=== PATIENT | female | born 1985 | race Caucasian/White ===

== ENCOUNTER 2019-09-20 18:14 | Emergency (ER) | payer OTHER, SELFPAY ==
--- NOTE | ~2019-09-20 | XR_ITS ---
EXAMINATION: XR foot LT min 3V DATE: 09/20/2019 19:45 INDICATION: Left foot pain. TECHNIQUE: 4 views of left foot were obtained. COMPARISON: Left foot radiographs 07/06/2018 FINDINGS: Bone alignment is normal. No fracture. There is mild midfoot osteoarthritis. IMPRESSION: 1. Mild midfoot osteoarthritis. Reviewed, dictated and finalized at location A.
[2019-09-20 18:31] VITALS: BP 129/87; PULSE 79; RESP 16; TEMP 36.9; O2SAT 99
--- NOTE | 2019-09-20 19:19 | ED.LOWEXIN ---
HPI - Extremity Injury (Lower) General Chief Complaint: Extremity Injury, Lower Stated Complaint: KNOT ON TOP OF FOOT. Time Seen by Provider: 09/20/19 19:10 History of Present Illness HPI Narrative: Heal pain radiating up the lower leg for a few days. The pain is constant and gets worse throughout the day, especially with walking or standing for extended periods. 2 days ago noted swelling over the dorsum of the mid foot. She says that that area and the toes both feel like they are asleep. Related Data Home Medications Medication Instructions Recorded Confirmed topiramate 25 mg PO 09/20/19 Allergies Allergy/AdvReac Type Severity Reaction Status Date / Time No Known Allergies Allergy Unverified 09/20/19 18:59 Review of Systems Review of Systems: All systems reviewed & are unremarkable except as noted in HPI and below Constitutional: Constitutional: Denies chills and Denies fever(s) Neurologic: Denies dizziness and Denies weakness PMFSH Social History Social History Gender identity (if verbalized by the patient): Female Exam Const: General: healthy appearing, no acute distress and alert Orientation/consciousness: patient oriented x3 HENMT: Head: normal to inspection Resp: Effort & Inspection: normal respiratory effort Cardio: Jugular venous distension: no JVD Other: 2+ DP on the left Skin: General skin exam: normal color Rashes: no rashes Wounds: no wounds Neuro: General: patient oriented x3 and moves all extremities Speech: normal speech Extrem: Other: Grossly normal exam of left foot and ankle Psych: Appearance: well kempt Affect: normal affect Course Vital Signs Vital signs: Vital Signs Temperature 36.9 C 09/20/19 18:31 Pulse Rate 79 09/20/19 18:31 Respiratory Rate 16 09/20/19 18:31 Blood Pressure 129/87 09/20/19 18:31 Pulse Oximetry 99 09/20/19 18:31 Temperature 36.9 C 09/20/19 18:31 Pulse Rate 70 09/20/19 20:40 Respiratory Rate 18 09/20/19 20:40 Blood Pressure 121/69 09/20/19 20:40 Pulse Oximetry 98 09/20/19 20:40 MDM - Extremity Injury (Lower) MDM Narrative Medical decision making narrative: X-ray shows osteoarthritis. I believe that her symptoms are most likely a combination of this and plantar fascitis Imaging Data Radiologist's impression: ITS Impressions Foot X-Ray 09/20/19 19:46 IMPRESSION: 1. Mild midfoot osteoarthritis. Discharge Plan Discharge Clinical Impression: Osteoarthritis of foot, left, Plantar fasciitis of left foot Patient Disposition: Home, Self-Care Condition: Stable Instructions: Plantar Fasciitis (ED) Prescriptions: New naproxen 500 mg tablet 500 mg PO BID Qty: 30 RF: 0 No Action topiramate 25 mg tablet 25 mg PO RF: 0 Follow-up/Referrals: Edison Block MD [Primary Care Provider] - Discharge Date/Time: 09/20/19 20:50
[2019-09-20 20:40] VITALS: BP 121/69; PULSE 70; RESP 18; O2SAT 98
== END 2019-09-20 20:50 | disposition home or self-care (01) ==
PROVIDERS: Emergency Provider Emergency Medicine; PCP Family Medicine
DX: M19.072 Primary osteoarthritis, left ankle and foot (principal); M72.2 Plantar fascial fibromatosis
CPT/HCPCS: 73630; 99283

== ENCOUNTER 2019-10-14 09:05 | Outpatient (CLI) | payer OTHER, SELFPAY ==
--- NOTE | ~2019-10-14 | US_ITS ---
EXAMINATION: US right upper quadrant DATE: 10/14/2019 09:35 INDICATION: Nausea and vomiting. TECHNIQUE: Multiple grayscale and Doppler ultrasound images of the abdomen were obtained. COMPARISON: CT abdomen and pelvis 06/21/2013 FINDINGS: The visualized portions of the head and body of the pancreas are normal. The liver is kristy l without focal lesion. No liver surface nodularity. There is normal flow in main portal vein. The ga llbladder is normal in size. No gallstones or gallbladder wall thickening. There was no sonographic M urphy sign. The common duct is normal and measures 4 mm. IMPRESSION: 1. Normal right upper quadrant ultrasound. Reviewed, dictated and finalized at location B.
[2019-10-14 10:03] LABS: Basophils Percent Auto 0.6 % (0.2-1.2); Eosinophils Absolute Auto 0.2 K/mm3 (0-0.3); Eosinophils Percent Auto 2.3 % (0-4.4); Hematocrit 38.6 % (37.0-47.0); Hemoglobin 12.2 g/dL (12.0-15.0); Immature Granulocyte Absolute 0.01 K/mm3 (0.00-0.031); Immature Granulocyte Percent A 0.2 % (0-0.5); Lymphocytes Absolute Auto 1.92 K/mm3 (0.9-3.2); Mean Corpuscular HGB Conc 31.6 g/dl (32-36); Mean Corpuscular Hemoglobin 25.6 pg (26-34); Mean Corpuscular Volume 81.1 fl (80-100); Mean Platelet Volume 10.4 fl (7.4-10.4); Monocytes Absolute Auto 0.4 K/mm3 (0.1-0.6); Monocytes Percent Auto 6.4 % (2.6-8.5); Neutrophils Absolute Auto 3.9 K/mm3 (1.3-6.7); Neutrophils Percent Auto 60.5 % (45.5-73.1); Platelet Count Result 260 k/mm3 (150-375); Red Blood Count 4.76 M/mm3 (4.2-5.4); Red Cell Distribution Width 13.3 % (11.5-14.5); White Blood Count 6.4 K/mm3 (4.5-10.0)
[2019-10-14 10:17] LABS: Alanine Aminotransferase 14 U/L (4-35); Albumin Level 3.9 g/dL (3.5-5.1); Alkaline Phosphatase 56 U/L (38-126); Anion Gap 6 mmol/L (8-16); Aspartate Amino Transferase 20 U/L (14-36); Bilirubin,Total 0.3 mg/dL (0.2-1.3); Blood Urea Nitrogen 10 mg/dL (7-17); Calcium 8.6 mg/dL (8.4-10.2); Carbon Dioxide 24 mmol/L (22-30); Chloride 107 mmol/L (98-107); Cholesterol 163 mg/dL (0-200); Estimated Glomerular Filt Rate > 60; Glucose 94 mg/dL (65-105); HDL Direct 37 mg/dL; Potassium 4.4 mmol/L (3.4-5.0); Sodium 137 mmol/L (137-145); Triglycerides 152 mg/dL (<150)
[2019-10-14 10:28] LABS: LDL Cholesterol Direct 95 mg/dL
[2019-10-14 10:43] LABS: Creatinine Urine 109.1 mg/dL
[2019-10-14 10:47] LABS: Total Triiodothyronine (T3) 1.15 NG/ML (0.97-1.69)
[2019-10-14 10:48] LABS: MALB Creatinine Ratio 5.6 mg/g (0-30); Microalbumin Urine Random 6.1 mg/L (0-16.7)
[2019-10-14 10:58] LABS: Free T4 Free Thyroxine 0.68 ng/mL (0.78-2.19)
== END 2019-10-14 09:06 | disposition home or self-care (01) ==
PROVIDERS: PCP Family Medicine; Referring Provider Nurse Practitioner; Visit Provider Family Medicine
DX: R11.0 Nausea (principal)
CPT/HCPCS: 36415; 76705; 80053; 80061; 82043; 82306; 84439; 84443; 84480; 85025

== ENCOUNTER 2020-02-21 12:14 | Outpatient (CLI) | payer OTHER, SELFPAY ==
--- NOTE | ~2020-02-21 | MMUS_ITS ---
EXAMINATION: MM diagnostic carson BI w janice, US breast RT limited HISTORY: Palpable lump in the axillary region of the right breast TECHNIQUE: Craniocaudal, mediolateral, and mediolateral oblique 3-D tomosynthesis images of the breas ts were performed and synthetic 2-D images were generated. CAD analysis was submitted and interpreted . High resolution right axillary ultrasound was performed. COMPARISON: None, baseline BREAST PARENCHYMAL COMPOSITION: There are scattered areas of fibroglandular density. FINDINGS: MAMMOGRAPHIC FINDINGS: Right breast: There is no evidence of suspicious mass, calcification, or architectural distortion to suggest malignancy. No mammographic correlate is identified for the reported palpable lump of the ri ght axilla. Left breast: There is no evidence of suspicious mass, calcification, or architectural distortion to suggest malignancy. ULTRASOUND: No sonographic correlate is identified for the reported palpable abnormality of the right axilla. IMPRESSION: 1. No specific mammographic or sonographic correlate is identified for the reported palpable abnormal ity of concern in the right axilla. Further evaluation at this time should be based on clinical asses sment. Continued follow-up physical examination is recommended. 2. Recommend routine screening mammography beginning at age 40. BI-RADS Category 1: Negative Reviewed, dictated and finalized at location A. GRINDER HELPER IMPRESSION: 1. No specific mammographic or sonographic correlate is identified for the repo rted palpable abnormality of concern in the right axilla. Further evaluation at this time should be based on clinical assessment. Continued follow-up physical examination is recommended. 2. Recommend routine screening mammography beginning at age 40. BI-RADS Category 1: Negative
== END 2020-02-21 12:15 | disposition home or self-care (01) ==
PROVIDERS: PCP Family Medicine; Visit Provider Nurse Practitioner Obstetrics & Gynecology
DX: N63.31 Unspecified lump in axillary tail of the right breast (principal)
CPT/HCPCS: 76642; 77062; 77066; G0279

== ENCOUNTER 2020-03-25 13:15 | Outpatient (CLI) | payer OTHER, SELFPAY ==
[2020-03-25 14:28] LABS: Vitamin D 25 Hydroxy 23.3 ng/mL
== END 2020-03-25 13:16 | disposition home or self-care (01) ==
PROVIDERS: PCP Family Medicine
DX: E55.9 Vitamin D deficiency, unspecified (principal)
CPT/HCPCS: 36415; 82306

== ENCOUNTER 2020-09-15 09:12 | Outpatient (CLI) | payer OTHER, SELFPAY ==
[2020-09-15 09:35] LABS: Basophils Absolute Auto 0.1 K/mm3 (0.0-0.1); Basophils Percent Auto 0.8 % (0.2-1.2); Eosinophils Absolute Auto 0.4 K/mm3 (0-0.3); Eosinophils Percent Auto 5.4 % (0-4.4); Hematocrit 38.8 % (37.0-47.0); Hemoglobin 11.9 g/dL (12.0-15.0); Immature Granulocyte Absolute 0.02 K/mm3 (0.00-0.031); Immature Granulocyte Percent A 0.3 % (0-0.5); Lymphocytes Absolute Auto 1.81 K/mm3 (0.9-3.2); Mean Corpuscular HGB Conc 30.7 g/dl (32-36); Mean Corpuscular Hemoglobin 24.3 pg (26-34); Mean Corpuscular Volume 79.3 fl (80-100); Mean Platelet Volume 10.2 fl (7.4-10.4); Monocytes Absolute Auto 0.7 K/mm3 (0.1-0.6); Neutrophils Absolute Auto 4.6 K/mm3 (1.3-6.7); Neutrophils Percent Auto 60.5 % (45.5-73.1); Platelet Count Result 295 k/mm3 (150-375); Red Blood Count 4.89 M/mm3 (4.2-5.4); Red Cell Distribution Width 14.8 % (11.5-14.5); White Blood Count 7.5 K/mm3 (4.5-10.0)
[2020-09-15 09:50] LABS: Alanine Aminotransferase 14 U/L (4-35); Alkaline Phosphatase 69 U/L (38-126); Anion Gap 9 mmol/L (8-16); Aspartate Amino Transferase 20 U/L (14-36); Bilirubin,Total 0.4 mg/dL (0.2-1.3); Blood Urea Nitrogen 11 mg/dL (7-17); Calcium 9.1 mg/dL (8.4-10.2); Carbon Dioxide 23 mmol/L (22-30); Chloride 107 mmol/L (98-107); Cholesterol 176 mg/dL (0-200); Estimated Glomerular Filt Rate > 60; Glucose 94 mg/dL (65-105); HDL Direct 39 mg/dL; Potassium 4.3 mmol/L (3.4-5.0); Sodium 139 mmol/L (137-145); Triglycerides 178 mg/dL (<150)
[2020-09-15 10:01] LABS: LDL Cholesterol Direct 83 mg/dL
[2020-09-15 10:19] LABS: Creatinine Urine 152.3 mg/dL
[2020-09-15 10:24] LABS: MALB Creatinine Ratio 7.4 mg/g (0-30); Microalbumin Urine Random 11.3 mg/L (0-16.7)
[2020-09-15 10:27] LABS: Total Triiodothyronine (T3) 1.06 NG/ML (0.97-1.69)
[2020-09-15 10:52] LABS: Vitamin D 25 Hydroxy 31.1 ng/mL
[2020-09-15 11:04] LABS: Free T4 Free Thyroxine 0.75 ng/mL (0.78-2.19)
== END 2020-09-15 09:13 | disposition home or self-care (01) ==
LOC: ANHLAB 09:15
PROVIDERS: PCP Family Medicine; Visit Provider Family Medicine
DX: E55.9 Vitamin D deficiency, unspecified (principal); I10 Essential (primary) hypertension; E16.2 Hypoglycemia, unspecified
CPT/HCPCS: 36415; 80053; 80061; 82043; 82306; 83036; 84439; 84443; 84480; 84481; 85025

== ENCOUNTER 2021-02-06 12:35 | Emergency (ER) | payer OTHER, SELFPAY ==
--- NOTE | ~2021-02-06 | XR_ITS ---
EXAMINATION: XR chest 2V DATE: 02/06/2021 13:13 INDICATION: Mid upper chest pain and back pain. COVID positive. TECHNIQUE: PA and lateral views of the chest were obtained. COMPARISON: None FINDINGS: The lungs are clear with no focal airspace opacities, pulmonary edema, pleural effusion or pneumothor ax. The cardiomediastinal silhouette is normal. Mild pectus excavatum. IMPRESSION: 1. No acute cardiopulmonary disease. Reviewed, dictated and finalized at location A. SANE
[2021-02-06 12:46] VITALS: BP 160/110; PULSE 112; RESP 16; TEMP 36.6; O2SAT 99
--- NOTE | 2021-02-06 12:59 | ECG_ITS ---
Measurements Intervals Mason Rate: 80 P: 33 ID: [id number] QRS: 60 QRSD: 98 T: 7 QT: 373 QTc: 431 Interpretive Statements SINUS RHYTHM MINIMAL Q WAVES- INFERIOR LEADS BORDERLINE ST-T WAVE ABNORMALITY- INFERIOR LEADS BASELINE ARTIFACT- II, III, AVR, AVL, AVF, V1-V2 BORDERLINE ECG Electronically Signed On 02-06-2021 20:10:29 TUG HAND by Ishaan Stone D.O.
--- NOTE | 2021-02-06 13:45 | ED.BACK ---
HPI - Back Pain/Injury General Chief Complaint: Back Pain/Injury Stated Complaint: Body aches Source: patient and RN notes reviewed Limitations: no limitations History of Present Illness HPI Narrative: The vaccinated patient, who is a vapor?smoker/nondrinker on several meds, presents with myalgias and back pain. 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 This worsened today to involve her back, proximal extremities and then briefly her anterior chest. No fever, cough, related to breathing, known injury/overuse, weakness, numbness, neck pain, gait changes, S OB, calf tenderness/edema-does have intermittent ankle swelling. She's had Covid disease also?no loss of taste/smell, vomiting/diarrhea, frequency/dysuria, vaginal discharge. Vital signs remarkable for blood pressure is high 150s over 90s, for which she has known history. Related Data Home Medications Medication Instructions Recorded Confirmed topiramate 25 mg PO PRN 09/20/19 02/06/21 lisinopril 40 mg PO DAILY 02/06/21 02/06/21 Allergies Allergy/AdvReac Type Severity Reaction Status Date / Time No Known Allergies Allergy Unverified 02/06/21 12:44 Review of Systems Review of Systems: General/Constitutional: No weight loss,fever Eyes: N0: Redness,discharge Ears/Nose/Throat: No: Epistaxis,ear discharge Respiratory: Denies: Hemoptysis Gastrointestinal: No Vomiting, Bleeding-rectal Skin: No Lumps, eruption Neurologic: No Focal Weakness,Sz Hematologic: Denies: Petechiae/Purpura Psychiatric: No: Suicida ideationl All Other Systems: Reviewed and Negative PMFSH Social History Social History Gender identity (if verbalized by the patient): Female Comments At time of signature, agree with nursing past medical, surgical, social and family history. There is no relevant family history pertinent to the presenting complaint Exam Narrative: General Appearance: Well nourished/overweight EYE: PERRLA, Conjunctiva clear Ears: External ear normal Nose: Normal nose Mouth/Throat: Normal appearing, Normal lips Neck: Supple Respiratory: Airway patent, No respiratory distress Cardiovascular: RRR Abdomen: Soft, Non-tender, Musculoskeletal: Full ROM Skin: Warm, Dry, mild midline thoracic back tenderness Neurological: A&O x3, CN II-X intact, reflexes 2-3+ and symmetric Psychiatric: Normal mood, Normal affect Course Course Emergency Course: Films visualized, interpreted by radiologist, agree, normal see report EKG:normal sinus rhythm, no ST-T changes, Vital Signs Vital signs: Vital Signs Temperature 97.9 F 02/06/21 12:46 Pulse Rate 112 H 02/06/21 12:46 Respiratory Rate 16 02/06/21 12:46 Blood Pressure 160/110 H 02/06/21 12:46 Pulse Oximetry 99 02/06/21 12:46 Temperature 97.9 F 02/06/21 12:46 Pulse Rate 112 H 02/06/21 12:46 Respiratory Rate 16 02/06/21 12:46 Blood Pressure 154/94 H 02/06/21 13:54 Pulse Oximetry 99 02/06/21 12:46 Discharge Plan Discharge Clinical Impression: Labile hypertension Back pain Qualifiers: Back pain location: thoracic back pain Chronicity: acute Back pain laterality: midline Qualified Code(s): M54.6 - Pain in thoracic spine Patient Disposition: Home, Self-Care Condition: Stable Instructions: Thoracic Back Strain (ED) Prescriptions: New prednisone 20 mg tablet 80 mg PO DAILY Qty: 12 RF: 0 tramadol 50 mg tablet 50 - 75 mg PO BID PRN (Reason: pain) Qty: 20 RF: 0 hydrochlorothiazide 12.5 mg capsule 12.5 mg PO DAILY Qty: 30 RF: 2 No Action lisinopril 40 mg tablet 40 mg PO DAILY RF: 0 topiramate 25 mg tablet 25 mg PO PRN RF: 0 naproxen 500 mg tablet 500 mg PO BID Qty: 30 RF: 0 Follow-up/Referrals: Edison Block MD [Primary Care Provider] -
[2021-02-06 13:54] VITALS: BP 154/94
== END 2021-02-06 13:54 | disposition home or self-care (01) ==
PROVIDERS: Emergency Provider Emergency Medicine; PCP Family Medicine
DX: I10 Essential (primary) hypertension (principal); M54.6 Pain in thoracic spine
CPT/HCPCS: 71046; 93005; 99213; G0463

== ENCOUNTER 2021-02-25 02:41 | Emergency (ER) | payer OTHER, SELFPAY ==
[2021-02-25 02:44] VITALS: BP 144/97; PULSE 61; RESP 18; TEMP 36.4; O2SAT 100
[2021-02-25 02:49] VITALS: BP 114/71; PULSE 85; RESP 18; TEMP 36.6; O2SAT 99
--- NOTE | 2021-02-25 03:09 | ED.GENADULT ---
HPI - General Adult General Chief complaint: Unspecified Stated complaint: toothache Time Seen by Provider: 02/25/21 03:06 Source: patient Mode of arrival: ambulatory Limitations: no limitations History of Present Illness HPI narrative: Patient is a 35-year-old female complaining of dental pain, right lower molar that started 3 days ago. Patient states that her pain is an 8 out of 10, dull, aching. Patient denies any facial swelling. Patient denies dysphagia. Patient denies any fever or chills. Related Data Home Medications Medication Instructions Recorded Confirmed topiramate 25 mg PO PRN 09/20/19 02/06/21 lisinopril 40 mg PO DAILY 02/06/21 02/06/21 Allergies Allergy/AdvReac Type Severity Reaction Status Date / Time No Known Allergies Allergy Unverified 02/06/21 12:44 Review of Systems Review of Systems: All systems reviewed & are unremarkable except as noted in HPI and below Constitutional: Constitutional: Reports as per [facility] Social History Social History Gender identity (if verbalized by the patient): Female Comments Past medical history: Hypertension Family history: Hypertension Social history: Positive for smoker, no EtOH or drug use Exam Const: General: cooperative, healthy appearing, comfortable, no acute distress, well developed, alert, awake and Physically active HENMT: Head: normal to inspection, normocephalic and atraumatic Ears: hearing grossly normal bilaterally General nose exam: Normal external nose present Face and sinus: normal facial exam Mouth: Yes Normal oral and palatal mucosa present, Yes lip normal, Yes tongue normal, Yes moist mucous membranes and Yes other (Mild gingival swelling right premolar, negative for abscess) Course Vital Signs Vital signs: Vital Signs Temperature 36.4 C 02/25/21 02:44 Pulse Rate 61 02/25/21 02:44 Respiratory Rate 18 02/25/21 02:44 Blood Pressure 144/97 H 02/25/21 02:44 Pulse Oximetry 100 02/25/21 02:44 Temperature 36.6 C 02/25/21 02:49 Pulse Rate 85 02/25/21 02:49 Respiratory Rate 18 02/25/21 02:49 Blood Pressure 114/71 02/25/21 02:49 Pulse Oximetry 99 02/25/21 02:49 Medical Decision Making Vital Signs Vital Signs: Vital Signs Temperature 36.4 C 02/25/21 02:44 Pulse Rate 61 02/25/21 02:44 Respiratory Rate 18 02/25/21 02:44 Blood Pressure 144/97 H 02/25/21 02:44 Pulse Oximetry 100 02/25/21 02:44 Temperature 36.6 C 02/25/21 02:49 Pulse Rate 85 02/25/21 02:49 Respiratory Rate 18 02/25/21 02:49 Blood Pressure 114/71 02/25/21 02:49 Pulse Oximetry 99 02/25/21 02:49 Discharge Plan Discharge Clinical Impression: Pain, dental Patient Disposition: Home, Self-Care Condition: Stable Instructions: Toothache (ED) Additional Instructions: Follow-up with a dentist in 1 to 2 days Prescriptions: New amoxicillin 875 mg tablet 875 mg PO Q12H Qty: 14 RF: 0 No Action lisinopril 40 mg tablet 40 mg PO DAILY RF: 0 prednisone 20 mg tablet 80 mg PO DAILY Qty: 12 RF: 0 tramadol 50 mg tablet 50 - 75 mg PO BID PRN (Reason: pain) Qty: 20 RF: 0 hydrochlorothiazide 12.5 mg capsule 12.5 mg PO DAILY Qty: 30 RF: 2 topiramate 25 mg tablet 25 mg PO PRN RF: 0 naproxen 500 mg tablet 500 mg PO BID Qty: 30 RF: 0 Follow-up/Referrals: Edison Block MD [Primary Care Provider] - Time of Disposition: 03:12
[2021-02-25] MEDS: KETOROLAC (*BKC) 60 MG/2 ML VIAL IM (03:16)
== END 2021-02-25 03:33 | disposition home or self-care (01) ==
PROVIDERS: Emergency Provider Emergency Medicine; PCP Family Medicine
DX: K08.89 Other specified disorders of teeth and supporting structures (principal); I10 Essential (primary) hypertension
CPT/HCPCS: 96372; 99283; J1885

== ENCOUNTER 2021-06-14 18:48 | Emergency (ER) | payer OTHER, SELFPAY ==
[2021-06-14 19:00] VITALS: BP 146/96; PULSE 76; RESP 16; TEMP 36.6; O2SAT 100
[2021-06-14 19:47] LABS: D Dimer 0.46 ug/mL (<0.48)
--- NOTE | 2021-06-14 20:00 | ED.LOWEXIN ---
HPI - Extremity Injury (Lower) General Chief Complaint: Extremity Injury, Lower Stated Complaint: left leg pain Time Seen by Provider: 06/14/21 19:05 Source: patient Mode of arrival: ambulatory Limitations: no limitations History of Present Illness HPI Narrative: Patient is 36 years old white female complaining of pain at the front of left lower leg below the knee and left foot anteriorly. Patient denies any pain or swelling at the back of the left leg. Patient reported that she had swelling ankles bilaterally 5 days ago, resolved in 2 days ago. Patient was told by her family physician to go to the emergency room to rule out the possibility of deep vein thrombosis. 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 Related Data Home Medications Medication Instructions Recorded Confirmed topiramate 25 mg PO PRN 09/20/19 02/06/21 lisinopril 40 mg PO DAILY 02/06/21 02/06/21 Allergies Allergy/AdvReac Type Severity Reaction Status Date / Time No Known Allergies Allergy Unverified 02/06/21 12:44 Review of Systems Review of Systems: CONSTITUTIONAL: Denies fever, chills, or sweats. EYES: Denies visual changes, redness, or discharge. ENT: Denies rhinorrhea, congestion, sore throat, or otalgia. CARDIOVASCULAR: Denies chest pain, palpitations, or edema. RESPIRATORY: Denies cough or dyspnea. GASTROINTESTINAL: Denies abdominal pain, nausea, vomiting, or diarrhea. GENITOURINARY: Denies dysuria or hematuria. SKIN: Denies rash or itching. MUSCULOSKELETAL: Denies back pain, joint pain, or myalgia. NEUROLOGIC: Denies headache, numbness, or weakness. PSYCHIATRIC: Denies anxiety or depression. PMFSH Social History Social History Gender identity (if verbalized by the patient): Female Exam Narrative: General appearance: Well-developed, well-nourished Skin: Normal color Head: Normocephalic, nontraumatic Chest and respiratory: Airway patent, no respiratory distress, no accessory muscle use Heart: Regular rate/rhythm Abdomen: Soft, nontender, no organomegaly, quiet bowel sounds Vascular: Normal peripheral pulses, normal capillary refill. Musculoskeletal: Normal range of motion, nontender back left lower leg exam showed no localized tenderness, no erythema, no rash, no swelling or edema. t Course Course Emergency Course: Musculoskeletal pain is my concern. Physical examination is not consistent with deep vein thrombosis. Negative D-dimer. Vital Signs Vital signs: Vital Signs Temperature 36.6 C 06/14/21 19:00 Pulse Rate 76 06/14/21 19:00 Respiratory Rate 16 06/14/21 19:00 Blood Pressure 146/96 H 06/14/21 19:00 Pulse Oximetry 100 06/14/21 19:00 Temperature 36.6 C 06/14/21 19:00 Pulse Rate 76 06/14/21 19:00 Respiratory Rate 16 06/14/21 19:00 Blood Pressure 146/96 H 06/14/21 19:00 Pulse Oximetry 100 06/14/21 19:00 MDM - Extremity Injury (Lower) Lab Data Labs: Lab Results 06/14/21 Range/Units 19:26 D-Dimer 0.46 (<0.48) ug/mL Critical Care Time Critical Care Time Critical Care Time: No Discharge Plan Discharge Clinical Impression: Left leg pain Patient Disposition: Home, Self-Care Condition: Stable Instructions: Antibiotic Form Additional Instructions: Return if symptoms are worsening , call your family physician for appointment, take Tylenol as as needed for aches and pain, continue home medications., keep leg elevated, ibuprofen 600 every 6 hours as needed, compression stocking. Prescriptions: No Action lisinopril 40 mg tablet 40 mg PO DAILY RF: 0 prednisone 20 mg tablet 80 mg PO DAILY Qty: 12 RF:
== END 2021-06-14 20:17 | disposition home or self-care (01) ==
PROVIDERS: Emergency Provider Emergency Medicine; PCP Family Medicine
DX: M79.662 Pain in left lower leg (principal)
CPT/HCPCS: 36415; 85380; 99283

== ENCOUNTER 2021-10-07 07:12 | Emergency (ER) | payer OTHER, SELFPAY ==
[2021-10-07 07:22] VITALS: BP 150/108; PULSE 85; RESP 16; O2SAT 99
--- NOTE | 2021-10-07 07:33 | ED.BACK ---
HPI - Back Pain/Injury General Chief Complaint: Back Pain/Injury Stated Complaint: low back pain Time Seen by Provider: 10/07/21 07:13 Source: RN notes reviewed History of Present Illness HPI Narrative: Patient presents emergency room from home for back pain. Patient states she notes bilateral lower back pain that is worse on the left since yesterday she states the pain started after she got out of her car and began walking yesterday the pain is located in lower back and radiates down to the bilateral legs is described as sharp and stabbing and she feels like her lower back is locked up. She denies falling or any direct trauma or injury to the back. States she does have a history of sciatica and it feels similar to prior she denies any fevers or chills abdominal pain nausea vomiting denies any bowel or bladder incontinence. She notes mild intermittent tingling in her right thigh but denies any at this time denies any weakness of the legs patient states she drove her self to the emergency department Related Data Home Medications Medication Instructions Recorded Confirmed topiramate 25 mg tablet 25 mg PO PRN headache 09/20/19 02/06/21 lisinopril 40 mg tablet 40 mg PO DAILY 02/06/21 02/06/21 Allergies Allergy/AdvReac Type Severity Reaction Status Date / Time No Known Allergies Allergy Unverified 02/06/21 12:44 Review of Systems Review of Systems: Gen.: Denies fevers or chills ENT: Denies congestion Respiratory: Denies shortness of breath or cough CV: Denies chest pain or palpitations GI: Denies abdominal pain nausea, emesis or diarrhea denies incontinence Musculoskeletal: HPI Neuro: Denies numbness, tingling, weakness or focal weakness Skin: Denies rash Except as documented, all other systems reviewed and negative [facility] Past Medical History Medical History (Updated 10/07/21 @ 08:46 by Hao Farias DO) Patient denies significant medical history Social History Social History (Updated 10/07/21 @ 07:35 by Hao Farias DO) Smoking status: Never smoker Gender identity (if verbalized by the patient): Female Exam Narrative: APPEARANCE: No acute distress, nontoxic, resting in bed Eyes: EOMI HEENT: Normocephalic, atraumatic, CV: Regular rate and rhythm without murmur RESPIRATORY: No respiratory distress. Clear to auscultation bilaterally. Abdomen: Soft and nontender, no rebound or guarding MUSCULOSKELETAl: Moves all extremities, no clubbing cyanosis or edema Back: No midline lumbar tenderness to palpation or step-off, tender to palpation over bilateral but worse on left paravertebral muscles L3-5 and tenderness in the left piriformis region pain increased with forward flexion NEURO: Awake and alert. Following commands, speech normal, no focal deficits, muscle strength 5 out of 5 bilateral lower extremities, bilateral patellar reflex 2+ SKIN:: Warm, dry. Normal Color no rash or lesions Course Course Emergency Course: Discussed with patient results of workup and diagnosis. Discussed need for follow-up with primary care, proper use of medication, and reasons to return to the emergency department. Patient understands and agrees to current treatment plan Vital Signs Vital signs: Vital Signs Pulse Rate 85 10/07/21 07:22 Respiratory Rate 16 10/07/21 07:22 Blood Pressure 150/108 H 10/07/21 07:22 Pulse Oximetry 99 10/07/21 07:22 Pulse Rate 85 10/07/21 07:22 Respiratory Rate 16 10/07/21 07:22 Blood Pressure 150/108 H 10/07/21 07:22 Pulse Oximetry 99 10/07/21 07:22 MDM - Back Pain/Injury MDM Narrative Medical decision making narrative: Patient?s pain is positional and localized to back without signs of cord compression or cauda equina. Normal nuerologic exams. No fever noted and no significant risk factors for osteomyelitis or spinal epidural abscess. No symptoms or signs to suggest pain is referred from abdominal or source. There are no pulsatile masses to exam.
[2021-10-07] MEDS: KETOROLAC (*BKC) 60 MG/2 ML VIAL IM (07:50)
[2021-10-07 07:52] LABS: Appearance Urine Cloudy (Clear); Bilirubin Urine Negative (Negative); Blood Urine Trace-lysed (Negative); Color Urine Yellow (Yellow); Glucose Urine UA Negative (Negative); Ketones Urine Negative (Negative); Leukocyte Esterase Ur 1+ LEU/UL (Negative); Nitrate Urine Negative (Negative); Protein Urine Negative (Negative); Specific Grav Ur >= 1.030 (1.001-1.035); Urobilinogen Urine 0.2 mg/dL (<2.0); pH Urine 5.5 (5.0-9.0)
[2021-10-07 07:59] LABS: Bacteria Urine Trace /hpf; Mucus Urine Few /lpf; Squamous Epithelial Cell Urine Many /hpf (Few); WBC Urine 16-20 /hpf
[2021-10-07 08:00] LABS: Add Urine Microscopic? YES
== END 2021-10-07 08:58 | disposition home or self-care (01) ==
PROVIDERS: Emergency Provider Emergency Medicine; PCP Family Medicine
DX: M54.50 Low back pain, unspecified (principal)
CPT/HCPCS: 81001; 81025; 87086; 96372; 99283; J1885

== ENCOUNTER 2021-10-17 07:55 | Outpatient (CLI) | payer OTHER, SELFPAY ==
--- NOTE | ~2021-10-17 | XR_ITS ---
XR lumbar spine 2-3V 10/17/2021 08:16 Indication: Low back pain Procedure: 3 views lumbar spine Comparison: 12/03/2017 Findings: There has been progression of disc narrowing at L3-4 and L4-5. There is also mild disc narr owing at L2-3 and L5-S1. No acute fracture or traumatic malalignment. There is mild levoscoliosis. Pe dicles intact. Sacral foramen are symmetric. Impression: 1: Moderate lumbar spondylosis with levoscoliosis. Reviewed, dictated and finalized at location A. Impression: 1: Moderate lumbar spondylosis with levoscoliosis.
--- NOTE | ~2021-10-17 | XR_ITS ---
XR pelvis 1-2V 10/17/2021 08:16 Indication: Low back pain Procedure: AP pelvis Comparison: 12/03/2017 Findings: Pelvic rings are intact. Sacral foramen are symmetric. No fracture, subluxation or dislocat ion. No significant soft tissue abnormality. No foreign bodies. Impression: 1: No significant abnormality of the pelvis. Reviewed, dictated and finalized at location A. Impression: 1: No significant abnormality of the pelvis.
== END 2021-10-17 07:56 | disposition home or self-care (01) ==
PROVIDERS: PCP Family Medicine; Visit Provider Family Medicine
DX: M54.50 Low back pain, unspecified (principal); M47.896 Other spondylosis, lumbar region
CPT/HCPCS: 72100; 72170

== ENCOUNTER 2022-04-15 09:31 | Outpatient (CLI) | payer OTHER, SELFPAY ==
[2022-04-15 10:10] LABS: Basophils Percent Auto 0.7 % (0.2-1.2); Eosinophils Absolute Auto 0.2 K/mm3 (0-0.3); Eosinophils Percent Auto 4.2 % (0-4.4); Hematocrit 37.5 % (37.0-47.0); Hemoglobin 12.1 g/dL (12.0-15.0); Immature Granulocyte Absolute 0.01 K/mm3 (0.00-0.031); Immature Granulocyte Percent A 0.2 % (0-0.5); Lymphocytes Absolute Auto 1.65 K/mm3 (0.9-3.2); Lymphocytes Percent Auto 28.6 % (18.3-44.2); Mean Corpuscular HGB Conc 32.3 g/dl (32-36); Mean Corpuscular Hemoglobin 25.7 pg (26-34); Mean Corpuscular Volume 79.6 fl (80-100); Mean Platelet Volume 10.2 fl (7.4-10.4); Monocytes Absolute Auto 0.4 K/mm3 (0.1-0.6); Monocytes Percent Auto 6.8 % (2.6-8.5); Neutrophils Absolute Auto 3.4 K/mm3 (1.3-6.7); Neutrophils Percent Auto 59.5 % (45.5-73.1); Platelet Count Result 280 k/mm3 (150-375); Red Blood Count 4.71 M/mm3 (4.2-5.4); Red Cell Distribution Width 14.6 % (11.5-14.5); White Blood Count 5.8 K/mm3 (4.5-10.0)
[2022-04-15 10:20] LABS: Alanine Aminotransferase 19 U/L (6-35); Alkaline Phosphatase 59 U/L (38-126); Anion Gap 2 mmol/L (8-16); Aspartate Amino Transferase 21 U/L (14-36); Bilirubin,Total 0.5 mg/dL (0.2-1.3); Blood Urea Nitrogen 16 mg/dL (7-17); Calcium 8.4 mg/dL (8.4-10.2); Carbon Dioxide 27 mmol/L (22-30); Chloride 106 mmol/L (98-107); Cholesterol 187 mg/dL (0-200); Estimated Glomerular Filt Rate > 60; Glucose 89 mg/dL (65-110); HDL Direct 44 mg/dL; Potassium 4.2 mmol/L (3.4-5.0); Sodium 135 mmol/L (137-145); Triglycerides 94 mg/dL (<150)
[2022-04-15 10:31] LABS: LDL Cholesterol Direct 100 mg/dL
[2022-04-15 10:51] LABS: Thyroid Stimulating Hormone 0.965 uIU/mL (0.465-4.680)
[2022-04-15 11:12] LABS: Free T4 Free Thyroxine 0.76 ng/mL (0.78-2.19); Vitamin D 25 Hydroxy 20.7 ng/mL
[2022-04-15 12:00] LABS: Total Triiodothyronine (T3) 0.99 NG/ML (0.97-1.69)
== END 2022-04-15 09:32 | disposition home or self-care (01) ==
LOC: ANHLAB 09:34
PROVIDERS: PCP Family Medicine; Visit Provider Family Medicine
DX: R53.1 Weakness (principal); R53.83 Other fatigue; E55.9 Vitamin D deficiency, unspecified; I10 Essential (primary) hypertension
CPT/HCPCS: 36415; 80053; 80061; 82306; 84439; 84443; 84480; 85025

== ENCOUNTER 2022-04-17 09:18 | Outpatient (CLI) | payer OTHER, SELFPAY ==
--- NOTE | ~2022-04-17 | XR_ITS ---
EXAM: XR knee RT min 4V DATE: 04/17/2022 09:37 HISTORY: Right knee pain, getting worse, no injury . COMPARISON: None available. FINDINGS: Normal mineralization. No fracture or dislocation. No lytic or blastic lesion. Mild medial joint space narrowing and osteophytosis. Minimal patellar osteophytosis. No erosion or periosteal ch carola. Soft tissues within normal limits. Small volume joint fluid. IMPRESSION: Bicompartmental mild osteoarthritic change, most notable in the medial compartment. Small right knee joint effusion. Reviewed, dictated and finalized at location K. ACE MINER IMPRESSION: Bicompartmental mild osteoarthritic change, most notable in the med ial compartment. Small right knee joint effusion.
== END 2022-04-17 09:19 | disposition home or self-care (01) ==
PROVIDERS: PCP Family Medicine; Visit Provider Nurse Practitioner Adult Health
DX: M17.11 Unilateral primary osteoarthritis, right knee (principal); M25.461 Effusion, right knee
CPT/HCPCS: 73564

== ENCOUNTER 2022-07-22 13:48 | Outpatient (CLI) | payer OTHER, SELFPAY ==
--- NOTE | ~2022-07-22 | US_ITS ---
EXAMINATION: US pelvic complete w TV DATE: 07/22/2022 14:48 INDICATION: Abnormal vaginal bleeding Comparison:No prior studies for comparison. TECHNIQUE: Multiple transabdominal and endovaginal sonographic images of the pelvis performed. FINDINGS: The uterus measures 8.3 x 5.9 x 6.8 cm. The endometrial complex measures 1.3 cm. The right ovary measures 2.4 x 1.3 x 1.6 cm and the left ovary measures 2.8 x 2 x 1.6 cm. There are small follicles in each ovary. Normal doppler signal in both ovaries. There is free fluid in the pelvis. There are no abnormal masses seen on either side. IMPRESSION: 1. Mild endometrial thickening. Reviewed, dictated and finalized at location B.
[2022-07-22 15:08] LABS: Basophils Absolute Auto 0.1 K/mm3 (0.0-0.1); Basophils Percent Auto 0.7 % (0.2-1.2); Eosinophils Absolute Auto 0.3 K/mm3 (0-0.3); Eosinophils Percent Auto 4.3 % (0-4.4); Hematocrit 39.2 % (37.0-47.0); Hemoglobin 12.5 g/dL (12.0-15.0); Immature Granulocyte Absolute 0.01 K/mm3 (0.00-0.031); Immature Granulocyte Percent A 0.1 % (0-0.5); Lymphocytes Absolute Auto 2.05 K/mm3 (0.9-3.2); Lymphocytes Percent Auto 30.7 % (18.3-44.2); Mean Corpuscular HGB Conc 31.9 g/dl (32-36); Mean Corpuscular Hemoglobin 26.2 pg (26-34); Mean Corpuscular Volume 82.2 fl (80-100); Monocytes Absolute Auto 0.5 K/mm3 (0.1-0.6); Monocytes Percent Auto 7.3 % (2.6-8.5); Neutrophils Absolute Auto 3.8 K/mm3 (1.3-6.7); Neutrophils Percent Auto 56.9 % (45.5-73.1); Platelet Count Result 317 k/mm3 (150-375); Red Blood Count 4.77 M/mm3 (4.2-5.4); Red Cell Distribution Width 14.6 % (11.5-14.5); White Blood Count 6.7 K/mm3 (4.5-10.0)
[2022-07-22 15:14] LABS: Appearance Urine Clear (Clear); Bacteria Urine Rare /hpf; Bilirubin Urine Negative (Negative); Blood Urine Negative (Negative); Color Urine Yellow (Yellow); Glucose Urine UA Negative (Negative); Ketones Urine Negative (Negative); Leukocyte Esterase Ur 2+ LEU/UL (Negative); Nitrate Urine Negative (Negative); Non Pathogenic Casts 0-2; Protein Urine Negative (Negative); RBC Urine 0-2 /hpf (0-2); Specific Grav Ur 1.012 (1.001-1.035); Squamous Epithelial Cell Urine Few /hpf (Few); Urobilinogen Urine 0.2 mg/dL (<2.0)
[2022-07-22 15:20] LABS: Alanine Aminotransferase 19 U/L (6-35); Albumin Level 4.1 g/dL (3.5-5.1); Alkaline Phosphatase 69 U/L (38-126); Anion Gap 5 mmol/L (8-16); Aspartate Amino Transferase 24 U/L (14-36); Bilirubin,Total 0.5 mg/dL (0.2-1.3); Blood Urea Nitrogen 13 mg/dL (7-17); Calcium 8.7 mg/dL (8.4-10.2); Carbon Dioxide 28 mmol/L (22-30); Chloride 105 mmol/L (98-107); Estimated Glomerular Filt Rate > 60; Glucose 86 mg/dL (65-110); Potassium 4.6 mmol/L (3.4-5.0); Sodium 138 mmol/L (137-145)
[2022-07-22 15:21] LABS: Add Urine Microscopic? YES
[2022-07-22 15:24] LABS: Iron 40 ug/dL (37-170)
[2022-07-22 15:34] LABS: Percent Iron Saturation 10 % (20-50)
== END 2022-07-22 13:49 | disposition home or self-care (01) ==
PROVIDERS: PCP Family Medicine; Visit Provider Nurse Practitioner Adult Health
DX: N94.6 Dysmenorrhea, unspecified (principal); N93.9 Abnormal uterine and vaginal bleeding, unspecified
CPT/HCPCS: 36415; 76830; 76856; 80053; 81001; 83540; 83550; 85025; 87086; 87147; 87181; 87186

== ENCOUNTER 2022-09-11 10:17 | Emergency (ER) | payer OTHER, SELFPAY ==
[2022-09-11 10:24] VITALS: BP 133/95; PULSE 74; RESP 16; TEMP 36.4; O2SAT 100
--- NOTE | 2022-09-11 10:25 | ED.NECK ---
HPI - Neck Pain/Injury General Chief Complaint: Neck Pain/Injury Stated Complaint: neck pain Source: patient and RN notes reviewed History of Present Illness HPI Narrative: 37 yo F presents to urgent care with complaints of left lateral neck pain since waking up morning. Pt states it wasn't much on and Monday. Pt states yesterday it started to get a little worse so she took some ibuprofen with no relief. Pt states today she woke up and the pain had worsened even more. Pt denies any injury or trauma. Denies any numbness, tingling, arm pain, fevers, chills, or other complaints. Pt reports worsening pain when she turns her head to the left. Related Data Home Medications Medication Instructions Recorded Confirmed topiramate 25 mg tablet 25 mg PO PRN headache 09/20/19 09/11/22 lisinopril 40 mg tablet 40 mg PO DAILY 02/06/21 09/11/22 Allergies Allergy/AdvReac Type Severity Reaction Status Date / Time No Known Allergies Allergy Unverified 09/11/22 10:25 Review of Systems Review of Systems: CONSTITUTIONAL: Denies fever, chills, or sweats. EYES: Denies visual changes, redness, or discharge. ENT: Denies otalgia and sore throat CARDIOVASCULAR: Denies chest pain, palpitations, or edema. RESPIRATORY: Denies cough or dyspnea. GASTROINTESTINAL: Denies abdominal pain, nausea, vomiting, or diarrhea. GENITOURINARY: Denies dysuria or hematuria. SKIN: Denies rash or itching. MUSCULOSKELETAL: left neck pain NEUROLOGIC: Denies headache, numbness, or weakness. Pertinent positives per HPI. PMFSH Past Medical History Medical History (Updated 09/11/22 @ 10:34 by Damaris Tavares, LINE REPAIRER TOWER) Patient denies significant medical history Social History Social History (Updated 10/07/21 @ 07:35 by Hao Farias DO) Smoking status: Never smoker Gender identity (if verbalized by the patient): Female Comments At the time of my signature, I reviewed and agree with the nursing past medical, surgical, social, and family history. There is no relevant family history pertinent to the patient complaint. Exam Narrative: GENERAL: This is a well-nourished, well-developed patient, in no apparent distress. HEAD: normocephalic, atraumatic. EYES: Sclera clear/white. Vision is grossly intact. EARS: External ears normal, auditory canals clear and without drainage. Hearing grossly intact. NOSE: External nose normal with no obvious nasal discharge, nares without redness, no rhinorrhea. THROAT: Mucous membranes moist, posterior pharynx clear. NECK: Neck supple, slightly tender on left lateral neck. Near full range of motion. CARDIOVASCULAR: Regular rate and rhythm without murmurs, gallops, or rubs. RESPIRATORY: Clear to auscultation. Breath sounds equal bilaterally. No wheezes, rales, or rhonchi. GASTROINTESTINAL: Abdomen soft, non-tender, nondistended. Bowel sounds are active. No hepato-splenomegaly, or palpable masses. No guarding. SKIN: warm, intact with no suspicious lesions or rash, good texture and turgor. NEURO: awake, alert, and oriented to person, place and time. There were no obvious focal neurologic abnormalities. EXTREMITIES: No clubbing, cyanosis, or edema. No joint tenderness, effusion, or edema noted. BACK: Nontender without deformity or crepitus. No flank tenderness. Course Course Level of Care: Express Care Visit Vital Signs Vital signs: Vital Signs Temperature 97.6 F 09/11/22 10:24 Pulse Rate 74 09/11/22 10:24 Respiratory Rate 16 09/11/22 10:24 Blood Pressure 133/95 H 09/11/22 10:24 Pulse Oximetry 100 09/11/22 10:24 Temperature 97.6 F 09/11/22 10:24 Pulse Rate 74 09/11/22 10:24 Respiratory Rate 16 09/11/22 10:24 Blood Pressure 133/95 H 09/11/22 10:24 Pulse Oximetry 100 09/11/22 10:24 reviewed MDM - Neck Pain/Injury MDM Narrative Medical decision making narrative: Take the steroids as directed. may take the muscle relaxers as directed, but no drivin
== END 2022-09-11 10:37 | disposition home or self-care (01) ==
PROVIDERS: Emergency Provider Nurse Practitioner Family; PCP Family Medicine
DX: S16.1XXA Strain of muscle, fascia and tendon at neck level, initial encounter (principal); X58.XXXA Exposure to other specified factors, initial encounter; I10 Essential (primary) hypertension
CPT/HCPCS: 99213; G0463

== ENCOUNTER 2022-09-11 21:59 | Emergency (ER) | payer OTHER, SELFPAY ==
--- NOTE | ~2022-09-11 | CT_ITS ---
Noncontrast CT scan of the cervical spine Technique: Multiple contiguous axial [address] images of the cervical spine were obtained and rec onstructed in 2D sagittal and coronal planes on the acquisition scanner. Dose reduction technique was used on this scan by utilizing automated exposure control, adjustment of the mA and/or kV according to patient size. The dose-length product (DLP) was 522.23 mGy-cm. Clinical History: Pain Findings: No fractures or dislocations. There is minimal reversal of the normal cervical lordosis. T he intervertebral disc spaces are preserved. No prevertebral soft tissue swelling. Impression: No fracture or subluxation of the cervical spine. Reviewed, dictated and finalized at location . Impression: No fracture or subluxation of the cervical spine.
[2022-09-11 22:02] VITALS: BP 189/113; PULSE 87; RESP 15; TEMP 36.3; O2SAT 100
[2022-09-11 22:11] VITALS: BP 175/128; PULSE 68; RESP 16; TEMP 36.4; O2SAT 100
--- NOTE | 2022-09-11 23:01 | ED.GENADULT ---
HPI - General Adult General Chief complaint: Neck Pain/Injury Stated complaint: neck pain/head pain Time Seen by Provider: 09/11/22 22:12 Source: patient Mode of arrival: ambulatory Limitations: no limitations History of Present Illness HPI narrative: This is a 37-year-old female who presents to the ED with chief complaint of left-sided neck pain beginning 4 days ago. Patient states the pain worsened yesterday and acutely today. She went to urgent care earlier today and was given a muscle relaxer and steroid prescription and states that these did not help. Her pain became worse so she came to the ER. Patient reports the pain radiates into the left shoulder and up into the left side of the back of the head. Reports it is positional in nature and worse with certain movements. Denies any recent trauma or injury. States that it may have started after sleeping on it wrong. Denies any recent illness. Denies any sick contacts. Denies fevers, chills, nausea, vomiting, chest pain, shortness of breath, LOC, vision changes. Immunizations are up-to-date. Related Data Home Medications Medication Instructions Recorded Confirmed topiramate 25 mg tablet 25 mg PO PRN headache 09/20/19 09/11/22 lisinopril 40 mg tablet 40 mg PO DAILY 02/06/21 09/11/22 Allergies Allergy/AdvReac Type Severity Reaction Status Date / Time No Known Allergies Allergy Verified 09/11/22 22:00 [facility] Past Medical History Medical History (Updated 09/12/22 @ 00:13 by Ian Ann PA-C) Patient denies significant medical history Social History Social History (Updated 10/07/21 @ 07:35 by Hao Farias DO) Smoking status: Never smoker Gender identity (if verbalized by the patient): Female Exam Narrative: GENERAL: Well-appearing, well-nourished, and in no acute distress. HEAD: Normocephalic, atraumatic. EYES: PERRLA and EOMI. ENT: Nares clear, no rhinorrhea or epistaxis. Mucous membranes moist. Oropharynx without tonsillar hypertrophy exudate or other lesions. NECK: Supple. No adenopathy or masses. C-spine: Midline tenderness present. No step-offs or deformities. No tenderness throughout the rest of the spine. Paraspinal left-sided tenderness at the C-spine. Follows the trapezius distribution of the shoulder and occiput. Range of motion is limited with leftward rotation due to pain. Otherwise range of motion is fully intact. CHEST: No respiratory distress. Clear to auscultation. No wheezes rales or rhonchi HEART: Regular rate and rhythm. No murmur heard. Normal peripheral pulses. ABDOMEN: Soft, nontender, nondistended, normal active bowel sounds. MSK: Ambulatory. No edema. No bruises. 5 out of 5 strength and sensation to the upper and lower extremities. SKIN: Warm, dry, no rash. NEURO: Alert and oriented x3. No focal deficits. PSYCH: Normal mood and affect. Course Course Emergency Course: Reevaluation 0011: Patient feeling much better after IV fluids, Toradol, Benadryl, Compazine. She is ready to go home. Vital Signs Vital signs: Vital Signs Temperature 97.4 F L 09/11/22 22:02 Pulse Rate 87 09/11/22 22:02 Respiratory Rate 15 09/11/22 22:02 Blood Pressure 189/113 H 09/11/22 22:02 Pulse Oximetry 100 09/11/22 22:02 Oxygen Delivery Room Air 09/11/22 22:02 Temperature 97.4 F L 09/12/22 00:24 Pulse Rate 76 09/12/22 00:24 Respiratory Rate 14 09/12/22 00:24 Blood Pressure 138/98 H 09/12/22 00:24 Pulse Oximetry 97 09/12/22 00:24 Oxygen Delivery Room Air 09/11/22 22:02 Medical Decision Making MDM Narrative Medical decision making narrative: This is a 37-year-old female who presents to the ED with chief complaint of left-sided neck pain beginning several days ago and worse today. She was seen by urgent care earlier and given prescriptions for muscle relaxer and steroids. Initial vitals are benign. Her blood pressure is elevated but this is likely due to pain. Her exam reveals lef
[2022-09-11 23:08] LABS: Basophils Absolute Auto 0.1 K/mm3 (0.0-0.1); Basophils Percent Auto 0.7 % (0.2-1.2); Eosinophils Absolute Auto 0.2 K/mm3 (0-0.3); Eosinophils Percent Auto 2.2 % (0-4.4); Hematocrit 39.5 % (37.0-47.0); Hemoglobin 12.3 g/dL (12.0-15.0); Immature Granulocyte Absolute 0.02 K/mm3 (0.00-0.031); Immature Granulocyte Percent A 0.2 % (0-0.5); Lymphocytes Absolute Auto 1.94 K/mm3 (0.9-3.2); Mean Corpuscular HGB Conc 31.1 g/dl (32-36); Mean Corpuscular Volume 83.5 fl (80-100); Mean Platelet Volume 10.5 fl (7.4-10.4); Monocytes Absolute Auto 0.8 K/mm3 (0.1-0.6); Monocytes Percent Auto 7.1 % (2.6-8.5); Neutrophils Absolute Auto 7.7 K/mm3 (1.3-6.7); Neutrophils Percent Auto 71.8 % (45.5-73.1); Platelet Count Result 300 k/mm3 (150-375); Red Blood Count 4.73 M/mm3 (4.2-5.4); Red Cell Distribution Width 14.3 % (11.5-14.5); White Blood Count 10.8 K/mm3 (4.5-10.0)
[2022-09-11] MEDS: SODIUM CHLORIDE 0.9% IV 1,000 ML 999 ML IV CONT (23:11)
[2022-09-11] MEDS: KETOROLAC 30 MG/ML VIAL (*BKC) IV PUSH (23:12)
[2022-09-11] MEDS: PROCHLORPERAZINE EDISYLATE 10 MG/2 ML VIAL IV PUSH (23:12)
[2022-09-11] MEDS: diphenhydrAMINE HCl INJ 50 MG/ML VIAL 25 MG IV PUSH (23:12)
[2022-09-11 23:13] LABS: Alanine Aminotransferase 18 U/L (6-35); Albumin Level 3.8 g/dL (3.5-5.1); Alkaline Phosphatase 56 U/L (38-126); Anion Gap 1 mmol/L (8-16); Aspartate Amino Transferase 19 U/L (14-36); Bilirubin,Total 0.3 mg/dL (0.2-1.3); Blood Urea Nitrogen 18 mg/dL (7-17); Calcium 8.3 mg/dL (8.4-10.2); Carbon Dioxide 27 mmol/L (22-30); Chloride 107 mmol/L (98-107); Estimated CRCL calculation 126 ml/min; Estimated Glomerular Filt Rate > 60; Glucose 99 mg/dL (65-110); Potassium 3.8 mmol/L (3.4-5.0); Sodium 135 mmol/L (137-145)
[2022-09-12 00:24] VITALS: BP 138/98; PULSE 76; RESP 14; TEMP 36.3; O2SAT 97
== END 2022-09-12 00:25 | disposition home or self-care (01) ==
PROVIDERS: Emergency Provider Physician Assistant; PCP Family Medicine
DX: M54.2 Cervicalgia (principal)
CPT/HCPCS: 36415; 72125; 80053; 85025; 96361; 96374; 96375; 99284; J0780; J1200; J1885; J7030

== ENCOUNTER 2023-04-23 09:33 | Emergency (ER) | payer OTHER, SELFPAY ==
--- NOTE | ~2023-04-23 | XR_ITS ---
EXAMINATION: XR chest 2V DATE: 04/23/2023 10:11 INDICATION: Upper respiratory tract infection with cough and congestion TECHNIQUE: PA and lateral views of the chest were obtained. COMPARISON: Chest radiograph dated 02/06/2021 FINDINGS: The lungs remain clear with no focal airspace opacities, pulmonary edema, pleural effusion or pneumot horax. The cardiomediastinal silhouette is normal. Mild S-shaped curvature of the thoracic spine with mild spondylosis. IMPRESSION: 1. No acute cardiopulmonary disease. Reviewed, dictated and finalized at location A. RUCTIONAL SUPPORT SPECIALIST
[2023-04-23 09:48] VITALS: BP 157/99; PULSE 109; RESP 20; TEMP 37.4; O2SAT 100
[2023-04-23 10:48] LABS: Influenza A QL RT-PCR Positive (Negative); Influenza B QL RT-PCR Negative (Negative); RSV RNA, RT-PCR Negative (Negative); SARS-CoV-2 RNA PCR Negative (Negative)
--- NOTE | 2023-04-23 12:08 | ED.URI ---
HPI - URI/Sore Throat General Chief Complaint: Upper Respiratory Infection Stated Complaint: cough, chest congestion Time Seen by Provider: 04/23/23 10:49 Source: patient Mode of arrival: ambulatory Limitations: no limitations History of Present Illness HPI Narrative: Patient is a 38-year-old female who presents the ED with report of URI sx's. Patient reports she began feeling ill on Monday evening, reports multiple your eye symptoms, including cough, congestion, rhinorrhea, mild sore throat, fevers. 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 Has been taking Jaclyn-Lohn cold and flu for her symptoms with minimal improvement. Reports chest wall pain associated with coughing, denies chest pain at rest. Denies shortness of breath. Denies hemoptysis. Denies nausea, vomiting, abdominal pain. Related Data Home Medications Medication Instructions Recorded Confirmed topiramate 25 mg tablet 25 mg PO PRN headache 09/20/19 09/11/22 lisinopril 40 mg tablet 40 mg PO DAILY 02/06/21 09/11/22 Allergies Allergy/AdvReac Type Severity Reaction Status Date / Time No Known Allergies Allergy Verified 09/11/22 22:00 Review of Systems Review of Systems: CONSTITUTIONAL: Reports fevers. ENT: See HPI. CARDIOVASCULAR: See HPI RESPIRATORY: See HPI. GASTROINTESTINAL: Denies abdominal pain, nausea, vomiting. GENITOURINARY: Denies dysuria or hematuria. MUSCULOSKELETAL: See HPI. All systems reviewed & are unremarkable except as noted in HPI and below PMFSH Past Medical History Medical History Patient denies significant medical history Social History Social History Smoking status: Never smoker Gender identity (if verbalized by the patient): Female Exam Narrative: GENERAL: Well appearing, obese with BMI of 35.4, non-toxic, in no acute distress. HEAD: Normocephalic, atraumatic. ENT: Mild posterior pharynx erythema. No tonsillar hypertrophy or exudate. Clear nasal drainage noted. Hoarse quality to voice. RESPIRATORY: Airway patent, respirations nonlabored. Clear to auscultation bilaterally, no rales, rhonchi, wheezing. No focal lung sounds. CARDIOVASCULAR: Regular rate and rhythm. MUSCULOSKELETAL: Moves all extremities. No gross deformities. SKIN: Warm, dry, normal color. NEURO: A&O X3. Speech clear. PSYCHIATRIC: Appropriate mood and affect. Normal interaction. Course Vital Signs Vital signs: Vital Signs Temperature 99.4 F 04/23/23 09:48 Pulse Rate 109 H 04/23/23 09:48 Respiratory Rate 20 04/23/23 09:48 Blood Pressure 157/99 H 04/23/23 09:48 Pulse Oximetry 100 04/23/23 09:48 Oxygen Delivery Room Air 04/23/23 09:48 Temperature 99.4 F 04/23/23 09:48 Pulse Rate 109 H 04/23/23 09:48 Respiratory Rate 20 04/23/23 09:48 Blood Pressure 157/99 H 04/23/23 09:48 Pulse Oximetry 100 04/23/23 09:48 Oxygen Delivery Room Air 04/23/23 09:48 MDM - URI/Sore Throat MDM Narrative Medical decision making narrative: Patient presented to ED with 1.5 day history of URI symptoms. Vital signs stable upon arrival. Tachycardia resolved by the time of my evaluation. Influenza A testing resulted positive. Chest x-ray was clear. Patient updated on lab and imaging results. Will be started on Tamiflu. Discussed additional [id number] therapies to try. Will send in prescription for Tessalon Perles. Discussed strict return precautions. Patient in agreement with plan. Discharged in stable condition. Medical Records Attestation: I reviewed the patient's medical records. Lab Data Attestation: I reviewed the patient's lab results. Labs: Lab Results 04/23/23 Range/Units 09:51 Influenza A (RT-PCR) Positive A (Negative) Influenza B (RT-PCR) Negative (Negative) RSV (RT-PCR) Negative (Negative) SARS-CoV-2 RNA (RT-PCR)
== END 2023-04-23 12:48 | disposition home or self-care (01) ==
PROVIDERS: Emergency Provider Physician Assistant; PCP Family Medicine
DX: J10.1 Influenza due to other identified influenza virus with other respiratory manifestations (principal); Z20.822 Contact with and (suspected) exposure to COVID-19
CPT/HCPCS: 71046; 87637; 99283

== ENCOUNTER 2024-01-09 07:24 | Outpatient (CLI) | payer OTHER, SELFPAY ==
[2024-01-09 08:03] LABS: Hematocrit 37.7 % (37.0-47.0); Hemoglobin 11.9 g/dL (12.0-15.0); Mean Corpuscular HGB Conc 31.6 g/dl (32-36); Mean Corpuscular Hemoglobin 25.2 pg (26-34); Mean Corpuscular Volume 79.7 fl (80-100); Mean Platelet Volume 10.2 fl (7.4-10.4); Platelet Count Result 296 k/mm3 (150-375); Red Blood Count 4.73 M/mm3 (4.2-5.4); Red Cell Distribution Width 14.9 % (11.5-14.5); White Blood Count 6.5 K/mm3 (4.5-10.0)
[2024-01-09 08:12] LABS: Hemoglobin A1C 5.3 % (<5.7)
[2024-01-09 08:13] LABS: Alanine Aminotransferase 14 U/L (6-35); Albumin Level 3.9 g/dL (3.5-5.1); Alkaline Phosphatase 59 U/L (38-126); Anion Gap 8 mmol/L (4-12); Aspartate Amino Transferase 19 U/L (14-36); Bilirubin,Total 0.3 mg/dL (0.2-1.3); Blood Urea Nitrogen 13 mg/dL (7-17); Calcium 8.8 mg/dL (8.4-10.2); Carbon Dioxide 25 mmol/L (22-30); Chloride 106 mmol/L (98-107); Cholesterol 175 mg/dL (0-200); Estimated Glomerular Filt Rate > 60; Glucose 96 mg/dL (65-110); HDL Direct 48 mg/dL; Potassium 4.1 mmol/L (3.4-5.0); Sodium 139 mmol/L (137-145); Triglycerides 90 mg/dL (<150)
[2024-01-09 08:23] LABS: LDL Cholesterol Direct 92 mg/dL
[2024-01-09 09:00] LABS: Free T4 Free Thyroxine 0.72 ng/mL (0.78-2.19); Vitamin D 25 Hydroxy 16.1 ng/mL
[2024-01-11 23:20] LABS: Zinc 69 mcg/dL (60-130)
== END 2024-01-09 07:25 | disposition home or self-care (01) ==
PROVIDERS: PCP Family Medicine; Visit Provider Advanced Practice Midwife
DX: R53.83 Other fatigue (principal); L64.9 Androgenic alopecia, unspecified
CPT/HCPCS: 36415; 80053; 80061; 82306; 82607; 83036; 84439; 84443; 84630; 85027

== ENCOUNTER 2024-02-17 10:01 | Outpatient (CLI) | payer OTHER, SELFPAY ==
[2024-02-17 11:38] LABS: Total Triiodothyronine (T3) 1.02 NG/ML (0.97-1.69)
[2024-02-17 12:06] LABS: Hepatitis C Virus Antibody Negative (Negative)
--- OUTSIDE RECORDS SUMMARY | 2024-02-21 02:49 | XMS_ITS | Encounter Summary ---
Author Organization [facility] Address [address] [place] [address]. [place], [place] [id number] [place] [id number] Care Team Providers Care Doffer Name Role Phone Edison Block MD Primary Care Provider [phone] Encounter Details Date Type Department Care Team (Late st Contact Info) Description 12/09/2010 [place] [address] , Generic Conversion, Social History Tobacco Use Types Packs/Day Years Used Date Smoking Tobacco: Never Assessed Comments Unknown Sex and Gender Information Value Date Recorded Sex Assigned at Not on file Legal Sex Female 8:25 PM CDT Gender Identity Not on file Sexual Orientation Not on file documented as of this encounter Plan of Treatment Not on file documented as of this encounter Visit Diagnoses Diagnosis Other complication of , antepartum (HHS/HCC) documented in this encounter Care Teams Doffer Relationship Specialty Start Date End Date Edison Block MD [address] [place] [address] PCP - General 10/11/13 documented as of this encounter
--- OUTSIDE RECORDS SUMMARY | 2024-02-21 02:49 | XMS_ITS | Clinical Summary ---
Author Organization [facility] Address [address] [place] [address] Care Team Providers Care Library Technology Instructor Name Role Phone Edison Block MD Primary Care Provider [phone] [facility],non-owned Affiliates and Associated Physician Practices is amultiple site organization consisting of ambulatory clinics and hospital sitesin [place], [place], [place] and [place]. This disclosure is being madepursuant to the Care Everywhere program and may not contain all information available regarding this patient. Last updated 17.[facility] Medications * Be aware that medications may not be up to date on this document. Alwaysverify current medications with the patient. Medication Sig Dispensed Refills Start Date End Date Status SUMAtriptan (IMITREX) 25 MG tablet Take 25 mg by mouth once as needed 05/10/2018 Active escitalopram (LEXAPRO) 20 MG tablet Take 20 mg by mouth once daily 05/10/2018 Active vitamin D, ergocalciferol, (DRISDOL) 20655 units capsule Take 50,000 Units by mouth every 7 days 05/24/2018 Active Active Problems No known active problems Social History Tobacco Use Types Packs/Day Years Used Date Smoking Tobacco: Never Smokeless Tobacco: Never Alcohol Use Standard Drinks/Week Comments No 0 (1 standard drink = 0.6 oz pur e alcohol) Sex and Gender Information Value Date Recorded Sex Assigned at Not on file Gender Identity Not on file Sexual Orientation Not on file Plan of Treatment Health Maintenance Due Date Last Done Comments PAP SMEAR 1985 HIV SCREENING 2000 HEPATITIS C SCREENING 03/10/2003 DTAP/TDAP/TD VACCINES (1 - Tdap) 2004 HEPATITIS B VACCINE (1 of 3 - 19+ 3-dose series) 2004 DEPRESSION SCREENING 03/06/2023 COVID-19 VACCINE (2023-2 5 season) 2023 INFLUENZA VACCINE (#1) 2023 ZOSTER VACCINE (1 of 2) 2035 HIB VACCINE Aged Out No longer eligi ble based on patient's age to complete this topic HPV VACCINE Aged Out No longer eligi ble based on patient's age to complete this topic MENINGOCOCCAL VACCINE Aged Out No sam jonathan eligible based on patient's age to complete this topic PNEUMOCOCCAL VACCINE Aged Out No long er eligible based on patient's age to complete this topic Care Teams Library Technology Instructor Relationship Specialty Start Date End Date Edison Block MD [address] [place], [place] [id number] PCP - General 07/23/18
--- OUTSIDE RECORDS SUMMARY | 2024-02-21 02:49 | XMS_ITS | Encounter Summary ---
Author Organization [facility] Address [address] [place] [address]. [place], [place] [id number] [place] [address] Care Team Providers Care Entertainment Manager Name Role Phone Edison Block MD Primary Care Provider [phone] Encounter Details Date Type Department Care Team (Late st Contact Info) Description 10/11/2013 Abstract [facility] [place] [address] Gasper Hernandes MD [address] [facility] [address] [place] [address] Social History Tobacco Use Types Packs/Day Years Used Date Smoking Tobacco: Never Assessed Comments Unknown Sex and Gender Information Value Date Recorded Sex Assigned at Not on file Legal Sex Female 8:25 PM CDT Gender Identity Not on file Sexual Orientation Not on file documented as of this encounter Plan of Treatment Not on file documented as of this encounter Visit Diagnoses Diagnosis Dysphagia Dysphagia, unspecified documented in this encounter Care Teams Entertainment Manager Relationship Specialty Start Date End Date Edison Block MD [address] [place], [place] [id number] PCP - General 10/11/13 documented as of this encounter
--- OUTSIDE RECORDS SUMMARY | 2024-02-21 02:49 | XMS_ITS | Referral Summary ---
Author Organization [facility] Address [address] [place] [address] Care Team Providers Care Tax Specialist Name Role Phone Edison Block MD Primary Care Provider Source Comments [facility],non-owned Affiliates and Associated Physician Practices is amultiple site organization consisting of ambulatory clinics and hospital sitesin [place], [place], [place] and [place]. This disclosure is being madepursuant to the Care Everywhere program and may not contain all information available regarding this patient. Last updated 17.[facility] Medications * Be aware that medications may not be up to date on this document. Alwaysverify current medications with the patient. Medication Sig Dispensed Refills Start Date End Date Status SUMAtriptan (IMITREX) 25 MG tablet Take 25 mg by mouth once as needed 05/10/2018 Active escitalopram (LEXAPRO) 20 MG tablet Take 20 mg by mouth once daily 05/10/2018 Active vitamin D, ergocalciferol, (DRISDOL) 69171 units capsule Take 50,000 Units by mouth [...] Orientation Not on file Plan of Treatment Not on file Care Teams Tax Specialist Relationship Specialty Start Date End Date Edison Block MD [address] [place] [address] PCP - General 07/23/18
--- OUTSIDE RECORDS SUMMARY | 2024-02-21 02:49 | XMS_ITS | Data Portability ---
Author Organization [facility] Address [address] [place] [address] [place] [address] Assessment Encounter Date Assessment Date Assessment LastModified by Organization Details LastModified Time 01/12/2022 01/12/2022 Annual gynecological exam performed. Patient will come back in a year unless there are new symptoms. [email or web address] Not available 01/12/2022 14:14:40 Plan of Treatment Reminders Order Date Submit Date Provider Last Modified By Organization Details Last Modified Time Details Appointments None recorded . Lab urinalys is, dipstick 2022 023 [email or web address] [facility], [address], [place], [address], 15:24:51 Referral None recorded . Procedures None recorded . Surgeries None recorded . Imaging US, pelvis 2020 021 [email or web address] [facility], [address], [address], [place], [address], 15:36:30 US, transvag inal 2020 021 AMISH [facility], [address], [address], [place], [address], 17:22:19 Medication Orders fluconaz ole 150 mg tablet 2021 022 [id number], [address] [facility], [place], [place], [id number], 2 14:15:21 metronid azole 500 mg tablet 2021 022 daryn [facility] #[id number], [address] [facility], [place], [place], [id number], 2 14:15:24 Macrobid 100 mg capsule 2022 023 sonja [facility] #[id number], [address] [facility], [place], [place], [id number], 3 16:21:03 Patient TargetsNo targets recorded. Patient InstructionsNo instructions recorded. Reason for Referral None Reported. Results Created Date Observation Date Name Description Value Unit Range Abnormal Flag Note LastModifiedBy Organization Detail LastModifiedTime 07/16/19 21 07/15/2020 cultu re, urine result report SEE RESULT S BELOW Test: Cultu re: Urine Speci men Sourc e: Urine Voide d Speci men Type: Urine Speci men Date: 2020 4:39 PM Resul t Date: 2020 9:52 PM Resul t Statu s: Final resul t Abnor mal: No Mahi leigh Lab: [facility] [address] [facility] [address] Tel: CULTU RE ----- ----- ----- --- No growt h in 1 day (dete ction level of 10,00 0 colon ies / ml.) Not Available [facility] (Lab) [address], [place], [address], 07/16/2020 22:56:00 07/16/1907/15/2020 pap, IG + HR HPV image guided Pap, HPV regardless of Pap result SEE RESULT S BELOW CASE REPOR T: Cytol ogy Gynec ologi domi Repor t Case: [id number] Autho yun palafox Provi paz: Nain Sanabria Colle cted: 07/15 1635 [facility] Order ing Locat ion: [place] Patho logsheri Recei mela: 07/16 1042 First Scree n: Charito bedolla, Abdi ed, CT Rescr een: Shaan covarrubias, Gin zabala, CT Speci men: Scree mariangel Pap - Image d, Cervi x STATE MENT OF ADEQU ACY: Satis facto ry for evalu ation Trans forma tion zone compo nent prese nt FINAL DIAGN OSIS: Negat patricia for Intra epith elial Lesio n or Malig kim Elect alvina dominguez juanita d by Gin Elaine, CT on 2020 at 7:47 PM ----- ----- ----- ----- ----- ----- ----- ----- ----- ----- ----- ----- ----- ----- ----- ----- ----- ---- HPV RESUL TS: HPV mRNA E6/E7 : No HPV mRNA Detec colin NOTE: This high risk HPV mRNA assay detec ts fourt een high- risk HPV types (16, 18, 31, 33, 35, 39, 45, 51, 52, 56, 58, 59, 66, 68) witho ut diffe renti ation . CHART ABLE COMME NT: Note: This speci men was revie wed by a Cytot echno logis t and/o r Patho logis t (as indic ated in this repor t) after evalu ation using the Thinp rep Imagi ng Syste m. CLINI DOMI INFOR MATIO N: Menst rual Statu s: LMP (if appli cable ): 2020 Clini domi Histo ry/Pr eviou s Pap: Type of Neopl ciaran (if appli cable ): Other Histo ry: Hormo дмитрий (if appli cable ): PAP EDUCA RUSSELL L NOTE: The Pap Test is a scree mariangel test with an inher ent false negat patricia rate. Liqui d-bas e sampl ing may decre ase, but will not elimi isabelle, false negat patricia resul ts. A negat patricia resul t does not precl ude the prese nce and/o r devel opmen t of disea se, since the prese nce of abnor mal cells in the sampl e depen ds on the locat ion of the lesio n and sampl ing techn ique. Emili nued regul ar scree mariangel is the best metho d of cance r preve ntion . If repor colin cytol ogic findi ng do not corre late with physi domi and/o r histo rical findi ngs, furth er inves tigat ion is recom chaz d, as clini leydi pietro nted. Not Available [facility] (Lab) [address], [place], [address], 07/20/2020 09:03:20 07/16/19 21 07/15/2020 CT + NG RNA, PCR, unspe cifie d speci men chlamydia trachomatis, PCR Negati ve negati ve Not Available [facility] (Lab) [address] , [place], [address], 07/20/2020 09:03:20 07/16/19 21 07/15/2020 CT + NG RNA, PCR, unspe cifie d speci men neisseria gonorrhoeae, PCR Negati ve negati ve Not Available [facility] (Lab) [address], [place], [address], 07/20/2020 09:03:20 07/16/19 21 07/15/2020 trich omona s vagin bismark RNA trichomonas vaginalis ribosomal RNA (rrna) Negati ve negati ve Not Available [facility] (Lab) [address] [place], [address], 07/20/2020 09:03:21 07/16/19 21 07/15/2020 austin da dominic i DNA, vagin al luis krusei by RT-PCR Negati ve Swab- 1 Vagin al Not Available [facility] (Lab) [address] [place], [address], 07/20/2020 09:03:21 07/16/19 21 07/15/2020 mobil uncus , DNA, vagin al nm bkr mobiluncus mulieris and mobiluncus curtisii by RT-PCR Negati ve Swab- 1 Vagin al Not Available [facility] (Lab) [address] [place], [address], 07/20/2020 09:03:22 07/16/19 21 07/15/2020 austin da sp DNA, vagin al luis albicans PCR Negati ve Swab- 1 Vagin al Not Available [facility] (Lab) [address], [place], [address], 07/20/2020 09:03:22 07/16/19 21 07/15/2020 austin da sp DNA, vagin al luis tropicalis PCR Negati ve Swab- 1 [place] al Not Available [facility] (Lab) [address], [place], [address], 07/20/2020 09:03:22 07/16/19 21 07/15/2020 austin da sp DNA, vagin al luis parapsilosis PCR Negati ve Swab- 1 [place] al Not Available [facility] (Lab) [address] [place], [address], 07/20/2020 09:03:22 07/16/19 21 07/15/2020 austin da sp DNA, vagin al luis glabrata PCR Negati ve Swab- 1 [place] al Not Available [facility] (Lab) [address] [place], [address], 07/20/2020 09:03:22 07/16/19 21 07/15/2020 STI panel nm bkr mycoplasma genitalium by RT-PCR Negati ve Swab- 1 [place] al Not Available [facility] (Lab) [address] [place], [address], 07/20/2020 09:03:22 07/16/19 21 07/15/2020 STI panel nm bkr mycoplasma hominis by RT-PCR Negati ve Swab- 1 [place] al Not Available [facility] (Lab) [address], [place], [address], 07/20/2020 09:03:22 07/16/19 21 07/15/2020 STI panel nm bkr ureaplasma urealyticum by RT-PCR Negati ve Swab- 1 [place] al Not Available [facility] (Lab) [address], [place], [address], 07/20/2020 09:03:22 07/16/19 21 07/15/2020 bacte rial vagin osis DNA, PCR, vagin al fluid gardnerella vaginalis PCR Negati ve Swab- 1 [place] al Not Available [facility] (Lab) [address], [place], [address], 07/20/2020 09:03:23 07/16/19 21 07/15/2020 bacte rial vagin osis DNA, PCR, vagin al fluid atopobium vaginae PCR Negati ve Swab- 1 [place] al Not Available [facility] (Lab) [address] [place], [address], 07/20/2020 09:03:23 07/16/19 21 07/15/2020 bacte rial vagin osis DNA, PCR, vagin al fluid bacterial vaginosis associated bacteria 2 (bvab2) Negati ve Swab- 1 [place] al Not Available [facility] (Lab) [address] [place], [address], 07/20/2020 09:03:23 07/16/19 21 07/15/2020 bacte rial vagin osis DNA, PCR, vagin al fluid megasphaera species (type 1 and type 2) PCR Negati ve (Type1 ,Type2 ) Swab- 1 [place] al Type1 :N[place] tive Type2 :[place] tive. Not Available [facility] (Lab) [address], [place], [address], 07/20/2020 09:03:23 07/16/19 21 07/15/2020 bacte rial vagin osis DNA, PCR, vagin al fluid lactobacillu s (bvpanel) PCR See Commen t Swab- 1 [place] L.cri spatu s: Posit patricia L.shayy senii : Negat patricia L.gas seri : Negat patricia L.ine rs : Negat patricia. Not Available [facility] (Lab) [address], [place], [address], 07/20/2020 09:03:23 07/16/19 21 07/15/2020 urina lysis , dipst ick Leukocytes + positi ve Not Available [facility] [address], [place], [address], 07/15/2020 14:53:03 07/16/19 21 07/15/2020 urina lysis , dipst ick Nitrite neg Not Available [facility] [address], [place], [address], 07/15/2020 14:53:03 07/16/19 21 07/15/2020 urina lysis , dipst ick Urobilinogen 0.2 neg Not Available [facility] [address], [place], [address], 07/15/2020 14:53:03 07/16/19 21 07/15/2020 urina lysis , dipst ick Protein neg Not Available [facility] [address], [place], [address], 07/15/2020 14:53:03 07/16/19 21 07/15/2020 urina lysis , dipst ick pH 5 neg Not Available [facility] [address], [place], [address], 07/15/2020 14:53:03 07/16/19 21 07/15/2020 urina lysis , dipst ick Specific [place] 1.020 [facility] Available [facility] [address], [place], [address], 07/15/2020 14:53:03 07/16/19 21 07/15/2020 urina lysis , dipst ick Ketone neg Not Available [facility] [address], [place], [address], 07/15/2020 14:53:03 07/16/19 21 07/15/2020 urina lysis , dipst ick Bilirubin neg Not Available Yolanda tabares [address], [place], [address], 07/15/2020 14:53:03 07/16/19 21 07/15/2020 urina lysis , dipst ick Glucose neg Not Available [facility] [address], [place], [address], 07/15/2020 14:53:03 07/16/19 21 07/15/2020 urina lysis , dipst ick Appearance clear Not Available Kiersten casillas [address], [place], [address], 07/15/2020 14:53:03 07/16/19 21 07/15/2020 urina lysis , dipst ick Color yellow Not Available [facility] [address], [place], [address], 07/15/2020 14:53:03 12/23/19 22 12/22/2021 CT/GC AND TRICH OMONA S VAGIN BISMARK (RRNA ), SWAB chlamydia trachomatis, PCR Negati ve negati ve Not Available [facility] [address] [place], [address], 12/23/2021 19:50:40 12/23/19 22 12/22/2021 CT/GC AND TRICH OMONA S VAGIN BISMARK (RRNA ), SWAB neisseria gonorrhoeae, PCR Negati ve negati ve Not Available [facility] [address] [place] [address], [address], 12/23/2021 19:50:40 12/23/19 22 12/22/2021 CT/GC AND TRICH OMONA S VAGIN BISMARK (RRNA ), SWAB trichomonas vaginalis ribosomal RNA (rrna) Negati ve negati ve Not Available [facility] [address] [place] [address], [address], 12/23/2021 19:50:40 12/23/1912/22/2021 VAGIN ITIS/ VAGIN OSIS, DNA PROBE luis sp. detection, direct probe Positi ve negati ve abnormal Not Available [facility] [address] [place] [address], [address], 12/23/2021 19:50:41 12/23/19 22 12/22/2021 VAGIN ITIS/ VAGIN OSIS, DNA PROBE gardnerella vag. detection, direct probe Positi ve negati ve abnormal Not Available [facility] [address] [place] [address], [address], 12/23/2021 19:50:41 12/23/19 22 12/22/2021 VAGIN ITIS/ VAGIN OSIS, DNA PROBE trichomonas vag. detection, direct probe Negati ve negati ve Not Available [facility] [address] [place] [address], [address], 12/23/2021 19:50:41 12/30/19 23 12/29/2022 urina lysis , dipst ick Leukocytes ++ Not Available Kiersten casillas [address], [place], [address], 12/29/2022 15:24:19 12/30/1912/29/2022 urina lysis , dipst ick Nitrite + Not Available [facility] [address], [place], [address], 12/29/2022 15:24:19 12/30/1912/29/2022 urina lysis , dipst ick Urobilinogen neg Not Available [facility] anastasiia [address], [place], [address], 12/29/2022 15:24:19 12/30/1912/29/2022 urina lysis , dipst ick Protein + Not Available [facility] [address], [place], [address], 12/29/2022 15:24:19 12/30/1912/29/2022 urina lysis , dipst ick pH 5 Not Available [facility] [address], [place], [address], 12/29/2022 15:24:19 12/30/19 23 12/29/2022 urina lysis , dipst ick Specific [place] 1.020 Not Available [facility] laryr [address], [place], [address], 12/29/2022 15:24:19 12/30/19 23 12/29/2022 urina lysis , dipst ick Ketone neg Not Available [facility] [address], [place], [address], 12/29/2022 15:24:19 12/30/1912/29/2022 urina lysis , dipst ick Bilirubin neg Not Available [facility] [address], [place], [address], 12/29/2022 15:24:19 12/30/19 23 12/29/2022 urina lysis , dipst ick Glucose neg Not Available [facility] [address], [place], [address], 12/29/2022 15:24:19 12/30/19 23 12/29/2022 urina lysis , dipst ick Appearance cloudy Not Available [facility] [address], [place], [address], 12/29/2022 15:24:19 12/30/19 23 12/29/2022 urina lysis , dipst ick Color yellow Not Available [place] [address], [place], [address], 12/29/2022 15:24:19 08/06/19 21 08/05/2020 US, pelvi s No observ ation record ed. [facility] [address], [place], [address], 08/05/2020 17:22:09 08/06/19 21 08/05/2020 US, trans vagin al No observ ation record ed. [facility] [address], [place], [address], 08/05/2020 17:22:19 08/06/19 21 08/05/2020 US, pelvi s No observ ation record ed. layran Sera [address], [place], [address], 08/06/2020 15:56:40 Result Notes None recorded. Problems Name Problem SNOMED Code Status Onset Date Resolution Date Notes Provider Name and Address Organization Details Recorded Time Postcoit al finding [id number] Completed 201505/07/2020 Postcoit al and contact bleeding ;Practic e ID: 0001 Bonny kinney [facility] 10:20:46 Dyspareu lyudmila [id number] Completed 201505/07/2020 Dyspareu lyudmila;Prac gloria ID: 0001 Bonny kinney [facility] 10:20:32 Cyst of ovary 93149192 Completed 201505/07/2020 Unspecif ied ovarian cysts;Pr actice ID: 0001 Bonny kinney [facility] 10:20:[address] Concept Completed 201705/07/2020 Encntr for supervisor cab exam (general ) (routine ) w/o abn findings ;Practic e ID: 0001 Bonny kinney [facility] 10:20:57 Finding of desire for urinatio n [id number] Completed 201805/07/2020 Urgency of urinatio n;Record ed Elsewher e: No Locat ion: [facility] S ource: EHR Undercar Specialist lauren: N Yoannati ce ID: 0001 Hector lable Time: 01:00:00 PM Bonny kinney [facility] 10:20:42 Body mass index 30+ - obesity [id number] Completed 201705/07/2020 Body mass index (BMI) 34.0-34. 9, adult;Re corded Elsewher e: No Locat ion: [facility] S ource: EHR Undercar Specialist lauren: N Yoannati ce ID: 0001 Hector lable Time: 01:30:00 PM Bonny kinney [facility] 10:20:28 Screenin g for malignan t neoplasm of cervix Completed 201505/07/2020 Screenin g for malignan t neoplasm s of the cervix;R ecorded Elsewher e: No Locat ion: [facility] S ource: EHR Undercar Specialist lauren: N Practi ce ID: 0001 Hector lable Time: 01:15:00 PM Bonnybrayan kinney [facility] 10:20:53 Urinary tract infectio us disease [id number] Completed 201805/07/2020 Urinary tract infectio n, site not specifie d;Record ed Elsewher e: No Locat ion: [facility] rayshawn [facility] S ource: EHR Undercar Specialist lauren: N Practi ce ID: 0001 Hector lable Time: 01:00:00 PM Bonny kinney [facility] 1 10:21:02 Pregnanc y test negative [id number] Completed 201505/07/2020 Encounte r for pregnanc y test, result negative ;Recorde d Elsewher e: No Locat ion: [facility] S ource: EHR Undercar Specialist lauren: N Practi ce ID: 0001 Hector lable Time: 02:00:00 PM Bonny Madden [facility] 1 10:20:48 Pregnanc y test positive [id number] Completed 201010/24/2011 Pregnanc y examinat ion or test, positive result;R ecorded Elsewher e: No Locat ion: [facility] S ource: EHR Undercar Specialist lauren: N Practi ce ID: 0001 Hector lable Time: 03:15:00 PM Not Available [facility] 0 21:46:42 Postpart um care Completed 201110/24/2011 Routine postpart um follow-u p;Record ed Elsewher e: No Locat ion: [facility] S ource: EHR Undercar Specialist lauren: N Practi ce ID: 0001 Hector lable Time: 10:45:00 AM Not Available [facility] 0 21:46:43 Infectio n screenin g Completed 201505/07/2020 Encounte r for screenin g for oth infec/pa rastc diseases ;Recorde d Elsewher e: No Locat ion: [facility] rayshawn [facility] S ource: EHR Undercar Specialist lauren: N Practi ce ID: 0001 Hector lable Time: 01:15:00 PM Bonny Madden [facility] 1 10:20:43 Speciali zed medical examinat ion Completed 201010/24/2011 Gynecolo gical Examinat ion;Yariel rded Elsewher e: No Locat ion: [facility] rays[facility]wn [facility] S ource: EHR Undercar Specialist lauren: N Yoannati ce ID: 0001 Hector lable Time: 03:15:00 PM Bonny kinney [facility] 1 10:20:58 Syphilis test finding [id number] Completed 201505/07/2020 Encntr screen for infectio ns w sexl mode of transmis s;Record ed Elsewher e: No Locat ion: [facility] S ource: EHR Undercar Specialist lauren: N Yoannati ce ID: 0001 Hector lable Time: 01:15:00 PM Bonny kinney, [facility] 1 10:21:00 Amenorrh ea [id number] Completed 201010/24/2011 Absence of menstrua tion;Rec orded Elsewher e: No Locat ion: [facility] S ource: EHR Undercar Specialist lauren: N Yoannati ce ID: 0001 Hector lable Time: 03:15:00 PM Not Available [facility] 0 21:46:44 Speciali zed medical examinat ion Completed 201305/07/2020 Gynecolo gical Examinat ion;Yariel rded Elsewher e: No Locat ion: [facility] S ource: EHR Undercar Specialist lauren: N Practi ce ID: 0001 Hector lable Time: 08:30:00 AM Bonny kinney [facility] [address] 10:20:[address] Concept Completed 201705/07/2020 Encntr for general adult medical exam w/o abnormal findings ;Recorde d Elsewher e: No Locat ion: [facility] S ource: EHR Undercar Specialist lauren: N Yoannati ce ID: 0001 Hector lable Time: 01:30:00 PM Bonny kinney [facility] 1 10:20:56 Screenin g for malignan t neoplasm of cervix Completed 201010/24/2011 Screenin g for malignan t neoplasm s of the cervix;R ecorded Elsewher e: No Locat ion: Yolanda [facility] S ource: EHR Undercar Specialist lauren: N Yoannati ce ID: 0001 Hector lable Time: 03:15:00 PM Bonny kinney, [facility] 10:20:53 Elevated blood-pr essure reading without diagnosi s of hyperten lino [id number] Completed 201505/07/2020 Elevated blood-pr essure reading, without diagnosi s of hyperten lino;Rec orded Elsewher e: No Locat ion: [facility] S ource: EHR Undercar Specialist lauren: N Yoannati ce ID: 0001 Hector lable Time: 01:15:00 PM Bonny Madden [facility], [facility] 10:20:36 Vaginiti s and vulvovag initis Completed 201105/07/2020 Vaginiti s;Record ed Elsewher e: No Locat ion: [facility] S ource: EHR Undercar Specialist lauren: N Yoannati ce ID: 0001 Hector lable Time: 02:30:00 PM Bonny kinney [facility] 10:21:04 Leukocyt osis [id number] Completed 201105/07/2020 LEUKOCYT OSIS NOS;Yariel rded Elsewher e: No Locat ion: [facility] S ource: EHR Undercar Specialist lauren: N Yoannati ce ID: 0001 Hector lable Time: 02:30:00 PM Bonny kinney [facility] 10:20:45 Irregula r periods [id number] Completed 201305/07/2020 Irregula r menstrua l cycle;Re corded Elsewher e: No Locat ion: [facility] S ource: EHR Undercar Specialist lauren: N Practi ce ID: 0001 Hector lable Time: 08:30:00 AM Bonny kinney, [facility] 10:20:44 Educatio n Completed 201005/07/2020 Other general counseli ng and advice on contrace ptive manageme nt;Pract ice ID: 0001 Bonny kinney, [facility] 10:20:34 Routine antenata l care Completed 201005/07/2020 Supervis ion of other normal pregnanc y;Practi ce ID: 0001 Bonny kinney [facility] 10:20:52 Primigra olesya [id number] Completed 201005/07/2020 Supervis ion of normal first pregnanc y;Practi ce ID: 0001 Bonny kinney [facility] 10:20:49 anatomy study Completed 201005/07/2020 [facility] ANAT SURVEY;P ractice ID: 0001 Bonyn kinney [facility] 10:20:40 Female genital organ symptoms [id number] Completed 201105/07/2020 Unspecif ied symptom associat ed with female genital organs;P ractice ID: 0001 Bonny kinney [facility] 10:20:39 Benign essentia l hyperten lino complica ting pregnanc y, childbir th and the puerperi um - not delivere d [id number] Completed 201105/07/2020 Hyperten lino During Pregnanc y;Practi ce ID: 0001 Bonny Wagoneran nirmal [facility] 10:20:26 Tachycar waqar [id number] Completed 201105/07/2020 Tachycar waqar, unspecif ied;Prac gloria ID: 0001 Bonny kinney [facility] 10:21:01 Excessiv e growth affectin g manageme nt of mother [id number] Completed 201105/07/2020 GROWTH LARGE LGA;Prac gloria ID: 0001 Bonny Madden nirmal [facility] 10:20:37 Delivery normal [id number] Completed 201105/07/2020 Normal delivery ;Practic e ID: 0001 Bonny Madden nirmal [facility] 10:20:31 Single live [id number] Completed 201105/07/2020 Mother with single liveborn ;Practic e ID: 0001 Bonny Madden [facility] 10:20:55 Procedur e on genitour inary system Completed 201105/07/2020 Steriliz ation;Pr actice ID: 0001 Bonny Madden [facility] 10:20:50 Hyperten sive disorder [id number] Active 2020 Bonny Madden [facility] 10:27:56 Problem Notes None recorded. Procedures Surgical History Date Name Laterality Status Provider Name and Address Organization Details Recorded Time 1 Date of Last Pap Smear completed [facility] 08/06/2020 14:49:09 0 Date of Last Mammogram completed [facility] 08/06/2020 14:49:33 6 Colposcopy completed [facility] 07/14/2020 16:54:47 2 ligation of bilateral fallopian tubes completed Bonny Madden [facility] 05/07/2020 10:26:56 Imaging Results Imaging Date Name Status LastModified by Organization Details LastModified Time 08/05/2020 US, pelvis completed [facility] [address], [place], [address], 08/05/2020 17:22:09 08/05/2020 US, transvaginal completed [facility] rayshawn [address], [place], [address], 08/05/2020 17:22:19 08/05/2020 US, pelvis completed erica Zamora [address], [place], [address], 08/06/2020 15:56:40 Procedure Notes None recorded. Medical Equipment None Reported. Allergies No known drug allergies Medications Name Sig Start Date Stop Date Status Note LastModified by Organization Details LastModified Time cyclobenz aprine 10 mg tablet TAKE 1 TABLET BY MOUTH THREE TIMES DAILY NEEDED FOR MUSCLE SPASM active Not Available Not Available No t Available clindamyc in HCl 300 mg capsule TAKE 1 CAPSULE BY MOUTH EVERY 6 HOURS UNTIL GONE 12/22 completed Not Available Not Available Not Available triamcino lone acetonide 0.5 % topical cream APPLY CREAM TOPICALL Y TWICE DAILY NEEDED 01/12 completed Not Available Not Available Not Available fluconazo le 150 mg tablet take 1 tablet (150MG) by oral route once, repeat in 7 days 01/12 completed Not Available Not Available Not Available lisinopri l 20 mg tablet TAKE 1 TABLET BY MOUTH ONCE DAILY 07/14 completed Not Available Not Available Not Available prednison e 20 mg tablet TAKE 2 TABLETS BY MOUTH ONCE DAILY FOR 5 DAYS active Not Available Not Available No t Available Zithromax Z-Duane 250 mg tablet take 2 tablet (500MG) by oral route every day for 1 day then 1 tablet (250 mg) by oral route once daily for 4 days 11/05 completed Prescrib ed Elsewher e: No [facility]at [facility] odify By: cmedical Encount er DateTime : 11/02/19 12 09:22:42 AM Not Available Not Available Not Available topiramat e 25 mg tablet TAKE 1 TABLET BY MOUTH ONCE DAILY IN THE EVENING 01/27 completed Not Available Not Available Not Available metronida zole 500 mg tablet TAKE 1 TABLET BY MOUTH EVERY 12 HOURS FOR 7 DAYS 01/12 completed Not Available Not Available Not Available levofloxa bibiana 250 mg tablet TAKE 1 TABLET BY MOUTH ONCE DAILY 12/29 completed Not Available Not Available Not Available tramadol 50 mg tablet TAKE ONE TO ONE AND ONE HALF TABLET BY MOUTH TWICE DAILY NEEDED FOR PAIN 12/22 completed Not Available Not Available Not Available triamcino lone acetonide 0.1 % topical cream APPLY TO THE AFFECTED AREA(S) TWICE DAILY 01/12 completed Not Available Not Available Not Available nitrofura ntoin (bulk) powder 10/23 completed Prescrib ed Elsewher e: Yes Loca tion: [facility] odify By: holly ross DateTime : 11/02/19 11 03:15:00 PM Not Available Not Available Not Available amoxicill in 875 mg tablet TAKE 1 TABLET BY MOUTH EVERY 12 HOURS FOR 10 DAYS 12/29 completed Not Available Not Available Not Available naproxen sodium 550 mg tablet TAKE 1 TABLET BY MOUTH EVERY 12 HOURS NEEDED 01/27 completed Not Available Not Available Not Available Cipro 500 mg tablet take 1 tablet (500MG) by oral route every 12 hours 07/09 completed Prescrib ed Elsewher e: No Locat ion: [facility] odify By: [email or web address] Tabares ncolamberto DateTime : 10/24/19 12 02:30:00 PM Not Available Not Available Not Available triamcino lone acetonide 0.1 % topical ointment APPLY OINTMENT TOPICALL Y EVERY 12 HOURS NEEDED 01/27 completed Not Available Not Available Not Available lisinopri l 10 mg tablet TAKE 1 TABLET BY MOUTH ONCE DAILY 07/14 completed Not Available Not Available Not Available hydrochlo rothiazid e 12.5 mg capsule TAKE 1 CAPSULE BY MOUTH ONCE DAILY 12/22 completed Not Available Not Available Not Available lisinopri l 30 mg tablet TAKE 1 TABLET BY MOUTH ONCE DAILY 07/14 completed Not Available Not Available Not Available omeprazol e 20 mg capsule,d elayed release TAKE 1 CAPSULE BY MOUTH ONCE DAILY BEFORE A MEAL 01/27 completed Not Available Not Available Not Available diclofena c sodium 50 mg tablet,de layed release TAKE 1 TABLET BY MOUTH THREE TIMES DAILY 01/27 completed Not Available Not Available Not Available ergocalci ferol (vitamin D2) 1,250 mcg (50,000 unit) capsule TAKE 1 CAPSULE BY MOUTH ONCE A WEEK FOR 12 WEEKS 07/15 completed Not Available Not Available Not Available clobetaso l 0.05 % topical ointment APPLY OINTMENT TOPICALL Y TO AFFECTED AREA TWICE DAILY FOR 2 WEEKS 01/27 completed Not Available Not Available Not Available ibuprofen 600 mg tablet 12/22 completed Not Available Not Available Not Available ketoconaz ole 2 % topical cream APPLY TO RIGHT BREAST ONCE DAILY. APPLY FOR 1 WEEK AFTER RASH DISAPPEA RS. 01/27 completed Not Available Not Available Not Available lisinopri l 40 mg tablet TAKE 1 TABLET BY MOUTH ONCE DAILY active Not Available Not Available No t Available naproxen 500 mg tablet TAKE 1 TABLET BY MOUTH TWICE DAILY active Not Available Not Available No t Available mometason e 0.1 % topical cream APPLY A THIN LAYER OF CREAM TO AFFECTED AREA OF ARM TWICE DAILY FOR THE NEXT 3-9 WEEKS. active Not Available Not Available No t Available amoxicill in 875 mg-potass ium clavulana te 125 mg tablet TAKE 1 TABLET BY MOUTH EVERY 12 HOURS 08/06 completed Not Available Not Available Not Available amoxicill in 500 mg-potass ium clavulana te 125 mg tablet TAKE 1 TABLET BY MOUTH THREE TIMES DAILY 12/22 completed Not Available Not Available Not Available Bactrim DS 800 mg-160 mg tablet take 1 tablet by oral route every 12 hours 05/07 completed Prescrib abdelrahman Bui e: No Locat ion: [facility] odify By: lbillhar tz Encou nter DateTime : 12/06/19 01:00:00 PM Not Available Not Available Not Available escitalop demetrius 5 mg/5 mL oral solution take 10 millilit er by oral route every day 07/15 completed Prescrib ed Elsewher e: Yes Loca tion: [facility] odify By: carlos wallace DateTime : 01/23/20 18 01:30:00 PM Not Available Not Available Not Available cyclobenz aprine 5 mg tablet TAKE 1 TABLET BY MOUTH THREE TIMES DAILY active Not Available Not Available No t Available nitrofura ntoin monohydra te/macroc rystals 100 mg capsule TAKE 1 CAPSULE BY MOUTH EVERY 12 HOURS FOR 7 DAYS active Not Available Not Available No t Available topiramat e 12/22 completed Not Available Not Available Not Available Multi Vitamin 9 mg iron/15 mL oral liquid 05/07 completed Prescrib ed Elsewher e: Yes Loca tion: [facility] odify By: amkdennis hoskinsunter DateTime : 07/10/19 14 08:30:00 AM Not Available Not Available Not Available Lomedia 24 Fe 1 mg-20 mcg (24)/75 mg (4) tablet take 1 tablet by oral route every day 05/19 completed Prescrib ed Elsewher e: No Locat ion: [facility] odify By: ladan marin DateTime : 07/10/19 14 08:30:00 AM Not Available Not Available Not Available COVID-19 test specimen collectio n TEST DIRECTED 05/07 completed Not Available Not Available Not Available Fluzone Quad (PF) 60 mcg (15 mcg x 4)/0.5 mL IM syringe ADM 0.5ML IM UTD 01/27 completed Not Available Not Available Not Available Vitals Date Recorded Body height Body mass index (BMI) Body weight Systolic blood pressure Diastolic blood pressure Provider Name and Address Organization Details Last Updated DateTime 08/06/2020 175.26 cm 35.7 kg/m2 146074.9 2 g 126 mm[Hg] 70 mm[Hg] Flakita Salgado [facility] 14:53:24 Date Recorded Body height Body mass index (BMI) Body weight Systolic blood pressure Diastolic blood pressure Provider Name and Address Organization Details Last Updated DateTime 12/22/2021 175.26 cm 36.2 kg/m2 937154.1 3 g 147 mm[Hg] 91 mm[Hg] [facility] 15:21:48 Date Recorded Body height Body mass index (BMI) Body weight Systolic blood pressure Diastolic blood pressure Provider Name and Address Organization Details Last Updated DateTime 01/12/2022 175.26 cm 35.6 kg/m2 750632.2 g 159 mm[Hg] 103 mm[Hg] Carly Olmsteadvandana [facility] 2 14:15:15 Date Recorded Systolic blood pressure Diastolic blood pressure Provider Name and Address Organization Details Last Updated DateTime 01/12/2022 138 mm[Hg] 96 mm[Hg] NISREEN Garcia [address], [place], [address], [facility] 01/12/2022 15:07:46 Date Recorded Body height Body mass index (BMI) Body weight Systolic blood pressure Diastolic blood pressure Provider Name and Address Organization Details Last Updated DateTime 12/29/2022 175.26 cm 34.6 kg/m2 922230.0 5 g 125 mm[Hg] 87 mm[Hg] Flakita Molina [facility] 3 15:16:56 Social History Question Answer Notes LastModified by Organizat ion Details LastModified Time Tobacco Smoking Status Former Smoker Bonny kinney, [facility] 05/07/2020 10:26:41 Are You Blind Or Do You Have Difficulty Seeing? No Information not available 07/14/2020 What Is Your Level Of Caffeine Consumption? Occasional Information not available 07/14/2020 Are You Deaf Or Do You Have Serious Difficulty Hearing? No Information not available 07/14/2020 What Type Of Diet Are You Following? REGULAR Information not available 07/14/2020 Do You Use Your Seat Belt Or Car Seat Routinely? Yes Information not available 07/14/2020 Do You Have Smoke And Carbon Monoxide Detectors In Your Home? Yes Information not available 07/14/2020 Do You Feel Stressed (tense, Restless, Nervous, Or Anxious, Or Unable To Sleep At Night)? [id number] Information not available 07/14/2020 Do You Use Any Illicit Or Recreational Drugs? No Information not available 07/14/2020 Do You Use Sunscreen Routinely? Yes Information not available 07/14/2020 Sex: Unknown Functional Status Question Answer Note LastModified by Organizat ion Details LastModified Time Do you have difficulty walking or climbing stairs? No Information not available 12/22/2021 Are you able to walk? YESWOREST Information not available 07/14/2020 Are you able to care for yourself? Yes Information not available 12/22/2021 Do you have difficulty dressing or bathing? No Information not available 12/22/2021 What is your exercise level? Moderate Information not available 07/14/2020 Mental Status None recorded. Family History Relationship Description Onset Age of this Age Resolved Age Notes LastModified by Organization Details LastModified Time Maternal Grandmother Diabetes mellitus Not available 2020 10:26:06 Maternal Grandmother Asthma [email or web address] Not available 05/07 10:26:14 Mother Mental disorder Bipola r [email or web address] Not available 05/07/2020 10:26:27 Medical History Condition Response Other Y Blood Transfusion N Dermatologic Disorders N Gestational Diabetes N Anxiety Disorder N Autoimmune disease N Arthritis N Polyps N Infertility N Acid Reflux (GERD) N Cancer N Varicosities N Stroke N Neurologic/Epilepsy N Fibromyalgia N Headaches N Kidney Disease N Heart Problems N Kidney or Bladder Problems N Eating Disorder N Art (IVF or FET) N Hepatitis/Liver Disease N No Past Medical History N Urinary Tract Infection N Asthma N Trauma/Violence N Thrombophilias N Allergies (Food, seasonal, environmental ) N Breast Cancer N Drug/Latex Allergies/Reactions N Lung Disease N Defects or Inherited Disease N Breast Problem N Hematologic disorders N Anesthesia Complications N History of STI N Deep Vein Thrombosis N Polycystic ovary syndrome N History of abnormal pap N Endometriosis N High Cholesterol N Thyroid Problems N GI Problems N Anemia N Psychiatric Illness N Ovarian Cancer N Diabetes N Pulmonary (TB, Asthma) N Eczema N Abuse/Domestic Violence N Depression/ depression N Heart Disease N Pre-Eclampsia N Hypertension N Osteoporosis N Gynecological History Statement/Question Response Abnormal Pap N Flow Moderate Date of Last Mammogram 02/21/2020 Date of LMP 12/09/2022 STIs/STDs N HPV Vaccine N Colposcopy 06/04/2015 Duration of Flow (days) 4 Current Control Method Tubal Ligat ion Sexually Active? Y Menses Monthly Y Age of first menstrual cycle 13 Date of Last Pap Smear 07/15/2020 Sexual Problems? N LMP Approximate Obstetrics History GPAL:G 4 P 3 0 1 3 Type Value Full Term 3 Spontaneous 1 Living 3 Total 4 Past Encounters Encounter ID Performer Location Encounter Start Date Encounter Closed Date Diagnosis/Indication Diagnosis SNOMED-CT Code Diagnosis ICD10 Code [id number] Mary Ellen Aguilar [facility] [address] [address] 01/28/2020 14:34:49 01/28/2020 16:30:45 Lump of axillary tail of right breast 1452028512 47689 N63.31 N63.0 Non-menopa usal hot flash 9500581156 58903 R23.2 [id number] [facility] [address],[place] [address] 05/07/2020 10:04:17 06/29/2020 14:58:46 [id number] [facility] [address],[place] [address] 05/07/2020 10:19:12 05/07/2020 10:57:14 Vaginitis 23909570 N76.0 Urinary tr act infectious disease 97662460 N39.0 [id number] Mary Ellen Aguilar [facility] [address],[place] [address] 07/15/2020 14:31:36 07/15/2020 15:33:17 Abnormal uterine bleeding 4821048490 9100 N93.9 Blood in urine 45091353 R31.9 [id number] Son[facility] [address],[place] [address] 08/05/2020 13:52:20 08/05/2020 14:43:25 Abnormal uterine bleeding 6581555902 9100 N93.9 [id number] Mary Ellen Aguilar [facility] [address],[place] [address] 08/06/2020 14:26:00 08/06/2020 15:32:38 Irregular periods 63640566 N92.6 [id number] Argenis Moralez [facility] [address],[place] [address] 12/22/2021 15:07:38 12/22/2021 15:47:23 Vaginitis 17311450 N76.0 Venereal d isease screening 642510066 Z11.3 [id number] [facility] [address],[place] [address] 01/12/2022 13:55:29 01/12/2022 15:18:35 Gynecologic examination 28457898 Z01.419 [id number] [place] [id number] [address] 12/29/2022 15:05:25 12/29/2022 16:26:23 Urinary symptoms 646951653 R39.9 Dysuria 88894939 R30.0 Health Concerns Section Related Observation LastModified by Organization Detai ls LastModified Time None Recorded Concern Status LastModified by Organization Details LastModified Time None Recorded Advance Directives Directive None Recorded Payers Encounter Date Sequence Insurance Name Policy Number Policy Pagan Covered Member ID Pagan Member ID Guarantor Name 08/05/2020 1 [facility] (MEDICAID HMO) [id number] Karey A Meridian [id number] Karey A Meridian 08/06/2020 1 [employer] [facility] [facility] [place] ([place] [id number] Karey A Meridian [id number] Karey A Meridian 12/22/2021 1 [employer] [facility] [place] [id number] Karey A Meridian [id number] Karey A [place] 01/12/2022 1 [employer] [facility] [place] [id number] Karey Donovan [id number] Karey A [place] 12/29/2022 1 [facility] (MEDICAID HMO) [id number] Karey Carranza [place] [id number] Karey Carranza [place] Notes Date Note Type Note Provider Name and Address Organization Details Recorded Time 08/06/2020 text/html Here for TVUS Fo llow up for irregular cycle. NISREEN Moran-BC [address], [place], [address], [facility] 08/06/2020 15:14:34 12/22/2021 text/html 36yo Presents fo r evaluation of vaginal discharge, odor, and itchingPresents for the last 1 weekSA with steady partnerBC - BTL NISREEN Garcia [address], [place], [address], [facility] 12/22/2021 15:42:29 01/12/2022 text/html Annual GYNReport ed bypatient.Menstrual cycle:Normal menses Urinary symptoms:No hematuria; No incontinence Vulva:No genital lesion Vagina:Normal vaginal discharge Breast:No breast pain; No breast lump; No nipple discharge Current Contraception:Tubal ligation Sexual complaints:No sexual complaints; No pain during intercourse; Normal libido Menopausal Symptoms:No menopausal symptoms; Normal vaginal lubrication Psychological symptoms:No depression; No anxiety; No PMDD Preventive measures:Encourage self breast examination; Encourage regular exercise; Encourage no tobacco use; Encourage regular mammograms starting age [address] [place], [address], [facility] 01/12/2022 15:06:49 12/29/2022 text/html 37yopresents for urinary symptomsurinary frequency/pressuresy mptoms started 2-3 days agodrinking more caffeine latelydenies flank pains, n/v/f, or flu-like symptomsBTL for BCno vaginal symptoms [address], [place], [address], [facility] 12/29/2022 16:23:20 OBGyn Episode Ob Episode Information Episode Created Date Number of Fetuses Patient Bloodtype Patient rh Status Prepregnancy Weight lbs Domestic Partner Domestic Partner Phone Father Name Medicine Teacher Status 05/08/19 21 1 CLOSED Fetus Data First Name Last Name Admitted to NICU Weight (g) Sex Living Outcome Pediatric Complications Fetus ID Race Codes Race Delivery Type , Spontane ous 8251 Dheeraj Calculation DHEERAJ Calculation Method Initial Dheeraj Date Initial Exam Date Initial Exam Provider Initial Ultrasound Date Last Menstrual Period Date Ultra Sound Weeks Gestation Conception by IVF Embryo Age at Transfer Date of Transfer 0 Eighteen To Twenty Week Dheeraj Update Ultra Sound Date Fundal Height At Umbil Quickening Date Ultra Sound Latest Weeks Gestation Final Dheeraj Confirmed By Final Dheeraj Confirmed Date Final Dheeraj Date Ultra Sound Latest Days Gestation 0 0 Menstrual History Last Menstrual Date Menses Monthly On Bcp Conception Prior Menses Frequency Hcg Plus Date Menarche Onset Age Delivery Information Delivery Date Delivery Type Labor Anesthesia Weeks Gestation Incision Type Labor Labor Length Hrs Delivered By Post Complications Tubal Sterilization Discharge Date Comments 1 Discharge Information Feeding Method Contraceptive Method Maternal HG B and HCT Levels Ob Episode Information Episode Created Date Number of Fetuses Patient Bloodtype Patient rh Status Prepregnancy Weight lbs Domestic Partner Domestic Partner Phone Father Name Medicine Teacher Status 05/08/19 21 1 CLOSED Fetus Data First Name Last Name Admitted to NICU Weight (g) Sex Living Outcome Pediatric Complications Fetus ID Race Codes Race Delivery Type 3430.06 2704 M Full Term 8250 Vaginal Delivery Dheeraj Calculation DHEERAJ Calculation Method Initial Dheeraj Date Initial Exam Date Initial Exam Provider Initial Ultrasound Date Last Menstrual Period Date Ultra Sound Weeks Gestation Conception by IVF Embryo Age at Transfer Date of Transfer 0 Eighteen To Twenty Week Dheeraj Update Ultra Sound Date Fundal Height At Umbil Quickening Date Ultra Sound Latest Weeks Gestation Final Dheeraj Confirmed By Final Dheeraj Confirmed Date Final Dheeraj Date Ultra Sound Latest Days Gestation 0 0 Menstrual History Last Menstrual Date Menses Monthly On Bcp Conception Prior Menses Frequency Hcg Plus Date Menarche Onset Age Delivery Information Delivery Date Delivery Type Labor Anesthesia Weeks Gestation Incision Type Labor Labor Length Hrs Delivered By Post Complications Tubal Sterilization Discharge Date Comments 8 38 Discharge Information Feeding Method Contraceptive Method Maternal HG B and HCT Levels Ob Episode Information Episode Created Date Number of Fetuses Patient Bloodtype Patient rh Status Prepregnancy Weight lbs Domestic Partner Domestic Partner Phone Father Name Medicine Teacher Status 05/08/19 21 1 CLOSED Fetus Data First Name Last Name Admitted to NICU Weight (g) Sex Living Outcome Pediatric Complications Fetus ID Race Codes Race Delivery Type M Full Term 8253 Vaginal Delivery Dheeraj Calculation DHEERAJ Calculation Method Initial Dheeraj Date Initial Exam Date Initial Exam Provider Initial Ultrasound Date Last Menstrual Period Date Ultra Sound Weeks Gestation Conception by IVF Embryo Age at Transfer Date of Transfer 0 Eighteen To Twenty Week Dheeraj Update Ultra Sound Date Fundal Height At Umbil Quickening Date Ultra Sound Latest Weeks Gestation Final Dheeraj Confirmed By Final Dheeraj Confirmed Date Final Dheeraj Date Ultra Sound Latest Days Gestation 0 0 Menstrual History Last Menstrual Date Menses Monthly On Bcp Conception Prior Menses Frequency Hcg Plus Date Menarche Onset Age Delivery Information Delivery Date Delivery Type Labor Anesthesia Weeks Gestation Incision Type Labor Labor Length Hrs Delivered By Post Complications Tubal Sterilization Discharge Date Comments 2 39 GBS+ Discharge Information Feeding Method Contraceptive Method Maternal HG B and HCT Levels Ob Episode Information Episode Created Date Number of Fetuses Patient Bloodtype Patient rh Status Prepregnancy Weight lbs Domestic Partner Domestic Partner Phone Father Name Medicine Teacher Status 05/08/19 21 1 CLOSED Fetus Data First Name Last Name Admitted to NICU Weight (g) Sex Living Outcome Pediatric Complications Fetus ID Race Codes Race Delivery Type 4309.12 4 F Prematur e 8252 Vaginal Delivery Dheeraj Calculation DHEERAJ Calculation Method Initial Dheeraj Date Initial Exam Date Initial Exam Provider Initial Ultrasound Date Last Menstrual Period Date Ultra Sound Weeks Gestation Conception by IVF Embryo Age at Transfer Date of Transfer 0 Eighteen To Twenty Week Dheeraj Update Ultra Sound Date Fundal Height At Umbil Quickening Date Ultra Sound Latest Weeks Gestation Final Dheeraj Confirmed By Final Dheeraj Confirmed Date Final Dheeraj Date Ultra Sound Latest Days Gestation 0 0 Menstrual History Last Menstrual Date Menses Monthly On Bcp Conception Prior Menses Frequency Hcg Plus Date Menarche Onset Age Delivery Information Delivery Date Delivery Type Labor Anesthesia Weeks Gestation Incision Type Labor Labor Length Hrs Delivered By Post Complications Tubal Sterilization Discharge Date Comments 6 36 Discharge Information Feeding Method Contraceptive Method Maternal HG B and HCT Levels
--- OUTSIDE RECORDS SUMMARY | 2024-02-21 02:49 | XMS_ITS | Encounter Summary ---
Author Organization [facility] Address [address] [place] [address]. [place], [place] [address] [place] [id number] Care Team Providers Care Writing Manager Name Role Phone Edison Block MD Primary Care Provider [phone] Encounter Details Date Type Department Care Team (Late st Contact Info) Description 02/04/2011 [place] [address] , Generic Conversion, Social History Tobacco Use [...] as of this encounter Visit Diagnoses Diagnosis Mild hyperemesis gravidarum, antepartum (HHS/HCC) Mild hyperemesis gravidarum, antepartum documented in this encounter Care Teams Writing Manager Relationship Specialty Start Date End Date Edison Block MD [address] [place] [address] PCP - General 10/11/13 documented as of this encounter
--- OUTSIDE RECORDS SUMMARY | 2024-02-21 02:49 | XMS_ITS | Encounter Summary ---
Author Organization [facility] Address [address] [facility] [place] [address] Care Team Providers Care C Programmer Name Role Phone Edison Block MD Primary Care Provider Reason for Visit * Reason Comments Vision Disturbance Encounter Details Date Type Department Care Team (Late st Contact Info) Description 07/23/2018 8:15 AM CDT Office Visit [facility] Ophthalmology [address] [place] [address] Neda Valencia MD No information available Visual disturbance (Primary Dx); Aura; Migraine with aura and without status migrainosus, not intractable; Headache, chronic daily Social History Tobacco Use Types Packs/Day Years Used Date Smoking Tobacco: Never Smokeless Tobacco: Never Alcohol Use Standard Drinks/Week Comments No 0 (1 standard drink = 0.6 oz pur e alcohol) Sex and Gender Information Value Date Recorded Sex Assigned at Not on file Gender Identity Not on file Sexual Orientation Not on file documented as of this encounter Progress Notes * Neda Valencia MD - 07/23/2018 10:57 AM CDT Patient ID: Name: Karey Donovan Age: [age] year old Date of : 1985 Encounter date: 07/23/2018 Chief Complaint Patient presents with ??? Vision Disturbance Karey Donovan is a 33 year old female with hx of migraines, anxity and depression is referred here today by Dr Rashid for subjective visual disturbance in right eye. Pt has a white over lay with white starts sparking in her visual field. This visual disturbance happens intermittently every day. It may or may be accompanied by a headache. She reports this happens in the right eye only. Over the last months it has not happened as much. The disturbance starts small in her cental vision then expands covering the whole VF till it fades away. Pt has never had imaging of brain or orbits. Last eye exam was 03/21/18 and had a normal DFE per DR Lepe notes. Pt has throbbing pain in both eye not very fr equent. Her eyes hurt with her headaches. Her headaches are being managed by her PCP, Dr Mckenzie. Who has prescribed Sumatriptan for her migraines. She reports this does not seem to help her headaches as she still need NSAIDS to help with pain. She gets headaches a couple times a week. She can wake up with them. She get nausea and vomiting with her headaches. Sensitive to light and sound. She has not seen neuro for her headaches. 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 Review of Systems Ocular ROS: Others - subjective visual disturbance Heart or Circulatory: negative Ear Nose & Throat: negative Neurologic:chronic or frequent headaches Hematologic Disorder:negative Endocrine:negative Respiratory:negative Musculoskeletal:negative Skin:negative Cancer:negative Genitourinary:negative Gastrointestinal: negative Mental Health: depression Allergic/Immunologic/Infection: negative General Health:negative Current Outpatient Prescriptions Medication Sig Dispense Refill ??? escitalopram (LEXAPRO) 20 MG tablet Take 20 mg by mouth once daily ??? SUMAtriptan (IMITREX) 25 MG tablet Take 25 mg by mouth once as needed ??? vitamin D, ergocalciferol, (DRISDOL) 42245 units capsule Take 50,000 Units by mouth every 7 days No current facility-administered medications for this visit. Allergies not on file Past Medical History: Diagnosis Date ??? Depression ??? Migraine No past surgical history on file. No family history on file. Social History Substance Use Topics ??? Smoking status: Never Smoker ??? Smokeless tobacco: Never Used ??? Alcohol use No EXAM Base Eye Exam Visual Acuity (Snellen - Linear) Right Left Dist cc 20/40 20/20 Correction: Glasses Pt reports longstanding decreased vision in right eye Tonometry (Applanation, 9:49 AM) Right Left Pressure 10 8 Pupils React APD Right Brisk None Left Brisk None Visual Cna Left Right Result Full Full OD: hvf: unrelaible-inferior depression-GVF OD: near normal OS: Normal hvf Neda Annie, MD Extraocular Movement Right Left Result Full Full Right esophoria Neuro/Psych Oriented x3: Yes Mood/Affect: Normal Dilation Both eyes: 1.0% Mydriacyl, 2.5% Ho Synephrine @ 9:49 AM Additional Tests Color Right Left Ishihara Strabismus Exam Method: Distance Near Near +3.00DS Near Bifocals exophoria 12 - - - - - - - - - - - - R Tilt - - - - exophoria 12 - - - - L Tilt - - - - - - - - - - - - DVD: DVD: Slit Lamp and Fundus Exam External Exam Right Left External Normal Normal Slit Lamp Exam Right Left Lids/Lashes Normal Normal Conjunctiva/Sclera White and quiet White and quiet Cornea Clear Clear Anterior Chamber Deep and quiet Deep and quiet Iris Round and reactive Round and reactive Lens Clear Clear Vitreous Normal Normal Fundus Exam Right Left Disc nasal PPA, no elevation or blur Normal C/D Ratio 0.3 0.2 Macula Normal Normal Vessels Normal Normal Periphery Normal Normal Refraction Wearing Rx Sphere Cylinder Right -3.75 Sphere Left -1.25 Sphere Manifest Refraction Sphere Cylinder [place] Dist Right -5.50 +1.00 110 20/20 Left Study findings: disc photoes: baseline Assessment/Plan Karey Donovan is a 33 year old female Headaches consistent with migraine+throbbing, worse with head movement Associated nausea, light and sound sensitivity Visual disturbance c/w aura: ~less than 1/2 hour; positive visual phenomenon, followed by headache Neuro-ophthalmic exam normal without evidence of residual deficits 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 Plan: Recommend prophylactic migraine medication-given >3 headaches per week-PCP to initiate betablocker vs topamax Advised regarding risk of smoking-currently nonsmoker Continue follow up annually with eye care provider Neda Valencia MD 07/23/2018 10:57 AM documented in this encounter Plan of Treatment Not on file documented as of this encounter Procedures Procedure Name Priority Date/Time Associated Diagnosis Comments OPH COLOR FUNDUS PHOTOGRAPHY SLU Routine 07/23/2018 11:09 AM CDT Visual disturbance OPH VISUAL FIELD TEST U Routine 07/23/2018 9:05 AM CDT Visual disturbance documented in this encounter Results * OPH COLOR FUNDUS PHOTOGRAPHY SLU (07/23/2018 11:09 AM CDT) Anatomical Region Laterality Modality Other 07/23/2018 11:0 9 AM CDT Neda Valencia MD OPHTHALMOLOGY SERVIC ES ORDERABLES * OPH VISUAL FIELD TEST SLU (07/23/2018 9:05 AM CDT) Anatomical Region Laterality Modality Other 07/23/2018 9:05 AM CDT Neda Valencia MD OPHTHALMOLOGY SERVIC ES ORDERABLES documented in this encounter Visit Diagnoses Diagnosis Visual disturbance- Primary Unspecified visual disturbance Aura Other symptoms involving nervous and musculoskeletal systems Migraine with aura and without status migrainosus, not intractable Migraine with aura, without mention of intractable migraine without mention of status migrainosus Headache, chronic daily Headache documented in this encounter Care Teams C Programmer Relationship Specialty Start Date End Date Edison Block MD [address] [place] [address] PCP - General 07/23/18 documented as of this encounter
--- OUTSIDE RECORDS SUMMARY | 2024-02-21 02:49 | XMS_ITS | Patient Health Summary ---
Author Organization [facility] Address [address] [place] [address] Care Team Providers Care First Officer And Flight Instructor Name Role Phone Edison Block MD Primary Care Provider [phone] Note from [facility],non-owned Affiliates and Associated Physician Practices is amultiple site organization consisting of ambulatory clinics and hospital sitesin [place], [place], [place] and [place]. This disclosure is being madepursuant to the Care Everywhere program and may not contain all information available regarding this patient. Last updated 17.[facility] Medications * Be aware that medications may not be up to date on this document. Alwaysverify current medications with the patient. * SUMAtriptan (IMITREX) 25 MG tablet(Started 05/10/2018) Take 25 mg by mouth once as needed * escitalopram (LEXAPRO) 20 MG tablet(Started 05/10/2018) Take 20 mg by mouth once daily * vitamin D, ergocalciferol, (DRISDOL) 09835 units capsule(Started 05/24/2018) Take 50,000 Units by mouth every 7 days Active Problems No known active problems Social History Tobacco Use Types Packs/Day Years Used Date Smoking Tobacco: Never Smokeless Tobacco: Never Alcohol Use Standard Drinks/Week Comments No 0 (1 standard drink = 0.6 oz pur e alcohol) Sex and Gender Information Value Date Recorded Sex Assigned at Not on file Gender Identity Not on file Sexual Orientation Not on file Procedures * OPH COLOR FUNDUS PHOTOGRAPHY SLU(Performed 07/23/2018) Performed for Visual disturbance * OPH VISUAL FIELD TEST SLU(Performed 07/23/2018) Performed for Visual disturbance Results * OPH COLOR FUNDUS PHOTOGRAPHY SLU (07/23/2018 11:09 AM CDT) Anatomical Region Laterality Modality Other 07/23/2018 11:0 9 AM CDT Neda Valencia MD OPHTHALMOLOGY SERVIC ES ORDERABLES * OPH VISUAL FIELD TEST SLU (07/23/2018 9:05 AM CDT) Anatomical Region Laterality Modality Other 07/23/2018 9:05 AM CDT Neda Valencia MD OPHTHALMOLOGY SERVIC ES ORDERABLES Care Teams First Officer And Flight Instructor Relationship Specialty Start Date End Date Edison Block MD [address] [place] [address] PCP - General 07/23/18
--- OUTSIDE RECORDS SUMMARY | 2024-02-21 02:49 | XMS_ITS | Clinical Summary ---
Author Organization [facility] Address [address] [place] [address]. [place] [address] Care Team Providers Care Repeater Chief Name Role Phone Edison Block MD Primary Care Provider Social History Tobacco Use Types Packs/Day Years Used Date Smoking Tobacco: Never Assessed Comments Unknown Sex and Gender Information Value Date Recorded Sex Assigned at Not on file Legal Sex Female 8:25 PM CDT Gender Identity Not on file Sexual Orientation Not on file Plan of Treatment Health Maintenance Due Date Last Done Comments Cervical Cancer Screening Pa p Smear (Age 30 to 64) Every 3 Years 1985 Annual Physical 1988 Hepatitis C 2003 DTaP, Tdap and Td Vaccines ( 1 - Tdap) 2004 Hepatitis B Vaccines (1 of 3 - 19+ 3-dose series) 2004 Cervical Cancer Screening Pa p with HPV Testing (Age 30 to 64) Every 5 Years 2015 Cervical Cancer Screening with HPV 2015 COVID-19 Vaccine (2023-2 5 season) 2023 Influenza Adult (#1) 2023 HPV Vaccines Aged Out No longer eligi ble based on patient's age to complete this topic Meningococcal Vaccine Aged Out No sam jonathan eligible based on patient's age to complete this topic Pneumococcal Vaccine: Pediat rics (0 to 5 Years) and At-Risk Patients (6 to 64 Years) Aged Out No longer eligible b ased on patient's age to complete this topic RSV Immunizations Under 20 Months Aged Out No longer eligible based on patient's age to complete this topic Care Teams Repeater Chief Relationship Specialty Start Date End Date Edison Block MD [address] [place] [address] [facility] - General 10/11/13
--- OUTSIDE RECORDS SUMMARY | 2024-02-21 02:50 | XMS_ITS | Referral Summary ---
Author Organization [address] Address [address] [place] [id number] Care Team Providers Care Yarder Puncher Name Role Phone Edison Block MD Primary Care Provider [phone] Allergies No known active allergies Medications cyclobenzaprine (FLEXERIL) 10 mg tablet Take 1 tablet (10 mg total) by mouth 3 (three) times a day as needed for muscle spasms 09/11/2022 Active ergocalciferol (VITAMIN D) 50,000 unit capsule Take 1 capsule (50,000 Units total) by mouth once a week 05/24/2018 Active escitalopram (LEXAPRO) 20 mg tablet Take 1 tablet (20 mg total) by mouth daily 05/10/2018 Active lisinopriL (PRINIVIL,ZESTR [place]) 40 mg tablet Take 1 tablet (40 mg total) by mouth daily 09/23/2022 Active SUMAtriptan (IMITREX) 25 mg tablet Take 1 tablet (25 mg total) by mouth daily as needed 05/10/2018 Active lidocaine viscous (XYLOCAINE) 2 % solution Take 10 mL by mouth 3 (three) times a day 100 mL 02/22/2023 Active mometasone (ELOCON) 0.1 % cream APPLY A THIN LAYER OF CREAM TO AFFECTED AREA OF ARM TWICE DAILY FOR THE NEXT 3-9 WEEKS. Active meloxicam (MOBIC) 15 mg tablet Take 1 tablet (15 mg total) by mouth daily 30 tablet 04/11/2023 Active Active Problems Problem Noted Date Diagnosed Date Hypertensive disorder 05/06/2020 Urinary tract infectious disease 12/05/2018 Overview (03/15/2023): Urinary tract infection, site not specified;Recorded Elsewhere: No Location: [facility] Source: EHR Chronic: N Practice ID: [id number] Billable Time: 01:00:00 PM Obesity with body mass index 30 or greater 01/21 Overview (03/15/2023): Body mass index (BMI) 34.0-34.9, adult;Recorded Elsewhere: No Location: [facility] Source: EHR Chronic: N Practice ID: [id number] Billable Time: 01:30:00 PM Cyst of ovary 07/07/2015 Overview (12/06/2022): Unspecified ovarian cysts;Practice ID: [id number] Elevated blood-pressure read ing without diagnosis of hypertension 05/20/2015 Overview (12/06/2022): Elevated blood-pressure reading, without diagnosis of hypertension;Recorded Elsewhere: No Location: [facility] Source: EHR Chronic: N Practice ID: [id number] Billable Time: 01:15:00 PM Irregular periods 07/09/2013 Overview (03/15/2023): Irregular menstrual cycle;Recorded Elsewhere: No Location: [facility] Source: EHR Chronic: N Practice ID: [id number] Billable Time: 08:30:00 AM Leukocytosis 10/24/2011 Overview (03/15/2023): LEUKOCYTOSIS NOS;Recorded Elsewhere: No Location: [facility] Source: EHR Chronic: N Practice ID: [id number] Billable Time: 02:30:00 PM Delivery normal 06/13/2011 Overview (12/06/2022): Normal delivery;Practice ID: [id number] Excessive growth affecting management of m other 05/30/2011 Overview (12/06/2022): GROWTH LARGE LGA;Practice ID: [id number] Tachycardia 05/30/2011 Overview (03/15/2023): Tachycardia, unspecified;Practice ID: 0001 Female genital symptoms 05/12/2011 Overview (03/15/2023): Unspecified symptom associated with female genital organs;Practice ID: [id number] Amenorrhea 11/01/2010 Overview (12/06/2022): Absence of menstruation;Recorded Elsewhere: No Location: [facility] Source: EHR Chronic: N Practice ID: [id number] Billable Time: 03:15:00 PM Social History Tobacco Use Types Packs/Day Years Used Date Smoking Tobacco: Some Days Vaping Tobacco Cessation:Ready to Q uit: Not Asked; Counseling Given: Not Answered Comments Unknown Sex and Gender Information Value Date Recorded Sex Assigned at Not on file Legal Sex Female 8:34 PM DIRECTOR DIETETICS DEPARTMENT Gender Identity Not on file Sexual Orientation Not on file Last Filed Vital Signs Vital Sign Reading Time Taken Comments Blood Pressure 156/95 04/11/2023 2:37 PM DIRECTOR DIETETICS DEPARTMENT Pulse 76 04/11/2023 2:37 PM DIRECTOR DIETETICS DEPARTMENT Temperature 36.7 ??C (98 ??F) 03/15/2023 7:10 PM DIRECTOR DIETETICS DEPARTMENT Respiratory Rate 18 03/15/2023 7:10 PM DIRECTOR DIETETICS DEPARTMENT Oxygen Saturation 97% 03/15/2023 7:10 PM DIRECTOR DIETETICS DEPARTMENT Inhaled Oxygen Concentration - - Weight 106 kg (233 lb 11.2 oz) 04/11/2023 2:37 P M DIRECTOR DIETETICS DEPARTMENT Height 173.4 cm (5' 8.25 ) 04/11/2023 2:37 PM CS T Body Mass Index 35.27 04/11/2023 2:37 PM DIRECTOR DIETETICS DEPARTMENT Plan of Treatment Not on file Insurance [facility] H[facility]/PPO Address: [place] [address] Care Teams Yarder Puncher Relationship Specialty Start Date End Date Edison Block MD PCP - General Family Medicine 12/06/22
--- OUTSIDE RECORDS SUMMARY | 2024-02-21 02:50 | XMS_ITS | Encounter Summary ---
Author Organization [facility] Address [address] [place] [address] Care Team Providers Care Press Set Up Person Name Role Phone Edison Block MD Primary Care Provider Encounter Details Date Type Department Care Team (Latest Contact Info) Description 12/06/2022 7:01 PM CDT - 12/06/2022 11:59 PM CDT Hospital Encounter [address] [phone] Acute cystitis with hematuria Discharge Disposition: Discharge to home or self care Social History Tobacco Use Types Packs/Day Years Used Date Smoking Tobacco: Never Assessed Comments Unknown Sex and Gender Information Value Date Recorded Sex Assigned at Not on file Legal Sex Female 8:34 PM TELEGRAPH EDITOR Gender Identity Not on file Sexual Orientation Not on file documented as of this encounter Medications at Time of Discharge cyclobenzaprine (FLEXERIL) 10 mg tablet Take 1 tablet (10 mg total) by mouth 3 (three) times a day as needed for muscle spasms 09/11/2022 ergocalciferol (VITAMIN D) 50,000 unit capsule Take 1 capsule (50,000 Units total) by mouth once a week 05/24/2018 escitalopram (LEXAPRO) 20 mg tablet Take 1 tablet (20 mg total) by mouth daily 05/10/2018 lisinopriL (PRINIVIL,ZESTRIL ) 40 mg tablet Take 1 tablet (40 mg total) by mouth daily 09/23/2022 SUMAtriptan (IMITREX) 25 mg tablet Take 1 tablet (25 mg total) by mouth daily as needed 05/10/2018 nitrofurantoin monohydrate (MACROBID) 100 mg capsuleIndication s:Acute cystitis with hematuria Take 1 capsule (100 mg total) by mouth 2 (two) times a day for 5 days Take with food 10 capsule 12/06/2022 12/11/2022 amoxicillin (AMOXIL) 875 mg tablet Take 1 tablet (875 mg total) by mouth every 12 (twelve) hours for 10 days 09/28/2022 02/22/2023 predniSONE (DELTASONE) 20 mg tablet TAKE 2 TABLETS BY MOUTH ONCE DAILY FOR 5 DAYS 09/11/2022 03/15/2023 documented as of this encounter Discharge Disposition Disposition Code Departure Means Destination Discharge to home or self care documented in this encounter Miscellaneous Notes * Result Encounter Note - Radha Hilario NP - 12/06/2022 11:59 PM CDT Please call and notify patient that urine culture was positive for a urinary tract infection. Organism susceptible to Macrobid as prescribed, no change in treatment necessary. She should f/u with PCPif s/s persist. * Result Encounter Note - Mirtha Hoyos MA - 12/06/2022 11:59 PM CDT Notified patient that urine culture was positive for a urinary tract infection. Organism susceptible to Macrobid as prescribed, no change in treatment necessary. She should f/u with PCP if s/s persist. Pt informed me that they have finished the rx and symptoms have improved. documented in this encounter Plan of Treatment Not on file documented as of this encounter Procedures Procedure Name Priority Date/Time Associated Diagnosis Comments URINE CULTURE Routine 12/06/2022 7:01 PM CDT Acute cystitis with hematuria documented in this encounter Results * (ABNORMAL) Urine culture Urine, clean voided (12/06/2022 7:01 PM CDT) Report Final Report: Greater than or equal to 100,000 colonies/mL of Escherichia coli Greater than or equal to 100,000 colonies/mL of Escherichia coli #2 Greater than or equal to 100,000 colonies/mL of Escherichia coli #3 Greater than or equal to 100,000 colonies/mL of Escherichia coli #4 This is a non-standardized susceptibility test. (.) CORINA MORENO Comment:Testing performed by : [facility], [address] [place]., [address] Organism ESCHERICHIA COLI [facility]ER [facility] Organism ESCHERICHIA COLI [facility] CH Organism ESCHERICHIA COLI [facility] CH Organism ESCHERICHIA COLI [facility] CH Urine, clean voided 12/06/2022 7:01 PM CDT 12/07/2022 12:07 PM CDT Narrative [facility] - 12/12/2022 9:27 AM CDT Testing performed by [facility] ([phone]) Organism Antibiotic Method Susceptibility Escherichia coli Ampicillin INTERPRETATION Resistant Escherichia coli Cefazolin INTERPRETATION Susceptible Escherichia coli Nitrofurantoin INTERPRETATION Susceptible Escherichia coli Gentamicin INTERPRETATION Susceptible Escherichia coli Trimethoprim with Sulfamethoxazole IN TERPRETATION Resistant Escherichia coli Meropenem INTERPRETATION Susceptible Escherichia coli Cefepime INTERPRETATION Susceptible Escherichia coli Ciprofloxacin INTERPRETATION Susceptible Escherichia coli Ceftazidime INTERPRETATION Susceptible Escherichia coli Ceftriaxone INTERPRETATION Susceptible Escherichia coli Piperacillin/Tazobactam INTERPRETATIO N Susceptible Escherichia coli Cephalexin INTERPRETATION Susceptible Escherichia coli Cefuroxime-axetil INTERPRETATION Susceptible Escherichia coli Cefdinir INTERPRETATION Susceptible Escherichia coli Ampicillin INTERPRETATION Resistant Escherichia coli Cefazolin INTERPRETATION Susceptible Escherichia coli Nitrofurantoin INTERPRETATION Susceptible Escherichia coli Gentamicin INTERPRETATION Susceptible Escherichia coli Trimethoprim with Sulfamethoxazole IN TERPRETATION Resistant Escherichia coli Meropenem INTERPRETATION Susceptible Escherichia coli Cefepime INTERPRETATION Susceptible Escherichia coli Ciprofloxacin INTERPRETATION Susceptible Escherichia coli Ceftazidime INTERPRETATION Susceptible Escherichia coli Ceftriaxone INTERPRETATION Susceptible Escherichia coli Piperacillin/Tazobactam INTERPRETATIO N Susceptible Escherichia coli Cephalexin INTERPRETATION Susceptible Escherichia coli Cefuroxime-axetil INTERPRETATION Susceptible Escherichia coli Cefdinir INTERPRETATION Susceptible Escherichia coli Ampicillin INTERPRETATION Resistant Escherichia coli Cefazolin INTERPRETATION Susceptible Escherichia coli Nitrofurantoin INTERPRETATION Susceptible Escherichia coli Gentamicin INTERPRETATION Susceptible Escherichia coli Trimethoprim with Sulfamethoxazole IN TERPRETATION Resistant Escherichia coli Meropenem INTERPRETATION Susceptible Escherichia coli Cefepime INTERPRETATION Susceptible Escherichia coli Ciprofloxacin INTERPRETATION Susceptible Escherichia coli Ceftazidime INTERPRETATION Susceptible Escherichia coli Ceftriaxone INTERPRETATION Susceptible Escherichia coli Piperacillin/Tazobactam INTERPRETATIO N Susceptible Escherichia coli Cephalexin INTERPRETATION Susceptible Escherichia coli Cefuroxime-axetil INTERPRETATION Susceptible Escherichia coli Cefdinir INTERPRETATION Susceptible Escherichia coli Ampicillin INTERPRETATION Resistant Escherichia coli Cefazolin INTERPRETATION Susceptible Escherichia coli Nitrofurantoin INTERPRETATION Susceptible Escherichia coli Gentamicin INTERPRETATION Susceptible Escherichia coli Trimethoprim with Sulfamethoxazole IN TERPRETATION Resistant Escherichia coli Meropenem INTERPRETATION Susceptible Escherichia coli Cefepime INTERPRETATION Susceptible Escherichia coli Ciprofloxacin INTERPRETATION Susceptible Escherichia coli Ceftazidime INTERPRETATION Susceptible Escherichia coli Ceftriaxone INTERPRETATION Susceptible Escherichia coli Piperacillin/Tazobactam INTERPRETATIO N Susceptible Escherichia coli Cephalexin INTERPRETATION Susceptible Escherichia coli Cefuroxime-axetil INTERPRETATION Susceptible Escherichia coli Cefdinir INTERPRETATION Susceptible us Randa Spangler [facility] MICROBIOLOGY - GENERAL ORD ERABLES Final Result CORINA [id number] [address] [place] [address] documented in this encounter Visit Diagnoses Diagnosis Acute cystitis with hematuria documented in this encounter Care Teams Press Set Up Person Relationship Specialty Start Date End Date Edison Block MD PCP - General Family Medicine 12/06/22 documented as of this encounter
--- OUTSIDE RECORDS SUMMARY | 2024-02-21 02:50 | XMS_ITS | Encounter Summary ---
Author Organization [facility] Address [address] [place] [address] Care Team Providers Care Shoe Sprayer Name Role Phone Edison Block MD Primary Care Provider [phone] Reason for Referral * Consultation (Urgent) - Pending Review Specialty Diagnoses / Procedures Referred By Sammi velarde Referred To Contact Orthopedic Surgery Diagnoses Pain of left lower extremity Sonja Garcia PA [address] [place] [id number] Phone: tel: fax: [facility] [address] [place] [phone] Phone: tel: fax: Referral ID Status Reason Start Date Expiration Date Visits Requested Visits Authorized [id number] Pending Review Specialty Services Required 03/15/2023 04/13/2024 1 1 Question Answer Please select the performing region: [facility] [[id number]] Please select the performing department: [facility] [[id number]] # of visits: 1 RTAINMENT DIRECTOR Reason for Visit * Reason Comments Leg Pain Pt c/o has pain that radiates from L calf to thigh and calf to foot, She states that her L leg gave out as she was going down the stairs a few weeks ago. She did not fall and the pain started a few days later and had gradually gotten worse Encounter Details Date Type Department Care Team (Late st Contact Info) Description 03/15/2023 7:15 PM ENTERTAINMENT DIRECTOR Office Visit [facility] at [address] [phone] Sonja Garcia PA [address] [place] [address] Pain of left lower extremity (Primary Dx) Social History Tobacco Use Types Packs/Day Years Used Date Smoking Tobacco: Former Cigarettes Comments Unknown Sex and Gender Information Value Date Recorded Sex Assigned at Not on file Legal Sex Female 8:34 PM ENTERTAINMENT DIRECTOR Gender Identity Not on file Sexual Orientation Not on file documented as of this encounter Last Filed Vital Signs Vital Sign Reading Time Taken Comments Blood Pressure 148/100 03/15/2023 7:10 PM ENTERTAINMENT DIRECTOR Pulse 78 03/15/2023 7:10 PM ENTERTAINMENT DIRECTOR Temperature 36.7 ??C (98 ??F) 03/15/2023 7:10 PM ENTERTAINMENT DIRECTOR Respiratory Rate 18 03/15/2023 7:10 PM ENTERTAINMENT DIRECTOR Oxygen Saturation 97% 03/15/2023 7:10 PM ENTERTAINMENT DIRECTOR Inhaled Oxygen Concentration - - Weight 107 kg (236 lb) 03/15/2023 7:10 PM ENTERTAINMENT DIRECTOR Height 177.8 cm (5' 10 ) 03/15/2023 7:10 PM ENTERTAINMENT DIRECTOR Body Mass Index 33.86 03/15/2023 7:10 PM ENTERTAINMENT DIRECTOR documented in this encounter Patient Instructions * Patient Instructions* Sonja Garcia PA - 03/15/2023 7:15 PM ENTERTAINMENT DIRECTOR -rest, ice -ibuprofen as needed -start steroid tomorrow morning -return for xray M-F between 8-4 -follow up with orthopedics RTAINMENT DIRECTOR * Attachments The following attachments cannot be sent through Care Everywhere. * Leg Pain (AfterCare(R) Instructions(ER/ED)) (Paraguayan) documented in this encounter Ordered Prescriptions Prescription Sig Dispense Quantity Refills Last Filled Start Date End Date methylPREDNISolone (MEDROL DOSEPACK) 4 mg Dosepack Take as directed on package. 21 tablet 03/15/2023 documented in this encounter Progress Notes * Sonja Garcia PA - 03/15/2023 7:15 PM CST Images from the original note were not included. Subjective/Objective Patient ID: Karey Donovan is a 38 y.o. female. Chief Complaint Leg Pain (Pt c/o has pain that radiates from L calf to thigh and calf to foot, She states that her L leg gave out as she was going down the stairs a few weeks ago. She did not fall and the pain started a few days later and had gradually gotten worse) Pt presents w/ LLE pain x few weeks, worse x couple of days. States she tripped going down the stairs and her L leg got caught causing her to tweak her lower leg. Had minimal pain at the time but pain has been increasing. Reports pain to the anterior lower leg, radiates up to her thigh and down to her foot. No edema, erythema, warmth. Taking ibuprofen, naproxen w/ no relief. Review of Systems All systems reviewed and are negative or non contributory for this patient's presentation today other than as stated in the HPI . Physical Exam Constitutional: General: She is not in acute distress. HENT: Head: Normocephalic and atraumatic. Mouth/Throat: Pharynx: Oropharynx is clear. Eyes: Pupils: Pupils are equal, round, and reactive to light. Cardiovascular: Rate and Rhythm: Normal rate. Pulmonary: Effort: Pulmonary effort is normal. Musculoskeletal: General: Normal range of motion. Cervical back: Normal range of motion. Comments: LLL w/ minimal ttp anterior chambers, generalized. No edema, erythema, or warmth. No posterior calf or knee tenderness. Pt pulse 2+. Skin: General: Skin is warm and dry. Neurological: General: No focal deficit present. Mental Status: She is alert and oriented to person, place, and time. Psychiatric: Mood and Affect: Mood normal. Behavior: Behavior normal. Vitals: 03/15/23 1910 BP: 148/100 Pulse: 78 Resp: 18 Temp: 36.7 ??C (98 ??F) SpO2: 97% Weight: 107 kg (236 lb) Height: 177.8 cm (5' 10 ) Assessment/Plan -LLE injury on the stairs 2 weeks ago -neurovascularly intact -xray ordered to return tomorrow -medrol dose pack -continue ibuprofen, rest, ice -ortho referral placed Diagnoses and all orders for this visit: Pain of left lower extremity (Primary) - XR Tibia Fibula Left 2 Vw; Future - Ambulatory referral to Orthopedic Surgery; Future Other orders - methylPREDNISolone (MEDROL DOSEPACK) 4 mg Dosepack; Take as directed on package. No results found for this or any previous visit (from the past 4 hour(s)). Disposition Treatment plan including expectations, follow up, and return precautions discussed with patient/parent, verbalizes understanding. Medication dosage, use, and potential adverse reactions discussed with patient/parent. Advised to follow up with PCP if symptoms do not resolve as expected or sooner if condition worsens. Signs/symptoms warranting ER evaluation reviewed. Patient and/or guardian was given an opportunity to ask questions, questions answered. NOA Solomon 03/15/23 7:23 PM RTAINMENT DIRECTOR documented in this encounter Plan of Treatment Scheduled Referrals Name Type Priority Associated Diagnoses Order Schedule Ambulatory referral to Orthopedic Surgery Outpatient Referral Urgent Pain of left lower extremity Expected: 03/16/2023 (Approximate), Expires: 03/15/2024 documented as of this encounter Results * XR Tibia Fibula Left 2 Vw (03/16/2023 2:21 PM ENTERTAINMENT DIRECTOR) Anatomical Region Laterality Modality Lower Extremities, Lower Leg Left Dig ital Radiography 03/18/2023 1:32 PM ENTERTAINMENT DIRECTOR Narrative 03/18/2023 1:33 PM ENTERTAINMENT DIRECTOR EXAM DESCRIPTION: XR TIBIA FIBULA LEFT 2 VIEWS REASON FOR STUDY: injury ?? Pt complains of mid tib/fib pain after falling down steps x 2 weeks ago. States leg went underneath her. Pain mid tib/fib radiating up and down leg. No prior fxs or surgery ?? TECHNIQUE: AP and lateral ??radiographic view(s) of the ??left lower leg . COMPARISON: None FINDINGS: BONES/JOINTS: There is no acute fracture, malalignment or osseous abnormality. The joint spaces are normal. SOFT TISSUES: Within normal limits. ?? IMPRESSION: No acute osseous abnormality. THIS IS AN ELECTRONICALLY VERIFIED FINAL REPORT 03/18/2023 1:33 PM - Electronically signed by ??Robert SORTO D: ??03/18/2023 1:33 PM T: Report ID: [id number] Reading Location: ??[id number] Procedure Note Chris Feliciano MD - 03/18/2023 EXAM DESCRIPTION: XR TIBIA FIBULA LEFT 2 VIEWS REASON FOR STUDY: injury Pt complains of mid tib/fib pain after falling down steps x 2 weeks ago. States leg went underneath her. Pain mid tib/fib radiating up and downleg. No prior fxs or surgery TECHNIQUE: AP and lateral radiographic view(s) of the left lower leg . COMPARISON: None FINDINGS: BONES/JOINTS: There is no acute fracture, malalignment orosseous abnormality. The joint spaces are normal. SOFT TISSUES: Within normal limits. IMPRESSION: No acute osseous abnormality. THIS IS AN ELECTRONICALLY VERIFIED FINAL REPORT 03/18/2023 1:33 PM - Electronically signed by Robert SORTO T: Report ID: [id number] Reading Location: [id number] Sonja LATHAM IMG XR PROCEDURES Final Result documented in this encounter Visit Diagnoses Diagnosis Pain of left lower extremity- Primary Pain of left lower extremity documented in this encounter Discontinued Medications Medication Sig Discontinue Reason Start Date End Da te predniSONE (DELTASONE) 20 mg tablet TAKE 2 TABLETS BY MOUTH ONCE DAILY FOR 5 DAYS Therapy completed 09/11/2022 03/15/2023 documented as of this encounter Historical Medications * This list may reflect changes made after this encounter. mometasone (ELOCON) 0.1 % cream APPLY A THIN LAYER OF CREAM TO AFFECTED AREA OF ARM TWICE DAILY FOR THE NEXT 3-9 WEEKS. added in this encounter Care Teams Shoe Sprayer Relationship Specialty Start Date End Date Edison Block MD PCP - General Family Medicine 12/06/22 documented as of this encounter
--- OUTSIDE RECORDS SUMMARY | 2024-02-21 02:50 | XMS_ITS | Encounter Summary ---
Author Organization [facility] Healthcare Address [address] [place] [address] Care Team Providers Care Brakes Inspector Name Role Phone Edison Block MD Primary Care Provider [phone] Reason for Referral * Physical Therapy (Routine) - Closed Specialty Diagnoses / Procedures Referred By Sammi velarde Referred To Contact Physical Therapy Diagnoses Strain of left peroneal muscle or tendon Peroneal neuritis, left Tasia Sullivan PA [address] [place] [address] Phone: tel: fax: [facility] [address] [place] [phone] Phone: tel: fax: Referral ID Status Reason Start Date Expiration Date V isits Requested Visits Authorized [id number] Closed Specialty Services Required 04/11/2023 05/10/2024 12 12 Question Answer PTRFR PT Evaluate and Treat Therapy options discussed with patient? Yes Location provided for therapy services is: Patient requested/Patient preferred Please select the performing region: External Order [171] To loc/pos [facility] [[id number]] # of visits: 12 Comments Eval/treat left lateral lower leg pain s/p fall Nerve desensitization, therapeutic rehab, HEP instruction, etc. UNTING SUPERVISOR Reason for Visit * Reason Comments Pain * Consultation (Urgent) - Pending Review Specialty Diagnoses / Procedures Referred By Sammi velarde Referred To Contact Orthopedic Surgery Diagnoses Pain of left lower extremity Sonja Garcia PA [address] [place] [address] Phone: tel: fax: [facility] Medical [facility] [address] [place] [phone] Phone: tel: fax: Referral ID Status Reason Start Date Expiration Date Visits Requested Visits Authorized [id number] Pending Review Specialty Services Required 03/15/2023 04/13/2024 1 1 Encounter Details Date Type Department Care Team (Late st Contact Info) Description 04/11/2023 2:45 PM ACCOUNTING SUPERVISOR Office Visit [facility] Medical [facility] Medicine [address] [place] [phone] Tasia Sullivan PA [address] [place] [address] [address] Peroneal neuritis, left (Primary Dx); Strain of left peroneal muscle or tendon Social History Tobacco Use Types Packs/Day Years Used Date Smoking Tobacco: Some Days Vaping Tobacco Cessation:Ready to Q uit: Not Asked; Counseling Given: Not Answered Comments Unknown Sex and Gender Information Value Date Recorded Sex Assigned at Not on file Legal Sex Female 8:34 PM ACCOUNTING SUPERVISOR Gender Identity Not on file Sexual Orientation Not on file documented as of this encounter Last Filed Vital Signs Vital Sign Reading Time Taken Comments Blood Pressure 156/95 04/11/2023 2:37 PM ACCOUNTING SUPERVISOR Pulse 76 04/11/2023 2:37 PM ACCOUNTING SUPERVISOR Temperature - - Respiratory Rate - - Oxygen Saturation - - Inhaled Oxygen Concentration - - Weight 106 kg (233 lb 11.2 oz) 04/11/2023 2:37 P M ACCOUNTING SUPERVISOR Height 173.4 cm (5' 8.25 ) 04/11/2023 2:37 PM CS T Body Mass Index 35.27 04/11/2023 2:37 PM ACCOUNTING SUPERVISOR documented in this encounter Ordered Prescriptions Prescription Sig Dispense Quantity Refills Last Filled Start Date End Date meloxicam (MOBIC) 15 mg tablet Take 1 tablet (15 mg total) by mouth daily 30 tablet 04/11/2023 documented in this encounter Progress Notes * Tasia Sullivan PA - 04/11/2023 2:45 PM CST Images from the original note were not included. NEW PATIENT/NEW COMPLAINT VISIT Subjective CHIEF COMPLAINT She had concerns including Pain of the Left Lower Leg. HISTORY OF PRESENT ILLNESS Patient here with complaints of left lower leg pain. Pt notes a fall down her steps in late Feb 2023 where she lost her balance, causing her to land on her left leg with her knee bent. Her pain got worse and she was seen at the [facility] in mid March where XR were completed of the tibia/fibula. Since March her symptoms have been consistent.She will describe it as a dull lopez and she cannot get the leg comfortable. It will flare at nightor even during times of rest. Heat or cold can cause the symptoms to flare. She locates symptoms tothe lateral aspect of the lower leg and at times it will radiate proximally toward her thigh. Denies any tingling/numbness. Pain Assessment Pain Assessment: 0-10 Pain Score: 6 Pain Location: Leg Pain Orientation: Left, Lower Pain Descriptors: Dull Pain Frequency: Intermittent Pain Onset: Ongoing Clinical Progression: Gradually worsening Aggravating Factors: Standing, Walking, Stairs Result of Injury: Yes Work-Related Injury: No Pain Interventions: Home medication PAST MEDICAL HISTORY She has a past medical history of Hypertension. PAST SURGICAL HISTORY She has a past surgical history that includes Dilation and curettage of uterus (2010) and Tubal ligation (2011). MEDICATIONS She has a current medication list which includes the following prescription(s): cyclobenzaprine, ergocalciferol, escitalopram, lidocaine viscous, mometasone, lisinopril, meloxicam, and sumatriptan. ALLERGIES She has no known allergies. SOCIAL HISTORY She reports that she has been smoking vaping. She does not have any smokeless tobacco history on file. No alcohol history on file. FAMILY HISTORY Family History Problem Relation Age of Onset Diabetes Mother Peripheral vascular disease Mother Hypertension Other Breast cancer Other REVIEW OF SYSTEMS Review of Systems Constitutional: Negative for chills, fatigue and fever. HENT: Negative for dental problem, hearing loss, nosebleeds, tinnitus, trouble swallowing and voicechange. Eyes: Negative for pain and visual disturbance. Respiratory: Negative for cough, chest tightness and shortness of breath. Cardiovascular: Negative for chest pain, palpitations and leg swelling. Gastrointestinal: Negative for abdominal pain, constipation, diarrhea, nausea and vomiting. Genitourinary: Negative for difficulty urinating, dysuria, frequency and urgency. Musculoskeletal: Negative for myalgias. Skin: Negative for rash. Neurological: Negative for dizziness and light-headedness. Psychiatric/Behavioral: The patient is not nervous/anxious. Objective PHYSICAL EXAM BP 156/95 Pulse 76 Ht 173.4 cm (5' 8.25 ) Wt 106 kg (233 lb 11.2 oz) BMI 35.27 kg/m?? Right knee The patient has normal inspection, palpation, range of motion, strength, and stabilty of the right knee. Left knee Inspection Erythema: absent Cellutlis: absent Swelling: absent Surgical scar/wound: absent. Gait: normal Palpation Tenderness: present. Left knee tenderness location: fibular head. Crepitus: negative Patella grind: negative Range of motion The patient has reduced range of motion of the left knee. The patient has pain with range of motion of the left knee. Stability The patient has normal AP and ML stabiltiy of the left knee. Strength The patient has 5/5 strength throughout. Neurovascular The patient has normal vascular on the left side of their body. The patient has normal sensation with exceptions as noted below. D. Peroneal: hypersensation S. Peroneal: hypersensation Special tests Cooper: medial negative Cooper: lateral negative Left foot Inspection The patient has normal inspection of the left foot. Gait: normal Standing exam: Double heel raise: able Single heel raise: able Lateral ankle: ATFL: no CFL: no AITFL (squueze test): no Lateral malleolus: no Anterior process calc: no Base of 5th MT: no Peroneal insertion/tubercle: no Peroneal groove: yes Peroneal instability: no Range of motion The patient has normal range of motion of the left foot and ankle. The patient has pain with range of motion of the left foot and ankle. Strength The patient has 5/5 strength throughout with exceptions as noted below. Anterior Tibialis (L4-L5): 5/5 Ext. Hallucis Longus (L5): 4/5 Ext. Digitorum Longus: 4/5 Peroneus Longus/Brevis (S1): 4/5 and pain limits strength Posterior Tibialis (L5): 5/5 Gastroc/Soleus (sitting) (S1,S2): 5/5 Neurovascular The patient has normal vascular on the left side of their body. The patient has normal sensation on the left side of their body. Comments: Tenderness along lateral lower leg and peroneal muscles REVIEW OF X-RAYS/STUDIES/LABS EXAM DESCRIPTION: XR TIBIA FIBULA LEFT 2 VIEWS REASON FOR STUDY: injury Pt complains of mid tib/fib pain after falling down steps x 2 weeks ago. States leg went underneath her. Pain mid tib/fib radiating up and down leg. No prior fxs or surgery TECHNIQUE: AP and lateral radiographic view(s) of the left lower leg COMPARISON: None FINDINGS: BONES/JOINTS: There is no acute fracture, malalignment or osseous abnormality. The joint spaces are normal. SOFT TISSUES: Within normal limits. IMPRESSION: No acute osseous abnormality. THIS IS AN ELECTRONICALLY VERIFIED FINAL REPORT 03/18/2023 1:33 PM - Electronically signed by Robert Feliciano M.D. NOREEN T: Report ID: [id number] Reading Location: [place] [id number] Assessment/Plan Karey was seen today for pain. Diagnoses and all orders for this visit: Peroneal neuritis, left - Ambulatory referral order to Physical Therapy -; Future Strain of left peroneal muscle or tendon - Ambulatory referral to Orthopedic Surgery - Ambulatory referral order to Physical Therapy -; Future Other orders - meloxicam (MOBIC) 15 mg tablet; Take 1 tablet (15 mg total) by mouth daily New Medications Ordered This Visit meloxicam (MOBIC) 15 mg tablet Sig: Take 1 tablet (15 mg total) by mouth daily Dispense: 30 tablet Refill: 0 Plan We discussed and reviewed the patient's complaints, clinical findings, and images today. We discussed initial conservative management of their above diagnoses. We discussed the benefits of physical therapy, including further reduction in pain, inflammation, and correction of mechanical/strength deficits. Patient elected to proceed and order placed. Patient was provided Rx for NSAID today. The patient was advised that NSAID-type medications have two very important potential side effects: gastrointestinal irritation including hemorrhage and renalinjuries. She was asked to take the medication with food and to stop if she experiences any GI upset. May follow up in 6-8 weeks to reassess. If ongoing peroneal nerve symptoms, may further evaluate with EMG/nerve conductions study. If improving with above management, may follow up prn. All questions were answered. Patient expressed full understanding and agreement of plan. NOA Arizmendi UNTING SUPERVISOR documented in this encounter Plan of Treatment Scheduled Referrals Name Type Priority Associated Diagnoses Order Schedule Ambulatory referral order to Physical Therapy - Outpatient Referral Routine Strain of left peroneal muscle or tendon Peroneal neuritis, left Expected: 04/25/2023 (Approximate), Expires: 04/11/2024 documented as of this encounter Visit Diagnoses Diagnosis Peroneal neuritis, left- Primary Strain of left peroneal muscle or tendon documented in this encounter Orders Outpatient Referral Count Last Ordered Date Fir st Ordered Date AMB REFERRAL TO ORTHOPEDIC SURGERY 1 2023 documented in this encounter Care Teams Brakes Inspector Relationship Specialty Start Date End Date Edison Blokc MD PCP - General Family Medicine 12/06/22 documented as of this encounter
--- OUTSIDE RECORDS SUMMARY | 2024-02-21 02:50 | XMS_ITS | Encounter Summary ---
Author Organization [facility] Healthcare Address [address] [place] [address] Care Team Providers Care Reduction Furnace Operator Name Role Phone Edison Block MD Primary Care Provider Encounter Details Date Type Department Care Team (Latest Contact Info) Description 03/16/2023 2:30 PM ONCOLOGY SOCIAL WORK Ancillary Procedure [facility] Imaging at [address] [phone] Pain of left lower extremity Social History Tobacco Use Types Packs/Day Years Used Date Smoking Tobacco: Former Cigarettes Comments Unknown Sex and Gender Information Value Date Recorded Sex Assigned at Not on file Legal Sex Female 8:34 PM ONCOLOGY SOCIAL WORK Gender Identity Not on file Sexual Orientation Not on file documented as of this encounter Miscellaneous Notes * Result Encounter Note - Jenna Soni MA - 03/18/2023 5:27 PM ONCOLOGY SOCIAL WORK Results given to pt LOGY SOCIAL WORK documented in this encounter Plan of Treatment Not on file documented as of this encounter Procedures Procedure Name Priority Date/Time Associated Diagnosis Comments XR TIBIA FIBULA LEFT 2 VIEWS Schedule Routine, Read Routine (OP Routine) 03/16/2023 2:21 PM ONCOLOGY SOCIAL WORK Pain of left lower extremity documented in this encounter Results * XR Tibia Fibula Left 2 Vw (03/16/2023 2:21 PM ONCOLOGY SOCIAL WORK) Anatomical Region Laterality Modality Lower Extremities, Lower Leg Left Dig ital Radiography 03/18/2023 1:32 PM ONCOLOGY SOCIAL WORK Narrative 03/18/2023 1:33 PM ONCOLOGY SOCIAL WORK EXAM DESCRIPTION: XR TIBIA FIBULA LEFT 2 [...] 1:33 PM - Electronically signed by ??Robert Feliciano M.D. NOREEN D: ??03/18/2023 1:33 PM T: Report ID: [id number] Reading Location: ??[id number] Procedure Note Chris Feliciano MD - 03/18/2023 [...] Robert Feliciano M.D. NOREEN T: Report ID: [id number] Reading Location: [id number] Sonja LATHAM IMG XR PROCEDURES Final Result documented in this encounter Visit Diagnoses Diagnosis Pain of left lower extremity documented in this encounter Care Teams Reduction Furnace Operator Relationship Specialty Start Date End Date Edison Block MD PCP - General Family Medicine 12/06/22 documented as of this encounter
--- OUTSIDE RECORDS SUMMARY | 2024-02-21 02:50 | XMS_ITS | Clinical Summary ---
Author Organization [address] Address [address] [place] [id number] Care Team Providers Care Steeping Press Tender Name Role Phone Edison Block MD Primary Care Provider [phone] Allergies No known active allergies Medications cyclobenzaprine [...] infection, site not specified;Recorded Elsewhere: No Location: [facility] Source: EHR Chronic: N Practice ID: [id number] Billable Time: 01:00:00 PM Obesity with body mass index 30 or greater 01/21 Overview (03/15/2023): Body mass index (BMI) 34.0-34.9, adult;Recorded Elsewhere: No Location: [facility] Source: EHR Chronic: N Practice ID: [id number] Billable Time: 01:30:00 PM Cyst of ovary 07/07/2015 Overview (12/06/2022): Unspecified ovarian cysts;Practice ID: [id number] Elevated blood-pressure read ing without diagnosis of hypertension 05/20/2015 Overview (12/06/2022): Elevated blood-pressure reading, without diagnosis of hypertension;Recorded Elsewhere: No Location: [facility] Source: EHR Chronic: N Practice ID: [id number] Billable Time: 01:15:00 PM Irregular periods 07/09/2013 Overview (03/15/2023): Irregular menstrual cycle;Recorded Elsewhere: No Location: [facility] Source: EHR Chronic: N Practice ID: [id number] Billable Time: 08:30:00 AM Leukocytosis 10/24/2011 Overview (03/15/2023): LEUKOCYTOSIS NOS;Recorded Elsewhere: No Location: [facility] Source: EHR Chronic: N Practice ID: [id number] [...] (12/06/2022): Absence of menstruation;Recorded Elsewhere: No Location: [facility] Source: EHR Chronic: N Practice ID: [id number] Billable Time: 03:15:00 PM Surgical History Surgery Date Site/Laterality Comments DILATION AND CURETTAGE OF UTERUS 03/06/2010 - 03/05/2011 TUBAL LIGATION 03/06/2011 - 03/05/2012 Medical History Medical History Date Comments Hypertension Family History Medical History Relation Name Comments Diabetes Mother Peripheral vascular disease Mother Breast cancer Other Hypertension Other Relation Name Status Comments Mother Other Social History Tobacco Use Types Packs/Day Years Used Date Smoking Tobacco: Some Days Vaping Tobacco Cessation:Ready to Q uit: Not Asked; Counseling Given: Not Answered Comments Unknown Sex and Gender Information Value Date Recorded Sex Assigned at Not on file Legal Sex Female 8:34 PM NON ACOUSTIC OPERATOR Gender Identity Not on file Sexual Orientation Not on file Obstetrics History Last Filed Vital Signs Vital Sign Reading Time Taken Comments Blood Pressure 156/95 04/11/2023 2:37 PM NON ACOUSTIC OPERATOR Pulse 76 04/11/2023 2:37 PM NON ACOUSTIC OPERATOR Temperature 36.7 ??C (98 ??F) 03/15/2023 7:10 PM NON ACOUSTIC OPERATOR Respiratory Rate 18 03/15/2023 7:10 PM NON ACOUSTIC OPERATOR Oxygen Saturation 97% 03/15/2023 7:10 PM NON ACOUSTIC OPERATOR Inhaled Oxygen Concentration - - Weight 106 kg (233 lb 11.2 oz) 04/11/2023 2:37 P M NON ACOUSTIC OPERATOR Height 173.4 cm (5' 8.25 ) 04/11/2023 2:37 PM CS T Body Mass Index 35.27 04/11/2023 2:37 PM NON ACOUSTIC OPERATOR Plan of Treatment Health Maintenance Due Date Last Done Comments Cervical Cancer Screening 1985 Depression Screening 1985 Hepatitis C Screening 1985 Pneumococcal vaccine <65 (1 of 2 - PCV) 1991 DTaP/Tdap/Td Vaccine (1 - Tdap) 1996 Varicella Vaccines (1 of 2 - 13+ 2-dose series) 1998 Hepatitis B Screening 2003 Regular Well Visit/Exam 18-64 2003 Covid-19 Vaccine ( season) 2023 03/21/2021, 06/25/2020, 05/30/2020 Influenza Vaccine (#1) 2023 , 01/02/2021, 12/16/2019, Additional history exists HPV Vaccines Aged Out No longer eligi ble based on patient's age to complete this topic Insurance [facility] H[facility]PPO Address: [address] [address] [place] [address] Care Teams Steeping Press Tender Relationship Specialty Start Date End Date Edison Block MD PCP - General Family Medicine 12/06/22
--- OUTSIDE RECORDS SUMMARY | 2024-02-21 02:50 | XMS_ITS | Encounter Summary ---
Author Organization [facility] Address [address] [place] [address] Care Team Providers Care Hris Analyst Name Role Phone Edison Block MD Primary Care Provider Reason for Visit * Reason Comments Dental Pain C/o of real bad nerv e pain of the right side x1 week Encounter Details Date Type Department Care Team (Late st Contact Info) Description 02/22/2023 6:45 PM FABRICATION DEPARTMENT SUPERVISOR Office Visit [facility] at [address] [phone] Sonja Garcia PA [address] [place] [address] [address] [place], [place] [id number] Pain, dental (Primary Dx) Social History Tobacco Use Types Packs/Day Years Used Date Smoking Tobacco: Former Cigarettes Tobacco Cessation:Counseling Given: Not Answered Comments Unknown Sex and Gender Information Value Date Recorded Sex Assigned at Not on file Legal Sex Female 8:34 PM FABRICATION DEPARTMENT SUPERVISOR Gender Identity Not on file Sexual Orientation Not on file documented as of this encounter Last Filed Vital Signs Vital Sign Reading Time Taken Comments Blood Pressure 130/78 02/22/2023 6:35 PM FABRICATION DEPARTMENT SUPERVISOR Pulse 77 02/22/2023 6:35 PM FABRICATION DEPARTMENT SUPERVISOR Temperature 36.8 ??C (98.2 ??F) 02/22/2023 6:35 PM CS T Respiratory Rate 18 02/22/2023 6:35 PM FABRICATION DEPARTMENT SUPERVISOR Oxygen Saturation 99% 02/22/2023 6:35 PM FABRICATION DEPARTMENT SUPERVISOR Inhaled Oxygen Concentration - - Weight 107.2 kg (236 lb 4.8 oz) 02/22/2023 6:35 PM FABRICATION DEPARTMENT SUPERVISOR Height 177.8 cm (5' 10 ) 02/22/2023 6:35 PM FABRICATION DEPARTMENT SUPERVISOR Body Mass Index 33.91 02/22/2023 6:35 PM FABRICATION DEPARTMENT SUPERVISOR documented in this encounter Patient Instructions * Patient Instructions* Sonja Garcia PA - 02/22/2023 6:45 PM FABRICATION DEPARTMENT SUPERVISOR -follow up with dentist -ER for any new or worsening symptoms ICATION DEPARTMENT SUPERVISOR * Attachments The following attachments cannot be sent through Care Everywhere. * Toothache (AfterCare(R) Instructions(ER/ED)) (Citizen Of [place]) documented in this encounter Ordered Prescriptions Prescription Sig Dispense Quantity Refills Last Filled Start Date End Date lidocaine viscous (XYLOCAINE) 2 % solution Take 10 mL by mouth 3 (three) times a day 100 mL 02/22/2023 amoxicillin-clavul anate (AUGMENTIN) 875-125 mg per tablet Take 1 tablet by mouth 2 (two) times a day for 7 days 14 tablet 02/22/2023 03/01/2023 documented in this encounter Progress Notes * Sonja Garcia PA - 02/22/2023 6:45 PM CST Images from the original note were not included. Subjective/Objective Patient ID: Karey Donovan is a 37 y.o. female. Chief Complaint Dental Pain (C/o of real bad nerve pain of the right side x1 week ) Pt presents w/ dental pain x 1 week. Has R back upper dental pain. Reports sharp shooting nerve pain that radiates across her face. Worse w/ cold or hard foods. No fever, chills, vomiting. Taking naproxen w/ mild relief. Review of Systems All systems reviewed and are negative or non contributory for this patient's presentation today other than as stated in the HPI . Physical Exam Constitutional: General: She is not in acute distress. HENT: Head: Normocephalic and atraumatic. Mouth/Throat: Pharynx: Oropharynx is clear. Comments: No obvious inflammation or dental caries Eyes: Pupils: Pupils are equal, round, and reactive to light. Cardiovascular: Rate and Rhythm: Normal rate. Pulmonary: Effort: Pulmonary effort is normal. Musculoskeletal: General: Normal range of motion. Cervical back: Normal range of motion. Skin: General: Skin is warm and dry. Neurological: General: No focal deficit present. Mental Status: She is alert and oriented to person, place, and time. Psychiatric: Mood and Affect: Mood normal. Behavior: Behavior normal. Vitals: 02/22/23 1835 BP: 130/78 BP Location: Left arm Patient Position: Sitting Pulse: 77 Resp: 18 Temp: 36.8 ??C (98.2 ??F) SpO2: 99% Weight: 107.2 kg (236 lb 4.8 oz) Height: 177.8 cm (5' 10 ) Assessment/Plan -R upper dental pain x 1 week, cold sensitivity -no obvious infection noted but will go ahead and cover with augmentin -stressed importance of dental follow up -continue naproxen, add tylenol and viscous lidocaine Diagnoses and all orders for this visit: Pain, dental (Primary) Other orders - amoxicillin-clavulanate (AUGMENTIN) 875-125 mg per tablet; Take 1 tablet by mouth 2 (two) times aday for 7 days - lidocaine viscous (XYLOCAINE) 2 % solution; Take 10 mL by mouth 3 (three) times a day No results found for this or any [...] to ask questions, questions answered. NOA Solomon 02/22/23 6:59 PM ICATION DEPARTMENT SUPERVISOR documented in this encounter Plan of Treatment Not on file documented as of this encounter Visit Diagnoses Diagnosis Pain, dental- Primary documented in this encounter Discontinued Medications Medication Sig Discontinue Reason Start Date End Da te amoxicillin (AMOXIL) 875 mg tablet Take 1 tablet (875 mg total) by mouth every 12 (twelve) hours for 10 days Therapy completed 09/28/2022 02/22/2023 documented as of this encounter Care Teams Hris Analyst Relationship Specialty Start Date End Date Edison Block MD PCP - General Family Medicine 12/06/22 documented as of this encounter
--- OUTSIDE RECORDS SUMMARY | 2024-02-21 02:50 | XMS_ITS | Encounter Summary ---
Author Organization [facility] Address [address] [place] [address] Care Team Providers Care Refined Syrup Operator Name Role Phone Edison Block MD Primary Care Provider [phone] Reason for Visit * Reason Comments UTI Pt c/o odor to urine , blood (small amount when wiping), urinary pressure, frequent urination with little urinePt states no abdominal discomfort or burning sensation when urinatingPt states s/s not related to std and is not interested in std testing today.S/s started mondayPt has self medicated with some vitamins including cranberry Encounter Details Date Type Department Care Team (Late st Contact Info) Description 12/06/2022 6:30 PM CDT Office Visit [facility] at [address] [phone] Radha Hilario NP [address] [place] [address] [address] [place] [address] Acute cystitis with hematuria (Primary Dx) Social History Tobacco Use Types Packs/Day Years Used Date Smoking Tobacco: Never Assessed Comments Unknown Sex and Gender Information Value Date Recorded Sex Assigned at Not on file Legal Sex Female 8:34 PM ETHANOL OPERATOR Gender Identity Not on file Sexual Orientation Not on file documented as of this encounter Last Filed Vital Signs Vital Sign Reading Time Taken Comments Blood Pressure 136/88 12/06/2022 6:50 PM CDT Pulse 89 12/06/2022 6:50 PM CDT Temperature 36.4 ??C (97.6 ??F) 12/06/2022 6:50 PM CD T Respiratory Rate 16 12/06/2022 6:50 PM CDT Oxygen Saturation 96% 12/06/2022 6:50 PM CDT Inhaled Oxygen Concentration - - Weight - - Height 177.8 cm (5' 10 ) 12/06/2022 6:50 PM CDT Body Mass Index - - documented in this encounter Patient Instructions * Patient Instructions* Radha Hilario NP - 12/06/2022 6:30 PM CDT If you have no improvement or worsening of your symptoms, please follow up with your Primary Care Provider, [facility] and or Emergency Room. I strive to provide you with EXCELLENT service. You may receive a survey after your visit today. If you cannot rate your experience as EXCELLENT, please let us know how we can improve and better meet your needs. Thank you for choosing [facility]! It was my pleasure to see you today, I hope you feel better soon! Radha Hilario PLASMA CENTER NURSE * Attachments The following attachments cannot be sent through Care Everywhere. * Urinary Tract Infection in Women (Electronics Processor) (Vietnamese) documented in this encounter Ordered Prescriptions Prescription Sig Dispense Quantity Refills Last Filled Start Date End Date nitrofurantoin monohydrate (MACROBID) 100 mg capsuleIndications :Acute cystitis with hematuria Take 1 capsule (100 mg total) by mouth 2 (two) times a day for 5 days Take with food 10 capsule 12/06/2022 3 documented in this encounter Progress Notes * Radha Hilario NP - 12/06/2022 6:30 PM CDT Images from the original note were not included. Subjective/Objective Patient ID: Karey Donovan is a 37 y.o. female. Chief Complaint UTI (Pt c/o odor to urine, blood (small amount when wiping), urinary pressure, frequent urination with little urine/Pt states no abdominal discomfort or burning sensation when urinating/Pt states s/snot related to std and is not interested in std testing today./S/s started monday/Pt has self medicated with some vitamins including cranberry) Pt presents to [facility] UTI This is a new problem. Episode onset: 3 days ago. The problem has been gradually worsening. The pain is mild (at the end of urination). There has been no fever. She is Not sexually active. There is No history of pyelonephritis. Associated symptoms include frequency, hematuria (when wipe after urination, not vaginal) and urgency. Pertinent negatives include no chills, flank pain, nausea or vomiting. Treatments tried: Cranberry juice. The treatment provided no relief. There is no history of a urological procedure. pt states she seems to be getting UTIs more frequently Review of Systems Constitutional: Negative for chills, diaphoresis, fatigue and fever. Respiratory: Negative. Cardiovascular: Negative. Gastrointestinal: Negative for abdominal pain, constipation, diarrhea, nausea and vomiting. Genitourinary: Positive for frequency, hematuria (when wipe after urination, not vaginal) and urgency. Negative for difficulty urinating, dysuria, flank pain, vaginal bleeding and vaginal discharge. Urine odor Musculoskeletal: Negative for back pain. Neurological: Negative for dizziness and headaches. Physical Exam Vitals and nursing note reviewed. Constitutional: General: She is awake. She is not in acute distress. Appearance: Normal appearance. She is not ill-appearing. HENT: Head: Normocephalic and atraumatic. Cardiovascular: Rate and Rhythm: Normal rate and regular rhythm. Heart sounds: Normal heart sounds. Pulmonary: Effort: Pulmonary effort is normal. Breath sounds: Normal breath sounds. Abdominal: General: Bowel sounds are normal. Palpations: Abdomen is soft. Tenderness: There is abdominal tenderness in the suprapubic area. There is no right CVA tenderness,left CVA tenderness, guarding or rebound. Neurological: Mental Status: She is alert and oriented to person, place, and time. Gait: Gait is intact. Gait normal. Psychiatric: Mood and Affect: Mood normal. Behavior: Behavior normal. Behavior is cooperative. Vitals: 12/06/22 1850 BP: 136/88 BP Location: Left arm Patient Position: Sitting Pulse: 89 Resp: 16 Temp: 36.4 ??C (97.6 ??F) SpO2: 96% Height: 177.8 cm (5' 10 ) No results found. No past medical history on file. Current Outpatient Medications: cyclobenzaprine (FLEXERIL) 10 mg tablet, Take 1 tablet (10 mg total) by mouth 3 (three) times a dayas needed for muscle spasms, Disp: , Rfl: ergocalciferol (VITAMIN D) 50,000 unit capsule, Take 1 capsule (50,000 Units total) by mouth once aweek, Disp: , Rfl: escitalopram (LEXAPRO) 20 mg tablet, Take 1 tablet (20 mg total) by mouth daily, Disp: , Rfl: amoxicillin (AMOXIL) 875 mg tablet, Take 1 tablet (875 mg total) by mouth every 12 (twelve) hours for 10 days (Patient not taking: Reported on 12/06/2022), Disp: , Rfl: lisinopriL (PRINIVIL,ZESTRIL) 40 mg tablet, Take 1 tablet (40 mg total) by mouth daily (Patient nottaking: Reported on 12/06/2022), Disp: , Rfl: nitrofurantoin monohydrate (MACROBID) 100 mg capsule, Take 1 capsule (100 mg total) by mouth 2 (two) times a day for 5 days Take with food, Disp: 10 capsule, Rfl: 0 predniSONE (DELTASONE) 20 mg tablet, TAKE 2 TABLETS BY MOUTH ONCE DAILY FOR 5 DAYS (Patient not taking: Reported on 12/06/2022), Disp: , Rfl: SUMAtriptan (IMITREX) 25 mg tablet, Take 1 tablet (25 mg total) by mouth daily as needed (Patient not taking: Reported on 12/06/2022), Disp: , Rfl: No Known Allergies Social History Tobacco Use Smoking status: Not on file Smokeless tobacco: Not on file Substance and Sexual Activity Drug use: Not on file Sexual activity: Not on file Alcohol Use: Not on file No past surgical history on file. Assessment/Plan Diagnoses and all orders for this visit: Acute cystitis with hematuria (Primary) - Urine culture Urine, clean voided; Future - POCT urinalysis dipstick - nitrofurantoin monohydrate (MACROBID) 100 mg capsule; Take 1 capsule (100 mg total) by mouth 2 (two) times a day for 5 days Take with food Recent Results (from the past 4 hour(s)) POCT urinalysis dipstick Collection Time: 12/06/22 6:48 PM Result Value Ref Range Color, Urine, POC Yellow Clarity, ur, POC Clear Clear Glucose, ur, POC Negative Negative MG/DL Bilirubin, ur, POC Negative Negative, Small, Moderate, Large Ketones, ur, POC Trace (A) Negative Specific Drift, POC 1.030 1.003 - 1.030 Blood, ur, POC Moderate (A) Negative pH, ur, POC 5.5 5.0 - 8.0 Protein, ur, POC 30. (A) Negative Urobilinogen, urine, POC 1.0 0.2 - 1.0 mg/dL Nitrite, ur, POC Positive (A) Negative Leukocytes, ur, POC Small (A) Negative Lot Number 0 Patient Education: -Take all antibiotic medications as prescribed. -We will notify you of urine culture results -Push fluids, especially water. This also helps prevent future infections. -Urinate when you feel the urge. Do not hold your urine. Urinate as soon as you feel you have to. -Cranberry juice has been shown to promote healing, use at your discretion. -Make sure to always wipe from front to back after urinating. -If you are sexually active make sure to urinate Before AND after sex to help prevent bladder infections. -Avoid intercourse until your symptoms are resolved for one week. -Do not drink alcohol, caffeine, and citrus juices. These can irritate your bladder and increase your symptoms. Seek care (go to Urgent Care or ER) immediately if: ?? You are urinating very little or not at all. ?? You are vomiting. ?? You have a high fever with shaking chills. ?? You have side or back pain that gets worse. ??Contact your primary care doctor or [facility] if: ?? You have a fever. ?? You have white or yellow discharge from your vagina. ?? You do not feel better after 2 days of taking antibiotics. Disposition Treatment plan including expectations, follow up, and return precautions discussed with patient/parent, verbalizes understanding. Medication dosage, use, and potential adverse reactions discussed with patient/parent. Advised to follow up with PCP if symptoms do not resolve as expected or sooner if condition worsens. Signs/symptoms warranting ER evaluation reviewed. Patient and/or guardian was given an opportunity to ask questions, questions answered. Radha Hilario NP This office note has been partially dictated using [employer] software, and as a result portions of the record may have been created with this software. Occasional wrong-word or '[id number]' substitutions may have occurred due to the inherent limitations of voice recognition software. Read the chartcarefully and recognize, using context, where substitutions have occurred. documented in this encounter Plan of Treatment Not on file documented as of this encounter Procedures Procedure Name Priority Date/Time Associated Diagnosis Comments POCT URINALYSIS DIPSTICK Routine 12/06/2022 6:48 PM CDT Acute cystitis with hematuria documented [...] is a non-standardized susceptibility test. (.) [facility] Comment:Testing performed by : [facility], [address] [place]., [address] Organism ESCHERICHIA COLI [facility] Organism ESCHERICHIA COLI [facility] Organism ESCHERICHIA COLI [facility] Organism ESCHERICHIA COLI [facility] Urine, clean voided 12/06/2022 7:01 PM CDT 12/07/2022 12:07 PM CDT Narrative [facility]ER [facility] - 12/12/2022 9:27 AM CDT Testing performed by [facility] Laboratory ([phone]) Organism Antibiotic Method Susceptibility Escherichia coli Ampicillin [...] INTERPRETATION Susceptible Escherichia coli Cefdinir INTERPRETATION Susceptible Randa Spangler NP LAB MICROBIOLOGY - GENERAL ORD ERABLES Final Result COR[facility] [id number] [place] [address] * (ABNORMAL) POCT urinalysis dipstick (12/06/2022 6:48 PM CDT) Color, Urine, POC Yellow Clarity, ur, POC Clear Clear Glucose, ur, POC Negative Negative MG/DL Bilirubin, ur, POC Negative Negative, Small, Moderate, Large Ketones, ur, POC Trace(A) Negative Specific Drift, POC 1.030 1.003 - 1.030 Blood, ur, POC Moderate(A) Negative pH, ur, POC 5.5 5.0 - 8.0 Protein, ur, POC 30.(A) Negative Urobilinogen, urine, POC 1.0 0.2 - 1.0 mg/dL Nitrite, ur, POC Positive(A) Negative Leukocytes, ur, POC Small(A) Negative Lot Number 0 Urine 12/06/2022 6:48 PM CDT Randa Spangler DIRECTOR OF [place]AND [place]INT OF CARE TEST ORDERABLES Final Result documented in this encounter Visit Diagnoses Diagnosis Acute cystitis with hematuria- Primary Acute cystitis with hematuria documented in this encounter Historical Medications * This list may reflect changes made after this encounter. SUMAtriptan (IMITREX) 25 mg tablet Take 1 tablet (25 mg total) by mouth daily as needed 05/10/2018 lisinopriL (PRINIVIL,ZESTRIL ) 40 mg tablet Take 1 tablet (40 mg total) by mouth daily 09/23/2022 escitalopram (LEXAPRO) 20 mg tablet Take 1 tablet (20 mg total) by mouth daily 05/10/2018 ergocalciferol (VITAMIN D) 50,000 unit capsule Take 1 capsule (50,000 Units total) by mouth once a week 05/24/2018 cyclobenzaprine (FLEXERIL) 10 mg tablet Take 1 tablet (10 mg total) by mouth 3 (three) times a day as needed for muscle spasms 09/11/2022 predniSONE (DELTASONE) 20 mg tablet TAKE 2 TABLETS BY MOUTH ONCE DAILY FOR 5 DAYS 09/11/2022 03/15/2023 amoxicillin (AMOXIL) 875 mg tablet Take 1 tablet (875 mg total) by mouth every 12 (twelve) hours for 10 days 09/28/2022 02/22/2023 added in this encounter Care Teams Refined Syrup Operator Relationship Specialty Start Date End Date Edison Block MD PCP - General Family Medicine 12/06/22 documented as of this encounter
== END 2024-02-17 10:02 | disposition home or self-care (01) ==
LOC: ANHLAB 10:03
PROVIDERS: PCP Family Medicine; Visit Provider Registered Nurse
DX: E03.9 Hypothyroidism, unspecified (principal); R53.83 Other fatigue; E78.5 Hyperlipidemia, unspecified; I10 Essential (primary) hypertension; Z11.59 Encounter for screening for other viral diseases
CPT/HCPCS: 36415; 84439; 84443; 84480; 86803

== ENCOUNTER 2024-05-11 11:05 | Outpatient (CLI) | payer OTHER, SELFPAY ==
--- OUTSIDE RECORDS SUMMARY | 2024-05-11 11:09 | XMS_ITS | Referral Summary ---
Author Organization [address] Address [address] [place] [id number] Care Team Providers Care Workday Financials Consultant Name Role Phone Edison Block MD Primary Care Provider [phone] Allergies No known active allergies Medications cyclobenzaprine [...] infection, site not specified;Recorded Elsewhere: No Location: [facility] Source: EHR Chronic: N Practice ID: [id number] Billable Time: 01:00:00 PM Obesity with body mass index 30 or greater 01/21 Overview (03/15/2023): Body mass index (BMI) 34.0-34.9, adult;Recorded Elsewhere: No Location: [facility] Source: EHR Chronic: N Practice ID: [id number] Billable Time: 01:30:00 PM Cyst of ovary 07/07/2015 Overview (12/06/2022): Unspecified ovarian cysts;Practice ID: [id number] Elevated blood-pressure read ing without diagnosis of hypertension 05/20/2015 Overview (12/06/2022): Elevated blood-pressure reading, without diagnosis of hypertension;Recorded Elsewhere: No Location: [facility] Source: EHR Chronic: N Practice ID: [id number] Billable Time: 01:15:00 PM Irregular periods 07/09/2013 Overview (03/15/2023): Irregular menstrual cycle;Recorded Elsewhere: No Location: [facility] Source: EHR Chronic: N Practice ID: [id number] Billable Time: 08:30:00 AM Leukocytosis 10/24/2011 Overview (03/15/2023): LEUKOCYTOSIS NOS;Recorded Elsewhere: No Location: [facility] Source: EHR Chronic: N Practice ID: [id number] [...] (12/06/2022): Absence of menstruation;Recorded Elsewhere: No Location: [facility] Source: EHR Chronic: N Practice ID: [id number] Billable Time: 03:15:00 PM Social History Tobacco Use Types Packs/Day Years Used Date Smoking Tobacco: Some Days Vaping Tobacco Cessation:Ready to Q uit: Not Asked; Counseling Given: Not Answered Comments Unknown Sex and Gender Information Value Date Recorded Sex Assigned at Not on file Legal Sex Female 8:34 PM [employer]CE[employer] EX[employer] CO[employer]INATOR Gender Identity Not on file Sexual Orientation Not on file Last Filed Vital Signs Vital Sign Reading Time Taken Comments Blood Pressure 156/95 04/11/2023 2:37 PM [employer]CEAN EXPORT COORDINATOR Pulse 76 04/11/2023 2:37 PM OCEAN EXPORT COORDINATOR Temperature 36.7 C (98 F) 03/15/2023 7:10 PM OCEAN EXPORT COORDINATOR Respiratory Rate 18 03/15/2023 7:10 PM OCEAN EXPORT COORDINATOR Oxygen Saturation 97% 03/15/2023 7:10 PM OCEAN EXPORT COORDINATOR Inhaled Oxygen Concentration - - Weight 106 kg (233 lb 11.2 oz) 04/11/2023 2:37 P M [employer]CE[employer] EXPORT COORDINATOR Height 173.4 cm (5' 8.25 ) 04/11/2023 2:37 PM CS T Body Mass Index 35.27 04/11/2023 2:37 PM OCEAN EXPORT COORDINATOR Plan of Treatment Not on file Insurance [facility] PL[facility] Care Teams Workday Financials Consultant Relationship Specialty Start Date End Date Edison Block MD PCP - General Family Medicine 12/06/22
--- OUTSIDE RECORDS SUMMARY | 2024-05-11 11:09 | XMS_ITS | Data Portability ---
Author Organization [facility] [place] Address [address] [place] [address] [place] [address] Assessment Encounter Date Assessment Date Assessment LastModified [...] Lab urinalys is, dipstick 2022 023 [email or web address] [facility], [address], [place], [address], 15:24:51 Referral None recorded . Procedures None recorded . Surgeries None recorded . Imaging US, pelvis 2020 021 [email or web address] [place], [address], [address], [place], [address], 15:36:30 US, transvag inal 2020 021 AMISH [place], [address], [address], [place], [address], 17:22:19 Medication Orders Macrobid 100 mg capsule 2022 023 [id number], [address], [place], [place], [id number], 3 16:21:03 fluconaz ole 150 mg tablet 2021 [facility] #[id number], [address] [facility], [place], [place], [id number], 2 14:15:21 metronid azole 500 mg tablet 2021 022 [facility] #[id number], [address] [facility], [place], [place], [id number], 2 14:15:24 Patient TargetsNo targets recorded. Patient InstructionsNo instructions recorded. Reason for Referral None Reported. Results Created Date Observation Date Name Description Value Unit Range Abnormal Flag Note LastModifiedBy Organization Detail LastModifiedTime 07/16/1907/15/2020 cultu re, urine result report SEE RESULT S BELOW Test: Cultu re: Urine Speci men Sourc e: Urine Voide d Speci men Type: Urine Speci men Date: 2020 4:39 PM Resul t Date: 2020 9:52 PM Resul t Statu s: Final resul t Abnor mal: No Resul lu Lab: [facility] [address] [facility] [address] Tel: CULTU RE ----- ----- ----- --- No growt h in 1 day (dete ction level of 10,00 0 colon ies / ml.) Not Available [facility] (Lab) [address] [place], [address], 07/16/2020 22:56:00 07/16/1907/15/2020 pap, IG + HR HPV image guided Pap, HPV regardless of Pap result SEE RESULT S BELOW CASE REPOR T: Cytol ogy Gynec ologi domi Repor t Case: [id number] Autho yun palafox Provi paz: Nain Sanabria Colle cted: 07/15 1635 GRIP WRAPPER Order ing Locat ion: [place] Patho logsheri [...] as clini leydi pietro nted. Not Available [facility] (Lab) [address] [facility], [place], [address], 07/20/2020 09:03:20 07/16/19 21 07/15/2020 CT + NG RNA, PCR, unspe cifie d speci men chlamydia trachomatis, PCR Negati ve negati ve Not Available [facility] (Lab) [address] , [place], [address], 07/20/2020 09:03:20 07/16/19 21 07/15/2020 CT + NG RNA, PCR, unspe cifie d speci men neisseria gonorrhoeae, PCR Negati ve negati ve Not Available [facility] (Lab) [address], [place], [address], 07/20/2020 09:03:20 07/16/19 21 07/15/2020 trich omona s vagin bismark RNA trichomonas vaginalis ribosomal RNA (rrna) Negati ve negati ve Not Available [facility] (Lab) [address] [place], [address], 07/20/2020 09:03:21 07/16/19 21 07/15/2020 austin da dominic i DNA, vagin al luis krusei by RT-PCR Negati ve Swab- 1 Vagin al Not Available [facility] (Lab) [address] [place], [address], 07/20/2020 09:03:21 07/16/19 21 07/15/2020 mobil uncus , DNA, vagin al nm bkr mobiluncus mulieris and mobiluncus curtisii by RT-PCR Negati ve Swab- 1 Vagin al Not Available [facility] (Lab) [address] [place], [address], 07/20/2020 09:03:22 07/16/19 21 07/15/2020 austin da sp DNA, vagin al ulis albicans PCR Negati ve Swab- 1 Vagin al Not Available [facility] (Lab) [address] [facility], [place], [address], 07/20/2020 09:03:22 07/16/19 21 07/15/2020 austin da sp DNA, vagin al luis tropicalis PCR Negati ve Swab- 1 Vagin al Not Available [facility] (Lab) [address] [facility], [place], [address], 07/20/2020 09:03:22 07/16/19 21 07/15/2020 austin da sp DNA, vagin al luis parapsilosis PCR Negati ve Swab- 1 Vagin al Not Available [facility] (Lab) [address] [place], [address], 07/20/2020 09:03:22 07/16/19 21 07/15/2020 austin da sp DNA, vagin al luis glabrata PCR Negati ve Swab- 1 Vagin al Not Available [facility] (Lab) [address] [place], [address], 07/20/2020 09:03:22 07/16/19 21 07/15/2020 STI panel nm bkr mycoplasma genitalium by RT-PCR Negati ve Swab- 1 Vagin al Not Available [facility] (Lab) [address] [place], [address], 07/20/2020 09:03:22 07/16/19 21 07/15/2020 STI panel nm bkr mycoplasma hominis by RT-PCR Negati ve Swab- 1 Vagin al Not Available [facility] (Lab) [address] [facility], [place], [address], 07/20/2020 09:03:22 07/16/19 21 07/15/2020 STI panel nm bkr ureaplasma urealyticum by RT-PCR Negati ve Swab- 1 Vagin al Not Available [facility] (Lab) [address] [facility], [place], [address], 07/20/2020 09:03:22 07/16/19 21 07/15/2020 bacte rial vagin osis DNA, PCR, vagin al fluid gardnerella vaginalis PCR Negati ve Swab- 1 Vagin al Not Available [facility] (Lab) [address] [facility], [place], [address], 07/20/2020 09:03:23 07/16/19 21 07/15/2020 bacte rial vagin osis DNA, PCR, vagin al fluid atopobium vaginae PCR Negati ve Swab- 1 Vagin al Not Available [facility] (Lab) [address] [place], [address], 07/20/2020 09:03:23 07/16/19 21 07/15/2020 bacte rial vagin osis DNA, PCR, vagin al fluid bacterial vaginosis associated bacteria 2 (bvab2) Negati ve Swab- 1 Vagin al Not Available [facility] (Lab) [address] [place], [address], 07/20/2020 09:03:23 07/16/19 21 07/15/2020 bacte rial vagin osis DNA, PCR, vagin al fluid megasphaera species (type 1 and type 2) PCR Negati ve (Type1 ,Type2 ) Swab- 1 Vagin al Type1 :Nega tive Type2 :Nega tive. Not Available [facility] (Lab) [address] [facility], [place], [address], 07/20/2020 09:03:23 07/16/19 21 07/15/2020 bacte rial vagin osis DNA, PCR, vagin al fluid lactobacillu s (bvpanel) PCR See Commen t Swab- 1 Vagin al L.cri spatu s: Posit patricia L.shayy senii : Negat patricia L.gas seri : Negat patricia L.ine rs : Negat patricia. Not Available [facility] (Lab) [address], [place], [address], 07/20/2020 09:03:23 07/16/19 21 07/15/2020 urina lysis , dipst ick Leukocytes + positi ve Not Available [facility] [address], [place], [address], 07/15/2020 14:53:03 07/16/19 21 07/15/2020 urina lysis , dipst ick Nitrite neg Not Available [facility] [address], [place], [address], 07/15/2020 14:53:03 07/16/19 21 07/15/2020 urina lysis , dipst ick Urobilinogen 0.2 neg Not Available [facility] [address], [place], [address], 07/15/2020 14:53:03 07/16/19 21 07/15/2020 urina lysis , dipst ick Protein neg Not Available [facility] [address], [place], [address], 07/15/2020 14:53:03 07/16/19 21 07/15/2020 urina lysis , dipst ick pH 5 neg Not Available [facility] [address], [place], [address], 07/15/2020 14:53:03 07/16/19 21 07/15/2020 urina lysis , dipst ick Specific Nebo 1.020 [facility] Available [facility] [address], [place], [address], 07/15/2020 14:53:03 07/16/19 21 07/15/2020 urina lysis , dipst ick Ketone neg Not Available [facility] [address], [place], [address], 07/15/2020 14:53:03 07/16/19 21 07/15/2020 urina lysis , dipst ick Bilirubin neg Not Available Yolanda tabares [address], [place], [address], 07/15/2020 14:53:03 07/16/19 21 07/15/2020 urina lysis , dipst ick Glucose neg Not Available [facility] [address], [place], [address], 07/15/2020 14:53:03 07/16/19 21 07/15/2020 urina lysis , dipst ick Appearance clear Not Available Kiersten casillas [address], [place], [address], 07/15/2020 14:53:03 07/16/19 21 07/15/2020 urina lysis , dipst ick Color yellow Not Available [facility] [address], [place], [address], 07/15/2020 14:53:03 12/23/19 22 12/22/2021 CT/GC AND TRICH OMONA S VAGIN BISMARK (RRNA ), SWAB chlamydia trachomatis, PCR Negati ve negati ve Not Available [facility] [address] [place], [address], 12/23/2021 19:50:40 12/23/19 22 12/22/2021 CT/GC AND TRICH OMONA S VAGIN BISMARK (RRNA ), SWAB neisseria gonorrhoeae, PCR Negati ve negati ve Not Available [facility] [address] [place] [address], [address], 12/23/2021 19:50:40 12/23/19 22 12/22/2021 CT/GC AND TRICH OMONA S VAGIN BISMARK (RRNA ), SWAB trichomonas vaginalis ribosomal RNA (rrna) Negati ve negati ve Not Available [facility] [address] [place] [address], [address], 12/23/2021 19:50:40 12/23/1912/22/2021 VAGIN ITIS/ VAGIN OSIS, DNA PROBE luis sp. detection, direct probe Positi ve negati ve abnormal Not Available [facility] [address] [place] [address], [address], 12/23/2021 19:50:41 12/23/19 22 12/22/2021 VAGIN ITIS/ VAGIN OSIS, DNA PROBE gardnerella vag. detection, direct probe Positi ve negati ve abnormal Not Available [facility] [address] [place] [address], [address], 12/23/2021 19:50:41 12/23/19 22 12/22/2021 VAGIN ITIS/ VAGIN OSIS, DNA PROBE trichomonas vag. detection, direct probe Negati ve negati ve Not Available [facility] [address] [place] [address], [phone], 12/23/2021 19:50:41 12/30/19 23 12/29/2022 urina lysis , dipst ick Leukocytes ++ Not Available Kiersten casillas [address], [place], [address], 12/29/2022 15:24:19 12/30/1912/29/2022 urina lysis , dipst ick Nitrite + Not Available [facility] [address], [place], [address], 12/29/2022 15:24:19 12/30/1912/29/2022 urina lysis , dipst ick Urobilinogen neg Not Available [facility] anastasiia [address], [place], [address], 12/29/2022 15:24:19 12/30/1912/29/2022 urina lysis , dipst ick Protein + Not Available [facility] [address], [place], [address], 12/29/2022 15:24:19 12/30/1912/29/2022 urina lysis , dipst ick pH 5 Not Available [facility] [address], [place], [address], 12/29/2022 15:24:19 12/30/19 23 12/29/2022 urina lysis , dipst ick Specific Nebo 1.020 Not Available [facility] larry [address], [place], [address], 12/29/2022 15:24:19 12/30/19 23 12/29/2022 urina lysis , dipst ick Ketone neg Not Available [facility] [address], [place], [address], 12/29/2022 15:24:19 12/30/1912/29/2022 urina lysis , dipst ick Bilirubin neg Not Available [facility] [address], [place], [address], 12/29/2022 15:24:19 12/30/19 23 12/29/2022 urina lysis , dipst ick Glucose neg Not Available [facility] [address], [place], [address], 12/29/2022 15:24:19 12/30/19 23 12/29/2022 urina lysis , dipst ick Appearance cloudy Not Available [facility] [address], [place], [address], 12/29/2022 15:24:19 12/30/19 23 12/29/2022 urina lysis , dipst ick Color yellow Not Available [place] [address], [place], [address], 12/29/2022 15:24:19 08/06/19 21 08/05/2020 US, pelvi s No observ ation record ed. [facility] [address], [place], [address], 08/05/2020 17:22:09 08/06/19 21 08/05/2020 US, trans vagin al No observ ation record ed. [facility] [address], [place], [address], 08/05/2020 17:22:19 08/06/19 21 08/05/2020 US, pelvi s No observ ation record ed. layran Sera [address], [place], [address], 08/06/2020 15:56:40 Result Notes None recorded. Problems Name Problem SNOMED Code Status Onset Date Resolution Date Notes Provider Name and Address Organization Details Recorded Time Postcoit al finding [id number] Completed 201505/07/2020 Postcoit al and contact bleeding ;Practic e ID: 0001 Bonny kinney [facility] 10:20:46 Dyspareu lyudmila [id number] Completed 201505/07/2020 Dyspareu lyudmila;Prac gloria ID: 0001 Bonny kinney [facility] 10:20:32 Cyst of ovary 96752397 Completed 201505/07/2020 Unspecif ied ovarian cysts;Pr actice ID: 0001 Bonny kinney [facility] 10:20:[address] Concept Completed 201705/07/2020 Encntr for obstetrics and gynecology professor exam (general ) (routine ) w/o abn findings ;Practic e ID: 0001 Bonny kinney [facility] 10:20:57 Finding of desire for urinatio n 798218707 Completed 201805/07/2020 Urgency of urinatio n;Record ed Elsewher e: No Locat ion: [facility] S ource: EHR Risk Control Field Representative lauren: N Yoannati ce ID: 0001 Hector lable Time: 01:00:00 PM Bonny kinney [facility] 10:20:42 Body mass index 30+ - obesity 866359857 Completed 201705/07/2020 Body mass index (BMI) 34.0-34. 9, adult;Re corded Elsewher e: No Locat ion: [facility] S ource: EHR Risk Control Field Representative lauren: N Yoannati ce ID: 0001 Hector lable Time: 01:30:00 PM Bonny kinney [facility] 10:20:28 Screenin g for malignan t neoplasm of cervix Completed 201505/07/2020 Screenin g for malignan t neoplasm s of the cervix;R ecorded Elsewher e: No Locat ion: [facility] S ource: EHR Risk Control Field Representative lauren: N Practi ce ID: 0001 Hector lable Time: 01:15:00 PM Bonnybrayan kinney [facility] 10:20:53 Urinary tract infectio us disease 99382108 Completed 201805/07/2020 Urinary tract infectio n, site not specifie d;Record ed Elsewher e: No Locat ion: Ar[facility] rayshawn [facility] S ource: EHR Risk Control Field Representative lauren: N Practi ce ID: 0001 Hector lable Time: 01:00:00 PM Bonny kinney [facility] 1 10:21:02 Pregnanc y test negative 723638173 Completed 201505/07/2020 Encounte r for pregnanc y test, result negative ;Recorde d Elsewher e: No Locat ion: [facility] S ource: EHR Risk Control Field Representative lauren: N Practi ce ID: 0001 Hector lable Time: 02:00:[address] [facility] 1 10:20:48 Pregnanc y test positive 021789080 Completed 201010/24/2011 Pregnanc y examinat ion or test, positive result;R ecorded Elsewher e: No Locat ion: [facility] S ource: EHR Risk Control Field Representative lauren: N Practi ce ID: 0001 Hector lable Time: 03:15:00 PM Not Available [facility] 0 21:46:42 Postpart um care Completed 201110/24/2011 Routine postpart um follow-u p;Record ed Elsewher e: No Locat ion: [facility] S ource: EHR Risk Control Field Representative lauren: N Practi ce ID: 0001 Hector lable Time: 10:45:00 AM Not Available [facility] 0 21:46:43 Infectio n screenin g Completed 201505/07/2020 Encounte r for screenin g for oth infec/pa rastc diseases ;Recorde d Elsewher e: No Locat ion: [facility] rayshawn [facility] S ource: EHR Risk Control Field Representative lauren: N Practi ce ID: 0001 Hector lable Time: 01:15:00 PM Bonny Madden [facility] 1 10:20:43 Speciali zed medical examinat ion Completed 201010/24/2011 Gynecolo gical Examinat ion;Yariel rded Elsewher e: No Locat ion: [facility] rayshawn [facility] S ource: EHR Risk Control Field Representative lauren: N Yoannati ce ID: 0001 Hector lable Time: 03:15:00 PM Bonny kinney [facility] 1 10:20:58 Syphilis test finding 062686530 Completed 201505/07/2020 Encntr screen for infectio ns w sexl mode of transmis s;Record ed Elsewher e: No Locat ion: [facility] S ource: EHR Risk Control Field Representative lauren: N Yoannati ce ID: 0001 Hector lable Time: 01:15:00 PM Bonny kinney, [facility] 1 10:21:00 Amenorrh ea 84261031 Completed 201010/24/2011 Absence of menstrua tion;Rec orded Elsewher e: No Locat ion: [facility] S ource: EHR Risk Control Field Representative lauren: N Yoannati ce ID: 0001 Hector lable Time: 03:15:00 PM Not Available [facility] 0 21:46:44 Speciali zed medical examinat ion Completed 201305/07/2020 Gynecolo gical Examinat ion;Yariel rded Elsewher e: No Locat ion: [facility] S ource: EHR Risk Control Field Representative lauren: N Practi ce ID: 0001 Hector lable Time: 08:30:00 AM Bonny kinney [facility] [address] 10:20:[address] Concept Completed 201705/07/2020 Encntr for general adult medical exam w/o abnormal findings ;Recorde d Elsewher e: No Locat ion: [facility] S ource: EHR Risk Control Field Representative lauren: N Yoannati ce ID: 0001 Hector lable Time: 01:30:00 PM Bonny kinney [facility] 1 10:20:56 Screenin g for malignan t neoplasm of cervix Completed 201010/24/2011 Screenin g for malignan t neoplasm s of the cervix;R ecorded Elsewher e: No Locat ion: [facility] S ource: EHR Risk Control Field Representative lauren: N Yoannati ce ID: 0001 Hector lable Time: 03:15:00 PM Bonny kinney, [facility] 10:20:53 Elevated blood-pr essure reading without diagnosi s of hyperten lino 126648540 Completed 201505/07/2020 Elevated blood-pr essure reading, without diagnosi s of hyperten lino;Rec orded Elsewher e: No Locat ion: [facility] S ource: EHR Risk Control Field Representative lauren: N Yoannati ce ID: 0001 Hector lable Time: 01:15:00 PM Bonny Madden [facility], [facility] 10:20:36 Vaginiti s and vulvovag initis Completed 201105/07/2020 Vaginiti s;Record ed Elsewher e: No Locat ion: [facility] S ource: EHR Risk Control Field Representative lauren: N Yoannati ce ID: 0001 Hector lable Time: 02:30:00 PM Bonny kinney [facility] 10:21:04 Leukocyt osis 034032648 Completed 201105/07/2020 LEUKOCYT OSIS NOS;Yariel rded Elsewher e: No Locat ion: [facility] S ource: EHR Risk Control Field Representative lauren: N Yonanati ce ID: 0001 Hector lable Time: 02:30:00 PM Bonny kinney [facility] 10:20:45 Irregula r periods 40867885 Completed 201305/07/2020 Irregula r menstrua l cycle;Re corded Elsewher e: No Locat ion: [facility] S ource: EHR Risk Control Field Representative lauren: N Practi ce ID: 0001 Hector lable Time: 08:30:00 AM Bonny kinney, [facility] 10:20:44 Educatio n Completed 201005/07/2020 Other general counseli ng and advice on contrace ptive manageme nt;Pract ice ID: 0001 Bonny kinney, [facility] 10:20:34 Routine antenata l care Completed 201005/07/2020 Supervis ion of other normal pregnanc y;Practi ce ID: 0001 Bonny kinney [facility] 10:20:52 Primigra olesya 416190784 Completed 201005/07/2020 Supervis ion of normal first pregnanc y;Practi ce ID: 0001 Bonny kinney [facility] 10:20:49 anatomy study Completed 201005/07/2020 [facility] ANAT SURVEY;P ractice ID: 0001 Bonny kinney [facility] 10:20:40 Female genital organ symptoms 631428532 Completed 201105/07/2020 Unspecif ied symptom associat ed with female genital organs;P ractice ID: 0001 Bonny kinney [facility] 10:20:39 Benign essentia l hyperten lino complica ting pregnanc y, childbir th and the puerperi um - not delivere d 257268881 Completed 201105/07/2020 Hyperten lino During Pregnanc y;Practi ce ID: 0001 Bonny Wagoneran nirmal [facility] 10:20:26 Tachycar waqar 7824511 Completed 201105/07/2020 Tachycar waqar, unspecif ied;Prac gloria ID: 0001 Bonny kinney [facility] 10:21:01 Excessiv e growth affectin g manageme nt of mother 19433842 Completed 201105/07/2020 GROWTH LARGE LGA;Prac gloria ID: 0001 Bonny Madden nirmal [facility] 10:20:37 Delivery normal 59681346 Completed 201105/07/2020 Normal delivery ;Practic e ID: 0001 Bonny Madden nirmal [facility] 10:20:31 Single live 069606555 Completed 201105/07/2020 Mother with single liveborn ;Practic e ID: 0001 Bonny Madden [facility] 10:20:55 Procedur e on genitour inary system Completed 201105/07/2020 Steriliz ation;Pr actice ID: [address] [facility] 10:20:50 Hyperten sive disorder 96229285 Active [address] [facility] 10:27:56 Problem Notes None recorded. Procedures Surgical History Date Name Laterality Status Provider Name and Address Organization Details Recorded Time 1 Date of Last Pap Smear completed [facility] 08/06/2020 14:49:09 0 Date of Last Mammogram completed [facility] 08/06/2020 14:49:33 6 Colposcopy completed [facility] 07/14/2020 16:54:47 2 ligation of bilateral fallopian tubes completed Bonny Madden [facility] 05/07/2020 10:26:56 Imaging Results Imaging Date Name Status LastModified by Organization Details LastModified Time 08/05/2020 US, pelvis completed [facility] [address], [place], [address], 08/05/2020 17:22:09 08/05/2020 US, transvaginal completed [facility] rayshawn [address], [place], [address], 08/05/2020 17:22:19 08/05/2020 US, pelvis completed erica Zamora [address], [place], [address], 08/06/2020 15:56:40 Procedure Notes None recorded. Medical [...] Prescrib ed Elsewher e: No [facility]: cmedical Encount er DateTime : [...] Prescrib ed Elsewher e: Yes Loca tion: [facility] odify By: holly ross DateTime : 11/02/19 [...] Prescrib ed Elsewher e: No Locat ion: [facility] odify By: [email or web address] Tabares ncolamberto DateTime : [...] Prescrib abdelrahman Bui e: No Locat ion: [facility] M odify By: lbillhar tz Encou nter DateTime : 12/06/19 01:00:00 PM Not Available Not Available Not Available escitalop demetrius 5 mg/5 mL oral solution take 10 millilit er by oral route every day 07/15 completed Prescrib ed Elsewher e: Yes Loca tion: [facility] rays[facility]wn [facility] odify By: carlos wallace DateTime : 01/23/20 [...] Prescrib ed Elsewher e: Yes Loca tion: [facility] rayshawn [facility] odify By: amkdennis hoskinsunter DateTime : 07/10/19 14 08:30:00 AM Not Available Not Available Not Available Lomedia 24 Fe 1 mg-20 mcg (24)/75 mg (4) tablet take 1 tablet by oral route every day 05/19 completed Prescrib ed Elsewher e: No Locat ion: [facility] odify By: ladan marin DateTime : 07/10/19 [...] Updated DateTime 08/06/2020 175.26 cm 35.7 kg/m2 577257.9 2 g 126 mm[Hg] 70 mm[Hg] Flakita Salgado [facility] 14:53:24 Date Recorded Body height Body mass index (BMI) Body weight Systolic blood pressure Diastolic blood pressure Provider Name and Address Organization Details Last Updated DateTime 12/22/2021 175.26 cm 36.2 kg/m2 695442.1 3 g 147 mm[Hg] 91 mm[Hg] [facility] 2 15:21:48 Date Recorded Body height Body mass index (BMI) Body weight Systolic blood pressure Diastolic blood pressure Provider Name and Address Organization Details Last Updated DateTime 01/12/2022 175.26 cm 35.6 kg/m2 642799.2 g 159 mm[Hg] 103 mm[Hg] Carly Olmsteadvandana [facility] 2 14:15:15 Date Recorded Systolic blood pressure Diastolic blood pressure Provider Name and Address Organization Details Last Updated DateTime 01/12/2022 138 mm[Hg] 96 mm[Hg] NISREEN Garcia [address], [place], [address], [facility] 01/12/2022 15:07:46 Date Recorded Body height Body mass index (BMI) Body weight Systolic blood pressure Diastolic blood pressure Provider Name and Address Organization Details Last Updated DateTime 12/29/2022 175.26 cm 34.6 kg/m2 616201.0 5 g 125 mm[Hg] 87 mm[Hg] Flakita Molina [facility] 3 15:16:56 Social History Question Answer Notes LastModified by Organizat ion Details LastModified Time Tobacco Smoking Status Former Smoker Bonny kinney, [facility] 05/07/2020 10:26:41 Are You Blind [...] Anxious, Or Unable To Sleep At Night)? [id number] Information not available 07/14/2020 Do You Use [...] Details LastModified Time Maternal Grandmother Diabetes mellitus [email or web address] Not available 2020 10:26:06 Maternal Grandmother Asthma [email or web address] Not available 05/07 10:26:14 Mother Mental disorder Bipola r [email or web address] Not available 05/07/2020 10:26:27 Medical History Condition Response Allergies (Food, seasonal, environmental ) N Other Y Breast Cancer N Drug/Latex Allergies/Reactions N Blood Transfusion N Dermatologic Disorders N Lung Disease N Defects or Inherited Disease N Breast Problem N Gestational Diabetes N Hematologic disorders N Anesthesia Complications N History of STI N Deep Vein Thrombosis N Polycystic ovary syndrome N Anxiety Disorder N Autoimmune disease N Arthritis N Infertility N Polyps N Acid Reflux (GERD) N History of abnormal pap N Cancer N Stroke N Varicosities N Neurologic/Epilepsy N Endometriosis N High Cholesterol N Headaches N Fibromyalgia N Kidney Disease N Heart Problems N Kidney or Bladder Problems N Thyroid Problems N GI Problems N Eating Disorder N Anemia N Art (IVF or FET) N Psychiatric Illness N Ovarian Cancer N Diabetes N Pulmonary (TB, Asthma) N Hepatitis/Liver Disease N No Past Medical History N Eczema N Urinary Tract Infection N Abuse/Domestic Violence N Asthma N Trauma/Violence N Depression/ depression N Heart Disease N Pre-Eclampsia N Hypertension N Osteoporosis N Thrombophilias N Gynecological History Statement/Question Response Abnormal Pap [...] Diagnosis/Indication Diagnosis SNOMED-CT Code Diagnosis ICD10 Code Diagnosis Note [id number] Mary Ellen Aguilar [place] [address],[place] [address] 01/28/2020 14:34:49 01/28/2020 16:30:45 Lump of axillary tail of right breast [id number] 94638 N63.31 N63.0 Based on exam & subjective complaints we agreed to move forward with imaging. Fam Hx of grandmothe r with breast cancer maternal; but no other fam hx. Non-menopa usal hot flash [id number] 49042 R23.2 Hx of HTN on medication s Having some night sweats with temp flucuation s. Agreed on lab work to start. Will also f/u PCP [facility]s are regular [facility]. [id number] [facility] [address],[place] [address] 05/07/2020 10:04:17 06/29/2020 14:58:46 [id number] [address],[place] [address] 05/07/2020 10:19:12 05/07/2020 10:57:14 Vaginitis [id number] N76.0 Use mild soap like dove or ivory, cotton underwear w/out dye, hypoallerg enic detergent, wipe from front to back, avoid tub baths, keep perineum clean and dry, d/c use of baby wipes. Recommend daily intake of yogurt or womens health probiotic. Internal and external affirm collected along with STD screen. Urinary tr act infectious disease [id number] N39.0 Urine negative with exception of blood but pt is on her cycle. Urine sent for culture. Increase water and decrease caffeine. [id number] Mary Ellen Aguilar [facility] [address],[place] [address] 07/15/2020 14:31:36 07/15/2020 15:33:17 Abnormal uterine bleeding [id number] 9100 N93.9 TVUS ordered Recently had TSH checked wnl Will consider labs moving forward if needed. Pain with exam US ordered Friable cervix-cul tures sent with updated STD screen since had a new partner since this time Recent sexual partner sterile due to cancer/can cer treatments . Time spent in visit is a total of 15 mins with at least 50% of visit consisting of counseling and review of plan of care. Additional precaution armida measures were taken to minimize potential exposure to the Covid-19 virus during this patient s visit, including available hand carpenter bridge upon arrive, temperatur e check and being asked a series of screening questions. All staff wore face coverings during this encounter, as well as provided additional cleaning and sanitizing of all surfaces, including countertop s, pens, chairs, door handles, light switches, etc, prior to and following the patient s visit. Blood in urine 16117926 R31.9 [id number] Sonja Salgado [facility] [address],[place] [address] 08/05/2020 13:52:20 08/05/2020 14:43:25 Abnormal uterine bleeding [id number] 9100 N93.9 [id number] Mary Ellen Aguilar [facility] [address],[place] [address] 08/06/2020 14:26:00 08/06/2020 15:32:38 Irregular periods 22978133 N92.6 TVUS considered wnl with 3cm corpus luteum present. Patient is feeling fine and no pain. Had a normal menses May and is due for another 08.15.2020 which correlates with current TVUS. We agreed to keep menstrual diary & contact us if any changes. All questions answered to pt satisfacti on. Time spent in visit is a total of 15 mins with at least 50% of visit consisting of counseling and review of plan of care. Additional precaution armida measures were taken to minimize potential exposure to the Covid-19 virus during this patient s visit, including available hand carpenter bridge upon arrive, temperatur e check and being asked a series of screening questions. All staff wore face coverings during this encounter, as well as provided additional cleaning and sanitizing of all surfaces, including countertop s, pens, chairs, door handles, light switches, etc, prior to and following the patient s visit. [id number] NISREEN Garcia [facility] [address] [address] 12/22/2021 15:07:38 12/22/2021 15:47:23 Vaginitis 17284044 N76.0 Suspect BV/yeastVa ginitis panel sentSTI endocervic al testing sentVulvar care guidelines discussed in-depthRx sentR/B of medication discussed and accepted by patientRTC for WWE Time spent in visit is a total of 20 mins with at least 50% of visit consisting of counseling and review of plan of care. Venereal d isease screening [id number] Z11.3 [id number] NISREEN Garcia [facility] [address] [address] 01/12/2022 13:55:29 01/12/2022 15:18:35 Gynecologic examination 66238009 Z01.419 Take Calcium with Vitamin D 1200mg daily if not receiving in daily diet. It is strongly advised to have an annual flu shot and up can obtain at most pharmacies . If you have not had a TDap shot in the last 10 years you should obtain one as well. Discussed with patient & provided with informatio n regarding Gardisil vaccine to prevent the 4 strains for HPV that cause cervical cancer if under age 26. Encourage safe sexual practices, to use condoms and limit partners if not already in a monogamous relationsh ip. Do monthly self breast exams. Have mammogram yearly or every other year depending on family history. BRCA testing is now available for patients with strong genetic history of female cancer. If interested contact the office. Engage in daily exercise of low impact aerobic exercise 45-60 minutes 4-5 times weekly. Avoid tobacco and illicit drugs as well as using moderation with alcohol intake less than 1-2 8 oz beverages daily. This lifestyle behavior pattern will lead to less health conditions and longer life span. If BMI greater than 25 weight watchers or dietary consult advised. Patient received above instructio ns, and questions have been answered. If you have any questions please call or respond to this email. Patient was made aware of the patient portal and may obtain a paper copy of today's plan if desired. WWEBC - BTLNo hx of abnormal papsLast pap 07/15/2020 NILM, HPV (-)No pap today per ASCCP guidelines STI testing declinedGe netic testing discussedU TD with PCPRTC in 1 year or sooner if needed BP today 138/96 - she did not take her HTN medication today. No symptoms. Encouraged patient to take medication as prescribed and monitor BP at home. If elevation continues need to f/u with PCP. ED precaution s discussed [id number] NISREEN Garcia [facility] [address] [address] 12/29/2022 15:05:25 12/29/2022 16:26:23 Urinary symptoms [id number] R39.9 suspect UTIcx sentrx sent, r/b/a reviewedde crease caffeine intake, increase waterRTC for WWE or sooner if needed Patient is to contact office or go to nearest ED/Urgent care if fever >/= 100.1, pain, excessive bleeding, unusual drainage or swelling in area of concern; or experienci ng worsening sx's or new onset of concerning sx's. Understand ing verbalized . All questions answered to patient satisfacti on. Time spent in visit is a total of 18 mins with at least 50% of visit consisting of counseling and review of plan of care. Dysuria [id number] R30.0 Health Concerns Section Related Observation LastModified by Organization Detai ls LastModified Time None Recorded Concern Status LastModified by Organization Details LastModified Time None Recorded Advance Directives Directive None Recorded Payers Encounter Date Sequence Insurance Name Policy Number Policy Pagan Covered Member ID Pagan Member ID Guarantor Name 08/05/2020 1 [facility] (MEDICAID HMO) [id number] [place] [id number] [place] 08/06/2020 1 [facility] (MEDICAID HMO) [id number] [place] [id number] K[place] 12/22/2021 1 [facility] (MEDICAID HMO) [id number] [place] [id number] [place] 01/12/2022 1 [facility] (MEDICAID HMO) [id number] [place] [id number] K[place]y [place] 12/29/2022 1 [facility] (MEDICAID HMO) [id number] [place] [id number] K[place]y [employer] [place] Notes Date Note Type Note Provider Name and Address Organization Details Recorded Time 08/06/2020 text/html Here for TVUS Fo llow up for irregular cycle. NISREEN Moran- [address], [place], [address], [facility] 08/06/2020 15:14:34 12/22/2021 text/html 36yo Presents fo r evaluation of vaginal discharge, odor, and itchingPresents for the last 1 weekSA with steady partnerBC - BTL [address], [place], [address], [facility] 12/22/2021 15:42:29 01/12/2022 text/html Annual GYNReport [...] mammograms starting age [address], [place], [address], [facility] 01/12/2022 15:06:49 12/29/2022 text/html 37yopresents for urinary symptomsurinary frequency/pressuresy mptoms started 2-3 days agodrinking more caffeine latelydenies flank pains, n/v/f, or flu-like symptomsBTL for BCno vaginal symptoms Argenis Moralez, WHNP [address], [place], [address], [place] [facility] 12/29/2022 16:23:20 OBGyn Episode Ob Episode Information Episode Created Date Number of Fetuses Patient Bloodtype Patient rh Status Prepregnancy Weight lbs Domestic Partner Domestic Partner Phone Father Name Transcriber Status 05/08/19 21 1 CLOSED Fetus Data First Name Last Name Admitted to NICU Weight (g) Sex Living Outcome Pediatric Complications Fetus ID Race Codes Race Delivery Type , Spontane ous 8251 Dheeraj Calculation Initial Dheeraj Date Initial Exam Date Initial Exam Provider Initial Ultrasound Date Last Menstrual Period Date Ultra Sound Weeks Gestation 0 Eighteen To Twenty Week Dheeraj Update [...] Domestic Partner Domestic Partner Phone Father Name Transcriber Status 05/08/19 21 1 CLOSED Fetus Data First Name Last Name Admitted to NICU Weight (g) Sex Living Outcome Pediatric Complications Fetus ID Race Codes Race Delivery Type 3430.06 2704 M Full Term 8250 Vaginal Delivery Dheeraj Calculation Initial Dheeraj Date Initial Exam Date Initial Exam Provider Initial Ultrasound Date Last Menstrual Period Date Ultra Sound Weeks Gestation 0 Eighteen To Twenty Week Dheeraj Update [...] Domestic Partner Domestic Partner Phone Father Name Transcriber Status 05/08/19 21 1 CLOSED Fetus Data First Name Last Name Admitted to NICU Weight (g) Sex Living Outcome Pediatric Complications Fetus ID Race Codes Race Delivery Type M Full Term 8253 Vaginal Delivery Dheeraj Calculation Initial Dheeraj Date Initial Exam Date Initial Exam Provider Initial Ultrasound Date Last Menstrual Period Date Ultra Sound Weeks Gestation 0 Eighteen To Twenty Week Dheeraj Update [...] Domestic Partner Domestic Partner Phone Father Name Transcriber Status 05/08/19 21 1 CLOSED Fetus Data First Name Last Name Admitted to NICU Weight (g) Sex Living Outcome Pediatric Complications Fetus ID Race Codes Race Delivery Type 4309.12 4 F Prematur e 8252 Vaginal Delivery Dheeraj Calculation Initial Deheraj Date Initial Exam Date Initial Exam Provider Initial Ultrasound Date Last Menstrual Period Date Ultra Sound Weeks Gestation 0 Eighteen To Twenty Week Dheeraj Update [...]
--- OUTSIDE RECORDS SUMMARY | 2024-05-11 11:09 | XMS_ITS | Patient Health Summary ---
Author Organization [facility] Address [address] [place] [address] Care Team Providers Care Horseradish Maker Name Role Phone Edison Block MD Primary Care Provider [phone] Note from [facility],non-owned Affiliates and Associated Physician Practices is amultiple site organization consisting of ambulatory clinics and hospital sitesin [place], [place], [place] and [place]. This disclosure is being madepursuant to the Care Everywhere program and may not contain all information available regarding this patient. Last updated 17.[facility] Medications * Be aware that medications may not be up to date on this document. Alwaysverify current medications with the patient. * SUMAtriptan (IMITREX) 25 MG tablet(Started 05/10/2018) Take 25 mg by mouth once as needed * escitalopram (LEXAPRO) 20 MG tablet(Started 05/10/2018) Take 20 mg by mouth once daily * vitamin D, ergocalciferol, (DRISDOL) 35491 units capsule(Started 05/24/2018) Take 50,000 Units by [...] MD OPHTHALMOLOGY SERVIC ES ORDERABLES Care Teams Horseradish Maker Relationship Specialty Start Date End Date Edison Block MD [address] [place] [address] PCP - General 07/23/18
--- OUTSIDE RECORDS SUMMARY | 2024-05-11 11:09 | XMS_ITS | Clinical Summary ---
Author Organization [facility] Address [address] [place] [address] Care Team Providers Care All Source Intelligence Name Role Phone Edison Block MD Primary Care Provider [phone] Source Comments [facility],non-owned Affiliates and Associated Physician Practices is amultiple site organization consisting of ambulatory clinics and hospital sitesin [place] and [place]. This disclosure is being madepursuant to the Care Everywhere program and may not contain all information available regarding this patient. Last updated 17.[facility] Medications * Be aware that medications may not be up to date on this document. Alwaysverify current medications with the patient. Medication Sig Dispensed Refills Start Date End Date Status SUMAtriptan (IMITREX) 25 MG tablet Take 25 mg by mouth once as needed 05/10/2018 Active escitalopram (LEXAPRO) 20 MG tablet Take 20 mg by mouth once daily 05/10/2018 Active vitamin D, ergocalciferol, (DRISDOL) 77216 units capsule Take 50,000 Units by mouth [...] of 3 - 19+ 3-dose series) 2004 COVID-19 VACCINE (2023-2 5 season) 2023 INFLUENZA VACCINE (#1) 2023 DEPRESSION SCREENING 03/06/2024 ZOSTER VACCINE (1 of 2) 2035 HIB VACCINE Aged Out No longer eligi ble based on patient's age to complete this topic HPV VACCINE Aged Out No longer eligi ble based on patient's age to complete this topic MENINGOCOCCAL (Group B) VACCINE Aged Out No longer eligible based on patient's age to complete this topic MENINGOCOCCAL VACCINE Aged Out No sam jonathan eligible based on patient's age to complete this topic PNEUMOCOCCAL VACCINE Aged Out No long er eligible based on patient's age to complete this topic Care Teams All Source Intelligence Relationship Specialty Start Date End Date Edison Block MD [address] [place] [address] PCP - General 07/23/18
--- OUTSIDE RECORDS SUMMARY | 2024-05-11 11:09 | XMS_ITS | Clinical Summary ---
Author Organization [facility] Address [address] [place] [address] Care Team Providers Care Flat Folder Name Role Phone Edison Bolck MD Primary Care Provider [phone] Social History Tobacco Use Types Packs/Day Years [...] patient's age to complete this topic Meningococcal B Vaccine Aged Out No l onger eligible based on patient's age to complete [...] age to complete this topic Care Teams Flat Folder Relationship Specialty Start Date End Date Edison Block MD [address] [place] [address] [facility] - General 10/11/13
--- OUTSIDE RECORDS SUMMARY | 2024-05-11 11:09 | XMS_ITS | Referral Summary ---
Author Organization [facility] Address [address] [place] [address] Care Team Providers Care Senior Solutions Workflow Consultant Name Role Phone Edison Block MD Primary Care Provider [phone] Source Comments [facility],non-owned Affiliates and Associated Physician Practices is amultiple site organization consisting of ambulatory clinics and hospital sitesin [place], [place], [place] and [place]. This disclosure is being madepursuant to the Care Everywhere program and may not contain all information available regarding this patient. Last updated 17.[facility] Medications * Be aware that medications may not be up to date on this document. Alwaysverify current medications with the patient. Medication Sig Dispensed Refills Start Date End Date Status SUMAtriptan (IMITREX) 25 MG tablet Take 25 mg by mouth once as needed 05/10/2018 Active escitalopram (LEXAPRO) 20 MG tablet Take 20 mg by mouth once daily 05/10/2018 Active vitamin D, ergocalciferol, (DRISDOL) 60672 units capsule Take 50,000 Units by mouth [...] of Treatment Not on file Care Teams Senior Solutions Workflow Consultant Relationship Specialty Start Date End Date Edison Block MD [address] [place] [address] PCP - General 07/23/18
--- OUTSIDE RECORDS SUMMARY | 2024-05-11 11:09 | XMS_ITS | Clinical Summary ---
Author Organization [address] Address [address] [place] [address] Care Team Providers Care Wire Galvanizer Name Role Phone Edison Block MD Primary Care Provider Allergies No known active allergies Medications cyclobenzaprine [...] infection, site not specified;Recorded Elsewhere: No Location: [facility] Source: EHR Chronic: N Practice ID: [id number] Billable Time: 01:00:00 PM Obesity with body mass index 30 or greater 01/21 Overview (03/15/2023): Body mass index (BMI) 34.0-34.9, adult;Recorded Elsewhere: No Location: [facility] Source: EHR Chronic: N Practice ID: [id number] Billable Time: 01:30:00 PM Cyst of ovary 07/07/2015 Overview (12/06/2022): Unspecified ovarian cysts;Practice ID: 0001 Elevated blood-pressure read ing without diagnosis of hypertension 05/20/2015 Overview (12/06/2022): Elevated blood-pressure reading, without diagnosis of hypertension;Recorded Elsewhere: No Location: [facility] Source: EHR Chronic: N Practice ID: [id number] Billable Time: 01:15:00 PM Irregular periods 07/09/2013 Overview (03/15/2023): Irregular menstrual cycle;Recorded Elsewhere: No Location: [facility] Source: EHR Chronic: N Practice ID: [id number] Billable Time: 08:30:00 AM Leukocytosis 10/24/2011 Overview (03/15/2023): LEUKOCYTOSIS NOS;Recorded Elsewhere: No Location: [facility] Source: EHR Chronic: N Practice ID: [id number] [...] (12/06/2022): Absence of menstruation;Recorded Elsewhere: No Location: [facility] Source: EHR Chronic: N Practice ID: [id number] [...] on file Legal Sex Female 8:34 PM EXPERIMENTAL PLASTICS FABRICATOR Gender Identity Not on file Sexual Orientation Not on file Obstetrics History Last Filed Vital Signs Vital Sign Reading Time Taken Comments Blood Pressure 156/95 04/11/2023 2:37 PM EXPERIMENTAL PLASTICS FABRICATOR Pulse 76 04/11/2023 2:37 PM EXPERIMENTAL PLASTICS FABRICATOR Temperature 36.7 C (98 F) 03/15/2023 7:10 PM EXPERIMENTAL PLASTICS FABRICATOR Respiratory Rate 18 03/15/2023 7:10 PM EXPERIMENTAL PLASTICS FABRICATOR Oxygen Saturation 97% 03/15/2023 7:10 PM EXPERIMENTAL PLASTICS FABRICATOR Inhaled Oxygen Concentration - - Weight 106 kg (233 lb 11.2 oz) 04/11/2023 2:37 P M EXPERIMENTAL PLASTICS FABRICATOR Height 173.4 cm (5' 8.25 ) 04/11/2023 2:37 PM CS T Body Mass Index 35.27 04/11/2023 2:37 PM EXPERIMENTAL PLASTICS FABRICATOR Plan of Treatment Health Maintenance Due Date Last Done Comments Cervical Cancer Screening 1985 Depression Screening 1985 Hepatitis C Screening 1985 DTaP/Tdap/Td Vaccine (1 - Tdap) 1996 Varicella Vaccines (1 of 2 - 13+ 2-dose series) 1998 Hepatitis B Screening 2003 Regular Well Visit/Exam 18-64 2003 Pneumococcal vaccine <65 (1 of 2 - PCV) 2004 Covid-19 Vaccine ( season) 2023 03/21/2021, 06/25/2020, 05/30/2020 Influenza Vaccine (#1) 2023 , 01/02/2021, 12/16/2019, Additional history exists HPV Vaccines Aged Out No longer eligi ble based on patient's age to complete this topic Insurance [facility] UHC CHOICE PLUS Care Teams Wire Galvanizer Relationship Specialty Start Date End Date Edison Block MD PCP - General Family Medicine 12/06/22
[2024-05-11 11:52] LABS: Basophils Absolute Auto 0.1 K/mm3 (0.0-0.1); Basophils Percent Auto 0.8 % (0.2-1.2); Eosinophils Absolute Auto 0.3 K/mm3 (0-0.3); Eosinophils Percent Auto 3.7 % (0-4.4); Hematocrit 40.4 % (37.0-47.0); Hemoglobin 12.4 g/dL (12.0-15.0); Immature Granulocyte Absolute 0.02 K/mm3 (0.00-0.031); Immature Granulocyte Percent A 0.3 % (0-0.5); Lymphocytes Absolute Auto 1.88 K/mm3 (0.9-3.2); Lymphocytes Percent Auto 23.7 % (18.3-44.2); Mean Corpuscular HGB Conc 30.7 g/dl (32-36); Mean Corpuscular Hemoglobin 24.2 pg (26-34); Mean Corpuscular Volume 78.9 fl (80-100); Mean Platelet Volume 10.3 fl (7.4-10.4); Monocytes Absolute Auto 0.7 K/mm3 (0.1-0.6); Monocytes Percent Auto 8.6 % (2.6-8.5); Neutrophils Percent Auto 62.9 % (45.5-73.1); Platelet Count Result 337 k/mm3 (150-375); Red Blood Count 5.12 M/mm3 (4.2-5.4); White Blood Count 7.9 K/mm3 (4.5-10.0)
[2024-05-11 12:13] LABS: Alanine Aminotransferase 16 U/L (6-35); Albumin Level 4.3 g/dL (3.5-5.1); Alkaline Phosphatase 70 U/L (38-126); Anion Gap 8 mmol/L (4-12); Aspartate Amino Transferase 24 U/L (14-36); Bilirubin,Total 0.7 mg/dL (0.2-1.3); Blood Urea Nitrogen 16 mg/dL (7-17); Calcium 9.2 mg/dL (8.4-10.2); Carbon Dioxide 26 mmol/L (22-30); Chloride 105 mmol/L (98-107); Estimated Glomerular Filt Rate > 60; Glucose 84 mg/dL (65-110); Potassium 4.8 mmol/L (3.4-5.0); Sodium 139 mmol/L (137-145)
[2024-05-11 12:27] LABS: Free T3 3.03 pg/mL (2.32-6.09)
== END 2024-05-11 11:06 | disposition home or self-care (01) ==
PROVIDERS: PCP Family Medicine; Visit Provider Registered Nurse
DX: D64.9 Anemia, unspecified (principal); I10 Essential (primary) hypertension; E03.9 Hypothyroidism, unspecified; E66.9 Obesity, unspecified
CPT/HCPCS: 36415; 80053; 84439; 84443; 84481; 85025

== ENCOUNTER 2024-05-30 12:15 | Outpatient (CLI) | payer OTHER, SELFPAY ==
[2024-05-30 12:44] LABS: Hemoglobin 10.4 g/dL (12.0-15.0); Mean Corpuscular HGB Conc 30.6 g/dl (32-36); Mean Corpuscular Hemoglobin 24.2 pg (26-34); Mean Corpuscular Volume 79.1 fl (80-100); Mean Platelet Volume 10.5 fl (7.4-10.4); Platelet Count Result 351 k/mm3 (150-375); Red Cell Distribution Width 14.9 % (11.5-14.5); White Blood Count 6.9 K/mm3 (4.5-10.0)
--- OUTSIDE RECORDS SUMMARY | 2024-05-30 13:07 | XMS_ITS | Clinical Summary ---
Author Organization [facility] Address [address] [place] [address] Care Team Providers Care Rn Pediatric Icu Name Role Phone Edison Block MD Primary Care Provider Source Comments [facility],non-owned Affiliates and Associated Physician Practices is amultiple site organization consisting of ambulatory clinics and hospital sitesin [place], [place], [place] and [place]. This disclosure is being madepursuant to the Care Everywhere program and may not contain all information available regarding this patient. Last updated 17.[facility] [employer] Medications * Be aware that medications may not be up to date on this document. Alwaysverify current medications with the patient. Medication Sig Dispensed Refills Start Date End Date Status SUMAtriptan (IMITREX) 25 MG tablet Take 25 mg by mouth once as needed 05/10/2018 Active escitalopram (LEXAPRO) 20 MG tablet Take 20 mg by mouth once daily 05/10/2018 Active vitamin D, ergocalciferol, (DRISDOL) 71115 units capsule Take 50,000 Units by mouth [...] to complete this topic MENINGOCOCCAL (Group B) VACC INE SHARED DECISION-MAKING Aged Out No longer eligibl e based on patient's age to complete this topic MENINGOCOCCAL GROUPS A/C/Y/W VACCINE Aged Out No longer eligible b ased on patient's age to complete this topic PNEUMOCOCCAL VACCINE Aged Out No long er eligible based on patient's age to complete this topic Care Teams Rn Pediatric Icu Relationship Specialty Start Date End Date Edison Block MD [address] [place] [address] PCP - General 07/23/18
--- OUTSIDE RECORDS SUMMARY | 2024-05-30 13:07 | XMS_ITS | Clinical Summary ---
Author Organization [facility] Address [address] [place] [address] Care Team Providers Care Concession Manager Name Role Phone Edison Block MD Primary Care Provider [phone] Social History Tobacco Use Types Packs/Day Years [...] age to complete this topic Care Teams Concession Manager Relationship Specialty Start Date End Date Edison Block MD [address] [place] [address] [facility] - General 10/11/13
--- OUTSIDE RECORDS SUMMARY | 2024-05-30 13:07 | XMS_ITS | Data Portability ---
Author Organization [facility] [place] Address [address] [place] [place] [address] Assessment Encounter Date Assessment Date Assessment LastModified [...] Lab urinalys is, dipstick 2022 023 [email or web address] [address], [address], [place], [address], 15:24:51 Referral None recorded . Procedures None recorded . Surgeries None recorded . Imaging US, pelvis 2020 021 [email or web address] [place], [address], [address], [place], [address], 15:36:30 US, transvag inal 2020 021 AMISH [place], [address], [address], [place], [address], 17:22:19 Medication Orders Macrobid 100 mg capsule 2022 023 [id number], [address], [place], [place], [id number], 3 16:21:03 fluconaz ole 150 mg tablet 2021 [facility][id number], [address] [facility], [place], [place], [id number], 2 14:15:21 metronid azole 500 mg tablet 2021 022 [facility] #[id number], [address] [facility], [place], [place], [id number], 2 14:15:24 Patient TargetsNo targets recorded. Patient [...] t Abnor mal: No Resul lu Lab: [facility] [address] [facility] [id number] Tel: CULTU RE ----- ----- ----- --- No growt h in 1 day (dete ction level of 10,00 0 colon ies / ml.) Not Available [facility] (Lab) [address] [place], [address], 07/16/2020 22:56:00 07/16/1907/15/2020 pap, IG + HR HPV image guided Pap, HPV regardless of Pap result SEE RESULT S BELOW CASE REPOR T: Cytol ogy Gynec ologi domi Repor t Case: [id number] Autho yun palafox Provi paz: Nain Sanabria Colle cted: 07/15 1635 [employer] Order ing Locat ion: [place] Patho logsheri [...] дмитрий (if appli cable ): PAP EDUCA RUSESLL L NOTE: The Pap Test is a [...] ion is recom chaz d, as clini lyedi pietro nted. Not Available [facility] (Lab) [address] [facility], [place], [address], 07/20/2020 09:03:20 07/16/19 21 07/15/2020 CT + NG RNA, PCR, unspe cifie d speci men chlamydia trachomatis, PCR Negati ve negati ve Not Available [facility] (Lab) [address] , [place], [address], 07/20/2020 09:03:20 07/16/19 21 07/15/2020 CT + NG RNA, PCR, unspe cifie d speci men neisseria gonorrhoeae, PCR Negati ve negati ve Not Available [facility] (Lab) [address], [place], [address], 07/20/2020 09:03:20 07/16/19 21 07/15/2020 trich omona s vagin bismark RNA trichomonas vaginalis ribosomal RNA (rrna) Negati ve negati ve Not Available [facility] (Lab) [address] [place], [address], 07/20/2020 09:03:21 07/16/19 21 07/15/2020 austin da dominic i DNA, vagin al luis krusei by RT-PCR Negati ve Swab- 1 Vagin al Not Available [facility] (Lab) [address] [place], [address], 07/20/2020 09:03:21 07/16/19 21 07/15/2020 mobil uncus , DNA, vagin al nm bkr mobiluncus mulieris and mobiluncus curtisii by RT-PCR Negati ve Swab- 1 Vagin al Not Available [facility] (Lab) [address] [place], [address], 07/20/2020 09:03:22 07/16/19 21 07/15/2020 austin da sp DNA, vagin al luis albicans PCR Negati ve Swab- 1 Vagin al Not Available [facility] (Lab) [address] [facility], [place], [address], 07/20/2020 09:03:22 07/16/19 21 07/15/2020 austin da sp DNA, vagin al luis tropicalis PCR Negati ve Swab- 1 Vagin al Not Available [facility] (Lab) [address] [facility], [place], [address], 07/20/2020 09:03:22 07/16/19 21 07/15/2020 austin da sp DNA, vagin al luis parapsilosis PCR Negati ve Swab- 1 Vagin al Not Available [facility] (Lab) [address] [place], [address], 07/20/2020 09:03:22 07/16/19 21 07/15/2020 austin da sp DNA, vagin al luis glabrata PCR Negati ve Swab- 1 Vagin al Not Available [facility] (Lab) [address] [place], [address], 07/20/2020 09:03:22 07/16/19 21 07/15/2020 STI panel nm bkr mycoplasma genitalium by RT-PCR Negati ve Swab- 1 Vagin al Not Available [facility] (Lab) [address] [place], [address], 07/20/2020 09:03:22 07/16/19 21 07/15/2020 STI panel nm bkr mycoplasma hominis by RT-PCR Negati ve Swab- 1 Vagin al Not Available [facility] (Lab) [address] [facility], [place], [address], 07/20/2020 09:03:22 07/16/19 21 07/15/2020 STI panel nm bkr ureaplasma urealyticum by RT-PCR Negati ve Swab- 1 Vagin al Not Available [facility] (Lab) [address] [facility], [place], [address], 07/20/2020 09:03:22 07/16/19 21 07/15/2020 bacte rial vagin osis DNA, PCR, vagin al fluid gardnerella vaginalis PCR Negati ve Swab- 1 Vagin al Not Available [facility] (Lab) [address] [facility], [place], [address], 07/20/2020 09:03:23 07/16/19 21 07/15/2020 bacte rial vagin osis DNA, PCR, vagin al fluid atopobium vaginae PCR Negati ve Swab- 1 Vagin al Not Available [facility] (Lab) [address] [place], [address], 07/20/2020 09:03:23 07/16/19 21 07/15/2020 bacte rial vagin osis DNA, PCR, vagin al fluid bacterial vaginosis associated bacteria 2 (bvab2) Negati ve Swab- 1 Vagin al Not Available [facility] (Lab) [address] [place], [address], 07/20/2020 09:03:23 07/16/19 21 07/15/2020 bacte rial vagin osis DNA, PCR, vagin al fluid megasphaera species (type 1 and type 2) PCR Negati ve (Type1 ,Type2 ) Swab- 1 Vagin al Type1 :Nega tive Type2 :Nega tive. Not Available [facility] (Lab) [address] [facility], [place], [address], 07/20/2020 09:03:23 07/16/19 21 07/15/2020 bacte rial vagin osis DNA, PCR, vagin al fluid lactobacillu s (bvpanel) PCR See Commen t Swab- 1 Vagin al L.cri spatu s: Posit patricia L.shayy senii : Negat patricia L.gas seri : Negat patricia L.ine rs : Negat patricia. Not Available [facility] (Lab) [address], [place], [address], 07/20/2020 09:03:23 07/16/19 21 07/15/2020 urina lysis , dipst ick Leukocytes + positi ve Not Available [place] [address], [place], [address], 07/15/2020 14:53:03 07/16/19 21 07/15/2020 urina lysis , dipst ick Nitrite neg Not Available [place] [address], [place], [address], 07/15/2020 14:53:03 07/16/19 21 07/15/2020 urina lysis , dipst ick Urobilinogen 0.2 neg Not Available [place] [address], [place], [address], 07/15/2020 14:53:03 07/16/19 21 07/15/2020 urina lysis , dipst ick Protein neg Not Available [place] [address], [place], [address], 07/15/2020 14:53:03 07/16/19 21 07/15/2020 urina lysis , dipst ick pH 5 neg Not Available [place] [address], [place], [address], 07/15/2020 14:53:03 07/16/19 21 07/15/2020 urina lysis , dipst ick Specific [place] 1.020 Not Available [facility] [address], [place], [address], 07/15/2020 14:53:03 07/16/19 21 07/15/2020 urina lysis , dipst ick Ketone neg Not Available [place] [address], [place], [address], 07/15/2020 14:53:03 07/16/19 21 07/15/2020 urina lysis , dipst ick Bilirubin neg Not Available Yolanda tabares [address], [place], [address], 07/15/2020 14:53:03 07/16/19 21 07/15/2020 urina lysis , dipst ick Glucose neg Not Available [place] [address], [place], [address], 07/15/2020 14:53:03 07/16/19 21 07/15/2020 urina lysis , dipst ick Appearance clear Not Available Kiersten casillas [address], [place], [address], 07/15/2020 14:53:03 07/16/19 21 07/15/2020 urina lysis , dipst ick Color yellow Not Available [place] [address], [place], [address], 07/15/2020 14:53:03 12/23/19 22 12/22/2021 CT/GC AND TRICH OMONA S VAGIN BISMARK (RRNA ), SWAB chlamydia trachomatis, PCR Negati ve negati ve Not Available [facility] [address] [place], [address], 12/23/2021 19:50:40 12/23/19 22 12/22/2021 CT/GC AND TRICH OMONA S VAGIN BISMARK (RRNA ), SWAB neisseria gonorrhoeae, PCR Negati ve negati ve Not Available [facility] [address] [place] [address], [address], 12/23/2021 19:50:40 12/23/19 22 12/22/2021 CT/GC AND TRICH OMONA S VAGIN BISMARK (RRNA ), SWAB trichomonas vaginalis ribosomal RNA (rrna) Negati ve negati ve Not Available [facility] [address] [place] [address], [address], 12/23/2021 19:50:40 12/23/1912/22/2021 VAGIN ITIS/ VAGIN OSIS, DNA PROBE luis sp. detection, direct probe Positi ve negati ve abnormal Not Available [facility] [address] [place] [address], [phone], 12/23/2021 19:50:41 12/23/19 22 12/22/2021 VAGIN ITIS/ VAGIN OSIS, DNA PROBE gardnerella vag. detection, direct probe Positi ve negati ve abnormal Not Available [facility] [address] [place] [address], [phone], 12/23/2021 19:50:41 12/23/19 22 12/22/2021 VAGIN ITIS/ VAGIN OSIS, DNA PROBE trichomonas vag. detection, direct probe Negati ve negati ve Not Available [facility] [address] [place] [address], [phone], 12/23/2021 19:50:41 12/30/19 23 12/29/2022 urina lysis , dipst ick Leukocytes ++ Not Available Kiersten casillas [address], [place], [address], 12/29/2022 15:24:19 12/30/1912/29/2022 urina lysis , dipst ick Nitrite + Not Available [place] [address], [place], [address], 12/29/2022 15:24:19 12/30/1912/29/2022 urina lysis , dipst ick Urobilinogen neg Not Available [facility] anastasiia [address], [place], [address], 12/29/2022 15:24:19 12/30/1912/29/2022 urina lysis , dipst ick Protein + Not Available [place] [address], [place], [address], 12/29/2022 15:24:19 12/30/1912/29/2022 urina lysis , dipst ick pH 5 Not Available [place] [address], [place], [address], 12/29/2022 15:24:19 12/30/19 23 12/29/2022 urina lysis , dipst ick Specific [place] 1.020 Not Available [facility] larry [address], [place], [address], 12/29/2022 15:24:19 12/30/19 23 12/29/2022 urina lysis , dipst ick Ketone neg Not Available [place] [address], [place], [address], 12/29/2022 15:24:19 12/30/1912/29/2022 urina lysis , dipst ick Bilirubin neg Not Available [facility] [address], [place], [address], 12/29/2022 15:24:19 12/30/19 23 12/29/2022 urina lysis , dipst ick Glucose neg Not Available [place] [address], [place], [address], 12/29/2022 15:24:19 12/30/19 23 12/29/2022 urina lysis , dipst ick Appearance cloudy Not Available [facility] sonja [address], [place], [address], 12/29/2022 15:24:19 12/30/19 23 12/29/2022 urina lysis , dipst ick Color yellow Not Available [place] [address], [place], [address], 12/29/2022 15:24:19 08/06/19 21 08/05/2020 US, pelvi s No observ ation record ed. [facility] [address], [place], [address], 08/05/2020 17:22:09 08/06/19 21 08/05/2020 US, trans vagin al No observ ation record ed. [facility] [address], [place], [address], 08/05/2020 17:22:19 08/06/19 21 08/05/2020 US, pelvi s No observ ation record ed. layran Sera [address], [place], [address], 08/06/2020 15:56:40 Result Notes None recorded. Problems Name Problem SNOMED Code Status Onset Date Resolution Date Notes Provider Name and Address Organization Details Recorded Time Postcoit al finding [id number] Completed 201505/07/2020 Postcoit al and contact bleeding ;Practic e ID: 0001 Bonny kinney [facility] 10:20:46 Dyspareu lyudmila [id number] Completed 201505/07/2020 Dyspareu lyudmila;Prac gloria ID: 0001 Bonny kinney [facility] 10:20:32 Cyst of ovary 14338619 Completed 201505/07/2020 Unspecif ied ovarian cysts;Pr actice ID: 0001 Bonny kinney [facility] 10:20:[address] Concept Completed 201705/07/2020 Encntr for ob gyn exam (general ) (routine ) w/o abn findings ;Practic e ID: 0001 Bonny kinney [facility] 10:20:57 Finding of desire for urinatio n 842384499 Completed 201805/07/2020 Urgency of urinatio n;Record ed Elsewher e: No Locat ion: [facility] S ource: EHR Sheet Sorter lauren: N Yoannati ce ID: 0001 Hector lable Time: 01:00:00 PM Bonny kinney [facility] 10:20:42 Body mass index 30+ - obesity 721539455 Completed 201705/07/2020 Body mass index (BMI) 34.0-34. 9, adult;Re corded Elsewher e: No Locat ion: [facility] S ource: EHR Sheet Sorter lauren: N Yoannati ce ID: 0001 Hector lable Time: 01:30:00 PM Bonny kinney [facility] 10:20:28 Screenin g for malignan t neoplasm of cervix Completed 201505/07/2020 Screenin g for malignan t neoplasm s of the cervix;R ecorded Elsewher e: No Locat ion: [facility] S ource: EHR Sheet Sorter lauren: N Practi ce ID: 0001 Hector lable Time: 01:15:00 PM Bonnybrayan kinney [facility] 10:20:53 Urinary tract infectio us disease 41191092 Completed 201805/07/2020 Urinary tract infectio n, site not specifie d;Record ed Elsewher e: No Locat ion: Argelia rayshawn [facility] S ource: EHR Sheet Sorter lauren: N Practi ce ID: 0001 Hector lable Time: 01:00:00 PM Bonny kinney [facility] 1 10:21:02 Pregnanc y test negative [id number] Completed 201505/07/2020 Encounte r for pregnanc y test, result negative ;Recorde d Elsewher e: No Locat ion: [facility] S ource: EHR Sheet Sorter lauren: N Practi ce ID: 0001 Hector lable Time: 02:00:00 PM Bonny Madden [facility] 1 10:20:48 Pregnanc y test positive 429004552 Completed 201010/24/2011 Pregnanc y examinat ion or test, positive result;R ecorded Elsewher e: No Locat ion: [facility] S ource: EHR Sheet Sorter lauren: N Practi ce ID: 0001 Hector lable Time: 03:15:00 PM Not Available [facility] 0 21:46:42 Postpart um care Completed 201110/24/2011 Routine postpart um follow-u p;Record ed Elsewher e: No Locat ion: [facility] S ource: EHR Sheet Sorter lauren: N Practi ce ID: 0001 Hector lable Time: 10:45:00 AM Not Available [facility] 0 21:46:43 Infectio n screenin g Completed 201505/07/2020 Encounte r for screenin g for oth infec/pa rastc diseases ;Recorde d Elsewher e: No Locat ion: [facility] rayshawn [facility] S ource: EHR Sheet Sorter lauren: N Practi ce ID: 0001 Hector lable Time: 01:15:00 PM Bonny Madden [facility] 1 10:20:43 Speciali zed medical examinat ion Completed 201010/24/2011 Gynecolo gical Examinat ion;Yariel rded Elsewher e: No Locat ion: Argelia rayshawn [facility] S ource: EHR Sheet Sorter lauren: N Yoannati ce ID: 0001 Hector lable Time: 03:15:00 PM Bonny kinney [facility] 1 10:20:58 Syphilis test finding [id number] Completed 201505/07/2020 Encntr screen for infectio ns w sexl mode of transmis s;Record ed Elsewher e: No Locat ion: [facility] S ource: EHR Sheet Sorter lauren: N Yoannati ce ID: 0001 Hector lable Time: 01:15:00 PM Bonny kinney, [facility] 1 10:21:00 Amenorrh ea [id number] Completed 201010/24/2011 Absence of menstrua tion;Rec orded Elsewher e: No Locat ion: [facility] S ource: EHR Sheet Sorter lauren: N Yoannati ce ID: 0001 Hector lable Time: 03:15:00 PM Not Available [facility] 0 21:46:44 Speciali zed medical examinat ion Completed 201305/07/2020 Gynecolo gical Examinat ion;Yariel rded Elsewher e: No Locat ion: [facility] S ource: EHR Sheet Sorter lauren: N Practi ce ID: 0001 Hector lable Time: 08:30:00 AM Bonny kinney [facility] [address] 10:20:[address] Concept Completed 201705/07/2020 Encntr for general adult medical exam w/o abnormal findings ;Recorde d Elsewher e: No Locat ion: [facility] S ource: EHR Sheet Sorter lauren: N Yoannati ce ID: 0001 Hector lable Time: 01:30:00 PM Bonny kinney [facility] 1 10:20:56 Screenin g for malignan t neoplasm of cervix Completed 201010/24/2011 Screenin g for malignan t neoplasm s of the cervix;R ecorded Elsewher e: No Locat ion: [facility] S ource: EHR Sheet Sorter lauren: N Yoannati ce ID: 0001 Hector lable Time: 03:15:00 PM Bonny kinney, [facility] 10:20:53 Elevated blood-pr essure reading without diagnosi s of hyperten lino [id number] Completed 201505/07/2020 Elevated blood-pr essure reading, without diagnosi s of hyperten lino;Rec orded Elsewher e: No Locat ion: [facility] S ource: EHR Sheet Sorter lauren: N Yoannati ce ID: 0001 [place] lable Time: 01:15:00 PM Bonny Madden [facility], [facility] 10:20:36 Vaginiti s and vulvovag initis Completed 201105/07/2020 Vaginiti s;Record ed Elsewher e: No Locat ion: [facility] S ource: EHR Sheet Sorter lauren: N Yoannati ce ID: 0001 Hector lable Time: 02:30:00 PM Bonny kinney [facility] 10:21:04 Leukocyt osis [id number] Completed 201105/07/2020 LEUKOCYT OSIS NOS;Yariel rded Elsewher e: No Locat ion: [facility] S ource: EHR Sheet Sorter lauren: N Yoannati ce ID: 0001 [place] lable Time: 02:30:00 PM Bonny kinney [facility] 10:20:45 Irregula r periods [id number] Completed 201305/07/2020 Irregula r menstrua l cycle;Re corded Elsewher e: No Locat ion: [facility] S ource: EHR Sheet Sorter lauren: N Practi ce ID: 0001 Hector lable Time: 08:30:00 AM Bonny kinney, [facility] 10:20:44 Educatio n Completed 201005/07/2020 Other general counseli ng and advice on contrace ptive manageme nt;Pract ice ID: 0001 Bonny kinney, [facility] 10:20:34 Routine antenata l care Completed 201005/07/2020 Supervis ion of other normal pregnanc y;Practi ce ID: 0001 Bonny kinney [facility] 10:20:52 Primigra olesya [id number] Completed 201005/07/2020 Supervis ion of normal first pregnanc y;Practi ce ID: 0001 Bonny kinney [facility] 10:20:49 anatomy study Completed 201005/07/2020 [facility] ANAT SURVEY;P ractice ID: 0001 Bonny kinney [facility] 10:20:40 Female genital organ symptoms [id number] Completed 201105/07/2020 Unspecif ied symptom associat ed with female genital organs;P ractice ID: 0001 Bonny kinney [facility] 10:20:39 Benign essentia l hyperten lino complica ting pregnanc y, childbir th and the puerperi um - not delivere d [id number] Completed 201105/07/2020 Hyperten lino During Pregnanc y;Practi ce ID: 0001 Bonny Wagoneran nirmal [facility] 10:20:26 Tachycar waqar 5919322 Completed 201105/07/2020 Tachycar waqar, unspecif ied;Prac gloria ID: 0001 Bonny kinney [facility] 10:21:01 Excessiv e growth affectin g manageme nt of mother 46065743 Completed 201105/07/2020 GROWTH LARGE LGA;Prac gloria ID: 0001 Bonny Madden nirmal [facility] 10:20:37 Delivery normal [id number] Completed 201105/07/2020 Normal delivery ;Practic e ID: 0001 Bonny Madden nirmal [facility] 10:20:31 Single live [id number] Completed 201105/07/2020 Mother with single liveborn ;Practic e ID: 0001 Bonny Madden [facility] 10:20:55 Procedur e on genitour inary system Completed 201105/07/2020 Steriliz ation;Pr actice ID: 0001 Bonny Madden [facility] 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 10:27:56 Problem Notes None recorded. Procedures Surgical History Date Name Laterality Status Provider Name and Address Organization Details Recorded Time 1 Date of Last Pap Smear completed [facility] 08/06/2020 14:49:09 0 Date of Last Mammogram completed [facility] 08/06/2020 14:49:33 6 Colposcopy completed [facility] 07/14/2020 16:54:47 2 ligation of bilateral fallopian tubes completed Bonny Madden [facility] 05/07/2020 10:26:56 Imaging Results Imaging Date Name Status LastModified by Organization Details LastModified Time 08/05/2020 US, pelvis completed [facility] [address], [place], [address], 08/05/2020 17:22:09 08/05/2020 US, transvaginal completed [facility] rayshawn [address], [place], [address], 08/05/2020 17:22:19 08/05/2020 US, pelvis completed erica Zamora [address], [place], [address], 08/06/2020 15:56:40 Procedure Notes None recorded. Medical [...] Prescrib ed Elsewher e: No [facility] By: cmedical Encount er DateTime [...] Prescrib ed Elsewher e: Yes Loca tion: [facility] odify By: holly ross DateTime : 11/02/19 [...] Prescrib ed Elsewher e: No Locat ion: [facility] odify By: [email or web address] Tabares ncolamberto DateTime : [...] Prescrib abdelrahman Bui e: No Locat ion: [facility] M odify By: lbillhar tz Encou nter DateTime : 12/06/19 01:00:00 PM Not Available Not Available Not Available escitalop demetrius 5 mg/5 mL oral solution take 10 millilit er by oral route every day 07/15 completed Prescrib ed Elsewher e: Yes Loca tion: [facility] rayshawn [facility] odify By: carlos wallace DateTime : 01/23/20 [...] Prescrib ed Elsewher e: Yes Loca tion: [facility] rayshawn [facility] odify By: amkdennis hoskinsunter DateTime : 07/10/19 14 08:30:00 AM Not Available Not Available Not Available Lomedia 24 Fe 1 mg-20 mcg (24)/75 mg (4) tablet take 1 tablet by oral route every day 05/19 completed Prescrib ed Elsewher e: No Locat ion: [facility] odify By: ladan marin DateTime : 07/10/19 [...] Updated DateTime 08/06/2020 175.26 cm 35.7 kg/m2 116932.9 2 g 126 mm[Hg] 70 mm[Hg] Flakita Salgado [facility] 14:53:24 Date Recorded Body height Body mass index (BMI) Body weight Systolic blood pressure Diastolic blood pressure Provider Name and Address Organization Details Last Updated DateTime 12/22/2021 175.26 cm 36.2 kg/m2 614512.1 3 g 147 mm[Hg] 91 mm[Hg] [facility] 2 15:21:48 Date Recorded Body height Body mass index (BMI) Body weight Systolic blood pressure Diastolic blood pressure Provider Name and Address Organization Details Last Updated DateTime 01/12/2022 175.26 cm 35.6 kg/m2 226482.2 g 159 mm[Hg] 103 mm[Hg] Carly Olmsteadvandana [facility] 2 14:15:15 Date Recorded Systolic blood pressure Diastolic blood pressure Provider Name and Address Organization Details Last Updated DateTime 01/12/2022 138 mm[Hg] 96 mm[Hg] NISREEN Garcia [address], [place], [address], [facility] 01/12/2022 15:07:46 Date Recorded Body height Body mass index (BMI) Body weight Systolic blood pressure Diastolic blood pressure Provider Name and Address Organization Details Last Updated DateTime 12/29/2022 175.26 cm 34.6 kg/m2 453137.0 5 g 125 mm[Hg] 87 mm[Hg] Flakita Molina [facility] 3 15:16:56 Social History Question Answer Notes LastModified by Organizat ion Details LastModified Time Tobacco Smoking Status Former Smoker Bonny kinney, [facility] 05/07/2020 10:26:41 Are You Blind [...] Anxious, Or Unable To Sleep At Night)? [id number] Information not available 07/14/2020 Do You Use [...] Details LastModified Time Maternal Grandmother Diabetes mellitus [email or web address] Not available 2020 10:26:06 Maternal Grandmother Asthma [email or web address] Not available 05/07 10:26:14 Mother Mental disorder Bipola r [email or web address] Not available 05/07/2020 10:26:27 Medical History Condition [...] SNOMED-CT Code Diagnosis ICD10 Code Diagnosis Note [id number] Mary Ellen Aguilar [place] [address],[place] [address] 01/28/2020 14:34:49 01/28/2020 16:30:45 Lump of axillary tail of right breast 1448149924 82791 N63.31 N63.0 Based on exam & subjective complaints we agreed to move forward with imaging. Fam Hx of grandmothe r with breast cancer maternal; but no other fam hx. Non-menopa usal hot flash [id number] 35436 R23.2 Hx of HTN on medication s Having some night sweats with temp flucuation s. Agreed on lab work to start. Will also f/u PCP Periods are regular monthly. [id number] [facility] [address],[place] [address] 05/07/2020 10:04:17 06/29/2020 14:58:46 [id number] [address],[place] [address] 05/07/2020 10:19:12 05/07/2020 10:57:14 Vaginitis 70891353 N76.0 Use mild soap like dove or ivory, cotton underwear w/out dye, hypoallerg enic detergent, wipe from front to back, avoid tub baths, keep perineum clean and dry, d/c use of baby wipes. Recommend daily intake of yogurt or womens health probiotic. Internal and external affirm collected along with STD screen. Urinary tr act infectious disease 64146780 N39.0 Urine negative with exception of blood but pt is on her cycle. Urine sent for culture. Increase water and decrease caffeine. [id number] Mary Ellen Aguilar [facility] [address],[place] [address] 07/15/2020 14:31:36 07/15/2020 15:33:17 Abnormal uterine bleeding [id number] 9100 N93.9 TVUS ordered Recently had TSH [...] this patient s visit, including available hand refinery operator coking upon arrive, temperatur e check and being asked a series of screening questions. All staff wore face coverings during this encounter, as well as provided additional cleaning and sanitizing of all surfaces, including countertop s, pens, chairs, door handles, light switches, etc, prior to and following the patient s visit. Blood in urine 78124595 R31.9 [id number] Sonja Salgado [place] [address],[place] [address] 08/05/2020 13:52:20 08/05/2020 14:43:25 Abnormal uterine bleeding 1162831439 9100 N93.9 [id number] Mary Ellen Aguilar [facility] [address],[place] [address] 08/06/2020 14:26:00 08/06/2020 15:32:38 Irregular periods 13353321 N92.6 TVUS considered wnl with 3cm corpus [...] this patient s visit, including available hand refinery operator coking upon arrive, temperatur e check and being asked a series of screening questions. All staff wore face coverings during this encounter, as well as provided additional cleaning and sanitizing of all surfaces, including countertop s, pens, chairs, door handles, light switches, etc, prior to and following the patient s visit. [id number] NISREEN Garcia [place] [address] [address] 12/22/2021 15:07:38 12/22/2021 15:47:23 Vaginitis 25971266 N76.0 Suspect BV/yeastVa ginitis panel sentSTI endocervic al testing sentVulvar care guidelines discussed in-depthRx sentR/B of medication discussed and accepted by patientRTC for WWE Time spent in visit is a total of 20 mins with at least 50% of visit consisting of counseling and review of plan of care. Venereal d isease screening 984919535 Z11.3 [id number] NISREEN Garcia [place] [address] [address] 01/12/2022 13:55:29 01/12/2022 15:18:35 Gynecologic examination 04812984 Z01.419 Take Calcium with Vitamin D 1200mg [...] f/u with PCP. ED precaution s discussed [id number] NISREEN Garcia [place] [address] [address] 12/29/2022 15:05:25 12/29/2022 16:26:23 Urinary symptoms 794974323 R39.9 suspect UTIcx sentrx sent, r/b/a reviewedde [...] and review of plan of care. Dysuria 56868845 R30.0 Health Concerns Section Related Observation LastModified by Organization Detai ls LastModified Time None Recorded Concern Status LastModified by Organization Details LastModified Time None Recorded Advance Directives Directive None Recorded Payers Encounter Date Sequence Insurance Name Policy Number Policy Pagan Covered Member ID Pagan Member ID Guarantor Name 08/05/2020 1 [facility] (MEDICAID HMO) [id number] [place]arey A [place] [id number] K[place]y [place] 08/06/2020 1 [facility] (MEDICAID HMO) [id number] Karey A [place] [id number] Karey A [place] 12/22/2021 1 [facility] (MEDICAID HMO) [id number] 0003 Karey A [place] [id number] Karey A [place] 01/12/2022 1 [facility] (MEDICAID HMO) [id number] 0003 Karey A [place] [id number] Karey A [place] 12/29/2022 1 [facility] (MEDICAID HMO) [id number] Karey A [place] [id number] Karey A [place] Notes Date Note Type Note Provider Name and Address Organization Details Recorded Time 08/06/2020 text/html Here for TVUS Fo llow up for irregular cycle. NISREEN Moran- [address], [place], [address], [facility] 08/06/2020 15:14:34 12/22/2021 text/html 36yo Presents fo r evaluation of vaginal discharge, odor, and itchingPresents for the last 1 weekSA with steady partnerBC - BTL [address], [place], [address], [facility] 12/22/2021 15:42:29 01/12/2022 text/html [...] mammograms starting age [address], [place], [address], [facility] 01/12/2022 15:06:49 12/29/2022 text/html 37yopresents for urinary symptomsurinary frequency/pressuresy mptoms started 2-3 days agodrinking more caffeine latelydenies flank pains, n/v/f, or flu-like symptomsBTL for BCno vaginal symptoms Argenis Moralez, WHNP [address], [place], [address], [place] [facility] 12/29/2022 16:23:20 OBGyn Episode Ob Episode Information Episode Created Date Number of Fetuses Patient Bloodtype Patient rh Status Prepregnancy Weight lbs Domestic Partner Domestic Partner Phone Father Name Gaming Associate Status 05/08/19 21 1 CLOSED Fetus Data [...] Domestic Partner Domestic Partner Phone Father Name Gaming Associate Status 05/08/19 21 1 CLOSED Fetus Data [...] Domestic Partner Domestic Partner Phone Father Name Gaming Associate Status 05/08/19 21 1 CLOSED Fetus Data [...] Domestic Partner Domestic Partner Phone Father Name Gaming Associate Status 05/08/19 21 1 CLOSED Fetus Data First Name Last Name Admitted to NICU Weight (g) Sex Living Outcome Pediatric Complications Fetus ID Race Codes Race Delivery Type 4309.12 4 F Prematur e 8252 Vaginal Delivery Dheeraj Calculation Initial Dheeraj Date [...]
--- OUTSIDE RECORDS SUMMARY | 2024-05-30 13:07 | XMS_ITS | Clinical Summary ---
Author Organization [address] Address [address] [place] [address] Care Team Providers Care Parts Cleaner Name Role Phone Edison Block MD Primary Care Provider [phone] Allergies No known active allergies Medications cyclobenzaprine [...] infection, site not specified;Recorded Elsewhere: No Location: [facility] Source: EHR Chronic: N Practice ID: [id number] Billable Time: 01:00:00 PM Obesity with body mass index 30 or greater 01/21 Overview (03/15/2023): Body mass index (BMI) 34.0-34.9, adult;Recorded Elsewhere: No Location: [facility] Source: EHR Chronic: N Practice ID: [id number] Billable Time: 01:30:00 PM Cyst of ovary 07/07/2015 Overview (12/06/2022): Unspecified ovarian cysts;Practice ID: 0001 Elevated blood-pressure read ing without diagnosis of hypertension 05/20/2015 Overview (12/06/2022): Elevated blood-pressure reading, without diagnosis of hypertension;Recorded Elsewhere: No Location: [facility] Source: EHR Chronic: N Practice ID: 0001 Billable Time: 01:15:00 PM Irregular periods 07/09/2013 Overview (03/15/2023): Irregular menstrual cycle;Recorded Elsewhere: No Location: [facility] Source: EHR Chronic: N Practice ID: 0001 Billable Time: 08:30:00 AM Leukocytosis 10/24/2011 Overview (03/15/2023): LEUKOCYTOSIS NOS;Recorded Elsewhere: No Location: [facility] Source: EHR Chronic: N Practice ID: [...] (12/06/2022): Absence of menstruation;Recorded Elsewhere: No Location: [facility] Source: EHR Chronic: N Practice ID: [...] on file Legal Sex Female 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 Gender Identity Not on file Sexual Orientation Not on file Obstetrics History Last Filed Vital Signs Vital Sign Reading Time Taken Comments Blood Pressure 156/95 04/11/2023 2:37 PM ENVELOPE MACHINE OPERATOR Pulse 76 04/11/2023 2:37 PM ENVELOPE MACHINE OPERATOR Temperature 36.7 C (98 F) 03/15/2023 7:10 PM ENVELOPE MACHINE OPERATOR Respiratory Rate 18 03/15/2023 7:10 PM ENVELOPE MACHINE OPERATOR Oxygen Saturation 97% 03/15/2023 7:10 PM ENVELOPE MACHINE OPERATOR Inhaled Oxygen Concentration - - Weight 106 kg (233 lb 11.2 oz) 04/11/2023 2:37 P M ENVELOPE MACHINE OPERATOR Height 173.4 cm (5' 8.25 ) 04/11/2023 2:37 PM CS T Body Mass Index 35.27 04/11/2023 2:37 PM ENVELOPE MACHINE OPERATOR Plan of Treatment Health Maintenance Due [...] patient's age to complete this topic Insurance [facility] UHC CHOICE PLUS Care Teams Parts Cleaner Relationship Specialty Start Date End Date Edison Block MD PCP - General Family Medicine 12/06/22
--- OUTSIDE RECORDS SUMMARY | 2024-05-30 13:07 | XMS_ITS | Referral Summary ---
Author Organization [address] Address [address] [place] [id number] Care Team Providers Care Truer Pinion And Wheel Name Role Phone Edison Block MD Primary Care Provider [phone] Allergies No known active allergies Medications cyclobenzaprine [...] infection, site not specified;Recorded Elsewhere: No Location: [facility] Source: EHR Chronic: N Practice ID: [id number] Billable Time: 01:00:00 PM Obesity with body mass index 30 or greater 01/21 Overview (03/15/2023): Body mass index (BMI) 34.0-34.9, adult;Recorded Elsewhere: No Location: [facility] Source: EHR Chronic: N Practice ID: [id number] Billable Time: 01:30:00 PM Cyst of ovary 07/07/2015 Overview (12/06/2022): Unspecified ovarian cysts;Practice ID: 0001 Elevated blood-pressure read ing without diagnosis of hypertension 05/20/2015 Overview (12/06/2022): Elevated blood-pressure reading, without diagnosis of hypertension;Recorded Elsewhere: No Location: [facility] Source: EHR Chronic: N Practice ID: 0001 Billable Time: 01:15:00 PM Irregular periods 07/09/2013 Overview (03/15/2023): Irregular menstrual cycle;Recorded Elsewhere: No Location: [facility] Source: EHR Chronic: N Practice ID: 0001 Billable Time: 08:30:00 AM Leukocytosis 10/24/2011 Overview (03/15/2023): LEUKOCYTOSIS NOS;Recorded Elsewhere: No Location: [facility] Source: EHR Chronic: N Practice ID: [...] (12/06/2022): Absence of menstruation;Recorded Elsewhere: No Location: [facility] Source: EHR Chronic: N Practice ID: [id number] Billable Time: 03:15:00 PM Social History Tobacco Use Types Packs/Day Years Used Date Smoking Tobacco: Some Days Vaping Tobacco Cessation:Ready to Q uit: Not Asked; Counseling Given: Not Answered Comments Unknown Sex and Gender Information Value Date Recorded Sex Assigned at Not on file Legal Sex Female 8:34 PM NUTRITIONIST Gender Identity Not on file Sexual Orientation Not on file Last Filed Vital Signs Vital Sign Reading Time Taken Comments Blood Pressure 156/95 04/11/2023 2:37 PM NUTRITIONIST Pulse 76 04/11/2023 2:37 PM NUTRITIONIST Temperature 36.7 C (98 F) 03/15/2023 7:10 PM NUTRITIONIST Respiratory Rate 18 03/15/2023 7:10 PM NUTRITIONIST Oxygen Saturation 97% 03/15/2023 7:10 PM NUTRITIONIST Inhaled Oxygen Concentration - - Weight 106 kg (233 lb 11.2 oz) 04/11/2023 2:37 P M NUTRITIONIST Height 173.4 cm (5' 8.25 ) 04/11/2023 2:37 PM CS T Body Mass Index 35.27 04/11/2023 2:37 PM NUTRITIONIST Plan of Treatment Not on file Insurance [facility] CHOICE PLUS Care Teams Truer Pinion And Wheel Relationship Specialty Start Date End Date Edison Block MD PCP - General Family Medicine 12/06/22
== END 2024-05-30 12:16 | disposition home or self-care (01) ==
LOC: ANHLAB 12:16
PROVIDERS: PCP Family Medicine; Visit Provider Obstetrics & Gynecology Gynecology
DX: N92.0 Excessive and frequent menstruation with regular cycle (principal)
CPT/HCPCS: 36415; 85027

== ENCOUNTER 2024-07-04 18:31 | Emergency (ER) | payer OTHER, SELFPAY ==
--- OUTSIDE RECORDS SUMMARY | 2024-07-04 18:33 | XMS_ITS | Referral Summary ---
Author Organization [address] Address [address] [place] [address] Care Team Providers Care Reversing Mill Roller Name Role Phone Edison Block MD Primary [...] infection, site not specified;Recorded Elsewhere: No Location: [facility] Source: EHR Chronic: N Practice ID: 0001 Billable Time: 01:00:00 PM Obesity with body mass index 30 or greater 01/21 Overview (03/15/2023): Body mass index (BMI) 34.0-34.9, adult;Recorded Elsewhere: No Location: [facility] Source: EHR Chronic: N Practice ID: [id number] Billable Time: 01:30:00 PM Cyst of ovary 07/07/2015 Overview (12/06/2022): Unspecified ovarian cysts;Practice ID: 0001 Elevated blood-pressure read ing without diagnosis of hypertension 05/20/2015 Overview (12/06/2022): Elevated blood-pressure reading, without diagnosis of hypertension;Recorded Elsewhere: No Location: [facility] Source: EHR Chronic: N Practice ID: 0001 Billable Time: 01:15:00 PM Irregular periods 07/09/2013 Overview (03/15/2023): Irregular menstrual cycle;Recorded Elsewhere: No Location: [facility] Source: EHR Chronic: N Practice ID: 0001 Billable Time: 08:30:00 AM Leukocytosis 10/24/2011 Overview (03/15/2023): LEUKOCYTOSIS NOS;Recorded Elsewhere: No Location: [facility] Source: EHR Chronic: N Practice ID: [id number] [...] (12/06/2022): Absence of menstruation;Recorded Elsewhere: No Location: [facility] Source: EHR Chronic: N Practice ID: 0001 Billable Time: 03:15:00 PM Social History Tobacco Use Types Packs/Day Years Used Date Smoking Tobacco: Some Days Vaping Tobacco Cessation:Ready to Q uit: Not Asked; Counseling Given: Not Answered Comments Unknown Sex and Gender Information Value Date Recorded Sex Assigned at Not on file Legal Sex Female 8:34 PM TOOL SPECIALIST Gender Identity Not on file Sexual Orientation Not on file Last Filed Vital Signs Vital Sign Reading Time Taken Comments Blood Pressure 156/95 04/11/2023 2:37 PM TOOL SPECIALIST Pulse 76 04/11/2023 2:37 PM TOOL SPECIALIST Temperature 36.7 C (98 F) 03/15/2023 7:10 PM TOOL SPECIALIST Respiratory Rate 18 03/15/2023 7:10 PM TOOL SPECIALIST Oxygen Saturation 97% 03/15/2023 7:10 PM TOOL SPECIALIST Inhaled Oxygen Concentration - - Weight 106 kg (233 lb 11.2 oz) 04/11/2023 2:37 P M TOOL SPECIALIST Height 173.4 cm (5' 8.25 ) 04/11/2023 2:37 PM CS T Body Mass Index 35.27 04/11/2023 2:37 PM TOOL SPECIALIST Plan of Treatment Not on file Insurance [facility] CHOICE PLUS Care Teams Reversing Mill Roller Relationship Specialty Start Date End Date Edison Block MD PCP - General Family Medicine 12/06/22
--- OUTSIDE RECORDS SUMMARY | 2024-07-04 18:33 | XMS_ITS | Clinical Summary ---
Author Organization [address] Address [address] [place] [phone] Care Team Providers Care Engineering Inspection Assistant Name Role Phone Edison Block MD Primary [...] infection, site not specified;Recorded Elsewhere: No Location: [facility] Source: EHR Chronic: N Practice ID: [id number] Billable Time: 01:00:00 PM Obesity with body mass index 30 or greater 01/21 Overview (03/15/2023): Body mass index (BMI) 34.0-34.9, adult;Recorded Elsewhere: No Location: [facility] Source: EHR Chronic: N Practice ID: [id number] Billable Time: 01:30:00 PM Cyst of ovary 07/07/2015 Overview (12/06/2022): Unspecified ovarian cysts;Practice ID: 0001 Elevated blood-pressure read ing without diagnosis of hypertension 05/20/2015 Overview (12/06/2022): Elevated blood-pressure reading, without diagnosis of hypertension;Recorded Elsewhere: No Location: [facility] Source: EHR Chronic: N Practice ID: 0001 Billable Time: 01:15:00 PM Irregular periods 07/09/2013 Overview (03/15/2023): Irregular menstrual cycle;Recorded Elsewhere: No Location: [facility] Source: EHR Chronic: N Practice ID: 0001 Billable Time: 08:30:00 AM Leukocytosis 10/24/2011 Overview (03/15/2023): LEUKOCYTOSIS NOS;Recorded Elsewhere: No Location: [facility] Source: EHR Chronic: N Practice ID: [id number] [...] (12/06/2022): Absence of menstruation;Recorded Elsewhere: No Location: [facility] Source: EHR Chronic: N Practice ID: [id number] [...] on file Legal Sex Female 8:34 PM 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 Gender Identity Not on file Sexual Orientation Not on file Obstetrics History Last Filed Vital Signs Vital Sign Reading Time Taken Comments Blood Pressure 156/95 04/11/2023 2:37 PM EMPLOYEE RELATION MANAGER Pulse 76 04/11/2023 2:37 PM EMPLOYEE RELATION MANAGER Temperature 36.7 C (98 F) 03/15/2023 7:10 PM EMPLOYEE RELATION MANAGER Respiratory Rate 18 03/15/2023 7:10 PM EMPLOYEE RELATION MANAGER Oxygen Saturation 97% 03/15/2023 7:10 PM EMPLOYEE RELATION MANAGER Inhaled Oxygen Concentration - - Weight 106 kg (233 lb 11.2 oz) 04/11/2023 2:37 P M EMPLOYEE RELATION MANAGER Height 173.4 cm (5' 8.25 ) 04/11/2023 2:37 PM CS T Body Mass Index 35.27 04/11/2023 2:37 PM EMPLOYEE RELATION MANAGER Plan of Treatment Health Maintenance Due Date [...] patient's age to complete this topic Insurance [facility] UHC CHOICE PLUS Care Teams Engineering Inspection Assistant Relationship Specialty Start Date End Date Edison Block MD PCP - General Family Medicine 12/06/22
--- OUTSIDE RECORDS SUMMARY | 2024-07-04 18:34 | XMS_ITS | Clinical Summary ---
Author Organization [facility] Address [address] [place] [id number] Care Team Providers Care Jackerman Name Role Phone Edison Block MD Primary Care Provider [phone] Social History Tobacco Use Types Packs/Day Years [...] 2015 COVID-19 Vaccine (2023-2 5 season) 2023 HPV Vaccines Aged Out No longer eligi ble based on patient's age to complete this topic Meningococcal B Vaccine Aged Out No l onger eligible based on patient's age to complete this topic Meningococcal Vaccine Aged Out No sam jonathan eligible based on patient's age to complete this topic Pneumococcal Vaccine: Pediat rics (0 to 5 Years) and At-Risk Patients (6 to 49 Years) Aged Out No longer eligible b ased on patient's age to complete this topic RSV Immunizations Under 20 Months Aged Out No longer eligible based on patient's age to complete this topic Care Teams Jackerman Relationship Specialty Start Date End Date Edison Block MD [address] [place] [address] [facility] - General 10/11/13
--- OUTSIDE RECORDS SUMMARY | 2024-07-04 18:34 | XMS_ITS | Data Portability ---
Author Organization [facility] [place] Address [address] [place] [address] [place] [address] Assessment Encounter Date Assessment Date Assessment LastModified [...] Lab urinalys is, dipstick 2022 023 [email or web address] [place], [address], [place], [address], 15:24:51 Referral None recorded . Procedures None recorded . Surgeries None recorded . Imaging US, pelvis 2020 021 [email or web address] [place], [address], [address], [place], [address], 15:36:30 US, transvag inal 2020 021 AMISH [place], [address], [address], [place], [address], 17:22:19 Medication Orders Macrobid 100 mg capsule 2022 023 [id number], [address], [place], [place], [id number], 3 16:21:03 fluconaz ole 150 mg tablet 2021 [id number], [address] [facility], [place], [place], [id number], 2 14:15:21 metronid azole 500 mg tablet 2021 022 [facility] #[id number], [address] [facility], [place], [place], [id number], 2 14:15:24 Patient TargetsNo targets recorded. Patient [...] t Abnor mal: No Resul lu Lab: [facility] [address] [facility] [address] Tel: CULTU RE ----- ----- ----- --- No growt h in 1 day (dete ction level of 10,00 0 colon ies / ml.) Not Available [facility] (Lab) [address] [place], [address], 07/16/2020 22:56:00 07/16/1907/15/2020 pap, IG + HR HPV image guided Pap, HPV regardless of Pap result SEE RESULT S BELOW CASE REPOR T: Cytol ogy Gynec ologi domi Repor t Case: [id number] Autho yun palafox Provi paz: Nain Sanabria Colle cted: 07/15 1635 [employer] Order ing Locat ion: [place] [facility] [...] [facility] [place] [facility] [address] [facility], [place], [address], 07/20/2020 09:03:20 07/16/19 21 07/15/2020 CT + NG RNA, PCR, unspe cifie d speci men chlamydia trachomatis, PCR Negati ve negati ve Not Available [facility] (Lab) [address] , [place], [address], 07/20/2020 09:03:20 07/16/19 21 07/15/2020 CT + NG RNA, PCR, unspe cifie d speci men neisseria gonorrhoeae, PCR Negati ve negati ve Not Available [facility] (Lab) [address], [place], [address], 07/20/2020 09:03:20 07/16/19 21 07/15/2020 trich omona s vagin bismark RNA trichomonas vaginalis ribosomal RNA (rrna) Negati ve negati ve Not Available [facility] (Lab) [address] [place], [address], 07/20/2020 09:03:21 07/16/19 21 07/15/2020 austin da dominic i DNA, vagin al luis krusei by RT-PCR Negati ve Swab- 1 Vagin al Not Available [facility] (Lab) [address] [place], [address], 07/20/2020 09:03:21 07/16/19 21 07/15/2020 mobil uncus , DNA, vagin al nm bkr mobiluncus mulieris and mobiluncus curtisii by RT-PCR Negati ve Swab- 1 Vagin al Not Available [facility] (Lab) [address] [place], [address], 07/20/2020 09:03:22 07/16/19 21 07/15/2020 austin da sp DNA, vagin al luis albicans PCR Negati ve Swab- 1 Vagin al Not Available [facility] (Lab) [address] [facility], [place], [address], 07/20/2020 09:03:22 07/16/19 21 07/15/2020 austin da sp DNA, vagin al luis tropicalis PCR Negati ve Swab- 1 Vagin al Not Available [facility] (Lab) [address] [facility], [place], [address], 07/20/2020 09:03:22 07/16/19 21 07/15/2020 austin da sp DNA, vagin al luis parapsilosis PCR Negati ve Swab- 1 Vagin al Not Available [facility] (Lab) [address] [place], [address], 07/20/2020 09:03:22 07/16/19 21 07/15/2020 austin da sp DNA, vagin al luis glabrata PCR Negati ve Swab- 1 Vagin al Not Available [facility] (Lab) [address] [place], [address], 07/20/2020 09:03:22 07/16/19 21 07/15/2020 STI panel nm bkr mycoplasma genitalium by RT-PCR Negati ve Swab- 1 Vagin al Not Available [facility] (Lab) [address] [place], [address], 07/20/2020 09:03:22 07/16/19 21 07/15/2020 STI panel nm bkr mycoplasma hominis by RT-PCR Negati ve Swab- 1 Vagin al Not Available [facility] ([facility]) [address] [facility], [place], [address], 07/20/2020 09:03:22 07/16/19 21 07/15/2020 STI panel nm bkr ureaplasma urealyticum by RT-PCR Negati ve Swab- 1 Vagin al Not Available [facility] ([facility]) [address] [facility], [place], [address], 07/20/2020 09:03:22 07/16/19 21 07/15/2020 bacte rial vagin osis DNA, PCR, vagin al fluid gardnerella vaginalis PCR Negati ve Swab- 1 Vagin al Not Available [facility] ([facility]) [address] [facility], [place], [address], 07/20/2020 09:03:23 07/16/19 21 07/15/2020 bacte rial vagin osis DNA, PCR, vagin al fluid atopobium vaginae PCR Negati ve Swab- 1 Vagin al Not Available [facility] (Lab) [address] [place], [address], 07/20/2020 09:03:23 07/16/19 21 07/15/2020 bacte rial vagin osis DNA, PCR, vagin al fluid bacterial vaginosis associated bacteria 2 (bvab2) Negati ve Swab- 1 Vagin al Not Available [facility] (Lab) [address] [place], [address], 07/20/2020 09:03:23 07/16/19 21 07/15/2020 bacte rial vagin osis DNA, PCR, vagin al fluid megasphaera species (type 1 and type 2) PCR Negati ve (Type1 ,Type2 ) Swab- 1 Vagin al Type1 :Nega tive Type2 :Nega tive. Not Available [facility] ([facility]) [address] [facility], [place], [address], 07/20/2020 09:03:23 07/16/19 21 07/15/2020 bacte rial vagin osis DNA, PCR, vagin al fluid lactobacillu s (bvpanel) PCR See Commen t Swab- 1 Vagin al L.cri spatu s: Posit patricia L.shayy senii : Negat patricia L.gas seri : Negat patricia L.ine rs : Negat patricia. Not Available [facility] (Lab) [address], [place], [address], 07/20/2020 09:03:23 07/16/19 21 07/15/2020 urina lysis , dipst ick Leukocytes + positi ve Not Available [place] [address], [place], [address], 07/15/2020 14:53:03 07/16/19 21 07/15/2020 urina lysis , dipst ick Nitrite neg Not Available [place] [address], [place], [address], 07/15/2020 14:53:03 07/16/19 21 07/15/2020 urina lysis , dipst ick Urobilinogen 0.2 neg Not Available [place] [address], [place], [address], 07/15/2020 14:53:03 07/16/19 21 07/15/2020 urina lysis , dipst ick Protein neg Not Available [place] [address], [place], [address], 07/15/2020 14:53:03 07/16/19 21 07/15/2020 urina lysis , dipst ick pH 5 neg Not Available [place] [address], [place], [address], 07/15/2020 14:53:03 07/16/19 21 07/15/2020 urina lysis , dipst ick Specific Rainelle 1.020 Not Available [facility] [address], [place], [address], 07/15/2020 14:53:03 07/16/19 21 07/15/2020 urina lysis , dipst ick Ketone neg Not Available [place] [address], [place], [address], 07/15/2020 14:53:03 07/16/19 21 07/15/2020 urina lysis , dipst ick Bilirubin neg Not Available Yolanda tabares [address], [place], [address], 07/15/2020 14:53:03 07/16/19 21 07/15/2020 urina lysis , dipst ick Glucose neg Not Available [place] [address], [place], [address], 07/15/2020 14:53:03 07/16/19 21 07/15/2020 urina lysis , dipst ick Appearance clear Not Available Kiersten casillas [address], [place], [address], 07/15/2020 14:53:03 07/16/19 21 07/15/2020 urina lysis , dipst ick Color yellow Not Available [place] [address], [place], [address], 07/15/2020 14:53:03 12/23/19 22 12/22/2021 CT/GC AND TRICH OMONA S VAGIN BISMARK (RRNA ), SWAB chlamydia trachomatis, PCR Negati ve negati ve Not Available [facility] [address] [place], [address], 12/23/2021 19:50:40 12/23/19 22 12/22/2021 CT/GC AND TRICH OMONA S VAGIN BISMARK (RRNA ), SWAB neisseria gonorrhoeae, PCR Negati ve negati ve Not Available [facility] [address] [place] [address], [phone], 12/23/2021 19:50:40 12/23/19 22 12/22/2021 CT/GC AND TRICH OMONA S VAGIN BISMARK (RRNA ), SWAB trichomonas vaginalis ribosomal RNA (rrna) Negati ve negati ve Not Available [facility] [address] [place] [address], [address], 12/23/2021 19:50:40 12/23/1912/22/2021 VAGIN ITIS/ VAGIN OSIS, DNA PROBE luis sp. detection, direct probe Positi ve negati ve abnormal Not Available [facility] [address] [place] [address], [phone], 12/23/2021 19:50:41 12/23/19 22 12/22/2021 VAGIN ITIS/ VAGIN OSIS, DNA PROBE gardnerella vag. detection, direct probe Positi ve negati ve abnormal Not Available [facility] [address] [place] [address], [phone], 12/23/2021 19:50:41 12/23/19 22 12/22/2021 VAGIN ITIS/ VAGIN OSIS, DNA PROBE trichomonas vag. detection, direct probe Negati ve negati ve Not Available [facility] [address] [place] [address], [phone], 12/23/2021 19:50:41 12/30/19 23 12/29/2022 urina lysis , dipst ick Leukocytes ++ Not Available Kiersten casillas [address], [place], [address], 12/29/2022 15:24:19 12/30/1912/29/2022 urina lysis , dipst ick Nitrite + Not Available [place] [address], [place], [address], 12/29/2022 15:24:19 12/30/1912/29/2022 urina lysis , dipst ick Urobilinogen neg Not Available [facility] anastasiia [address], [place], [address], 12/29/2022 15:24:19 12/30/1912/29/2022 urina lysis , dipst ick Protein + Not Available [place] [address], [place], [address], 12/29/2022 15:24:19 12/30/1912/29/2022 urina lysis , dipst ick pH 5 Not Available [place] [address], [place], [address], 12/29/2022 15:24:19 12/30/19 23 12/29/2022 urina lysis , dipst ick Specific Rainelle 1.020 Not Available [facility] [address], [place], [address], 12/29/2022 15:24:19 12/30/19 23 12/29/2022 urina lysis , dipst ick Ketone neg Not Available [place] [address], [place], [address], 12/29/2022 15:24:19 12/30/1912/29/2022 urina lysis , dipst ick Bilirubin neg Not Available [facility] [address], [place], [address], 12/29/2022 15:24:19 12/30/19 23 12/29/2022 urina lysis , dipst ick Glucose neg Not Available [place] [address], [place], [address], 12/29/2022 15:24:19 12/30/19 23 12/29/2022 urina lysis , dipst ick Appearance cloudy Not Available [facility] [address], [place], [address], 12/29/2022 15:24:19 12/30/19 23 12/29/2022 urina lysis , dipst ick Color yellow Not Available [place] [address], [place], [address], 12/29/2022 15:24:19 08/06/19 21 08/05/2020 US, pelvi s No observ ation record ed. [facility] [address], [place], [address], 08/05/2020 17:22:09 08/06/19 21 08/05/2020 US, trans vagin al No observ ation record ed. [facility] [address], [place], [address], 08/05/2020 17:22:19 08/06/19 21 08/05/2020 US, pelvi s No observ ation record ed. layran Sera [address], [place], [address], 08/06/2020 15:56:40 Result Notes None recorded. Problems Name Problem SNOMED Code Status Onset Date Resolution Date Notes Provider Name and Address Organization Details Recorded Time Postcoit al finding [id number] Completed 201505/07/2020 Postcoit al and contact bleeding ;Practic e ID: 0001 Bonny kinney [facility] 10:20:46 Dyspareu lyudmila [id number] Completed 201505/07/2020 Dyspareu lyudmila;Prac gloria ID: 0001 Bonny kinney [facility] 10:20:32 Cyst of ovary 05446599 Completed 201505/07/2020 Unspecif ied ovarian cysts;Pr actice ID: 0001 Bonny kinney [facility] 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 10:20:57 Finding of desire for urinatio n [id number] Completed 201805/07/2020 Urgency of urinatio n;Record ed Elsewher e: No Locat ion: [facility] S ource: EHR [employer] lauren: N Yoannati ce ID: 0001 Hector lable Time: 01:00:00 PM Bonny kinney [facility] 10:20:42 Body mass index 30+ - obesity 960228356 Completed 201705/07/2020 Body mass index (BMI) 34.0-34. 9, adult;Re corded Elsewher e: No Locat ion: [facility] S ource: EHR [employer] lauren: N Yoannati ce ID: 0001 Hector lable Time: 01:30:00 PM Bonny kinney [facility] 10:20:28 Screenin g for malignan t neoplasm of cervix Completed 201505/07/2020 Screenin g for malignan t neoplasm s of the cervix;R ecorded Elsewher e: No Locat ion: [facility] S ource: EHR [employer] lauren: N Practi ce ID: 0001 Hector lable Time: 01:15:00 PM Bonnybrayan kinney [facility] 10:20:53 Urinary tract infectio us disease 48140715 Completed 201805/07/2020 Urinary tract infectio n, site not specifie d;Record ed Elsewher e: No Locat ion: Argelia keshawn [facility] S ource: EHR [employer] lauren: N Practi ce ID: 0001 Hector lable Time: 01:00:00 PM Bonny kinney [facility] 1 10:21:02 Pregnanc y test negative [id number] Completed 201505/07/2020 Encounte r for pregnanc y test, result negative ;Recorde d Elsewher e: No Locat ion: [facility] S ource: EHR [employer] lauren: N Practi ce ID: 0001 Hector lable Time: 02:00:00 PM Bonny Madden [facility] 1 10:20:48 Pregnanc y test positive 373779567 Completed 201010/24/2011 Pregnanc y examinat ion or test, positive result;R ecorded Elsewher e: No Locat ion: [facility] S ource: EHR [employer] lauren: N Practi ce ID: 0001 Hector lable Time: 03:15:00 PM Not Available [facility] 0 21:46:42 Postpart um care Completed 201110/24/2011 Routine postpart um follow-u p;Record ed Elsewher e: No Locat ion: [facility] S ource: EHR [employer] lauren: N Practi ce ID: 0001 Hector lable Time: 10:45:00 AM Not Available [facility] 0 21:46:43 Infectio n screenin g Completed 201505/07/2020 Encounte r for screenin g for oth infec/pa rastc diseases ;Recorde d Elsewher e: No Locat ion: [facility] keshawn [facility] S ource: EHR [employer] lauren: N Practi ce ID: 0001 Hector lable Time: 01:15:00 PM Bonny Madden [facility] 1 10:20:43 Speciali zed medical examinat ion Completed 201010/24/2011 Gynecolo gical Examinat ion;Yariel rded Elsewher e: No Locat ion: Argelia keshawn [facility] S ource: EHR [employer] lauren: N Yoannati ce ID: 0001 Hector lable Time: 03:15:00 PM Bonny kinney [facility] 1 10:20:58 Syphilis test finding [id number] Completed 201505/07/2020 Encntr screen for infectio ns w sexl mode of transmis s;Record ed Elsewher e: No Locat ion: [facility] S ource: EHR [employer] lauren: N Yoannati ce ID: 0001 Hector lable Time: 01:15:00 PM Bonny kinney, [facility] 1 10:21:00 Amenorrh ea 38968473 Completed 201010/24/2011 Absence of menstrua tion;Rec orded Elsewher e: No Locat ion: [facility] S ource: EHR [employer] lauren: N Yoannati ce ID: 0001 Hector lable Time: 03:15:00 PM Not Available [facility] 0 21:46:44 Speciali zed medical examinat ion Completed 201305/07/2020 Gynecolo gical Examinat ion;Yariel rded Elsewher e: No Locat ion: [facility] S ource: EHR [employer] lauren: N Practi ce ID: 0001 Hector lable Time: 08:30:00 AM Bonny kinney [facility] [address] 10:20:[address] Concept Completed 201705/07/2020 Encntr for general adult medical exam w/o abnormal findings ;Recorde d Elsewher e: No Locat ion: [facility] S ource: EHR [employer] lauren: N Yoannati ce ID: 0001 Hector lable Time: 01:30:00 PM Bonny kinney [facility] 1 10:20:56 Screenin g for malignan t neoplasm of cervix Completed 201010/24/2011 Screenin g for malignan t neoplasm s of the cervix;R ecorded Elsewher e: No Locat ion: Yolanda [facility] S ource: EHR [employer] lauren: N Yoannati ce ID: 0001 Hector lable Time: 03:15:00 PM Bonny kinney, [facility] 10:20:53 Elevated blood-pr essure reading without diagnosi s of hyperten lino [id number] Completed 201505/07/2020 Elevated blood-pr essure reading, without diagnosi s of hyperten lino;Rec orded Elsewher e: No Locat ion: [facility] S ource: EHR [employer] lauren: N Yoannati ce ID: 0001 Hector lable Time: 01:15:00 PM Bonny Madden [facility], [facility] 10:20:36 Vaginiti s and vulvovag initis Completed 201105/07/2020 Vaginiti s;Record ed Elsewher e: No Locat ion: [facility] S ource: EHR [employer] lauren: N Yoannati ce ID: 0001 Hector lable Time: 02:30:00 PM Bonny kinney [facility] 10:21:04 Leukocyt osis 178103885 Completed 201105/07/2020 LEUKOCYT OSIS NOS;Yariel rded Elsewher e: No Locat ion: [facility] S ource: EHR [employer] lauren: N Yoannati ce ID: 0001 Hector lable Time: 02:30:00 PM Bonny kinney [facility] 10:20:45 Irregula r periods 24951166 Completed 201305/07/2020 Irregula r menstrua l cycle;Re corded Elsewher e: No Locat ion: [facility] S ource: EHR [employer] lauren: N Practi ce ID: 0001 Hector lable Time: 08:30:00 AM Bonny kinney, [facility] 10:20:44 Educatio n Completed 201005/07/2020 Other general counseli ng and advice on contrace ptive manageme nt;Pract ice ID: 0001 Bonny kinney, [facility] 10:20:34 Routine antenata l care Completed 201005/07/2020 Supervis ion of other normal pregnanc y;Practi ce ID: 0001 Bonny kinney [facility] 10:20:52 Primigra olesya [id number] Completed 201005/07/2020 Supervis ion of normal first pregnanc y;Practi ce ID: 0001 Bonny kinney [facility] 10:20:49 anatomy study Completed 201005/07/2020 [facility] ANAT SURVEY;P ractice ID: 0001 Bonny kinney [facility] 10:20:40 Female genital organ symptoms 641957433 Completed 201105/07/2020 Unspecif ied symptom associat ed with female genital organs;P ractice ID: 0001 Bonny kinney [facility] 10:20:39 Benign essentia l hyperten lino complica ting pregnanc y, childbir th and the puerperi um - not delivere d 205742299 Completed 201105/07/2020 Hyperten lino During Pregnanc y;Practi ce ID: 0001 Bonny Wagoneran nirmal [facility] 10:20:26 Tachycar waqar [id number] Completed 201105/07/2020 Tachycar waqar, unspecif ied;Prac gloria ID: 0001 Bonny Madden nirmal [facility] 10:21:01 Excessiv e growth affectin g manageme nt of mother 84754050 Completed 201105/07/2020 GROWTH LARGE LGA;Prac gloria ID: 0001 Bonny Madden nirmal [facility] 10:20:37 Delivery normal 64498280 Completed 201105/07/2020 Normal delivery ;Practic e ID: 0001 Bonnybrayan Madden nirmal [facility] 10:20:31 Single live from singleto n pregnanc y 521796041 Completed 201105/07/2020 Mother with single liveborn ;Practic e ID: 0001 Bonny Madden nirmal [facility] 10:20:55 Procedur e on genitour inary system Completed 201105/07/2020 Steriliz ation;Pr actice ID: 0001 Bonny Madden nirmal, [facility] 10:20:50 Hyperten sive disorder 72065820 Active 2020 Bonny Chano [facility] 10:27:56 Problem Notes None recorded. Procedures Surgical History Date Name Laterality Status Provider Name and Address Organization Details Recorded Time 1 Date of Last Pap Smear completed [facility] 08/06/2020 14:49:09 0 Date of Last Mammogram completed [facility] 08/06/2020 14:49:33 6 Colposcopy completed [facility] 07/14/2020 16:54:47 2 ligation of bilateral fallopian tubes completed Bonny Madden [facility] 05/07/2020 10:26:56 Imaging Results Imaging Date Name Status LastModified by Organization Details LastModified Time 08/05/2020 US, pelvis completed virgilio [place] [address], [place], [address], 08/05/2020 17:22:09 08/05/2020 US, transvaginal completed virgilio tabares [address], [place], [address], 08/05/2020 17:22:19 08/05/2020 US, pelvis completed erica Zamora [address], [place], [address], 08/06/2020 15:56:40 Procedure Notes None recorded. Medical [...] Prescrib ed Elsewher e: No [facility] By: cmedical Encount er DateTime [...] Prescrib ed Elsewher e: Yes [facility] By: holly ross DateTime : [...] Prescrib ed Elsewher e: No Locat ion: [facility] [address] [facility] odify By: amkuhl Keshawn ncountnasrin DateTime : 10/24/19 12 02:30:00 PM Not [...] route every 12 hours 05/07 completed Prescrib ed Hao e: No Locat ion: [facility] [address] odify By: lbillhar tz Encou nter DateTime : 12/06/19 01:00:00 PM Not Available Not Available Not Available escitalop demetrius 5 mg/5 mL oral solution take 10 millilit er by oral route every day 07/15 completed Prescrib ed Elsewher e: Yes Loca tion: [facility] [address] odify By: carlos wallace DateTime : 01/23/20 [...] Prescrib ed Elsewher e: Yes Loca tion: [facility] [address] odify By: loida wallace DateTime : 07/10/19 14 08:30:00 AM Not Available Not Available Not Available Lomedia 24 Fe 1 mg-20 mcg (24)/75 mg (4) tablet take 1 tablet by oral route every day 05/19 completed Prescrib ed Elsewher e: No Locat ion: [facility] [address] odify By: ladan marin DateTime : 07/10/19 [...] Updated DateTime 08/06/2020 175.26 cm 35.7 kg/m2 834379.9 2 g 126 mm[Hg] 70 mm[Hg] Flakita Salgado [facility] 14:53:24 Date Recorded Body height Body mass index (BMI) Body weight Systolic blood pressure Diastolic blood pressure Provider Name and Address Organization Details Last Updated DateTime 12/22/2021 175.26 cm 36.2 kg/m2 773787.1 3 g 147 mm[Hg] 91 mm[Hg] [facility] 15:21:48 Date Recorded Body height Body mass index (BMI) Body weight Systolic blood pressure Diastolic blood pressure Provider Name and Address Organization Details Last Updated DateTime 01/12/2022 175.26 cm 35.6 kg/m2 930113.2 g 159 mm[Hg] 103 mm[Hg] [facility] 14:15:15 Date Recorded Systolic blood pressure Diastolic blood pressure Provider Name and Address Organization Details Last Updated DateTime 01/12/2022 138 mm[Hg] 96 mm[Hg] NISREEN Garcia [address], [place], [address], [facility] 01/12/2022 15:07:46 Date Recorded Body height Body mass index (BMI) Body weight Systolic blood pressure Diastolic blood pressure Provider Name and Address Organization Details Last Updated DateTime 12/29/2022 175.26 cm 34.6 kg/m2 491231.0 5 g 125 mm[Hg] 87 mm[Hg] Flakita Molina [facility] 3 15:16:56 Social History Question Answer Notes LastModified by Organizat ion Details LastModified Time Tobacco Smoking Status Former Smoker Bonny kinney, [facility] 05/07/2020 10:26:41 Are You Blind Or [...] Anxious, Or Unable To Sleep At Night)? [id number] Information not available 07/14/2020 Do You Use [...] Details LastModified Time Maternal Grandmother Diabetes mellitus [email or web address] Not available 2020 10:26:06 Maternal Grandmother Asthma Not available 05/07 10:26:14 Mother Mental disorder Bipola r [email or web address] Not available 05/07/2020 10:26:27 Medical History Condition [...] SNOMED-CT Code Diagnosis ICD10 Code Diagnosis Note [id number] Mary Ellen Aguilar [facility] [address],[place] [address] 01/28/2020 14:34:49 01/28/2020 16:30:45 Lump of axillary tail of right breast 6924301325 38789 N63.31 N63.0 Based on exam & subjective complaints we agreed to move forward with imaging. Fam Hx of grandmothe r with breast cancer maternal; but no other fam hx. Non-menopa usal hot flash [id number] 89360 R23.2 Hx of HTN on medication s Having some night sweats with temp flucuation s. Agreed on lab work to start. Will also f/u PCP Periods are regular [facility]. [id number] [facility] [address],[place] [address] 05/07/2020 10:04:17 06/29/2020 14:58:46 [id number] [facility] [address] [place] [address] 05/07/2020 10:19:12 05/07/2020 10:57:14 Vaginitis 41224037 N76.0 Use mild soap like dove or ivory, cotton underwear w/out dye, hypoallerg enic detergent, wipe from front to back, avoid tub baths, keep perineum clean and dry, d/c use of baby wipes. Recommend daily intake of yogurt or womens health probiotic. Internal and external affirm collected along with STD screen. Urinary tr act infectious disease 30088884 N39.0 Urine negative with exception of blood but pt is on her cycle. Urine sent for culture. Increase water and decrease caffeine. [id number] Mary Ellen Aguilar [facility] [address],[facility] [place] [address] 07/15/2020 14:31:36 07/15/2020 15:33:17 Abnormal uterine bleeding [id number] 9100 N93.9 TVUS ordered Recently had TSH [...] this patient s visit, including available hand city driver upon arrive, temperatur e check and being asked a series of screening questions. All staff wore face coverings during this encounter, as well as provided additional cleaning and sanitizing of all surfaces, including countertop s, pens, chairs, door handles, light switches, etc, prior to and following the patient s visit. Blood in urine 66821670 R31.9 [id number] Monty Alves MD [place] [address],[facility] [place] [address] 08/05/2020 13:52:20 08/05/2020 14:43:25 Abnormal uterine bleeding [id number] 9100 N93.9 [id number] Mary Ellen Aguilar [facility] [address],[facility] [place] [address] 08/06/2020 14:26:00 08/06/2020 15:32:38 Irregular periods 11035074 N92.6 TVUS considered wnl with 3cm corpus luteum present. Patient is feeling fine and no pain. Had a normal menses July and is due for another 08.15.2020 which [...] this patient s visit, including available hand city driver upon arrive, temperatur e check and being asked a series of screening questions. All staff wore face coverings during this encounter, as well as provided additional cleaning and sanitizing of all surfaces, including countertop s, pens, chairs, door handles, light switches, etc, prior to and following the patient s visit. [id number] NISREEN Garcia [facility] [address] [address] 12/22/2021 15:07:38 12/22/2021 15:47:23 Vaginitis 84027310 N76.0 Suspect BV/yeastVa ginitis panel sentSTI endocervic al testing sentVulvar care guidelines discussed in-depthRx sentR/B of medication discussed and accepted by patientRTC for WWE Time spent in visit is a total of 20 mins with at least 50% of visit consisting of counseling and review of plan of care. Venereal d isease screening [id number] Z11.3 [id number] NISREEN Garcia [facility] [address] [address] 01/12/2022 13:55:29 01/12/2022 15:18:35 Gynecologic examination 35392933 Z01.419 Take Calcium with Vitamin D 1200mg [...] f/u with PCP. ED precaution s discussed [id number] NISREEN Garcia [place] [address] [address] 12/29/2022 15:05:25 12/29/2022 16:26:23 Urinary symptoms 092272372 R39.9 suspect UTIcx sentrx sent, r/b/a reviewedde [...] and review of plan of care. Dysuria 43056706 R30.0 Health Concerns Section Related Observation LastModified by Organization Detai ls LastModified Time None Recorded Concern Status LastModified by Organization Details LastModified Time None Recorded Advance Directives Directive None Recorded Payers Encounter Date Sequence Insurance Name Policy Number Policy Pagan Covered Member ID Pagan Member ID Guarantor Name 08/05/2020 1 [facility] (MEDICAID HMO) [id number] Karey A Wells [id number] Karey A [place] 08/06/2020 1 [facility] (MEDICAID HMO) [id number] Karey A Wells [id number] Karey A [place] 12/22/2021 1 [facility] (MEDICAID HMO) [id number] Karey A Wells [id number] Karey A [place] 01/12/2022 1 [facility] (MEDICAID HMO) [id number] 0003 Karey A Wells [id number] Karey A [place] 12/29/2022 1 [facility] (MEDICAID HMO) [id number] 0003 Karey A [place] [id number] Karey A [place] Notes Date Note Type Note Provider Name and Address Organization Details Recorded Time 08/06/2020 text/html Here for TVUS Fo llow up for irregular cycle. NISREEN Moran- [address], [place], [address], [facility] 08/06/2020 15:14:34 12/22/2021 text/html 36yo Presents fo r evaluation of vaginal discharge, odor, and itchingPresents for the last 1 weekSA with steady partnerBC - BTL NISREEN Garcia [address], [place], [address], [facility] 12/22/2021 15:42:29 01/12/2022 text/html Annual GYNReport [...] mammograms starting age [address], [place], [address], [facility] 01/12/2022 15:06:49 12/29/2022 text/html 37yopresents for urinary symptomsurinary frequency/pressuresy mptoms started 2-3 days agodrinking more caffeine latelydenies flank pains, n/v/f, or flu-like symptomsBTL for BCno vaginal symptoms Argenis Moralez, NISREEN [address], [place], [address], [facility] 12/29/2022 16:23:20 OBGyn Episode Ob Episode Information Episode Created Date Number of Fetuses Patient Bloodtype Patient rh Status Prepregnancy Weight lbs Domestic Partner Domestic Partner Phone Father Name Soft Drink Powder Mixer Status 05/08/19 21 1 CLOSED Fetus Data [...] Domestic Partner Domestic Partner Phone Father Name Soft Drink Powder Mixer Status 05/08/19 21 1 CLOSED Fetus Data [...] Domestic Partner Domestic Partner Phone Father Name Soft Drink Powder Mixer Status 05/08/19 21 1 CLOSED Fetus Data [...] Domestic Partner Domestic Partner Phone Father Name Soft Drink Powder Mixer Status 05/08/19 21 1 CLOSED Fetus Data [...]
--- OUTSIDE RECORDS SUMMARY | 2024-07-04 18:34 | XMS_ITS | Clinical Summary ---
Author Organization [facility] Address [address] [place] [address] Care Team Providers Care Furnace Door Tender Name Role Phone Edison Block MD Primary Care Provider Source Comments [facility],non-owned Affiliates and Associated Physician Practices is amultiple site organization consisting of ambulatory clinics and hospital sitesin [place], [place], [place] and [place]. This disclosure is being madepursuant to the Care Everywhere program and may not contain all information available regarding this patient. Last updated 17.[facility] Medications * Be aware that medications may not be up to date on this document. Alwaysverify current medications with the patient. SUMAtriptan (IMITREX) 25 MG tablet Take 25 mg by mouth once as needed 05/10/2018 Active escitalopram (LEXAPRO) 20 MG tablet Take 20 mg by mouth once daily 05/10/2018 Active vitamin D, ergocalciferol, (DRISDOL) 52986 units capsule Take 50,000 Units by mouth every 7 days 05/24/2018 Active Active Problems No known active problems Social History Tobacco Use Types Packs/Day Years Used Date Smoking Tobacco: Never Smokeless Tobacco: Never Alcohol Use Standard Drinks/Week Comments No 0 (1 standard drink = 0.6 oz pur e alcohol) Comments Unknown Sex and Gender Information Value Date Recorded Sex Assigned at Not on file 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 Gender Identity Not on file Sexual Orientation Not on file Plan of Treatment Health Maintenance Due Date Last Done Comments HIV SCREENING 2000 HEPATITIS C SCREENING 03/10/2003 DTAP/TDAP/TD VACCINES (1 - Tdap) 2004 HEPATITIS B VACCINE (1 of 3 - 19+ 3-dose series) 2004 COVID-19 VACCINE (1 - 2023-2 5 season) 2023 DEPRESSION SCREENING 03/06/2024 INFLUENZA VACCINE (Season Ended) 2024 ZOSTER VACCINE (1 of 2) 2035 HIB [...] patient's age to complete this topic Insurance [facility] Care Teams Furnace Door Tender Relationship Specialty Start Date End Date Edison Block MD [address] [place] [address] PCP - General 07/23/18
[2024-07-04 18:38] VITALS: BP 169/109; PULSE 69; RESP 18; TEMP 36.6; O2SAT 100
--- NOTE | 2024-07-04 18:42 | ED.EYEPROB ---
HPI - Eye Problem General Chief complaint: Eye Problems Stated complaint: Lt Eye irritation Time Seen by Provider: 07/04/24 18:42 Source: patient Mode of arrival: ambulatory Limitations: no limitations History of Present Illness HPI Narrative: This is a 39-year-old female patient who presents to [facility] with complaints of left eye pain onset shortly prior to arrival with associated redness and clear tears. She states that she has photosensitivity to light. Patient reports that she just got contacts and place them in her eye today. She realized that she put the wrong contact in the opposite eyes and when she took out her contact from the left eye she began to have significant pain. These were new contacts and there was no known trauma. Patient stated that it feels like there is still something on her eye. She reports that light to the left eye makes her have more left eye pain and nausea. Patient denies any recent nasal/sinus symptoms. She reports she takes lisinopril and iron. Related Data Home Medications ?Medication ?Instructions ?Recorded ?Confirmed ?Last Taken ?Type topiramate 25 mg tablet 25 mg PO PRN headache 09/20/19 09/11/22 Unknown History lisinopril 40 mg tablet 40 mg PO DAILY 02/06/21 09/11/22 Unknown History Allergies Allergy/AdvReac Type Severity Reaction Status Date / Time No Known Allergies Allergy Verified 07/04/24 18:38 Review of Systems Review of Systems: All systems reviewed & are unremarkable except as noted in HPI and below PMFSH Past Medical History Medical History Patient denies significant medical history Social History Social History Smoking status: Never smoker Gender identity (if verbalized by the patient): Female Exam Narrative: GENERAL: Well-appearing, well-nourished, and in no acute distress. HEAD: Normocephalic, atraumatic. ENT:? Mucous membranes moist. Left eye with erythema and clear tears. Mild erythema to upper eyelid, no periorbital swelling. CHEST: Clear to auscultation.? No respiratory distress. SKIN: Warm dry normal color NEURO: Alert and oriented x3. PSYCH: Normal mood and affect Course Course Emergency Course: Patient with elevated blood pressure and signs of increased intraocular pressure in left eye. fluorescein stain was negative. Pain persisted despite tetracaine. Patient informed she should go to an emergency department for or more complete eye exam. Elevated blood pressure discussed and may be part of the reason for eye pain, patient did not take lisinopril today. Level of Care: Express Care Visit Vital Signs Vital signs: Vital Signs Temperature 36.6 C 07/04/24 18:38 Pulse Rate 69 07/04/24 18:38 Respiratory Rate 18 07/04/24 18:38 Blood Pressure 169/109 H 07/04/24 18:38 Pulse Oximetry 100 07/04/24 18:38 Oxygen Delivery Room Air 07/04/24 18:38 Temperature 36.6 C 07/04/24 18:38 Pulse Rate 69 07/04/24 18:38 Respiratory Rate 18 07/04/24 18:38 Blood Pressure 169/109 H 07/04/24 18:38 Pulse Oximetry 100 07/04/24 18:38 Oxygen Delivery Room Air 07/04/24 18:38 Transfer Transfered to: [facility] Transportation: Other (Private vehicle) Transfer rationale: Left eye pain with symptoms of increased intraocular pressure and we lack the ability to further diagnose/treat this condition. Patient wanted to go to [place], was informed that both [facility] and [place] have ophthalmology if deemed necessary though both will have a long wait time. Patient chose [place] Accepting physician: No name given, Dakota ONTIVEROS at [facility] took report and patient information Procedures FB Removal Eye Foreign Body #1: Foreign Body Removal Date: 07/04/24 Foreign Body Removal Time: 19:00 Time Out performed: Yes Location: eye (L) Topical anesthetic used: tetracaine Foreign body: other (none found) Evidence of corneal penetration: No Technique: cotton tip swab Procedure performed under: direct visualization with magnification Post-procedure medication: topical anesthetic Patient tolerated procedure: other (nausea, increased pain with pressure/palpation of the globe, no corneal abrasion or evidence of retained contact) Foreign Body Removal Narrative: Left eye numbing with tetracaine did not produce full pain relief. fluorescein stain no evidence of corneal abrasion or retained foreign body. Visualization under the upper eyelid as well as sweeping the area with a Q-tip did not reveal any retained foreign body but there was significant pain to the patient when the Q-tip came into contact with the eye globe especially at 2 o'clock position. No pain to left eye with light shining to right eye but there is increased pain and nausea when light shined into left eye. No stain findings to support traumatic iritis. No ability to check eye pressures or complete a dilated eye exam. Discussed differential including simple conjunctivitis, traumatic iritis, retained foreign body, acute angle closure glaucoma and other eye related disorders that cannot be fully evaluated or ruled out here. Patient wanted to go to [place] [facility] for evaluation since they have ophthalmology if necessary. Report called to [facility] in [facility], no accepting physician name provided. MDM - Eye Problem MDM Narrative Medical decision making narrative: See emergency course and procedure Differential Diagnosis Differential diagnosis: Likely corneal abrasion, conjunctivitis, acute iritis, periorbital cellulitis, glaucoma and other (retained foreign body not seen) Discharge Plan Discharge Clinical Impression: Acute left eye pain Patient Disposition: Acute Care Hospital Condition: Guarded Prognosis Additional Instructions: Proceed to [facility] [place] ER (per your decision) Patient Language: Yakut Prescriptions: No Action lisinopril 40 mg tablet 40 mg PO DAILY topiramate 25 mg tablet 25 mg PO PRN Rx Instructions: as directed Follow-up/Referrals: PHYSICIAN,AMMONIA STILL OPERATOR [Primary Care Provider] - Time of Disposition: 19:09
[2024-07-04] MEDS: DACRIOSE EYE IRRIGATION 118 ML BOTTLE LEFT EYE (18:47)
[2024-07-04] MEDS: FLUORESCEIN SOD 1 MG/STRIP LEFT EYE (18:47)
[2024-07-04] MEDS: TETRACAINE HCL 0.5% OPHTH SOLN 4 ML BTL LEFT EYE (18:47)
[2024-07-04 19:09] VITALS: BP 175/113
== END 2024-07-04 19:09 | disposition short-term general hospital (02) ==
LOC: EXPTROY 18:34
PROVIDERS: Emergency Provider Nurse Practitioner
DX: H57.12 Ocular pain, left eye (principal)
CPT/HCPCS: 65205; 99213; A9270; G0463

== ENCOUNTER 2024-07-13 14:07 | Emergency (ER) | payer OTHER, SELFPAY ==
--- OUTSIDE RECORDS SUMMARY | 2024-07-13 14:09 | XMS_ITS | Clinical Summary ---
Author Organization [facility] Address [address] [place] [address] Care Team Providers Care Worm Sorter Name Role Phone Edison Block MD Primary Care Provider [phone] Source Comments [facility],non-owned Affiliates and Associated Physician Practices is amultiple site organization consisting of ambulatory clinics and hospital sitesin [place], [place], [place] and [place]. This disclosure is being madepursuant to the Care Everywhere program and may not contain all information available regarding this patient. Last updated 17.[facility] Medications * Be aware that medications may not be up to date on this document. Alwaysverify current medications with the patient. 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
--- OUTSIDE RECORDS SUMMARY | 2024-07-13 14:09 | XMS_ITS | Referral Summary ---
Author Organization [facility] [address] Address [address] [place] [address] Care Team Providers Care Computerized Mill Mill Recorder Name Role Phone Edison Block MD Primary Care Provider [phone] Encounters Date Type Department Care Team Description 07/04/2024 10:39 PM CDT - 07/05/2024 1:51 AM CDT Emergency [facility] Emergency Department [address] [place] [address] Maciej Powers MD PhD Traumatic conjunctivitis (Primary Dx); Acute left eye pain Discharge Disposition: Discharge to home or self care from Last 3 Months Allergies No known active allergies Medications cyclobenzaprine (FLEXERIL) 10 mg tablet Take 1 tablet (10 mg total) by mouth 3 (three) times a day as needed for muscle spasms 3 Active ergocalciferol (VITAMIN D) 50,000 unit capsule Take 1 capsule (50,000 Units total) by mouth once a week 9 Active escitalopram (LEXAPRO) 20 mg tablet Take 1 tablet (20 mg total) by mouth daily 9 Active lisinopriL (PRINIVIL,ZESTR IL) 40 mg tablet Take 1 tablet (40 mg total) by mouth daily 3 Active SUMAtriptan (IMITREX) 25 mg tablet Take 1 tablet (25 mg total) by mouth daily as needed 9 Active lidocaine viscous (XYLOCAINE) 2 % solution Take 10 mL by mouth 3 (three) times a day 100 mL 3 Active mometasone (ELOCON) 0.1 % cream APPLY A THIN LAYER OF CREAM TO AFFECTED AREA OF ARM TWICE DAILY FOR THE NEXT 3-9 WEEKS. Active meloxicam (MOBIC) 15 mg tablet Take 1 tablet (15 mg total) by mouth daily 30 tablet 4 Active metoclopramide (REGLAN) 10 mg tablet Take 1 tablet up to three times a day for nausea or headache. 15 tablet 5 Active ketorolac (TORADOL) 10 mg tablet Take 1 tablet (10 mg total) by mouth 3 (three) times a day as needed for pain Take with food. 15 tablet 5 07/06/19 25 Discontinu ed(Rorylica te order) Active Problems Problem Noted Date Diagnosed Date Hypertensive disorder 05/06/2020 Urinary tract infectious disease 12/05/2018 Overview (03/15/2023): Urinary tract infection, site not specified;Recorded Elsewhere: No Location: [facility] Source: EHR Chronic: N Practice ID: [id number] Billable Time: 01:00:00 PM Obesity with body mass index 30 or greater 01/21 Overview (03/15/2023): Body mass index (BMI) 34.0-34.9, adult;Recorded Elsewhere: No Location: [facility] Source: EHR Chronic: N Practice ID: [id number] Billable Time: 01:30:00 PM Cyst of ovary 07/07/2015 Overview (12/06/2022): Unspecified ovarian cysts;Practice ID: [id number] Elevated blood-pressure read ing without diagnosis of hypertension 05/20/2015 Overview (12/06/2022): Elevated blood-pressure reading, without diagnosis of hypertension;Recorded Elsewhere: No Location: [facility] Source: EHR Chronic: N Practice ID: [id number] Billable Time: 01:15:00 PM Irregular periods 07/09/2013 Overview (03/15/2023): Irregular menstrual cycle;Recorded Elsewhere: No Location: [facility] Source: EHR Chronic: N Practice ID: [id number] Billable Time: 08:30:00 AM Leukocytosis 10/24/2011 Overview (03/15/2023): LEUKOCYTOSIS NOS;Recorded Elsewhere: No Location: [facility] Source: EHR Chronic: N Practice ID: [...] (12/06/2022): Absence of menstruation;Recorded Elsewhere: No Location: [facility] Source: EHR Chronic: N Practice ID: [id number] Billable Time: 03:15:00 PM Social History Tobacco Use Types Packs/Day Years Used Date Smoking Tobacco: Some Days Vaping Tobacco Cessation:Ready to Q uit: Not Asked; Counseling Given: Not Answered Personal Safety Answer Date Recorded Have you ever been in or are you currently in a harmful physical or emotional relationship or is someone making you feel afraid or unsafe? 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 Gender Identity Not on file Sexual Orientation Not on file Last Filed Vital Signs Vital Sign Reading Time Taken Comments Blood Pressure 186/117 07/04/2024 9:21 PM CDT Pulse 82 07/04/2024 9:21 PM CDT Temperature 36.8 C (98.3 F) 07/04/2024 9:21 PM CDT Respiratory Rate 18 07/04/2024 9:21 PM CDT Oxygen Saturation 99% 07/04/2024 9:21 PM CDT Inhaled Oxygen Concentration - - Weight 112.9 kg (249 lb) 07/04/2024 9:21 PM CDT Height 172.7 cm (5' 8 ) 07/04/2024 9:21 PM CDT Body Mass Index 37.86 07/04/2024 9:21 PM CDT Plan of Treatment Not on file Insurance [employer] Care Teams Computerized Mill Mill Recorder Relationship Specialty Start Date End Date Edison Block MD PCP - General Family Medicine 12/06/22
--- OUTSIDE RECORDS SUMMARY | 2024-07-13 14:09 | XMS_ITS | Clinical Summary ---
Author Organization [address] Address [address] [place] [id number] Care Team Providers Care Rim Roller Operator Name Role Phone Edison Block MD Primary Care Provider [phone] Allergies No known active allergies Medications cyclobenzaprine [...] food. 15 tablet 5 07/06/19 25 Discontinu ed(Duplica te order) Active Problems Problem Noted Date Diagnosed Date Hypertensive disorder 05/06/2020 Urinary tract infectious disease 12/05/2018 Overview (03/15/2023): Urinary tract infection, site not specified;Recorded Elsewhere: No Location: [facility] Source: EHR Chronic: N Practice ID: [id number] Billable Time: 01:00:00 PM Obesity with body mass index 30 or greater 01/21 Overview (03/15/2023): Body mass index (BMI) 34.0-34.9, adult;Recorded Elsewhere: No Location: [facility] Source: EHR Chronic: N Practice ID: [id number] Billable Time: 01:30:00 PM Cyst of ovary 07/07/2015 Overview (12/06/2022): Unspecified ovarian cysts;Practice ID: [id number] Elevated blood-pressure read ing without diagnosis of hypertension 05/20/2015 Overview (12/06/2022): Elevated blood-pressure reading, without diagnosis of hypertension;Recorded Elsewhere: No Location: [facility] Source: EHR Chronic: N Practice ID: [id number] Billable Time: 01:15:00 PM Irregular periods 07/09/2013 Overview (03/15/2023): Irregular menstrual cycle;Recorded Elsewhere: No Location: [facility] Source: EHR Chronic: N Practice ID: [id number] Billable Time: 08:30:00 AM Leukocytosis 10/24/2011 Overview (03/15/2023): LEUKOCYTOSIS NOS;Recorded Elsewhere: No Location: [facility] Source: EHR Chronic: N Practice ID: [id number] [...] (12/06/2022): Absence of menstruation;Recorded Elsewhere: No Location: [facility] Source: EHR Chronic: N Practice ID: [id number] Billable Time: 03:15:00 PM Encounters Date Type Department Care Team Description 07/04/2024 10:39 PM CDT - 07/05/2024 1:51 AM CDT Emergency [facility] Emergency Department [address] [place] [address] Maciej Powers MD PhD Traumatic conjunctivitis (Primary Dx); Acute left eye pain Discharge Disposition: Discharge to home or self care from Last 3 Months Surgical History Surgery Date Site/Laterality Comments DILATION [...] on file 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 Gender Identity Not on file Sexual [...] 07/04/2024 9:21 PM CDT Plan of Treatment Health Maintenance Due Date Last Done Comments Cervical Cancer Screening 1985 Depression Screening 1985 Hepatitis C Screening 1985 DTaP/Tdap/Td Vaccine (1 - Tdap) 1996 Varicella Vaccines (1 of 2 - 13+ 2-dose series) 1998 Hepatitis B Screening 2003 Regular Well Visit/Exam 18-64 2003 Pneumococcal vaccine <65 (1 of 2 - PCV) 2004 Covid-19 Vaccine (4 - season) 2023 03/21/2021, 06/25/2020, 05/30/2020 Influenza Vaccine (Season Ended) 2024 11/28/2021, 01/02/2021, 12/16/2019, Additional history exists HPV Vaccines Aged Out No longer eligi ble based on patient's age to complete this topic Insurance [employer] Care Teams Rim Roller Operator Relationship Specialty Start Date End Date Edison Block MD PCP - General Family Medicine 12/06/22
--- OUTSIDE RECORDS SUMMARY | 2024-07-13 14:10 | XMS_ITS | Data Portability ---
Author Organization [facility] [place] Address [address] [place] [place] [address] Assessment Encounter Date Assessment Date Assessment LastModified [...] Lab urinalys is, dipstick 2022 023 [email or web address] [place], [address], [place], [address], 15:24:51 Referral None recorded . Procedures None recorded . Surgeries None recorded . Imaging US, pelvis 2020 021 [email or web address] [place], [address], [address], [place], [address], 15:36:30 US, transvag inal 2020 021 AMISH [place], [address], [address], [place], [address], 17:22:19 Medication Orders Macrobid 100 mg capsule 2022 023 [id number], [address], [place], [place], [id number], 3 16:21:03 fluconaz ole 150 mg tablet 2021 [facility][id number], [address] [facility], [place], [place], [id number], 2 14:15:21 metronid azole 500 mg tablet 2021 022 [facility] #[id number], [address] [facility], [place], [place], [id number], 2 14:15:24 Patient TargetsNo targets recorded. 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 Not Available [facility] (Lab) [address] [facility], [place], [address], 07/20/2020 09:03:20 07/16/19 21 07/15/2020 CT + NG RNA, PCR, unspe cifie d speci men chlamydia trachomatis, PCR Negati ve negati ve Not Available [facility] (Lab) [address] , [place], [address], 07/20/2020 09:03:20 07/16/19 21 07/15/2020 CT + NG RNA, PCR, unspe cifie d speci men neisseria gonorrhoeae, PCR Negati ve negati ve Not Available [facility] (Lab) [address], [place], [address], 07/20/2020 09:03:20 07/16/19 21 07/15/2020 trich omona s vagin bismark RNA trichomonas vaginalis ribosomal RNA (rrna) Negati ve negati ve Not Available [facility] (Lab) [address] [place], [address], 07/20/2020 09:03:21 07/16/19 21 07/15/2020 austin da dominic i DNA, vagin al luis krusei by RT-PCR Negati ve Swab- 1 Vagin al Not Available [facility] (Lab) [address] [place], [address], 07/20/2020 09:03:21 07/16/19 21 07/15/2020 mobil uncus , DNA, vagin al nm bkr mobiluncus mulieris and mobiluncus curtisii by RT-PCR Negati ve Swab- 1 Vagin al Not Available [facility] (Lab) [address] [place], [address], 07/20/2020 09:03:22 07/16/19 21 07/15/2020 austin da sp DNA, vagin al luis albicans PCR Negati ve Swab- 1 Vagin al Not Available [facility] (Lab) [address] [facility], [place], [address], 07/20/2020 09:03:22 07/16/19 21 07/15/2020 austin da sp DNA, vagin al luis tropicalis PCR Negati ve Swab- 1 Vagin al Not Available [facility] (Lab) [address] [facility], [place], [address], 07/20/2020 09:03:22 07/16/19 21 07/15/2020 austin da sp DNA, vagin al luis parapsilosis PCR Negati ve Swab- 1 Vagin al Not Available [facility] (Lab) [address] [place], [address], 07/20/2020 09:03:22 07/16/19 21 07/15/2020 austin da sp DNA, vagin al luis glabrata PCR Negati ve Swab- 1 Vagin al Not Available [facility] (Lab) [address] [place], [address], 07/20/2020 09:03:22 07/16/19 21 07/15/2020 STI panel nm bkr mycoplasma genitalium by RT-PCR Negati ve Swab- 1 Vagin al Not Available [facility] (Lab) [address] [place], [address], 07/20/2020 09:03:22 07/16/19 21 07/15/2020 STI panel nm bkr mycoplasma hominis by RT-PCR Negati ve Swab- 1 Vagin al Not Available [facility] (Lab) [address] [facility], [place], [address], 07/20/2020 09:03:22 07/16/19 21 07/15/2020 STI panel nm bkr ureaplasma urealyticum by RT-PCR Negati ve Swab- 1 Vagin al Not Available [facility] (Lab) [address] [facility], [place], [address], 07/20/2020 09:03:22 07/16/19 21 07/15/2020 bacte rial vagin osis DNA, PCR, vagin al fluid gardnerella vaginalis PCR Negati ve Swab- 1 Vagin al Not Available [facility] (Lab) [address] [facility], [place], [address], 07/20/2020 09:03:23 07/16/19 21 07/15/2020 bacte rial vagin osis DNA, PCR, vagin al fluid atopobium vaginae PCR Negati ve Swab- 1 Vagin al Not Available [facility] (Lab) [address] [place], [address], 07/20/2020 09:03:23 07/16/19 21 07/15/2020 bacte rial vagin osis DNA, PCR, vagin al fluid bacterial vaginosis associated bacteria 2 (bvab2) Negati ve Swab- 1 Vagin al Not Available [facility] (Lab) [address] [place], [address], 07/20/2020 09:03:23 07/16/19 21 07/15/2020 bacte rial vagin osis DNA, PCR, vagin al fluid megasphaera species (type 1 and type 2) PCR Negati ve (Type1 ,Type2 ) Swab- 1 Vagin al Type1 :Nega tive Type2 :Nega tive. Not Available [facility] (Lab) [address] [facility], [place], [address], 07/20/2020 09:03:23 07/16/19 21 07/15/2020 bacte rial vagin osis DNA, PCR, vagin al fluid lactobacillu s (bvpanel) PCR See Commen t Swab- 1 Vagin al L.cri spatu s: Posit patricia L.shayy senii : Negat patricia L.gas seri : Negat patricia L.ine rs : Negat patricia. Not Available [facility] (Lab) [address], [place], [address], 07/20/2020 09:03:23 07/16/19 21 07/15/2020 urina lysis , dipst ick Leukocytes + positi ve Not Available [place] [address], [place], [address], 07/15/2020 14:53:03 07/16/19 21 07/15/2020 urina lysis , dipst ick Nitrite neg Not Available [place] [address], [place], [address], 07/15/2020 14:53:03 07/16/19 21 07/15/2020 urina lysis , dipst ick Urobilinogen 0.2 neg Not Available [place] [address], [place], [address], 07/15/2020 14:53:03 07/16/19 21 07/15/2020 urina lysis , dipst ick Protein neg Not Available [place] [address], [place], [address], 07/15/2020 14:53:03 07/16/19 21 07/15/2020 urina lysis , dipst ick pH 5 neg Not Available [place] [address], [place], [address], 07/15/2020 14:53:03 07/16/19 21 07/15/2020 urina lysis , dipst ick Specific [place] 1.020 Not Available [facility] [address], [place], [address], 07/15/2020 14:53:03 07/16/19 21 07/15/2020 urina lysis , dipst ick Ketone neg Not Available [place] [address], [place], [address], 07/15/2020 14:53:03 07/16/19 21 07/15/2020 urina lysis , dipst ick Bilirubin neg Not Available Yolanda tabares [address], [place], [address], 07/15/2020 14:53:03 07/16/19 21 07/15/2020 urina lysis , dipst ick Glucose neg Not Available [place] [address], [place], [address], 07/15/2020 14:53:03 07/16/19 21 07/15/2020 urina lysis , dipst ick Appearance clear Not Available Kiersten casillas [address], [place], [address], 07/15/2020 14:53:03 07/16/19 21 07/15/2020 urina lysis , dipst ick Color yellow Not Available [place] [address], [place], [address], 07/15/2020 14:53:03 12/23/19 22 12/22/2021 CT/GC AND TRICH OMONA S VAGIN BISMARK (RRNA ), SWAB chlamydia trachomatis, PCR Negati ve negati ve Not Available [facility] [address] [place], [address], 12/23/2021 19:50:40 12/23/19 22 12/22/2021 CT/GC AND TRICH OMONA S VAGIN BISMARK (RRNA ), SWAB neisseria gonorrhoeae, PCR Negati ve negati ve Not Available [facility] [address] [place] [address], [address], 12/23/2021 19:50:40 12/23/19 22 12/22/2021 CT/GC AND TRICH OMONA S VAGIN BISMARK (RRNA ), SWAB trichomonas vaginalis ribosomal RNA (rrna) Negati ve negati ve Not Available [facility] [address] [place] [address], [address], 12/23/2021 19:50:40 12/23/1912/22/2021 VAGIN ITIS/ VAGIN OSIS, DNA PROBE luis sp. detection, direct probe Positi ve negati ve abnormal Not Available [facility] [address] [place] [address], [address], 12/23/2021 19:50:41 12/23/19 22 12/22/2021 VAGIN ITIS/ VAGIN OSIS, DNA PROBE gardnerella vag. detection, direct probe Positi ve negati ve abnormal Not Available [facility] [address] [place] [address], [address], 12/23/2021 19:50:41 12/23/19 22 12/22/2021 VAGIN ITIS/ VAGIN OSIS, DNA PROBE trichomonas vag. detection, direct probe Negati ve negati ve Not Available [facility] [address] [place] [address], [address], 12/23/2021 19:50:41 12/30/19 23 12/29/2022 urina lysis , dipst ick Leukocytes ++ Not Available Kiersten casillas [address], [place], [address], 12/29/2022 15:24:19 12/30/1912/29/2022 urina lysis , dipst ick Nitrite + Not Available [place] [address], [place], [address], 12/29/2022 15:24:19 12/30/1912/29/2022 urina lysis , dipst ick Urobilinogen neg Not Available [facility] anastasiia [address], [place], [address], 12/29/2022 15:24:19 12/30/1912/29/2022 urina lysis , dipst ick Protein + Not Available [place] [address], [place], [address], 12/29/2022 15:24:19 12/30/1912/29/2022 urina lysis , dipst ick pH 5 Not Available [place] [address], [place], [address], 12/29/2022 15:24:19 12/30/19 23 12/29/2022 urina lysis , dipst ick Specific [place] 1.020 Not Available [facility]ry [address], [place], [address], 12/29/2022 15:24:19 12/30/19 23 12/29/2022 urina lysis , dipst ick Ketone neg Not Available [place] [address], [place], [address], 12/29/2022 15:24:19 12/30/1912/29/2022 urina lysis , dipst ick Bilirubin neg Not Available [facility] [address], [place], [address], 12/29/2022 15:24:19 12/30/19 23 12/29/2022 urina lysis , dipst ick Glucose neg Not Available [place] [address], [place], [address], 12/29/2022 15:24:19 12/30/19 23 12/29/2022 urina lysis , dipst ick Appearance cloudy Not Available [facility] [address], [place], [address], 12/29/2022 15:24:19 12/30/19 23 12/29/2022 urina lysis , dipst ick Color yellow Not Available [place] [address], [place], [address], 12/29/2022 15:24:19 08/06/19 21 08/05/2020 US, pelvi s No observ ation record ed. [facility] [address], [place], [address], 08/05/2020 17:22:09 08/06/19 21 08/05/2020 US, trans vagin al No observ ation record ed. [facility] [address], [place], [address], 08/05/2020 17:22:19 08/06/19 21 08/05/2020 US, pelvi s No observ ation record ed. layran Sera [address], [place], [address], 08/06/2020 15:56:40 Result Notes None recorded. Problems Name Problem SNOMED Code Status Onset Date Resolution Date Notes Provider Name and Address Organization Details Recorded Time Postcoit al finding [id number] Completed 201505/07/2020 Postcoit al and contact bleeding ;Practic e ID: [address] [facility] 10:20:46 Dyspareu lyudmila [id number] Completed 201505/07/2020 Dyspareu lyudmila;Prac gloria ID: 0001 Bonny kinney [facility] 10:20:32 Cyst of ovary [id number] Completed 201505/07/2020 Unspecif ied ovarian cysts;Pr actice ID: 0001 Bonny kinney [facility] 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 10:20:57 Finding of desire for urinatio n 731624691 Completed 201805/07/2020 Urgency of urinatio n;Record ed Elsewher e: No Locat ion: [facility] S ource: EHR Lead Accountant lauren: N Yoannati ce ID: 0001 Hector lable Time: 01:00:00 PM Bonny kinney [facility] 10:20:42 Body mass index 30+ - obesity 140838893 Completed 201705/07/2020 Body mass index (BMI) 34.0-34. 9, adult;Re corded Elsewher e: No Locat ion: [facility] S ource: EHR Lead Accountant lauren: N Yoannati ce ID: 0001 Hector lable Time: 01:30:00 PM Bonny kinney [facility] 10:20:28 Screenin g for malignan t neoplasm of cervix Completed 201505/07/2020 Screenin g for malignan t neoplasm s of the cervix;R ecorded Elsewher e: No Locat ion: [facility] S ource: EHR Lead Accountant lauren: N Practi ce ID: 0001 Hector lable Time: 01:15:00 PM Bonnybrayan kinney [facility] 10:20:53 Urinary tract infectio us disease 03068616 Completed 201805/07/2020 Urinary tract infectio n, site not specifie d;Record ed Elsewher e: No Locat ion: [place]gel[place] kesahwn [facility] S ource: EHR Lead Accountant lauren: N Practi ce ID: 0001 Hector lable Time: 01:00:00 PM Bonny kinney [facility] 1 10:21:02 Pregnanc y test negative 560515279 Completed 201505/07/2020 Encounte r for pregnanc y test, result negative ;Recorde d Elsewher e: No Locat ion: [facility] S ource: EHR Lead Accountant lauren: N Practi ce ID: 0001 Hector lable Time: 02:00:00 PM Bonny Madden [facility] 1 10:20:48 Pregnanc y test positive 731979108 Completed 201010/24/2011 Pregnanc y examinat ion or test, positive result;R ecorded Elsewher e: No Locat ion: [facility] S ource: EHR Lead Accountant lauren: N Practi ce ID: 0001 Hector lable Time: 03:15:00 PM Not Available [facility] 0 21:46:42 Postpart um care Completed 201110/24/2011 Routine postpart um follow-u p;Record ed Elsewher e: No Locat ion: [facility] S ource: EHR Lead Accountant lauren: N Practi ce ID: 0001 Hector lable Time: 10:45:00 AM Not Available [facility] 0 21:46:43 Infectio n screenin g Completed 201505/07/2020 Encounte r for screenin g for oth infec/pa rastc diseases ;Recorde d Elsewher e: No Locat ion: [place] keshawn [facility] S ource: EHR Lead Accountant lauren: N Practi ce ID: 0001 Hector lable Time: 01:15:00 PM [facility] 1 10:20:43 Speciali zed medical examinat ion Completed 201010/24/2011 Gynecolo gical Examinat ion;Yariel rded Elsewher e: No Locat ion: [place] keshawn [facility] S ource: EHR Lead Accountant lauren: N Yoannati ce ID: 0001 Hector lable Time: 03:15:00 PM Bonny kinney [facility] 1 10:20:58 Syphilis test finding [id number] Completed 201505/07/2020 Encntr screen for infectio ns w sexl mode of transmis s;Record ed Elsewher e: No Locat ion: [facility] S ource: EHR Lead Accountant lauren: N Yoannati ce ID: 0001 Hector lable Time: 01:15:00 PM Bonny kinney, [facility] 1 10:21:00 Amenorrh ea 59071371 Completed 201010/24/2011 Absence of menstrua tion;Rec orded Elsewher e: No Locat ion: [facility] S ource: EHR Lead Accountant lauren: N Yoannati ce ID: 0001 Hector lable Time: 03:15:00 PM Not Available [facility] 0 21:46:44 Speciali zed medical examinat ion Completed 201305/07/2020 Gynecolo gical Examinat ion;Yariel rded Elsewher e: No Locat ion: [facility] S ource: EHR Lead Accountant lauren: N Practi ce ID: 0001 Hector lable Time: 08:30:00 AM Bonny kinney [facility] [address] 10:20:[address] Concept Completed 201705/07/2020 Encntr for general adult medical exam w/o abnormal findings ;Recorde d Elsewher e: No Locat ion: [facility] S ource: EHR Lead Accountant lauren: N Yoannati ce ID: 0001 Hector lable Time: 01:30:00 PM Bonny kinney [facility] 1 10:20:56 Screenin g for malignan t neoplasm of cervix Completed 201010/24/2011 Screenin g for malignan t neoplasm s of the cervix;R ecorded Elsewher e: No Locat ion: Yolanda [facility] S ource: EHR Lead Accountant lauren: N Yoannati ce ID: 0001 Hector lable Time: 03:15:00 PM Bonny kinney, [facility] 10:20:53 Elevated blood-pr essure reading without diagnosi s of hyperten lino 223022229 Completed 201505/07/2020 Elevated blood-pr essure reading, without diagnosi s of hyperten lino;Rec orded Elsewher e: No Locat ion: [facility] S ource: EHR Lead Accountant lauren: N Yoannati ce ID: 0001 Hector lable Time: 01:15:00 PM Bonny Madden [facility], [facility] 10:20:36 Vaginiti s and vulvovag initis Completed 201105/07/2020 Vaginiti s;Record ed Elsewher e: No Locat ion: [facility] S ource: EHR Lead Accountant lauren: N Yoannati ce ID: 0001 Hector lable Time: 02:30:00 PM Bonny kinney [facility] 10:21:04 Leukocyt osis 137247825 Completed 201105/07/2020 LEUKOCYT OSIS NOS;Yariel rded Elsewher e: No Locat ion: [facility] S ource: EHR Lead Accountant lauren: N Yoannati ce ID: 0001 Hector lable Time: 02:30:00 PM Bonny kinney [facility] 10:20:45 Irregula r periods 49533210 Completed 201305/07/2020 Irregula r menstrua l cycle;Re corded Elsewher e: No Locat ion: [facility] S ource: EHR Lead Accountant lauren: N Practi ce ID: 0001 Hector lable Time: 08:30:00 AM Bonny kinney, [facility] 10:20:44 Educatio n Completed 201005/07/2020 Other general counseli ng and advice on contrace ptive manageme nt;Pract ice ID: 0001 Bonny kinney, [facility] 10:20:34 Routine antenata l care Completed 201005/07/2020 Supervis ion of other normal pregnanc y;Practi ce ID: 0001 Bonny kinney [facility] 10:20:52 Primigra olesya 400068099 Completed 201005/07/2020 Supervis ion of normal first pregnanc y;Practi ce ID: 0001 Bonny kinney [facility] 10:20:49 anatomy study Completed 201005/07/2020 [facility] ANAT SURVEY;P ractice ID: 0001 Bonny kinney [facility] 10:20:40 Female genital organ symptoms 310031613 Completed 201105/07/2020 Unspecif ied symptom associat ed with female genital organs;P ractice ID: 0001 Bonny kinney [facility] 10:20:39 Benign essentia l hyperten lino complica ting pregnanc y, childbir th and the puerperi um - not delivere d 465062100 Completed 201105/07/2020 Hyperten lino During Pregnanc y;Practi ce ID: 0001 Bonny Wagoneran nirmal [facility] 10:20:26 Tachycar waqar 4758453 Completed 201105/07/2020 Tachycar waqar, unspecif ied;Prac gloria ID: 0001 Bonny Madden nirmal [facility] 10:21:01 Excessiv e growth affectin g manageme nt of mother 85812538 Completed 201105/07/2020 GROWTH LARGE LGA;Prac gloria ID: 0001 Bonny Madden nirmal [facility] 10:20:37 Delivery normal 37686175 Completed 201105/07/2020 Normal delivery ;Practic e ID: 0001 Bonnybrayan Madden nirmal [facility] 10:20:31 Single live from singleto n pregnanc y 175817716 Completed 201105/07/2020 Mother with single liveborn ;Practic e ID: 0001 Bonny Madden nirmal [facility] 10:20:55 Procedur e on genitour inary system Completed 201105/07/2020 Steriliz ation;Pr actice ID: 0001 Bonny Madden nirmal, [facility] 10:20:50 Hyperten sive disorder 52565991 Active 2020 Bonny [place] [facility] 10:27:56 Problem Notes None recorded. Procedures Surgical History Date Name Laterality Status Provider Name and Address Organization Details Recorded Time 1 Date of Last Pap Smear completed [facility] 08/06/2020 14:49:09 0 Date of Last Mammogram completed [facility] 08/06/2020 14:49:33 6 Colposcopy completed [facility] 07/14/2020 16:54:47 2 ligation of bilateral fallopian tubes completed Bonny Madden [facility] 05/07/2020 10:26:56 Imaging Results Imaging Date Name Status LastModified by Organization Details LastModified Time 08/05/2020 US, pelvis completed virgilio [place] [address], [place], [address], 08/05/2020 17:22:09 08/05/2020 US, transvaginal completed virgilio tabares [address], [place], [address], 08/05/2020 17:22:19 08/05/2020 US, pelvis completed erica Zamora [address], [place], [address], 08/06/2020 15:56:40 Procedure Notes None recorded. Medical [...] Prescrib ed Elsewher e: No [facility]: cmedical Encount er DateTime [...] Prescrib ed Elsewher e: Yes [facility] By: holly ross DateTime : [...] Prescrib ed Elsewher e: No Locat ion: [facility] odify By: [email or web address] Keshawn ncountnasrin DateTime : [...] Prescrib ed Hao e: No Locat ion: [facility] odify By: lbillhar tz Encou nter DateTime : 12/06/19 01:00:00 PM Not Available Not Available Not Available escitalop demetrius 5 mg/5 mL oral solution take 10 millilit er by oral route every day 07/15 completed Prescrib ed Elsewher e: Yes Loca tion: [facility] odify By: carlos wallace DateTime : [...] Prescrib ed Elsewher e: Yes Loca tion: [facility] odify By: loida wallace DateTime : 07/10/19 14 08:30:00 AM Not Available Not Available Not Available Lomedia 24 Fe 1 mg-20 mcg (24)/75 mg (4) tablet take 1 tablet by oral route every day 05/19 completed Prescrib ed Elsewher e: No Locat ion: [facility] odify By: ladan marin DateTime : [...] Updated DateTime 08/06/2020 175.26 cm 35.7 kg/m2 647658.9 2 g 126 mm[Hg] 70 mm[Hg] Flakita Salgado [facility] 14:53:24 Date Recorded Body height Body mass index (BMI) Body weight Systolic blood pressure Diastolic blood pressure Provider Name and Address Organization Details Last Updated DateTime 12/22/2021 175.26 cm 36.2 kg/m2 321225.1 3 g 147 mm[Hg] 91 mm[Hg] [facility] 15:21:48 Date Recorded Body height Body mass index (BMI) Body weight Systolic blood pressure Diastolic blood pressure Provider Name and Address Organization Details Last Updated DateTime 01/12/2022 175.26 cm 35.6 kg/m2 795254.2 g 159 mm[Hg] 103 mm[Hg] [facility] 14:15:15 Date Recorded Systolic blood pressure Diastolic blood pressure Provider Name and Address Organization Details Last Updated DateTime 01/12/2022 138 mm[Hg] 96 mm[Hg] NISREEN Garcia [address], [place], [address], [facility] 01/12/2022 15:07:46 Date Recorded Body height Body mass index (BMI) Body weight Systolic blood pressure Diastolic blood pressure Provider Name and Address Organization Details Last Updated DateTime 12/29/2022 175.26 cm 34.6 kg/m2 720709.0 5 g 125 mm[Hg] 87 mm[Hg] Flakita Molina [facility] 3 15:16:56 Social History Question Answer Notes LastModified by Organizat ion Details LastModified Time Tobacco Smoking Status Former Smoker Bonny kinney, [facility] 05/07/2020 10:26:41 Are You Blind Or [...] Anxious, Or Unable To Sleep At Night)? [id number] Information not available 07/14/2020 Do You Use [...] Details LastModified Time Maternal Grandmother Diabetes mellitus [email or web address] Not available 2020 10:26:06 Maternal Grandmother Asthma [email or web address] Not available 05/07 10:26:14 Mother Mental disorder Bipola r [email or web address] Not available 05/07/2020 10:26:27 Medical History Condition Response Allergies (Food, seasonal, environmental ) N Other Y Drug/Latex Allergies/Reactions N Blood Transfusion N Breast Cancer N Dermatologic Disorders N Lung Disease N Defects or Inherited Disease N Breast Problem N Gestational Diabetes N Hematologic disorders N Anesthesia Complications N History of STI N Deep Vein Thrombosis N Polycystic ovary syndrome N Anxiety Disorder N Autoimmune disease N Arthritis N Polyps N Infertility N Acid Reflux (GERD) N History of abnormal pap N Cancer N Varicosities N Stroke N Neurologic/Epilepsy N Endometriosis N High Cholesterol N Fibromyalgia N Headaches N Kidney Disease N Heart Problems N Thyroid Problems N Kidney or Bladder Problems N GI Problems N Eating Disorder [...] SNOMED-CT Code Diagnosis ICD10 Code Diagnosis Note [id number] Mary Ellen Aguilar [facility] [address] [address] 01/28/2020 14:34:49 01/28/2020 16:30:45 Lump of axillary tail of right breast [id number] 55658 N63.31 N63.0 Based on exam & subjective complaints we agreed to move forward with imaging. Fam Hx of grandmothe r with breast cancer maternal; but no other fam hx. Non-menopa usal hot flash [id number] 73687 R23.2 Hx of HTN on medication s Having some night sweats with temp flucuation s. Agreed on lab work to start. Will also f/u PCP Periods are regular monthly. [address] [facility] [address],[place] [address] 05/07/2020 10:04:17 06/29/2020 14:58:46 32257 [facility] [address] [place] [address] 05/07/2020 10:19:12 05/07/2020 10:57:14 Vaginitis [id number] N76.0 Use mild soap like dove or ivory, cotton underwear w/out dye, hypoallerg enic detergent, wipe from front to back, avoid tub baths, keep perineum clean and dry, d/c use of baby wipes. Recommend daily intake of yogurt or womens health probiotic. Internal and external affirm collected along with STD screen. Urinary tr act infectious disease 37403281 N39.0 Urine negative with exception of blood but pt is on her cycle. Urine sent for culture. Increase water and decrease caffeine. [id number] Mary Ellen Aguilar [facility] [address],[place] [address] 07/15/2020 14:31:36 07/15/2020 15:33:17 Abnormal uterine bleeding [id number] 9100 N93.9 TVUS ordered Recently had TSH [...] this patient s visit, including available hand peoplesoft developer upon arrive, temperatur e check and being asked a series of screening questions. All staff wore face coverings during this encounter, as well as provided additional cleaning and sanitizing of all surfaces, including countertop s, pens, chairs, door handles, light switches, etc, prior to and following the patient s visit. Blood in urine [id number] R31.9 [id number] Monty Alves MD [facility] [address],[place] [address] 08/05/2020 13:52:20 08/05/2020 14:43:25 Abnormal uterine bleeding [id number] 9100 N93.9 [id number] Mary Ellen Aguilar [facility] [address],[place] [address] 08/06/2020 14:26:00 08/06/2020 15:32:38 Irregular periods 61930896 N92.6 TVUS considered wnl with 3cm corpus [...] this patient s visit, including available hand peoplesoft developer upon arrive, temperatur e check and being asked a series of screening questions. All staff wore face coverings during this encounter, as well as provided additional cleaning and sanitizing of all surfaces, including countertop s, pens, chairs, door handles, light switches, etc, prior to and following the patient s visit. [id number] NISREEN Garcia [facility] [address] [address] 12/22/2021 15:07:38 12/22/2021 15:47:23 Vaginitis 48408971 N76.0 Suspect BV/yeastVa ginitis panel sentSTI endocervic al testing sentVulvar care guidelines discussed in-depthRx sentR/B of medication discussed and accepted by patientRTC for WWE Time spent in visit is a total of 20 mins with at least 50% of visit consisting of counseling and review of plan of care. Venereal d isease screening [id number] Z11.3 [id number] NISREEN Garcia [facility] [address] [address] 01/12/2022 13:55:29 01/12/2022 15:18:35 Gynecologic examination 98696556 Z01.419 Take Calcium with Vitamin D 1200mg [...] f/u with PCP. ED precaution s discussed [id number] NISREEN Garcia [facility] [address] [address] 12/29/2022 15:05:25 12/29/2022 16:26:23 Urinary symptoms [id number] R39.9 suspect UTIcx sentrx sent, r/b/a reviewedde [...] and review of plan of care. Dysuria [id number] R30.0 Health Concerns Section Related Observation LastModified by Organization Detai ls LastModified Time None Recorded Concern Status LastModified by Organization Details LastModified Time None Recorded Advance Directives Directive None Recorded Payers Encounter Date Sequence Insurance Name Policy Number Policy Pagan Covered Member ID Pagan Member ID Guarantor Name 08/05/2020 1 [facility] (MEDICAID HMO) [id number] Karey A Wells [id number] Karey A [place] 08/06/2020 1 [facility] (MEDICAID HMO) [id number] Karey A Wells [id number] Karey A [place] 12/22/2021 1 [facility] (MEDICAID HMO) [id number] 0003 Karey A Wells [id number] Karey A [place] 01/12/2022 1 [facility] (MEDICAID HMO) [id number] 0003 Karey A Wells [id number] Karey A [place] 12/29/2022 1 [facility] (MEDICAID HMO) [id number] 0003 Karey A [place] [id number] Karey A [place] Notes Date Note Type Note Provider Name and Address Organization Details Recorded Time 08/06/2020 text/html Here for TVUS Fo llow up for irregular cycle. NISREEN Moran- [address], [place], [address], [facility] 08/06/2020 15:14:34 12/22/2021 text/html 36yo Presents fo r evaluation of vaginal discharge, odor, and itchingPresents for the last 1 weekSA with steady partnerBC - BTL NISREEN Garcia [address], [place], [address], [facility] 12/22/2021 15:42:29 01/12/2022 text/html Annual [...] mammograms starting age [address], [place], [address], [facility] 01/12/2022 15:06:49 12/29/2022 text/html 37yopresents for urinary symptomsurinary frequency/pressuresy mptoms started 2-3 days agodrinking more caffeine latelydenies flank pains, n/v/f, or flu-like symptomsBTL for BCno vaginal symptoms Argenis Moralez, NISREEN [address], [place], [address], [facility] 12/29/2022 16:23:20 OBGyn Episode Ob Episode Information Episode Created Date Number of Fetuses Patient Bloodtype Patient rh Status Prepregnancy Weight lbs Domestic Partner Domestic Partner Phone Father Name Staff Air Defense Officer Status 05/08/19 21 1 CLOSED Fetus Data [...] Domestic Partner Domestic Partner Phone Father Name Staff Air Defense Officer Status 05/08/19 21 1 CLOSED Fetus Data [...] Domestic Partner Domestic Partner Phone Father Name Staff Air Defense Officer Status 05/08/19 21 1 CLOSED Fetus Data [...] Domestic Partner Domestic Partner Phone Father Name Staff Air Defense Officer Status 05/08/19 21 1 CLOSED Fetus Data [...]
--- OUTSIDE RECORDS SUMMARY | 2024-07-13 14:10 | XMS_ITS | Clinical Summary ---
Author Organization [facility] Address [address] [place] [address] Care Team Providers Care Brainer Name Role Phone Edison Block MD Primary [...] age to complete this topic Care Teams Brainer Relationship Specialty Start Date End Date Edison Block MD [address] [place] [address] [facility] - General 10/11/13
[2024-07-13 14:20] VITALS: BP 154/91; PULSE 90; RESP 16; TEMP 36.2; O2SAT 100
--- NOTE | 2024-07-13 15:21 | ED_ITS ---
HPI - Female Genitourinary General Chief complaint: LIAISON ENGINEER Stated complaint: Abnormally heavy menses bleeding x 3 days Time Seen by Provider: 07/13/24 15:15 Source: patient Mode of arrival: ambulatory History of Present Illness HPI Narrative: 39 YEARS OLD WHITE FEMALE CAME WITH HEAVY VAGINAL BLEED STARTED 6 DAYS AGO. PATIENT REPORT LAST MONTH, LAST CYCLE WAS HEAVY THE SAME AND WAS SEEN BY HER OBGYN AT THAT TIME WHO RECOMMENDED THAT PATIENT TO GO TO THE EMERGENCY ROOM IF HER COMING CYCLE IS HEAVY AGAIN. PATIENT DENIES ANY HEADACHE, LIGHTHEADEDNESS, DIZZINESS, CHEST PAIN SHORTNESS OF BREATH. HISTORY OF HYPERTENSION HYPOTHYROIDISM D&C TUBAL LIGATION SHE VAPES, DOES NOT DRINK OR USE DRUGS Related Data Home Medications ?Medication ?Instructions ?Recorded ?Confirmed ?Last Taken ?Type topiramate 25 mg tablet 25 mg PO PRN headache 09/20/19 09/11/22 Unknown History lisinopril 40 mg tablet 40 mg PO DAILY 02/06/21 09/11/22 Unknown History Allergies Allergy/AdvReac Type Severity Reaction Status Date / Time No Known Allergies Allergy Verified 07/04/24 18:38 Review of Systems 2 Review of Systems: All systems reviewed & are unremarkable except as noted in HPI and below PMFSH Past Medical History Medical History Patient denies significant medical history Social History Social History Smoking status: Never smoker Gender identity (if verbalized by the patient): Female Exam 2 Narrative: GENERAL APPEARANCE: WELL-DEVELOPED, WELL-NOURISHED SKIN: NORMAL COLOR HEAD: NORMOCEPHALIC, NONTRAUMATIC EYES: CLEAR CONJUNCTIVA ENT: OROPHARYNX NORMAL, EARS NORMAL, NOSE NORMAL NECK: SUPPLE, NONTENDER CHEST AND RESPIRATORY: AIRWAY PATENT, NO RESPIRATORY DISTRESS, NO ACCESSORY MUSCLE USE HEART: REGULAR RATE/RHYTHM ABDOMEN: SOFT, NONTENDER, NO ORGANOMEGALY, QUIET BOWEL SOUNDS VASCULAR: NORMAL PERIPHERAL PULSES, NORMAL CAPILLARY REFILL. MUSCULOSKELETAL: NORMAL RANGE OF MOTION, NONTENDER BACK NEUROLOGIC: ALERT AND ORIENTED ?3, CHINESE HERBALIST IS NORMAL TESTED, NO GROSS MOTOR DEFICIT : Speculum Exam - Vagina: vaginal bleeding Speculum Exam - Cervix: normal appearance of the cervix and Cervical os closed Other: VAGINAL POUCH WAS DRY COMPLETELY AFTER USING 5 LONG Q-TIPS, NO BLOOD CLOTS Course Consultations Consultation #1: DR GREWAL LYSTEDA 650 MG, 2 TABLETS T.I.D., 5 DAYS Date: 07/13/24 Vital Signs Vital signs: Vital Signs Temperature 36.2 C L 07/13/24 14:20 Pulse Rate 90 07/13/24 14:20 Respiratory Rate 16 07/13/24 14:20 Blood Pressure 154/91 H 07/13/24 14:20 Pulse Oximetry 100 07/13/24 14:20 Oxygen Delivery Room Air 07/13/24 14:20 Temperature 36.2 C L 07/13/24 14:20 Pulse Rate 90 07/13/24 14:20 Respiratory Rate 16 07/13/24 14:20 Blood Pressure 154/91 H 07/13/24 14:20 Pulse Oximetry 100 07/13/24 14:20 Oxygen Delivery Room Air 07/13/24 14:20 MDM - Female Genitourinary MDM Narrative Medical decision making narrative: PATIENT PRESENTS WITH MENORRHAGIA LIKE SYMPTOMS VITAL SIGN SHOWING BLOOD PRESSURE 154/91 OTHERWISE WITHIN NORMAL LIMIT PHYSICAL EXAMINATION IS UNREMARKABLE DIFFERENTIAL DIAGNOSIS INCLUDE ANEMIA, ORTHOSTATIC HYPERTENSION, THROMBOCYTOPENIA BLOOD WORKUP TODAY INCLUDES CBC, CMP, COAGS SHOWED HEMOGLOBIN 10.7 COMPARED TO 10.4 STOUT 09/22/2024, MCV 78.8, PLATELET COUNT 313, PELVIC EXAM SHOWED SLIGHT VAGINAL BLEED, SLIGHTLY SATURATED 5 LONG Q-TIPS WAS ENOUGH THE VAGINAL POUCH PATIENT IS HEMODYNAMICALLY STABLE DISCHARGED ON LYSTEDA. DISCUSSED WITH DR. LEY Differential Diagnosis Differential diagnosis: Likely other ( ABOVE) Medical Records Attestation: I reviewed the patient's medical records. Lab Data Attestation: I reviewed the patient's lab results. 07/13/24 15:46 07/13/24 15:46 Labs: Lab Results 07/13/24 Range/Units 15:46 WBC 5.8 (4.5-10.0) K/mm3 RBC 4.52 (4.2-5.4) M/mm3 Hgb 10.7 L (12.0-15.0) g/dL Hct 35.6 L (37.0-47.0) % MCV 78.8 L (80-100) fl MCH 23.7 L (26-34) pg MCHC 30.1 L (32-36) g/dl RDW 16.1 H (11.5-14.5) % Plt Count 313 (150-375) k/mm3 MPV 10.5 H (7.4-10.4) fl Immature Gran % (Auto) 0.2 (0-0.5) % Neut % (Auto) 50.5 (45.5-73.1) % Lymph % (Auto) 33.6 (18.3-44.2) % [place] % (Auto) 9.3 H (2.6-8.5) % Eos % (Auto) 5.0 H (0-4.4) % Baso % (Auto) 1.4 H (0.2-1.2) % Lymph # (Auto) 1.94 (0.9-3.2) K/mm3 [place] # (Auto) 0.5 (0.1-0.6) K/mm3 Eos # (Auto) 0.3 (0-0.3) K/mm3 Baso # (Auto) 0.1 (0.0-0.1) K/mm3 Abs Immat Gran (auto) 0.01 (0.00-0.031) K/mm3 Absolute Neuts (auto) 2.9 (1.3-6.7) K/mm3 Absolute Nucleated RBC 0.000 (0.0-0.012) K/mm3 Nucleated RBC % 0.0 (0.0-0.2) % PT 13.2 (11.1-14.7) Seconds INR 1.0 APTT 31.9 (22.3-36.8) Seconds Sodium 142 (137-145) mmol/L Potassium 4.3 (3.4-5.0) mmol/L Chloride 109 H (98-107) mmol/L Carbon Dioxide 25 (22-30) mmol/L Anion Gap 8 (4-12) mmol/L BUN 16 (7-17) mg/dL Creatinine 0.68 L (0.7-1.0) mg/dL Estim Creat Clear Calc 124 ml/min Estimated GFR > 60 (59 - ) Glucose 89 (65-110) mg/dL Calcium 8.7 (8.4-10.2) mg/dL Total Bilirubin 0.3 (0.2-1.3) mg/dL AST 26 (14-36) U/L ALT 20 (6-35) U/L Alkaline Phosphatase 66 (38-126) U/L Total Protein 7.0 (6.3-8.2) g/dL Albumin 4.2 (3.5-5.1) g/dL Critical Care Time Critical Care Time Critical Care Time: No Discharge Plan Discharge Clinical Impression: DUB (dysfunctional uterine bleeding) Patient Disposition: Home Condition: Stable Instructions: Abnormal (Dysfunctional) Uterine Bleeding (ED) Additional Instructions: RETURN IF SYMPTOMS ARE WORSENING , CALL YOUR OBGYN FOR APPOINTMENT, TAKE TYLENOL NEEDED FOR ACHES AND PAIN, CONTINUE HOME MEDICATIONS. Patient Language: Latvian Prescriptions: New tranexamic acid 650 mg tablet 1,300 mg PO TID Qty: 30 0RF No Action lisinopril 40 mg tablet 40 mg PO DAILY topiramate 25 mg tablet 25 mg PO PRN Rx Instructions: as directed Follow-up/Referrals: PHYSICIAN,WINTER SPORTS MANAGER [Non-Staff] - Zamzam Lockhart MD [Physician] - 07/15/24
--- OUTSIDE RECORDS SUMMARY | 2024-07-13 15:39 | XMS_ITS | Referral Summary ---
Author Organization [facility] [place] [address] Address [address] [place] [address] Care Team Providers Care Merchandising Intern Name Role Phone Edison Block MD Primary Care Provider [phone] Encounters Date Type Department Care Team Description 07/04/2024 10:39 PM CDT - 07/05/2024 1:51 AM CDT Emergency [facility] Emergency Department [address] [place] [address] Maciej Powers MD PhD Traumatic conjunctivitis (Primary [...] infection, site not specified;Recorded Elsewhere: No Location: [facility] Source: EHR Chronic: N Practice ID: [id number] Billable Time: 01:00:00 PM Obesity with body mass index 30 or greater 01/21 Overview (03/15/2023): Body mass index (BMI) 34.0-34.9, adult;Recorded Elsewhere: No Location: [facility] Source: EHR Chronic: N Practice ID: [id number] Billable Time: 01:30:00 PM Cyst of ovary 07/07/2015 Overview (12/06/2022): Unspecified ovarian cysts;Practice ID: 0001 Elevated blood-pressure read ing without diagnosis of hypertension 05/20/2015 Overview (12/06/2022): Elevated blood-pressure reading, without diagnosis of hypertension;Recorded Elsewhere: No Location: [facility] Source: EHR Chronic: N Practice ID: [id number] Billable Time: 01:15:00 PM Irregular periods 07/09/2013 Overview (03/15/2023): Irregular menstrual cycle;Recorded Elsewhere: No Location: [facility] Source: EHR Chronic: N Practice ID: [id number] Billable Time: 08:30:00 AM Leukocytosis 10/24/2011 Overview (03/15/2023): LEUKOCYTOSIS NOS;Recorded Elsewhere: No Location: [facility] Source: EHR Chronic: N Practice ID: [...] (12/06/2022): Absence of menstruation;Recorded Elsewhere: No Location: [facility] Source: EHR Chronic: N Practice ID: [...] on file 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
--- OUTSIDE RECORDS SUMMARY | 2024-07-13 15:39 | XMS_ITS | Clinical Summary ---
Author Organization [facility] Address [address] [facility] [place] [address] Care Team Providers Care Heel Top Lift Splitter Name Role Phone Edison Block MD Primary Care Provider [phone] Source Comments [facility],non-owned Affiliates and Associated Physician Practices is amultiple site organization consisting of ambulatory clinics and hospital sitesin [place], [place], [place] and [place]. This disclosure is being madepursuant to the Care Everywhere program and may not contain all information available regarding this patient. Last updated 17.[facility] Medications * Be aware that medications may not be up to date on this document. Alwaysverify current medications with the patient. 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
--- OUTSIDE RECORDS SUMMARY | 2024-07-13 15:39 | XMS_ITS | Clinical Summary ---
Author Organization [address] Address [address] [place] [id number] Care Team Providers Care Hand Stitcher Name Role Phone Edison Block MD Primary Care Provider [phone] Allergies No known active allergies Medications cyclobenzaprine [...] infection, site not specified;Recorded Elsewhere: No Location: [facility] Source: EHR Chronic: N Practice ID: [id number] Billable Time: 01:00:00 PM Obesity with body mass index 30 or greater 01/21 Overview (03/15/2023): Body mass index (BMI) 34.0-34.9, adult;Recorded Elsewhere: No Location: [facility] Source: EHR Chronic: N Practice ID: [id number] Billable Time: 01:30:00 PM Cyst of ovary 07/07/2015 Overview (12/06/2022): Unspecified ovarian cysts;Practice ID: 0001 Elevated blood-pressure read ing without diagnosis of hypertension 05/20/2015 Overview (12/06/2022): Elevated blood-pressure reading, without diagnosis of hypertension;Recorded Elsewhere: No Location: [facility] Source: EHR Chronic: N Practice ID: 0001 Billable Time: 01:15:00 PM Irregular periods 07/09/2013 Overview (03/15/2023): Irregular menstrual cycle;Recorded Elsewhere: No Location: [facility] Source: EHR Chronic: N Practice ID: 0001 Billable Time: 08:30:00 AM Leukocytosis 10/24/2011 Overview (03/15/2023): LEUKOCYTOSIS NOS;Recorded Elsewhere: No Location: [facility] Source: EHR Chronic: N Practice ID: 0001 [...] (12/06/2022): Absence of menstruation;Recorded Elsewhere: No Location: [facility] Source: EHR Chronic: N Practice ID: [id number] Billable Time: 03:15:00 PM Encounters Date Type Department Care Team Description 07/04/2024 10:39 PM CDT - 07/05/2024 1:51 AM CDT Emergency [facility] Emergency Department [address] [place] [address] Maciej Powers MD PhD Traumatic conjunctivitis (Primary [...] on file 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
--- OUTSIDE RECORDS SUMMARY | 2024-07-13 15:39 | XMS_ITS | Clinical Summary ---
Author Organization [facility] Address [address] [place] [address] Care Team Providers Care Machinist Name Role Phone Edison Block MD Primary Care Provider [phone] Social History Tobacco Use Types Packs/Day Years [...] age to complete this topic Care Teams Machinist Relationship Specialty Start Date End Date Edison Block MD [address] [place] [address] [facility] - General 10/11/13
[2024-07-13] MEDS: SODIUM CHLORIDE 0.9% IV 1,000 ML 999 ML IV CONT (15:49)
[2024-07-13 15:53] LABS: Basophils Absolute Auto 0.1 K/mm3 (0.0-0.1); Basophils Percent Auto 1.4 % (0.2-1.2); Eosinophils Absolute Auto 0.3 K/mm3 (0-0.3); Hematocrit 35.6 % (37.0-47.0); Hemoglobin 10.7 g/dL (12.0-15.0); Immature Granulocyte Absolute 0.01 K/mm3 (0.00-0.031); Immature Granulocyte Percent A 0.2 % (0-0.5); Lymphocytes Absolute Auto 1.94 K/mm3 (0.9-3.2); Lymphocytes Percent Auto 33.6 % (18.3-44.2); Mean Corpuscular HGB Conc 30.1 g/dl (32-36); Mean Corpuscular Hemoglobin 23.7 pg (26-34); Mean Corpuscular Volume 78.8 fl (80-100); Mean Platelet Volume 10.5 fl (7.4-10.4); Monocytes Absolute Auto 0.5 K/mm3 (0.1-0.6); Monocytes Percent Auto 9.3 % (2.6-8.5); Neutrophils Absolute Auto 2.9 K/mm3 (1.3-6.7); Neutrophils Percent Auto 50.5 % (45.5-73.1); Platelet Count Result 313 k/mm3 (150-375); Red Blood Count 4.52 M/mm3 (4.2-5.4); Red Cell Distribution Width 16.1 % (11.5-14.5); White Blood Count 5.8 K/mm3 (4.5-10.0)
[2024-07-13 16:05] LABS: Alanine Aminotransferase 20 U/L (6-35); Albumin Level 4.2 g/dL (3.5-5.1); Alkaline Phosphatase 66 U/L (38-126); Anion Gap 8 mmol/L (4-12); Aspartate Amino Transferase 26 U/L (14-36); Bilirubin,Total 0.3 mg/dL (0.2-1.3); Blood Urea Nitrogen 16 mg/dL (7-17); Calcium 8.7 mg/dL (8.4-10.2); Carbon Dioxide 25 mmol/L (22-30); Chloride 109 mmol/L (98-107); Estimated CRCL calculation 124 ml/min; Estimated Glomerular Filt Rate > 60; Glucose 89 mg/dL (65-110); Potassium 4.3 mmol/L (3.4-5.0); Sodium 142 mmol/L (137-145)
[2024-07-13 16:12] LABS: Prothrombin Time 13.2 Seconds (11.1-14.7)
[2024-07-13 16:13] LABS: Partial Thromboplastin Time 31.9 Seconds (22.3-36.8)
== END 2024-07-13 17:31 | disposition home or self-care (01) ==
PROVIDERS: Emergency Provider Emergency Medicine; PCP Family Medicine
DX: N93.8 Other specified abnormal uterine and vaginal bleeding (principal); I10 Essential (primary) hypertension; E03.9 Hypothyroidism, unspecified; F17.290 Nicotine dependence, other tobacco product, uncomplicated; Z79.899 Other long term (current) drug therapy
CPT/HCPCS: 36415; 80053; 85025; 85610; 85730; 96360; 99284; J7030

== ENCOUNTER 2024-07-18 14:22 | Outpatient (CLI) | payer OTHER, SELFPAY ==
--- NOTE | ~2024-07-18 | US_ITS ---
Pelvic ultrasound. Clinical History: Abnormal uterine bleeding Technique: Realtime transabdominal scanning of the pelvis was performed. Color flow Doppler and Doppl er spectral analysis were performed. Findings: The uterus is anteverted. The endometrial stripe has a thickness of approximately 18 mm. N o focal mass is identified. The right ovary measures 4.3 x 1.9 x 3.0 cm. No significant right ovarian or adnexal mass is seen. The left ovary measures 5.0 x 2.6 x 5.1 cm. Simple cyst measures 2.8 cm in diameter. There is no evidence of free fluid in the cul de sac. Impression: 2.8 cm simple left ovarian cyst. Reviewed, dictated and finalized at location M. Impression: 2.8 cm simple left ovarian cyst.
== END 2024-07-18 14:23 | disposition home or self-care (01) ==
LOC: MICIMG 14:23
PROVIDERS: PCP Family Medicine; Visit Provider Nurse Practitioner
DX: N83.202 Unspecified ovarian cyst, left side (principal); N93.8 Other specified abnormal uterine and vaginal bleeding
CPT/HCPCS: 76856

== ENCOUNTER 2024-07-31 11:58 | Outpatient (CLI) | payer OTHER, SELFPAY ==
--- OUTSIDE RECORDS SUMMARY | 2024-07-31 12:04 | XMS_ITS | Clinical Summary ---
Author Organization [address] Address [address] [place] [address] Care Team Providers Care Pipe Fitter Soft Copper Name Role Phone Edison Block MD Primary Care Provider [phone] Allergies No known active allergies Medications cyclobenzaprine [...] infection, site not specified;Recorded Elsewhere: No Location: [facility] Source: EHR Chronic: N Practice ID: [id number] Billable Time: 01:00:00 PM Obesity with body mass index 30 or greater 01/21 Overview (03/15/2023): Body mass index (BMI) 34.0-34.9, adult;Recorded Elsewhere: No Location: [facility] Source: EHR Chronic: N Practice ID: [id number] Billable Time: 01:30:00 PM Cyst of ovary 07/07/2015 Overview (12/06/2022): Unspecified ovarian cysts;Practice ID: 0001 Elevated blood-pressure read ing without diagnosis of hypertension 05/20/2015 Overview (12/06/2022): Elevated blood-pressure reading, without diagnosis of hypertension;Recorded Elsewhere: No Location: [facility] Source: EHR Chronic: N Practice ID: 0001 Billable Time: 01:15:00 PM Irregular periods 07/09/2013 Overview (03/15/2023): Irregular menstrual cycle;Recorded Elsewhere: No Location: [facility] Source: EHR Chronic: N Practice ID: 0001 Billable Time: 08:30:00 AM Leukocytosis 10/24/2011 Overview (03/15/2023): LEUKOCYTOSIS NOS;Recorded Elsewhere: No Location: [facility] Source: EHR Chronic: N Practice ID: [id number] [...] (12/06/2022): Absence of menstruation;Recorded Elsewhere: No Location: [facility] Source: EHR Chronic: N Practice ID: [id number] Billable Time: 03:15:00 PM Encounters Date Type Department Care Team Description 07/04/2024 10:39 PM CDT - 07/05/2024 1:51 AM CDT Emergency [facility] Emergency Department [address] [place] [address] Maciej Powers MD PhD Traumatic conjunctivitis (Primary [...] on file 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
--- OUTSIDE RECORDS SUMMARY | 2024-07-31 12:04 | XMS_ITS | Data Portability ---
Author Organization [facility] [place] Address [address] [place] [address] [place] [address] Assessment Encounter Date Assessment Date Assessment LastModified [...] Lab urinalys is, dipstick 2022 023 [email or web address] [place], [address], [place], [address], 15:24:51 Referral None recorded . Procedures None recorded . Surgeries None recorded . Imaging US, pelvis 2020 021 [email or web address] [place], [address], [address], [place], [address], 15:36:30 US, transvag inal 2020 021 AMISH [place], [address], [address], [place], [address], 17:22:19 Medication Orders Macrobid 100 mg capsule 2022 023 Pulse 8 [facility], [address], [place], [place], [id number], 3 16:21:03 fluconaz ole 150 mg tablet 2021 [facility][id number], [address] [facility], [place], [place], [id number], 2 14:15:21 metronid azole 500 mg tablet 2021 022 [facility] #[id number], [address] [facility], [place], [place], [id number], 2 14:15:24 Patient TargetsNo targets recorded. Patient [...] t Abnor mal: No Resul lu Lab: 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 Not Available [facility] (Lab) [address] [facility], [place], [address], 07/20/2020 09:03:20 07/16/19 21 07/15/2020 CT + NG RNA, PCR, unspe cifie d speci men chlamydia trachomatis, PCR Negati ve negati ve Not Available [facility] (Lab) [address] , [place], [address], 07/20/2020 09:03:20 07/16/19 21 07/15/2020 CT + NG RNA, PCR, unspe cifie d speci men neisseria gonorrhoeae, PCR Negati ve negati ve Not Available [facility] (Lab) [address], [place], [address], 07/20/2020 09:03:20 07/16/19 21 07/15/2020 trich omona s vagin bismark RNA trichomonas vaginalis ribosomal RNA (rrna) Negati ve negati ve Not Available [facility] (Lab) [address] [place], [address], 07/20/2020 09:03:21 07/16/19 21 07/15/2020 austin da dominic i DNA, vagin al luis krusei by RT-PCR Negati ve Swab- 1 Vagin al Not Available [facility] (Lab) [address] [place], [address], 07/20/2020 09:03:21 07/16/19 21 07/15/2020 mobil uncus , DNA, vagin al nm bkr mobiluncus mulieris and mobiluncus curtisii by RT-PCR Negati ve Swab- 1 Vagin al Not Available [facility] (Lab) [address] [place], [address], 07/20/2020 09:03:22 07/16/19 21 07/15/2020 austin da sp DNA, vagin al luis albicans PCR Negati ve Swab- 1 Vagin al Not Available [facility] (Lab) [address] [facility], [place], [address], 07/20/2020 09:03:22 07/16/19 21 07/15/2020 austin da sp DNA, vagin al luis tropicalis PCR Negati ve Swab- 1 Vagin al Not Available [facility] (Lab) [address] [facility], [place], [address], 07/20/2020 09:03:22 07/16/19 21 07/15/2020 austin da sp DNA, vagin al luis parapsilosis PCR Negati ve Swab- 1 Vagin al Not Available [facility] (Lab) [address] [place], [address], 07/20/2020 09:03:22 07/16/19 21 07/15/2020 austin da sp DNA, vagin al luis glabrata PCR Negati ve Swab- 1 Vagin al Not Available [facility] (Lab) [address] [place], [address], 07/20/2020 09:03:22 07/16/19 21 07/15/2020 STI panel nm bkr mycoplasma genitalium by RT-PCR Negati ve Swab- 1 Vagin al Not Available [facility] (Lab) [address] [place], [address], 07/20/2020 09:03:22 07/16/19 21 07/15/2020 STI panel nm bkr mycoplasma hominis by RT-PCR Negati ve Swab- 1 Vagin al Not Available [facility] (Lab) [address] [facility], [place], [address], 07/20/2020 09:03:22 07/16/19 21 07/15/2020 STI panel nm bkr ureaplasma urealyticum by RT-PCR Negati ve Swab- 1 Vagin al Not Available [facility] (Lab) [address] [facility], [place], [address], 07/20/2020 09:03:22 07/16/19 21 07/15/2020 bacte rial vagin osis DNA, PCR, vagin al fluid gardnerella vaginalis PCR Negati ve Swab- 1 Vagin al Not Available [facility] (Lab) [address] [facility], [place], [address], 07/20/2020 09:03:23 07/16/19 21 07/15/2020 bacte rial vagin osis DNA, PCR, vagin al fluid atopobium vaginae PCR Negati ve Swab- 1 Vagin al Not Available [facility] (Lab) [address] [place], [address], 07/20/2020 09:03:23 07/16/19 21 07/15/2020 bacte rial vagin osis DNA, PCR, vagin al fluid bacterial vaginosis associated bacteria 2 (bvab2) Negati ve Swab- 1 Vagin al Not Available [facility] (Lab) [address] [place], [address], 07/20/2020 09:03:23 07/16/19 21 07/15/2020 bacte rial vagin osis DNA, PCR, vagin al fluid megasphaera species (type 1 and type 2) PCR Negati ve (Type1 ,Type2 ) Swab- 1 Vagin al Type1 :Nega tive Type2 :Nega tive. Not Available [facility] (Lab) [address] [facility], [place], [address], 07/20/2020 09:03:23 07/16/19 21 07/15/2020 bacte rial vagin osis DNA, PCR, vagin al fluid lactobacillu s (bvpanel) PCR See Commen t Swab- 1 Vagin al L.cri spatu s: Posit patricia L.shayy senii : Negat patricia L.gas seri : Negat patricia L.ine rs : Negat patricia. Not Available [facility] (Lab) [address], [place], [address], 07/20/2020 09:03:23 07/16/19 21 07/15/2020 urina lysis , dipst ick Leukocytes + positi ve Not Available [place] [address], [place], [address], 07/15/2020 14:53:03 07/16/19 21 07/15/2020 urina lysis , dipst ick Nitrite neg Not Available [place] [address], [place], [address], 07/15/2020 14:53:03 07/16/19 21 07/15/2020 urina lysis , dipst ick Urobilinogen 0.2 neg Not Available [place] [address], [place], [address], 07/15/2020 14:53:03 07/16/19 21 07/15/2020 urina lysis , dipst ick Protein neg Not Available [place] [address], [place], [address], 07/15/2020 14:53:03 07/16/19 21 07/15/2020 urina lysis , dipst ick pH 5 neg Not Available [place] [address], [place], [address], 07/15/2020 14:53:03 07/16/19 21 07/15/2020 urina lysis , dipst ick Specific Cassel 1.020 Not Available [facility] [address], [place], [address], 07/15/2020 14:53:03 07/16/19 21 07/15/2020 urina lysis , dipst ick Ketone neg Not Available [place] [address], [place], [address], 07/15/2020 14:53:03 07/16/19 21 07/15/2020 urina lysis , dipst ick Bilirubin neg Not Available Yolanda tabares [address], [place], [address], 07/15/2020 14:53:03 07/16/19 21 07/15/2020 urina lysis , dipst ick Glucose neg Not Available [place] [address], [place], [address], 07/15/2020 14:53:03 07/16/19 21 07/15/2020 urina lysis , dipst ick Appearance clear Not Available Kiersten casillas [address], [place], [address], 07/15/2020 14:53:03 07/16/19 21 07/15/2020 urina lysis , dipst ick Color yellow Not Available [place] [address], [place], [address], 07/15/2020 14:53:03 12/23/19 22 12/22/2021 CT/GC AND TRICH OMONA S VAGIN BISMARK (RRNA ), SWAB chlamydia trachomatis, PCR Negati ve negati ve Not Available [facility] [address] [place], [address], 12/23/2021 19:50:40 12/23/19 22 12/22/2021 CT/GC AND TRICH OMONA S VAGIN BISMARK (RRNA ), SWAB neisseria gonorrhoeae, PCR Negati ve negati ve Not Available [facility] [address] [place] [address], [address], 12/23/2021 19:50:40 12/23/19 22 12/22/2021 CT/GC AND TRICH OMONA S VAGIN BISMARK (RRNA ), SWAB trichomonas vaginalis ribosomal RNA (rrna) Negati ve negati ve Not Available [facility] [address] [place] [address], [address], 12/23/2021 19:50:40 12/23/1912/22/2021 VAGIN ITIS/ VAGIN OSIS, DNA PROBE luis sp. detection, direct probe Positi ve negati ve abnormal Not Available [facility] [address] [place] [address], [address], 12/23/2021 19:50:41 12/23/19 22 12/22/2021 VAGIN ITIS/ VAGIN OSIS, DNA PROBE gardnerella vag. detection, direct probe Positi ve negati ve abnormal Not Available [facility] [address] [place] [address], [address], 12/23/2021 19:50:41 12/23/19 22 12/22/2021 VAGIN ITIS/ VAGIN OSIS, DNA PROBE trichomonas vag. detection, direct probe Negati ve negati ve Not Available [facility] [address] [place] [address], [address], 12/23/2021 19:50:41 12/30/19 23 12/29/2022 urina lysis , dipst ick Leukocytes ++ Not Available Kiersten casillas [address], [place], [address], 12/29/2022 15:24:19 12/30/1912/29/2022 urina lysis , dipst ick Nitrite + Not Available [place] [address], [place], [address], 12/29/2022 15:24:19 12/30/1912/29/2022 urina lysis , dipst ick Urobilinogen neg Not Available [facility] anastasiia [address], [place], [address], 12/29/2022 15:24:19 12/30/1912/29/2022 urina lysis , dipst ick Protein + Not Available [place] [address], [place], [address], 12/29/2022 15:24:19 12/30/1912/29/2022 urina lysis , dipst ick pH 5 Not Available [place] [address], [place], [address], 12/29/2022 15:24:19 12/30/19 23 12/29/2022 urina lysis , dipst ick Specific Cassel 1.020 Not Available [facility] larry [address], [place], [address], 12/29/2022 15:24:19 12/30/19 23 12/29/2022 urina lysis , dipst ick Ketone neg Not Available [place] [address], [place], [address], 12/29/2022 15:24:19 12/30/1912/29/2022 urina lysis , dipst ick Bilirubin neg Not Available [facility] [address], [place], [address], 12/29/2022 15:24:19 12/30/19 23 12/29/2022 urina lysis , dipst ick Glucose neg Not Available [place] [address], [place], [address], 12/29/2022 15:24:19 12/30/19 23 12/29/2022 urina lysis , dipst ick Appearance cloudy Not Available [facility] [address], [place], [address], 12/29/2022 15:24:19 12/30/19 23 12/29/2022 urina lysis , dipst ick Color yellow Not Available [place] [address], [place], [address], 12/29/2022 15:24:19 08/06/19 21 08/05/2020 US, pelvi s No observ ation record ed. [facility] [address], [place], [address], 08/05/2020 17:22:09 08/06/19 21 08/05/2020 US, trans vagin al No observ ation record ed. [facility] [address], [place], [address], 08/05/2020 17:22:19 08/06/19 21 08/05/2020 US, pelvi s No observ ation record ed. layran Sera [address], [place], [address], 08/06/2020 15:56:40 Result Notes None recorded. Problems Name Problem SNOMED Code Status Onset Date Resolution Date Notes Provider Name and Address Organization Details Recorded Time Postcoit al finding [id number] Completed 201505/07/2020 Postcoit al and contact bleeding ;Practic e ID: 0001 Bonny kinney [facility] 10:20:46 Dyspareu lyudmila [id number] Completed 201505/07/2020 Dyspareu lyudmila;Prac gloria ID: 0001 Bonny kinney [facility] 10:20:32 Cyst of ovary 65461992 Completed 201505/07/2020 Unspecif ied ovarian cysts;Pr actice ID: 0001 Bonny kinney [facility] 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 10:20:57 Finding of desire for urinatio n [id number] Completed 201805/07/2020 Urgency of urinatio n;Record ed Elsewher e: No Locat ion: [facility] S ource: EHR Sorter/Assay Tech lauren: N Yoananti ce ID: 0001 Hector lable Time: 01:00:00 PM Bonny kinney [facility] 10:20:42 Body mass index 30+ - obesity 857716299 Completed 201705/07/2020 Body mass index (BMI) 34.0-34. 9, adult;Re corded Elsewher e: No Locat ion: [facility] S ource: EHR Sorter/Assay Tech lauren: N Yoannati ce ID: 0001 Hector lable Time: 01:30:00 PM Bonny kinney [facility] 10:20:28 Screenin g for malignan t neoplasm of cervix Completed 201505/07/2020 Screenin g for malignan t neoplasm s of the cervix;R ecorded Elsewher e: No Locat ion: [facility] S ource: EHR Sorter/Assay Tech lauren: N Practi ce ID: 0001 Hector lable Time: 01:15:00 PM Bonnybrayan kinney [facility] 10:20:53 Urinary tract infectio us disease 90392444 Completed 201805/07/2020 Urinary tract infectio n, site not specifie d;Record ed Elsewher e: No Locat ion: Argelia rayshawn [facility] S ource: EHR Sorter/Assay Tech lauren: N Practi ce ID: 0001 Hector lable Time: 01:00:00 PM Bonny kinney [facility] 1 10:21:02 Pregnanc y test negative [id number] Completed 201505/07/2020 Encounte r for pregnanc y test, result negative ;Recorde d Elsewher e: No Locat ion: [facility] S ource: EHR Sorter/Assay Tech lauren: N Practi ce ID: 0001 Hector lable Time: 02:00:00 PM Bonny Madden [facility] 1 10:20:48 Pregnanc y test positive 870065802 Completed 201010/24/2011 Pregnanc y examinat ion or test, positive result;R ecorded Elsewher e: No Locat ion: [facility] S ource: EHR Sorter/Assay Tech lauren: N Practi ce ID: 0001 Hector lable Time: 03:15:00 PM Not Available [facility] 0 21:46:42 Postpart um care Completed 201110/24/2011 Routine postpart um follow-u p;Record ed Elsewher e: No Locat ion: [facility] S ource: EHR Sorter/Assay Tech lauren: N Practi ce ID: 0001 Hector lable Time: 10:45:00 AM Not Available [facility] 0 21:46:43 Infectio n screenin g Completed 201505/07/2020 Encounte r for screenin g for oth infec/pa rastc diseases ;Recorde d Elsewher e: No Locat ion: [facility] rayshawn [facility] S ource: EHR Sorter/Assay Tech lauren: N Practi ce ID: 0001 Hector lable Time: 01:15:00 PM Bonny Madden [facility] 1 10:20:43 Speciali zed medical examinat ion Completed 201010/24/2011 Gynecolo gical Examinat ion;Yariel rded Elsewher e: No Locat ion: Argelia rayshawn [facility] S ource: EHR Sorter/Assay Tech lauren: N Yoannati ce ID: 0001 Hector lable Time: 03:15:00 PM Bonny kinney [facility] 1 10:20:58 Syphilis test finding 830711182 Completed 201505/07/2020 Encntr screen for infectio ns w sexl mode of transmis s;Record ed Elsewher e: No Locat ion: [facility] S ource: EHR Sorter/Assay Tech lauren: N Yoannati ce ID: 0001 Hector lable Time: 01:15:00 PM Bonny kinney, [facility] 1 10:21:00 Amenorrh ea 60398346 Completed 201010/24/2011 Absence of menstrua tion;Rec orded Elsewher e: No Locat ion: [facility] S ource: EHR Sorter/Assay Tech lauren: N Yoannati ce ID: 0001 Hector lable Time: 03:15:00 PM Not Available [facility] 0 21:46:44 Speciali zed medical examinat ion Completed 201305/07/2020 Gynecolo gical Examinat ion;Yariel rded Elsewher e: No Locat ion: [facility] S ource: EHR Sorter/Assay Tech lauren: N Practi ce ID: 0001 Hector lable Time: 08:30:00 AM Bonny kinney [facility] [address] 10:20:[address] Concept Completed 201705/07/2020 Encntr for general adult medical exam w/o abnormal findings ;Recorde d Elsewher e: No Locat ion: [facility] S ource: EHR Sorter/Assay Tech lauren: N Yoannati ce ID: 0001 Hector lable Time: 01:30:00 PM Bonny kinney [facility] 1 10:20:56 Screenin g for malignan t neoplasm of cervix Completed 201010/24/2011 Screenin g for malignan t neoplasm s of the cervix;R ecorded Elsewher e: No Locat ion: [facility] S ource: EHR Sorter/Assay Tech lauren: N Yoannati ce ID: 0001 Hector lable Time: 03:15:00 PM Bonny kinney, [facility] 10:20:53 Elevated blood-pr essure reading without diagnosi s of hyperten lino 446179989 Completed 201505/07/2020 Elevated blood-pr essure reading, without diagnosi s of hyperten lion;Rec orded Elsewher e: No Locat ion: [facility] S ource: EHR Sorter/Assay Tech lauren: N Yoannati ce ID: 0001 Hector lable Time: 01:15:00 PM Bonny Madden [facility], [facility] 10:20:36 Vaginiti s and vulvovag initis Completed 201105/07/2020 Vaginiti s;Record ed Elsewher e: No Locat ion: [facility] S ource: EHR Sorter/Assay Tech lauren: N Yoannati ce ID: 0001 Hector lable Time: 02:30:00 PM Bonny kinney [facility] 10:21:04 Leukocyt osis 783311807 Completed 201105/07/2020 LEUKOCYT OSIS NOS;Yariel rded Elsewher e: No Locat ion: [facility] S ource: EHR Sorter/Assay Tech lauren: N Yoannati ce ID: 0001 Hector lable Time: 02:30:00 PM Bonny kinney [facility] 10:20:45 Irregula r periods 74831489 Completed 201305/07/2020 Irregula r menstrua l cycle;Re corded Elsewher e: No Locat ion: [facility] S ource: EHR Sorter/Assay Tech lauren: N Practi ce ID: 0001 Hector lable Time: 08:30:00 AM Bonny kinney, [facility] 10:20:44 Educatio n Completed 201005/07/2020 Other general counseli ng and advice on contrace ptive manageme nt;Pract ice ID: 0001 Bonny kinney, [facility] 10:20:34 Routine antenata l care Completed 201005/07/2020 Supervis ion of other normal pregnanc y;Practi ce ID: 0001 Bonny kinney [facility] 10:20:52 Primigra olesya 253702596 Completed 201005/07/2020 Supervis ion of normal first pregnanc y;Practi ce ID: 0001 Bonny kinney [facility] 10:20:49 anatomy study Completed 201005/07/2020 [facility] ANAT SURVEY;P ractice ID: 0001 Bonny kinney [facility] 10:20:40 Female genital organ symptoms 392100094 Completed 201105/07/2020 Unspecif ied symptom associat ed with female genital organs;P ractice ID: 0001 Bonny kinney [facility] 10:20:39 Benign essentia l hyperten lino complica ting pregnanc y, childbir th and the puerperi um - not delivere d 176471940 Completed 201105/07/2020 Hyperten lino During Pregnanc y;Practi ce ID: 0001 Bonny Wagoneran nirmal [facility] 10:20:26 Tachycar waqar 4338027 Completed 201105/07/2020 Tachycar waqar, unspecif ied;Prac gloria ID: 0001 Bonny Madden nirmal [facility] 10:21:01 Excessiv e growth affectin g manageme nt of mother 50463622 Completed 201105/07/2020 GROWTH LARGE LGA;Prac gloria ID: 0001 Bonny Madden nirmal [facility] 10:20:37 Delivery normal 06593462 Completed 201105/07/2020 Normal delivery ;Practic e ID: 0001 Bonnybrayan Madden nirmal [facility] 10:20:31 Single live from singleto n pregnanc y [id number] Completed 201105/07/2020 Mother with single liveborn ;Practic e ID: 0001 Bonny Madden nirmal [facility] 10:20:55 Procedur e on genitour inary system Completed 201105/07/2020 Steriliz ation;Pr actice ID: 0001 Bonny Madden nirmal, [facility] 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 10:27:56 Problem Notes None recorded. Procedures Surgical History Date Name Laterality Status Provider Name and Address Organization Details Recorded Time 1 Date of Last Pap Smear completed [facility] 08/06/2020 14:49:09 0 Date of Last Mammogram completed [facility] 08/06/2020 14:49:33 6 Colposcopy completed [facility] 07/14/2020 16:54:47 2 ligation of bilateral fallopian tubes completed Bonny Madden [facility] 05/07/2020 10:26:56 Imaging Results None recorded. Procedure Notes None recorded. Medical Equipment None [...] Prescrib ed Elsewher e: No Locat ion: [facility] M odify By: cmedical Encount er DateTime : [...] Yes Loca tion: [facility] odify By: holly ross DateTime : 11/02/19 [...] No Locat ion: [facility] odify By: loida wallace DateTime : 10/24/19 12 02:30:00 PM Not [...] every 12 hours 05/07 completed Prescrib ed Elsewher e: No Locat ion: [facility] odify By: iesha Dent nter DateTime : 12/06/19 01:00:00 PM Not Available Not Available Not Available escitalop demetrius 5 mg/5 mL oral solution take 10 millilit er by oral route every day 07/15 completed Prescrib ed Elsewher e: Yes [facility] By: carlos Tabares ncounter DateTime : 01/23/20 01:30:00 PM Not Available Not Available Not [...] Prescrib ed Elsewher e: Yes Loca tion: Yolanda tabares [facility] odify By: [email or web address] E ncounter DateTime : 07/10/19 14 08:30:00 AM Not Available Not Available Not Available Lomedia 24 Fe 1 mg-20 mcg (24)/75 mg (4) tablet take 1 tablet by oral route every day 05/19 completed Prescrib ed Elsewher e: No Locat ion: Yolanda tabares [facility] odify By: [email or web address] Jae marin DateTime : 07/10/19 14 08:30:00 AM [...] Updated DateTime 08/06/2020 175.26 cm 35.7 kg/m2 054915.9 2 g 126 mm[Hg] 70 mm[Hg] Flakita Salgado [facility] 1 14:53:24 Date Recorded Body height Body mass index (BMI) Body weight Systolic blood pressure Diastolic blood pressure Provider Name and Address Organization Details Last Updated DateTime 12/22/2021 175.26 cm 36.2 kg/m2 340892.1 3 g 147 mm[Hg] 91 mm[Hg] Carly Krishnamurthy [facility] 2 15:21:48 Date Recorded Body height Body mass index (BMI) Body weight Systolic blood pressure Diastolic blood pressure Provider Name and Address Organization Details Last Updated DateTime 12/29/2022 175.26 cm 34.6 kg/m2 970016.0 5 g 125 mm[Hg] 87 mm[Hg] Flakita Molina [facility] 3 15:16:56 Date Recorded Systolic blood pressure Diastolic blood pressure Provider Name and Address Organization Details Last Updated DateTime 01/12/2022 138 mm[Hg] 96 mm[Hg] Argenis Moralez JOE [address], [place], [address], [facility] 01/12/2022 15:07:46 Date Recorded Body height Body mass index (BMI) Body weight Systolic blood pressure Diastolic blood pressure Provider Name and Address Organization Details Last Updated DateTime 01/12/2022 175.26 cm 35.6 kg/m2 936715.2 g 159 mm[Hg] 103 mm[Hg] Carly Krishnamurthy [facility] 14:15:15 Social History Question Answer Notes LastModified by Organizat ion Details LastModified Time Tobacco Smoking Status Former Smoker Bonny Madden nirmal, [facility] 05/07/2020 10:26:41 Are You Blind [...] Yes Information not available 07/14/2020 Do You Use Sunscreen Routinely? Yes Information not available 07/14/2020 Do You Have Difficulty Walking Or Climbing Stairs? No Information not available 12/22/2021 Sex: Unknown Functional Status Question Answer Note LastModified by Organizat ion Details LastModified Time Do you use any illicit or recreational drugs? No Information not available 07/14/2020 Are you able to walk? YESWOREST Information not available 07/14/2020 Are you able to care for yourself? Yes Information n ot available 12/22/2021 Do you have difficulty dressing or bathing? No Information not available 12/22/2021 What is your exercise level? Moderate Information not available 07/14/2020 Mental Status Question Answer Note LastModified by Organization D etails LastModified Time Do you feel stressed (tense, restless, nervous, or anxious, or unable to sleep at night)? [id number] Information not available 07/14/2020 Family History Relationship Description Onset Age of this Age Resolved Age Notes LastModified by Organization Details LastModified Time Maternal Grandmother Diabetes mellitus [email or web address] Not available 2020 10:26:06 Maternal Grandmother Asthma [email or web address] Not available 05/07 10:26:14 Mother Mental disorder Bipola r [email or web address] Not available 05/07/2020 10:26:27 Medical History Condition Response Allergies (Food, seasonal, environmental ) N Other Y Breast Cancer N Drug/Latex Allergies/Reactions N Blood Transfusion N Lung Disease N Dermatologic Disorders N Defects or Inherited Disease N Breast [...] SNOMED-CT Code Diagnosis ICD10 Code Diagnosis Note [id number] Mary Ellen Aguilar [facility] [address],[place] [address] 01/28/2020 14:34:49 01/28/2020 16:30:45 Lump of axillary tail of right breast [id number] 88470 N63.31 N63.0 Based on exam & subjective complaints we agreed to move forward with imaging. Fam Hx of grandmothe r with breast cancer maternal; but no other fam hx. Non-menopa usal hot flash [id number] 38671 R23.2 Hx of HTN on medication s Having some night sweats with temp flucuation s. Agreed on lab work to start. Will also f/u PCP Periods are regular monthly. [id number] Keely Pang [facility] [address],[place] [address] 05/07/2020 10:04:17 06/29/2020 14:58:46 [id number] Keely Pang [place] [address],[place] [address] 05/07/2020 10:19:12 05/07/2020 10:57:14 Vaginitis [id number] N76.0 Use mild soap like dove or ivory, cotton underwear w/out dye, hypoallerg enic detergent, wipe from front to back, avoid tub baths, keep perineum clean and dry, d/c use of baby wipes. Recommend daily intake of yogurt or womens health probiotic. Internal and external affirm collected along with STD screen. Urinary tr act infectious disease 55171412 N39.0 Urine negative with exception of blood but pt is on her cycle. Urine sent for culture. Increase water and decrease caffeine. 26866 Mary Ellen Aguilar [facility] [address],[place] [address] 07/15/2020 14:31:36 07/15/2020 15:33:17 Abnormal uterine bleeding [id number] 9100 N93.9 TVUS ordered Recently had TSH [...] this patient s visit, including available hand manager technical upon arrive, temperatur e check and being asked a series of screening questions. All staff wore face coverings during this encounter, as well as provided additional cleaning and sanitizing of all surfaces, including countertop s, pens, chairs, door handles, light switches, etc, prior to and following the patient s visit. Blood in urine 33312753 R31.9 [id number] Monty Alves MD [facility] [address] [address] 08/05/2020 13:52:20 08/05/2020 14:43:25 Abnormal uterine bleeding [id number] 9100 N93.9 [id number] [facility] [address] [address] 08/06/2020 14:26:00 08/06/2020 15:32:38 Irregular periods 21415015 N92.6 TVUS considered wnl with 3cm corpus [...] this patient s visit, including available hand manager technical upon arrive, temperatur e check and being asked a series of screening questions. All staff wore face coverings during this encounter, as well as provided additional cleaning and sanitizing of all surfaces, including countertop s, pens, chairs, door handles, light switches, etc, prior to and following the patient s visit. [id number] NISREEN Garcia [facility] [address] [address] 12/22/2021 15:07:38 12/22/2021 15:47:23 Vaginitis 45317280 N76.0 Suspect BV/yeastVa ginitis panel sentSTI endocervic al testing sentVulvar care guidelines discussed in-depthRx sentR/B of medication discussed and accepted by patientRTC for WWE Time spent in visit is a total of 20 mins with at least 50% of visit consisting of counseling and review of plan of care. Venereal d isease screening [id number] Z11.3 [id number] NISREEN Garcia [facility] [address] [address] 01/12/2022 13:55:29 01/12/2022 15:18:35 Gynecologic examination 39804594 Z01.419 Take Calcium with Vitamin D 1200mg [...] f/u with PCP. ED precaution s discussed [id number] NISREEN Garcia [facility] [address] [address] 12/29/2022 15:05:25 12/29/2022 16:26:23 Urinary symptoms 614127292 R39.9 suspect UTIcx sentrx sent, r/b/a reviewedde [...] and review of plan of care. Dysuria 43103396 R30.0 Health Concerns Section Related Observation LastModified by Organization Detai ls LastModified Time None Recorded Concern Status LastModified by Organization Details LastModified Time None Recorded Advance Directives Directive None Recorded Payers Encounter Date Sequence Insurance Name Policy Number Policy Pagan Covered Member ID Pagan Member ID Guarantor Name 08/05/2020 1 [facility] (MEDICAID HMO) [id number] Karey A Phelps [id number] Karey A Phelps 08/06/2020 1 [facility] [place] ([place]) [id number] Karey A Phelps [id number] Karey A Phelps 12/22/2021 1 [employer] [facility] [place] [id number] Karey A Phelps [id number] Karey A Phelps 01/12/2022 1 [employer] [facility] [place] [id number] Karey A Phelps [id number] Karey A Phelps 12/29/2022 1 [employer] [facility] [place] [id number] 0003 Karey Carranza [place] [id number] Karey A [place] Notes Date Note Type Note Provider Name and Address Organization Details Recorded Time 08/06/2020 text/html Here for TVUS Fo llow up for irregular cycle. NISREEN Moran-BC [address], [place], [address], [facility] 08/06/2020 15:14:34 12/22/2021 text/html 36yo Presents fo r evaluation of vaginal discharge, odor, and itchingPresents for the last 1 weekSA with steady partnerBC - BTL NISREEN Garcia [address], [place], [address], [facility] 12/22/2021 15:42:29 01/12/2022 text/html Annual GYNReport [...] regular mammograms starting age 40 NISREEN Garcia [address], [place], [address], [facility] 01/12/2022 15:06:49 12/29/2022 text/html 37yopresents for urinary symptomsurinary frequency/pressuresy mptoms started 2-3 days agodrinking more caffeine latelydenies flank pains, n/v/f, or flu-like symptomsBTL for BCno vaginal symptoms N[address]RE[address], [place], [address], [facility] 12/29/2022 16:23:20 OBGyn Episode Ob Episode Information Episode Created Date Number of Fetuses Patient Bloodtype Patient rh Status Prepregnancy Weight lbs Domestic Partner Domestic Partner Phone Father Name Plastics Scientist Status 05/08/19 21 1 CLOSED Fetus Data [...] Domestic Partner Domestic Partner Phone Father Name Plastics Scientist Status 05/08/19 21 1 CLOSED Fetus Data [...] Domestic Partner Domestic Partner Phone Father Name Plastics Scientist Status 05/08/19 21 1 CLOSED Fetus Data [...] Domestic Partner Domestic Partner Phone Father Name Plastics Scientist Status 05/08/19 21 1 CLOSED Fetus Data [...]
--- OUTSIDE RECORDS SUMMARY | 2024-07-31 12:04 | XMS_ITS | Clinical Summary ---
Author Organization [facility] Address [address] [place] [address] Care Team Providers Care Flue Dust Laborer Name Role Phone Edison Block MD Primary Care Provider [phone] Source Comments [facility],non-owned Affiliates and Associated Physician Practices is amultiple site organization consisting of ambulatory clinics and hospital sitesin [place], [place] and [place]. This disclosure is being madepursuant to the Care Everywhere program and may not contain all information available regarding this patient. Last updated 17.[facility] Medications * Be aware that medications may not be up to date on this document. Alwaysverify current medications with the patient. 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
--- OUTSIDE RECORDS SUMMARY | 2024-07-31 12:04 | XMS_ITS | Referral Summary ---
Author Organization [facility] [address] Address [address] [place] [address] Care Team Providers Care Doctor Of Nursing Practice Name Role Phone Edison Block MD Primary Care Provider [phone] Encounters Date Type Department Care Team Description 07/04/2024 10:39 PM CDT - 07/05/2024 1:51 AM CDT Emergency [facility] [address] [place] [address] Maciej Powers MD PhD Traumatic conjunctivitis (Primary [...] infection, site not specified;Recorded Elsewhere: No Location: [facility] Source: EHR Chronic: N Practice ID: [id number] Billable Time: 01:00:00 PM Obesity with body mass index 30 or greater 01/21 Overview (03/15/2023): Body mass index (BMI) 34.0-34.9, adult;Recorded Elsewhere: No Location: [facility] Source: EHR Chronic: N Practice ID: [id number] Billable Time: 01:30:00 PM Cyst of ovary 07/07/2015 Overview (12/06/2022): Unspecified ovarian cysts;Practice ID: 0001 Elevated blood-pressure read ing without diagnosis of hypertension 05/20/2015 Overview (12/06/2022): Elevated blood-pressure reading, without diagnosis of hypertension;Recorded Elsewhere: No Location: [facility] Source: EHR Chronic: N Practice ID: [id number] Billable Time: 01:15:00 PM Irregular periods 07/09/2013 Overview (03/15/2023): Irregular menstrual cycle;Recorded Elsewhere: No Location: [facility] Source: EHR Chronic: N Practice ID: [id number] Billable Time: 08:30:00 AM Leukocytosis 10/24/2011 Overview (03/15/2023): LEUKOCYTOSIS NOS;Recorded Elsewhere: No Location: [facility] Source: EHR Chronic: N Practice ID: [...] (12/06/2022): Absence of menstruation;Recorded Elsewhere: No Location: [facility] Source: EHR Chronic: N Practice ID: [...] on file 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
[2024-07-31 12:34] LABS: Basophils Absolute Auto 0.1 K/mm3 (0.0-0.1); Basophils Percent Auto 0.8 % (0.2-1.2); Eosinophils Absolute Auto 0.3 K/mm3 (0-0.3); Eosinophils Percent Auto 3.6 % (0-4.4); Hematocrit 31.9 % (37.0-47.0); Hemoglobin 9.7 g/dL (12.0-15.0); Immature Granulocyte Absolute 0.03 K/mm3 (0.00-0.031); Immature Granulocyte Percent A 0.4 % (0-0.5); Lymphocytes Absolute Auto 1.67 K/mm3 (0.9-3.2); Lymphocytes Percent Auto 21.4 % (18.3-44.2); Mean Corpuscular HGB Conc 30.4 g/dl (32-36); Mean Corpuscular Hemoglobin 23.7 pg (26-34); Mean Corpuscular Volume 77.8 fl (80-100); Mean Platelet Volume 9.9 fl (7.4-10.4); Monocytes Absolute Auto 0.7 K/mm3 (0.1-0.6); Monocytes Percent Auto 8.3 % (2.6-8.5); Neutrophils Absolute Auto 5.1 K/mm3 (1.3-6.7); Neutrophils Percent Auto 65.5 % (45.5-73.1); Platelet Count Result 319 k/mm3 (150-375); Red Cell Distribution Width 16.5 % (11.5-14.5); White Blood Count 7.8 K/mm3 (4.5-10.0)
[2024-07-31 12:48] LABS: Iron 26 ug/dL (37-170)
[2024-07-31 12:57] LABS: Percent Iron Saturation 6 % (20-50)
[2024-07-31 13:06] LABS: Free T4 Free Thyroxine 0.75 ng/dL (0.78-2.19)
[2024-07-31 13:20] LABS: Total Triiodothyronine (T3) 1.21 NG/ML (0.82-1.58)
[2024-07-31 13:24] LABS: Ferritin 4.91 ng/mL (6.24-137)
[2024-08-02 14:39] LABS: Growth Hormone ICMA 0.1 ng/mL (< OR = 7.1)
== END 2024-07-31 11:59 | disposition home or self-care (01) ==
LOC: ANHLAB 12:02
PROVIDERS: PCP Family Medicine; Visit Provider Nurse Practitioner Family
DX: D64.9 Anemia, unspecified (principal); N93.9 Abnormal uterine and vaginal bleeding, unspecified
CPT/HCPCS: 36415; 82728; 83003; 83540; 83550; 84439; 84443; 84480; 85025

== ENCOUNTER 2024-08-12 02:36 | Day surgery (SDC) | payer OTHER, SELFPAY ==
[2024-08-05 14:24] VITALS: BMI 37.3
--- NOTE | 2024-08-05 14:34 | PC.NURSE ---
Report to the Outpatient Waiting Room, entrance under the green pavilion located off [facility], at time _0745_ on date _[phone]_. Planned Procedure Time: _0945_.? Time changes happen often and if your time is changed the preop area will call you the afternoon before. - You and your visitor will be asked to self-screen and do not enter if you have any COVID symptoms. Please call surgeon if you need to reschedule. - A mask is optional within the hospital at this time. Patients may have clear liquids (water, carbonated beverages, clear teas, apple juice) until 3 hours prior to surgery with a maximum of 20 ounces. - No food from midnight until time of surgery and no smoking, or chewing tobacco (or any form of nicotine). No chewing gum, candy or mints. Take only the following medications with a SIP of water on the morning of surgery: ___Levothyroxine____ DO NOT STOP ANY OF YOUR OTHER PRESCRIPTION MEDICATIONS PRIOR TO SURGERY EXCEPT THE FOLLOWING Hold all vitamins and supplements for 3 days per anesthesiologist. Medications to discontinue per physician Date to take last dose Please no make-up, nail german, hairspray, perfume, deodorant, or body powder the day of surgery.? No jewelry (including any body piercings) or valuables the day of surgery, leave them at home.? Please take a shower or bath the night before, or the morning of, surgery with an antibacterial soap.? Wear comfortable, loose fitting clothing.? - Jewelry must be removed prior to entering the operating room.? Rings and piercings that are not removed may be cut off. - The hospital will not accept responsibility for valuables.? - Please leave all valuables, including medications, at home the day of surgery. If you are going home after surgery, a licensed hearse driver must drive you home.? - NO public transportation without another adult if you receive anesthesia. - We recommend that an adult stay with you for 24 hours following discharge. - We also recommend that you do not drive, make important decision, drink alcoholic beverages, or take any drugs that were not prescribed by your health care provider for at least 24 hours after your discharge time. Follow any additional instructions given to you from your surgeon. Telephone instructions given to __Karey___and asked if any additional questions and then verbalized understanding. Patient advised to call surgeon office or pre surgery nurse liaison [phone] if any additional questions.
--- OUTSIDE RECORDS SUMMARY | 2024-08-12 02:39 | XMS_ITS | Referral Summary ---
Author Organization [facility] [address] Address [address] [place] [address] Care Team Providers Care Senior Electrical Project Manager Name Role Phone Edison Block MD Primary Care Provider [phone] Encounters Date Type Department Care Team Description 07/04/2024 10:39 PM CDT - 07/05/2024 1:51 AM CDT Emergency [facility] [address] [place] [address] Maciej Powers MD PhD Traumatic conjunctivitis (Primary [...] by mouth daily 30 tablet 04/11/2023 Active metoclopramide (REGLAN) 10 mg tablet Take 1 tablet up to three times a day for nausea or headache. 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
--- OUTSIDE RECORDS SUMMARY | 2024-08-12 02:39 | XMS_ITS | Clinical Summary ---
Author Organization [address] Address [address] [place] [address] Care Team Providers Care Hospitalist Program Director Name Role Phone Edison Block MD Primary Care Provider [phone] Allergies No known active allergies Medications cyclobenzaprine [...] infection, site not specified;Recorded Elsewhere: No Location: [facility] Source: EHR Chronic: N Practice ID: [id number] Billable Time: 01:00:00 PM Obesity with body mass index 30 or greater 01/21 Overview (03/15/2023): Body mass index (BMI) 34.0-34.9, adult;Recorded Elsewhere: No Location: [facility] Source: EHR Chronic: N Practice ID: [id number] Billable Time: 01:30:00 PM Cyst of ovary 07/07/2015 Overview (12/06/2022): Unspecified ovarian cysts;Practice ID: 0001 Elevated blood-pressure read ing without diagnosis of hypertension 05/20/2015 Overview (12/06/2022): Elevated blood-pressure reading, without diagnosis of hypertension;Recorded Elsewhere: No Location: [facility] Source: EHR Chronic: N Practice ID: [id number] Billable Time: 01:15:00 PM Irregular periods 07/09/2013 Overview (03/15/2023): Irregular menstrual cycle;Recorded Elsewhere: No Location: [facility] Source: EHR Chronic: N Practice ID: [id number] Billable Time: 08:30:00 AM Leukocytosis 10/24/2011 Overview (03/15/2023): LEUKOCYTOSIS NOS;Recorded Elsewhere: No Location: [facility] Source: EHR Chronic: N Practice ID: [id number] [...] (12/06/2022): Absence of menstruation;Recorded Elsewhere: No Location: [facility] Source: EHR Chronic: N Practice ID: [id number] Billable Time: 03:15:00 PM Encounters Date Type Department Care Team Description 07/04/2024 10:39 PM CDT - 07/05/2024 1:51 AM CDT Emergency [facility] Department [address] [place] [address] Maciej Powers MD PhD Traumatic conjunctivitis (Primary [...] on file 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
--- OUTSIDE RECORDS SUMMARY | 2024-08-12 02:40 | XMS_ITS | Clinical Summary ---
Author Organization [facility] Address [address] [place] [place] [address] Care Team Providers Care Pharmacy General Manager Name Role Phone Edison Block MD Primary Care Provider Source Comments [facility],non-owned Affiliates and Associated Physician Practices is amultiple site organization consisting of ambulatory clinics and hospital sitesin [place], [place], [place] and [place]. This disclosure is being madepursuant to the Care Everywhere program and may not contain all information available regarding this patient. Last updated 17.[facility] Medications * Be aware that medications may not be up to date on this document. Alwaysverify current medications with the patient. 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
--- OUTSIDE RECORDS SUMMARY | 2024-08-12 02:40 | XMS_ITS | Data Portability ---
Author Organization [facility] [place] Address [address] [place] [place] [address] Assessment Encounter Date Assessment Date Assessment LastModified [...] Lab urinalys is, dipstick 2022 023 [email or web address] [place], [address], [place], [address], 15:24:51 Referral None recorded . Procedures None recorded . Surgeries None recorded . Imaging US, pelvis 2020 021 [email or web address] [place], [address], [address], [place], [address], 15:36:30 US, transvag inal 2020 021 AMISH [place], [address], [address], [place], [address], 17:22:19 Medication Orders Macrobid 100 mg capsule 2022 023 [id number], [address], [place], [place], [id number], 3 16:21:03 fluconaz ole 150 mg tablet 2021 [facility] #[id number], [address] [facility], [place], [place], [id number], 2 14:15:21 metronid azole 500 mg tablet 2021 022 [facility] #[id number], [address] [facility], [place], [place], [id number], 2 14:15:24 Patient TargetsNo targets recorded. Patient [...] t Abnor mal: No Resul lu Lab: [facility] [address] [facility] [address] Tel: CULTU RE ----- ----- ----- --- No growt h in 1 day (dete ction level of 10,00 0 colon ies / ml.) Not Available [facility] (Lab) [address] [place], [address], 07/16/2020 22:56:00 07/16/1907/15/2020 pap, IG + HR HPV image guided Pap, HPV regardless of Pap result SEE RESULT S BELOW CASE REPOR T: Cytol ogy Gynec ologi domi Repor t Case: [id number] Autho yun palafox Provi paz: Nain Sanabria Colle cted: 07/15 1635 FUR POINTER Order ing Locat ion: [place] Patho logsheri [...] as clini leydi pietro nted. Not Available [facility] (Lab) [address] [facility], [place], [address], 07/20/2020 09:03:20 07/16/19 21 07/15/2020 CT + NG RNA, PCR, unspe cifie d speci men chlamydia trachomatis, PCR Negati ve negati ve Not Available [facility] (Lab) [address] , [place], [address], 07/20/2020 09:03:20 07/16/19 21 07/15/2020 CT + NG RNA, PCR, unspe cifie d speci men neisseria gonorrhoeae, PCR Negati ve negati ve Not Available [facility] (Lab) [address], [place], [address], 07/20/2020 09:03:20 07/16/19 21 07/15/2020 trich omona s vagin bismark RNA trichomonas vaginalis ribosomal RNA (rrna) Negati ve negati ve Not Available [facility] (Lab) [address] [place], [address], 07/20/2020 09:03:21 07/16/19 21 07/15/2020 austin da dominic i DNA, vagin al luis krusei by RT-PCR Negati ve Swab- 1 Vagin al Not Available [facility] (Lab) [address] [place], [address], 07/20/2020 09:03:21 07/16/19 21 07/15/2020 mobil uncus , DNA, vagin al nm bkr mobiluncus mulieris and mobiluncus curtisii by RT-PCR Negati ve Swab- 1 Vagin al Not Available [facility] (Lab) [address] [place], [address], 07/20/2020 09:03:22 07/16/19 21 07/15/2020 austin da sp DNA, vagin al luis albicans PCR Negati ve Swab- 1 Vagin al Not Available [facility] (Lab) [address] [facility], [place], [address], 07/20/2020 09:03:22 07/16/19 21 07/15/2020 austin da sp DNA, vagin al luis tropicalis PCR Negati ve Swab- 1 Vagin al Not Available [facility] (Lab) [address] [facility], [place], [address], 07/20/2020 09:03:22 07/16/19 21 07/15/2020 austin da sp DNA, vagin al luis parapsilosis PCR Negati ve Swab- 1 Vagin al Not Available [facility] (Lab) [address] [place], [address], 07/20/2020 09:03:22 07/16/19 21 07/15/2020 austin da sp DNA, vagin al luis glabrata PCR Negati ve Swab- 1 Vagin al Not Available [facility] (Lab) [address] [place], [address], 07/20/2020 09:03:22 07/16/19 21 07/15/2020 STI panel nm bkr mycoplasma genitalium by RT-PCR Negati ve Swab- 1 Vagin al Not Available [facility] (Lab) [address] [place], [address], 07/20/2020 09:03:22 07/16/19 21 07/15/2020 STI panel nm bkr mycoplasma hominis by RT-PCR Negati ve Swab- 1 Vagin al Not Available [facility] (Lab) [address] [facility], [place], [address], 07/20/2020 09:03:22 07/16/19 21 07/15/2020 STI panel nm bkr ureaplasma urealyticum by RT-PCR Negati ve Swab- 1 Vagin al Not Available [facility] (Lab) [address] [facility], [place], [address], 07/20/2020 09:03:22 07/16/19 21 07/15/2020 bacte rial vagin osis DNA, PCR, vagin al fluid gardnerella vaginalis PCR Negati ve Swab- 1 Vagin al Not Available [facility] (Lab) [address] [facility], [place], [address], 07/20/2020 09:03:23 07/16/19 21 07/15/2020 bacte rial vagin osis DNA, PCR, vagin al fluid atopobium vaginae PCR Negati ve Swab- 1 Vagin al Not Available [facility] (Lab) [address] [place], [address], 07/20/2020 09:03:23 07/16/19 21 07/15/2020 bacte rial vagin osis DNA, PCR, vagin al fluid bacterial vaginosis associated bacteria 2 (bvab2) Negati ve Swab- 1 Vagin al Not Available [facility] (Lab) [address] [place], [address], 07/20/2020 09:03:23 07/16/19 21 07/15/2020 bacte rial vagin osis DNA, PCR, vagin al fluid megasphaera species (type 1 and type 2) PCR Negati ve (Type1 ,Type2 ) Swab- 1 Vagin al Type1 :Nega tive Type2 :Nega tive. Not Available [facility] (Lab) [address] [facility], [place], [address], 07/20/2020 09:03:23 07/16/19 21 07/15/2020 bacte rial vagin osis DNA, PCR, vagin al fluid lactobacillu s (bvpanel) PCR See Commen t Swab- 1 Vagin al L.cri spatu s: Posit patricia L.shayy senii : Negat patricia L.gas seri : Negat patricia L.ine rs : Negat patricia. Not Available [facility] (Lab) [address], [place], [address], 07/20/2020 09:03:23 07/16/19 21 07/15/2020 urina lysis , dipst ick Leukocytes + positi ve Not Available [place] [address], [place], [address], 07/15/2020 14:53:03 07/16/19 21 07/15/2020 urina lysis , dipst ick Nitrite neg Not Available [place] [address], [place], [address], 07/15/2020 14:53:03 07/16/19 21 07/15/2020 urina lysis , dipst ick Urobilinogen 0.2 neg Not Available [place] [address], [place], [address], 07/15/2020 14:53:03 07/16/19 21 07/15/2020 urina lysis , dipst ick Protein neg Not Available [place] [address], [place], [address], 07/15/2020 14:53:03 07/16/19 21 07/15/2020 urina lysis , dipst ick pH 5 neg Not Available [place] [address], [place], [address], 07/15/2020 14:53:03 07/16/19 21 07/15/2020 urina lysis , dipst ick Specific [place] 1.020 Not Available [facility] [address], [place], [address], 07/15/2020 14:53:03 07/16/19 21 07/15/2020 urina lysis , dipst ick Ketone neg Not Available [place] [address], [place], [address], 07/15/2020 14:53:03 07/16/19 21 07/15/2020 urina lysis , dipst ick Bilirubin neg Not Available Yolanda tabares [address], [place], [address], 07/15/2020 14:53:03 07/16/19 21 07/15/2020 urina lysis , dipst ick Glucose neg Not Available [place] [address], [place], [address], 07/15/2020 14:53:03 07/16/19 21 07/15/2020 urina lysis , dipst ick Appearance clear Not Available Kiersten casillas [address], [place], [address], 07/15/2020 14:53:03 07/16/19 21 07/15/2020 urina lysis , dipst ick Color yellow Not Available [place] [address], [place], [address], 07/15/2020 14:53:03 12/23/19 22 12/22/2021 CT/GC AND TRICH OMONA S VAGIN BISMARK (RRNA ), SWAB chlamydia trachomatis, PCR Negati ve negati ve Not Available [facility] [address] [place], [address], 12/23/2021 19:50:40 12/23/19 22 12/22/2021 CT/GC AND TRICH OMONA S VAGIN BISMARK (RRNA ), SWAB neisseria gonorrhoeae, PCR Negati ve negati ve Not Available [facility] [address] [place] [address], [address], 12/23/2021 19:50:40 12/23/19 22 12/22/2021 CT/GC AND TRICH OMONA S VAGIN BISMARK (RRNA ), SWAB trichomonas vaginalis ribosomal RNA (rrna) Negati ve negati ve Not Available [facility] [address] [place] [address], [address], 12/23/2021 19:50:40 12/23/1912/22/2021 VAGIN ITIS/ VAGIN OSIS, DNA PROBE luis sp. detection, direct probe Positi ve negati ve abnormal Not Available [facility] [address] [place] [address], [address], 12/23/2021 19:50:41 12/23/19 22 12/22/2021 VAGIN ITIS/ VAGIN OSIS, DNA PROBE gardnerella vag. detection, direct probe Positi ve negati ve abnormal Not Available [facility] [address] [place] [address], [address], 12/23/2021 19:50:41 12/23/19 22 12/22/2021 VAGIN ITIS/ VAGIN OSIS, DNA PROBE trichomonas vag. detection, direct probe Negati ve negati ve Not Available [facility] [address] [place] [address], [address], 12/23/2021 19:50:41 12/30/19 23 12/29/2022 urina lysis , dipst ick Leukocytes ++ Not Available Kiersten casillas [address], [place], [address], 12/29/2022 15:24:19 12/30/1912/29/2022 urina lysis , dipst ick Nitrite + Not Available [place] [address], [place], [address], 12/29/2022 15:24:19 12/30/1912/29/2022 urina lysis , dipst ick Urobilinogen neg Not Available [facility] anastasiia [address], [place], [address], 12/29/2022 15:24:19 12/30/1912/29/2022 urina lysis , dipst ick Protein + Not Available [place] [address], [place], [address], 12/29/2022 15:24:19 12/30/1912/29/2022 urina lysis , dipst ick pH 5 Not Available [place] [address], [place], [address], 12/29/2022 15:24:19 12/30/19 23 12/29/2022 urina lysis , dipst ick Specific [place] 1.020 Not Available [facility] larry [address], [place], [address], 12/29/2022 15:24:19 12/30/19 23 12/29/2022 urina lysis , dipst ick Ketone neg Not Available [place] [address], [place], [address], 12/29/2022 15:24:19 12/30/1912/29/2022 urina lysis , dipst ick Bilirubin neg Not Available [facility] [address], [place], [address], 12/29/2022 15:24:19 12/30/19 23 12/29/2022 urina lysis , dipst ick Glucose neg Not Available [place] [address], [place], [address], 12/29/2022 15:24:19 12/30/19 23 12/29/2022 urina lysis , dipst ick Appearance cloudy Not Available [facility] [address], [place], [address], 12/29/2022 15:24:19 12/30/19 23 12/29/2022 urina lysis , dipst ick Color yellow Not Available [place] [address], [place], [address], 12/29/2022 15:24:19 08/06/19 21 08/05/2020 US, pelvi s No observ ation record ed. [facility] [address], [place], [address], 08/05/2020 17:22:09 08/06/19 21 08/05/2020 US, trans vagin al No observ ation record ed. [facility] [address], [place], [address], 08/05/2020 17:22:19 08/06/19 21 08/05/2020 US, pelvi s No observ ation record ed. layran [address], [place], [address], 08/06/2020 15:56:40 Result Notes None recorded. Problems Name Problem SNOMED Code Status Onset Date Resolution Date Notes Provider Name and Address Organization Details Recorded Time Postcoit al finding [id number] Completed 201505/07/2020 Postcoit al and contact bleeding ;Practic e ID: 0001 Bonny kinney [facility] 10:20:46 Dyspareu lyudmila [id number] Completed 201505/07/2020 Dyspareu lyudmila;Prac gloria ID: 0001 Bonny kinney [facility] 10:20:32 Cyst of ovary 50840495 Completed 201505/07/2020 Unspecif ied ovarian cysts;Pr actice ID: 0001 Bonny kinney [facility] 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 10:20:57 Finding of desire for urinatio n 248827918 Completed 201805/07/2020 Urgency of urinatio n;Record ed Elsewher e: No Locat ion: [facility] S ource: EHR Office Assistance lauren: N Yoannati ce ID: 0001 Hector lable Time: 01:00:00 PM Bonny kinney [facility] 10:20:42 Body mass index 30+ - obesity 348646884 Completed 201705/07/2020 Body mass index (BMI) 34.0-34. 9, adult;Re corded Elsewher e: No Locat ion: [facility] S ource: EHR Office Assistance lauren: N Yoannati ce ID: 0001 Hector lable Time: 01:30:00 PM Bonny kinney [facility] 10:20:28 Screenin g for malignan t neoplasm of cervix Completed 201505/07/2020 Screenin g for malignan t neoplasm s of the cervix;R ecorded Elsewher e: No Locat ion: [facility] S ource: EHR Office Assistance lauren: N Practi ce ID: 0001 Hector lable Time: 01:15:00 PM Bonnybrayan kinney [facility] 10:20:53 Urinary tract infectio us disease 93114845 Completed 201805/07/2020 Urinary tract infectio n, site not specifie d;Record ed Elsewher e: No Locat ion: Argelia rayshawn [facility] S ource: EHR Office Assistance lauren: N Practi ce ID: 0001 Hector lable Time: 01:00:00 PM Bonny kinney [facility] 1 10:21:02 Pregnanc y test negative [id number] Completed 201505/07/2020 Encounte r for pregnanc y test, result negative ;Recorde d Elsewher e: No Locat ion: [facility] S ource: EHR Office Assistance lauren: N Practi ce ID: 0001 Hector lable Time: 02:00:00 PM Bonny Madden [facility] 1 10:20:48 Pregnanc y test positive 205528680 Completed 201010/24/2011 Pregnanc y examinat ion or test, positive result;R ecorded Elsewher e: No Locat ion: [facility] S ource: EHR Office Assistance lauren: N Practi ce ID: 0001 Hector lable Time: 03:15:00 PM Not Available [facility] 0 21:46:42 Postpart um care Completed 201110/24/2011 Routine postpart um follow-u p;Record ed Elsewher e: No Locat ion: [facility] S ource: EHR Office Assistance lauren: N Practi ce ID: 0001 Hector lable Time: 10:45:00 AM Not Available [facility] 0 21:46:43 Infectio n screenin g Completed 201505/07/2020 Encounte r for screenin g for oth infec/pa rastc diseases ;Recorde d Elsewher e: No Locat ion: [facility] rayshawn [facility] S ource: EHR Office Assistance lauren: N Practi ce ID: 0001 Hector lable Time: 01:15:00 PM Bonny Madden [facility] 1 10:20:43 Speciali zed medical examinat ion Completed 201010/24/2011 Gynecolo gical Examinat ion;Yariel rded Elsewher e: No Locat ion: Argelia rayshawn [facility] S ource: EHR Office Assistance lauren: N Yoannati ce ID: 0001 Hector lable Time: 03:15:00 PM Bonny kinney [facility] 1 10:20:58 Syphilis test finding [id number] Completed 201505/07/2020 Encntr screen for infectio ns w sexl mode of transmis s;Record ed Elsewher e: No Locat ion: [facility] S ource: EHR Office Assistance lauren: N Yoannati ce ID: 0001 Hector lable Time: 01:15:00 PM Bnony kinney, [facility] 1 10:21:00 Amenorrh ea 53015790 Completed 201010/24/2011 Absence of menstrua tion;Rec orded Elsewher e: No Locat ion: [facility] S ource: EHR Office Assistance lauren: N Yoannati ce ID: 0001 Hector lable Time: 03:15:00 PM Not Available [facility] 0 21:46:44 Speciali zed medical examinat ion Completed 201305/07/2020 Gynecolo gical Examinat ion;Yariel rded Elsewher e: No Locat ion: [facility] S ource: EHR Office Assistance lauren: N Practi ce ID: 0001 Hector lable Time: 08:30:00 AM Bonny kinney [facility] [address] 10:20:[address] Concept Completed 201705/07/2020 Encntr for general adult medical exam w/o abnormal findings ;Recorde d Elsewher e: No Locat ion: [facility] S ource: EHR Office Assistance lauren: N Yoannati ce ID: 0001 Hector lable Time: 01:30:00 PM Bonny kinney [facility] 1 10:20:56 Screenin g for malignan t neoplasm of cervix Completed 201010/24/2011 Screenin g for malignan t neoplasm s of the cervix;R ecorded Elsewher e: No Locat ion: Yolanda [facility] S ource: EHR Office Assistance lauren: N Yoannati ce ID: 0001 Hector lable Time: 03:15:00 PM Bonny kinney, [facility] 10:20:53 Elevated blood-pr essure reading without diagnosi s of hyperten lino 329793427 Completed 201505/07/2020 Elevated blood-pr essure reading, without diagnosi s of hyperten lino;Rec orded Elsewher e: No Locat ion: [facility] S ource: EHR Office Assistance lauren: N Yoannati ce ID: 0001 Hector lable Time: 01:15:00 PM Bonny Madden [facility], [facility] 10:20:36 Vaginiti s and vulvovag initis Completed 201105/07/2020 Vaginiti s;Record ed Elsewher e: No Locat ion: [facility] S ource: EHR Office Assistance lauren: N Yoannati ce ID: 0001 Hector lable Time: 02:30:00 PM Bonny kinney [facility] 10:21:04 Leukocyt osis [id number] Completed 201105/07/2020 LEUKOCYT OSIS NOS;Yariel rded Elsewher e: No Locat ion: [facility] S ource: EHR Office Assistance lauren: N Yoannati ce ID: 0001 Hector lable Time: 02:30:00 PM Bonny kinney [facility] 10:20:45 Irregula r periods 96508352 Completed 201305/07/2020 Irregula r menstrua l cycle;Re corded Elsewher e: No Locat ion: [facility] S ource: EHR Office Assistance lauren: N Practi ce ID: 0001 Hector lable Time: 08:30:00 AM Bonny kinney, [facility] 10:20:44 Educatio n Completed 201005/07/2020 Other general counseli ng and advice on contrace ptive manageme nt;Pract ice ID: 0001 Bonny kinney, [facility] 10:20:34 Routine antenata l care Completed 201005/07/2020 Supervis ion of other normal pregnanc y;Practi ce ID: 0001 Bonny kinney [facility] 10:20:52 Primigra olesya 820508126 Completed 201005/07/2020 Supervis ion of normal first pregnanc y;Practi ce ID: 0001 Bonny kinney [facility] 10:20:49 anatomy study Completed 201005/07/2020 [facility] ANAT SURVEY;P ractice ID: 0001 Bonny kinney [facility] 10:20:40 Female genital organ symptoms 553660932 Completed 201105/07/2020 Unspecif ied symptom associat ed with female genital organs;P ractice ID: 0001 Bonny kinney [facility] 10:20:39 Benign essentia l hyperten lino complica ting pregnanc y, childbir th and the puerperi um - not delivere d 118715857 Completed 201105/07/2020 Hyperten lino During Pregnanc y;Practi ce ID: 0001 Bonny Wagoneran nirmal [facility] 10:20:26 Tachycar waqar 6149691 Completed 201105/07/2020 Tachycar waqar, unspecif ied;Prac gloria ID: 0001 Bonny Madden nirmal [facility] 10:21:01 Excessiv e growth affectin g manageme nt of mother 52824806 Completed 201105/07/2020 GROWTH LARGE LGA;Prac gloria ID: 0001 Bonny Madden nirmal [facility] 10:20:37 Delivery normal 87857714 Completed 201105/07/2020 Normal delivery ;Practic e ID: 0001 Bonnybrayan Madden nirmal [facility] 10:20:31 Single live from singleto n pregnanc y 304577943 Completed 201105/07/2020 Mother with single liveborn ;Practic e ID: 0001 Bonny Madden nirmal [facility] 10:20:55 Procedur e on genitour inary system Completed 201105/07/2020 Steriliz ation;Pr actice ID: 0001 Bonny Madden nirmal, [facility] 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 10:27:56 Problem Notes None recorded. Procedures Surgical History Date Name Laterality Status Provider Name and Address Organization Details Recorded Time 1 Date of Last Pap Smear completed [facility] 08/06/2020 14:49:09 0 Date of Last Mammogram completed [facility] 08/06/2020 14:49:33 6 Colposcopy completed [facility] 07/14/2020 16:54:47 2 ligation of bilateral fallopian tubes completed Bonny Madden [facility] 05/07/2020 10:26:56 Imaging Results None [...] Prescrib ed Elsewher e: No Locat ion: [facility] M odify By: cmedical Encount er [...] Prescrib ed Elsewher e: Yes Loca tion: [facility] odify By: holly ross DateTime : [...] Prescrib ed Elsewher e: No Locat ion: [facility] odify By: loida wallace DateTime : 10/24/19 [...] Prescrib ed Elsewher e: No Locat ion: [facility] odify By: iesha Dent nter DateTime : 12/06/19 01:00:00 PM Not Available Not Available Not Available escitalop demetrius 5 mg/5 mL oral solution take 10 millilit er by oral route every day 07/15 completed Prescrib ed Elsewher e: Yes [facility] By: carlos Tabares ncounter DateTime [...] Elsewher e: Yes Loca tion: Yolanda tabares [facility] odify By: amkuhl E ncounter DateTime : 07/10/19 14 08:30:00 AM Not Available Not Available Not Available Lomedia 24 Fe 1 mg-20 mcg (24)/75 mg (4) tablet take 1 tablet by oral route every day 05/19 completed Prescrib ed Elsewher e: No Locat ion: Yolanda tabares [facility] odify By: smckadiy Jae marin DateTime [...] Updated DateTime 08/06/2020 175.26 cm 35.7 kg/m2 095325.9 2 g 126 mm[Hg] 70 mm[Hg] Flakita Salgado [facility] 1 14:53:24 Date Recorded Body height Body mass index (BMI) Body weight Systolic blood pressure Diastolic blood pressure Provider Name and Address Organization Details Last Updated DateTime 12/22/2021 175.26 cm 36.2 kg/m2 495261.1 3 g 147 mm[Hg] 91 mm[Hg] Carly Krishnamurthy [facility] 2 15:21:48 Date Recorded Body height Body mass index (BMI) Body weight Systolic blood pressure Diastolic blood pressure Provider Name and Address Organization Details Last Updated DateTime 12/29/2022 175.26 cm 34.6 kg/m2 742325.0 5 g 125 mm[Hg] 87 mm[Hg] Flakita Molina [facility] 3 15:16:56 Date Recorded Systolic blood pressure Diastolic blood pressure Provider Name and Address Organization Details Last Updated DateTime 01/12/2022 138 mm[Hg] 96 mm[Hg] Argenis Moralez JOE [address], [place], [address], [facility] 01/12/2022 15:07:46 Date Recorded Body height Body mass index (BMI) Body weight Systolic blood pressure Diastolic blood pressure Provider Name and Address Organization Details Last Updated DateTime 01/12/2022 175.26 cm 35.6 kg/m2 691926.2 g 159 mm[Hg] 103 mm[Hg] Carly Krishnamurthy [facility] 14:15:15 Social History Question Answer Notes LastModified by Organizat ion Details LastModified Time Tobacco Smoking Status Former Smoker Bonny Madden nirmal, [facility] 05/07/2020 10:26:41 Are You Blind [...] anxious, or unable to sleep at night)? [id number] Information not available 07/14/2020 Family History Relationship Description Onset Age of this Age Resolved Age Notes LastModified by Organization Details LastModified Time Maternal Grandmother Diabetes mellitus [id number] Not available 2020 10:26:06 Maternal Grandmother Asthma [email or web address] Not available 05/07 10:26:14 Mother Mental disorder [...] SNOMED-CT Code Diagnosis ICD10 Code Diagnosis Note [id number] Mary Ellen Aguilar [facility] 2016 [address],[place] [address] 01/28/2020 14:34:49 01/28/2020 16:30:45 Lump of axillary tail of right breast [id number] 84028 N63.31 N63.0 Based on exam & subjective complaints we agreed to move forward with imaging. Fam Hx of grandmothe r with breast cancer maternal; but no other fam hx. Non-menopa usal hot flash [id number] 89529 R23.2 Hx of HTN on medication s Having some night sweats with temp flucuation s. Agreed on lab work to start. Will also f/u PCP Periods are regular monthly. [id number] Keely Pang [facility] [address],[place] [address] 05/07/2020 10:04:17 06/29/2020 14:58:46 30139 Keely Pang [place] [address],[place] [address] 05/07/2020 10:19:12 05/07/2020 10:57:14 Vaginitis [id number] N76.0 Use mild soap like dove or ivory, cotton underwear w/out dye, hypoallerg enic detergent, wipe from front to back, avoid tub baths, keep perineum clean and dry, d/c use of baby wipes. Recommend daily intake of yogurt or womens health probiotic. Internal and external affirm collected along with STD screen. Urinary tr act infectious disease [id number] N39.0 Urine negative with exception of blood but pt is on her cycle. Urine sent for culture. Increase water and decrease caffeine. [id number] Mary Ellen Aguilar [facility] [address],[place] [address] 07/15/2020 14:31:36 07/15/2020 15:33:17 Abnormal uterine bleeding [id number] 9100 N93.9 TVUS ordered Recently had TSH [...] this patient s visit, including available hand supervisor cook house upon arrive, temperatur e check and being asked a series of screening questions. All staff wore face coverings during this encounter, as well as provided additional cleaning and sanitizing of all surfaces, including countertop s, pens, chairs, door handles, light switches, etc, prior to and following the patient s visit. Blood in urine [id number] R31.9 [id number] Monty Alves MD [place] [address] [address] 08/05/2020 13:52:20 08/05/2020 14:43:25 Abnormal uterine bleeding [id number] 9100 N93.9 19752 [facility] Ellen [facility] [address],[place] [address] 08/06/2020 14:26:00 08/06/2020 15:32:38 Irregular periods [id number] N92.6 TVUS considered wnl with 3cm corpus [...] this patient s visit, including available hand supervisor cook house upon arrive, temperatur e check and being asked a series of screening questions. All staff wore face coverings during this encounter, as well as provided additional cleaning and sanitizing of all surfaces, including countertop s, pens, chairs, door handles, light switches, etc, prior to and following the patient s visit. [id number] NISREEN Garcia [facility] [address] [address] 12/22/2021 15:07:38 12/22/2021 15:47:23 Vaginitis [id number] N76.0 Suspect BV/yeastVa ginitis panel sentSTI endocervic al testing sentVulvar care guidelines discussed in-depthRx sentR/B of medication discussed and accepted by patientRTC for WWE Time spent in visit is a total of 20 mins with at least 50% of visit consisting of counseling and review of plan of care. Venereal d isease screening [id number] Z11.3 [id number] NISREEN Garcia [facility] [address] [address] 01/12/2022 13:55:29 01/12/2022 15:18:35 Gynecologic examination [id number] Z01.419 Take Calcium with Vitamin D 1200mg [...] f/u with PCP. ED precaution s discussed [id number] NISREEN Garcia [facility] [address] [address] 12/29/2022 15:05:25 12/29/2022 16:26:23 Urinary symptoms [id number] R39.9 suspect UTIcx sentrx sent, r/b/a reviewedde [...] and review of plan of care. Dysuria [id number] R30.0 Health Concerns Section Related Observation LastModified by Organization Detai ls LastModified Time None Recorded Concern Status LastModified by Organization Details LastModified Time None Recorded Advance Directives Directive None Recorded Payers Encounter Date Sequence Insurance Name Policy Number Policy Pagan Covered Member ID Pagan Member ID Guarantor Name 08/05/2020 1 [facility] (MEDICAID HMO) [id number] Karey A [place] [id number] Karey A [place] 08/06/2020 1 [facility] [place] [id number] Karey A [place] [id number] Karey A [place] 12/22/2021 1 [employer] [facility] [facility] [place] [id number] Karey A [place] [id number] Karey A [place] 01/12/2022 1 [employer] [facility] [place] [id number] 0003 Karey A [place] [id number] Karey A [place] 12/29/2022 1 [employer] [facility] [place] [id number] Karey Carranza [place] [id number] Karey A [place] Notes Date Note Type Note Provider Name and Address Organization Details Recorded Time 08/06/2020 text/html Here for TVUS Fo llow up for irregular cycle. NISREEN Moran-BC [address], [place], [address], [facility] 08/06/2020 15:14:34 12/22/2021 text/html 36yo Presents fo r evaluation of vaginal discharge, odor, and itchingPresents for the last 1 weekSA with steady partnerBC - BTL NISREEN Garcia [address], [place], [address], [facility] 12/22/2021 15:42:29 01/12/2022 text/html [...] age 40 NISREEN Garcia [address], [place], [address], [facility] 01/12/2022 15:06:49 12/29/2022 text/html 37yopresents for urinary symptomsurinary frequency/pressuresy mptoms started 2-3 days agodrinking more caffeine latelydenies flank pains, n/v/f, or flu-like symptomsBTL for BCno vaginal symptoms N[address] Garcia [address], [place], [address], [facility] 12/29/2022 16:23:20 OBGyn Episode Ob Episode Information Episode Created Date Number of Fetuses Patient Bloodtype Patient rh Status Prepregnancy Weight lbs Domestic Partner Domestic Partner Phone Father Name Collar Padder Blindstitch Status 05/08/19 21 1 CLOSED Fetus Data [...] Domestic Partner Domestic Partner Phone Father Name Collar Padder Blindstitch Status 05/08/19 21 1 CLOSED Fetus Data [...] Domestic Partner Domestic Partner Phone Father Name Collar Padder Blindstitch Status 05/08/19 21 1 CLOSED Fetus Data [...] Domestic Partner Domestic Partner Phone Father Name Collar Padder Blindstitch Status 05/08/19 21 1 CLOSED Fetus Data [...]
--- NOTE | 2024-08-12 07:56 | WPDHPUPDATE1 ---
History and Physical Update Update Date/Time: 08/12/24 07:56 History and Physical has been reviewed, including an updated exam of the patient. There are NO changes in the patient's condition. Risks, benefits, and alternatives have been discussed and questions answered. Patient agrees to proceed with procedure.
--- NOTE | 2024-08-12 07:56 | PM.HPGS ---
History of Present Illness History of Present Illness Consent: Risks, benefits, and alternatives have been discussed and questions answered. Patient agrees to proceed with procedure. Chief complaint: Abnormal Uterine Bleeding Narrative: Karey Donovan is a 39 year old female with heavy bleeding and anemia. Pelvic ultrasound was normal. Hemoglobin was 10. It was recommended to undergo D&C hysteroscopy for further evaluation. Risks of infection, bleeding, perforation, and possible pathology are discussed. Patient voices understanding and agrees to proceed. Review of Systems Review of Systems: not repeated day of surgery; patient states no changes in status PMFSH Past Medical History Medical History (Updated 08/12/24 @ 08:01 by Zamzam Lockhart MD) (normal spontaneous vaginal delivery) X3 B12 deficiency Hypothyroid Depression HTN (hypertension) Surgical History Surgical History (Updated 08/12/24 @ 07:59 by Zamzam Lockhart MD) History of bilateral tubal ligation History of D&C 2011 for spontaneous miscarriage Social History Social History Smoking status: Never smoker Tobacco type: e-cigarettes/vaping Gender identity (if verbalized by the patient): Female Meds Home Medications and Allergies Home Medications ?Medication ?Instructions ?Recorded ?Confirmed ?Type topiramate 25 mg tablet 25 mg PO PRN headache 09/20/19 08/05/24 History lisinopril 40 mg tablet 40 mg PO DAILY 02/06/21 08/05/24 History tranexamic acid 650 mg tablet 1,300 mg (2 x 650 mg) PO TID #30 07/13/24 08/05/24 Rx tabs ferrous sulfate 137 mg (45 mg 137 mg PO DAILY 08/05/24 08/05/24 History iron) tablet,extended release (Slow Fe) levothyroxine 50 mcg tablet 50 mcg PO DAILY 08/05/24 08/05/24 History Allergies Allergy/AdvReac Type Severity Reaction Status Date / Time No Known Allergies Allergy Verified 08/05/24 14:23 Exam Const: General: healthy appearing, alert and obese (Weight 247) Orientation/consciousness: patient oriented x3 Resp: Effort & Inspection: normal respiratory effort : External Female Exam: normal external appearance Speculum Exam - Vagina: normal appearance of the vagina and normal vaginal discharge Speculum Exam - Cervix: normal appearance of the cervix Bimanual exam- vagina & uterus: uterine size normal and consistency normal Bimanual Exam- Adnexa, other: normal adnexae and No adnexal tenderness Neuro: General: patient oriented x3 Assessment and Plan Assessment and plan (1) Menorrhagia: Code(s): N92.0 - Excessive and frequent menstruation with regular cycle Status: Acute Assessment and Plan: Plan to proceed with D&C hysteroscopy
[2024-08-12] MEDS: LACTATED RINGERS 1,000 ML 30 ML IV CONT (08:30)
[2024-08-12] MEDS: ACETAMINOPHEN 500 MG TABLET 1000 MG PO (08:30)
[2024-08-12 08:57] LABS: BEDSIDEPREGUCG Negative (Negative)
--- NOTE | 2024-08-12 09:13 | WPDANESEPPF ---
Anes - Initial Pre Proc Eval Procedure: Operation Date: 08/12/24 09:45 Proposed Procedures p Hysteroscopy Dilation and Curettage - Zamzam Lockhart MD Date/Time: 08/12/24 09:13 Surgeon: Zamzam Lockhart MD Pre Op Diagnosis: Abnormal Uterine Bleeding Patient Data Age: 39 Gender: F Height: 1.73 m Weight: 111.9 kg Allergies Allergy/AdvReac Type Severity Reaction Status Date / Time No Known Allergies Allergy Verified 08/12/24 08:57 Home Medications ?Medication ?Instructions ?Recorded ?Confirmed ?Type topiramate 25 mg tablet 25 mg PO PRN headache 09/20/19 08/05/24 History lisinopril 40 mg tablet 40 mg PO DAILY 02/06/21 08/05/24 History tranexamic acid 650 mg tablet 1,300 mg (2 x 650 mg) PO TID #30 07/13/24 08/05/24 Rx tabs ferrous sulfate 137 mg (45 mg 137 mg PO DAILY 08/05/24 08/05/24 History iron) tablet,extended release (Slow Fe) levothyroxine 50 mcg tablet 50 mcg PO DAILY 08/05/24 08/05/24 History Laboratory Tests 08/12/24 08:30 POC Urine HCG, Qual Negative (Negative) Patient hx anesthesia problems: none Family hx anesthesia problems: none Results Review: All pre-operative results and documents have been reviewed as part of the pre-operative evaluation. [facility] Past Medical History Medical History (normal spontaneous vaginal delivery) X3 B12 deficiency Hypothyroid Depression HTN (hypertension) Surgical History Surgical History History of bilateral tubal ligation History of D&C 2010 for spontaneous miscarriage Social History Social History Smoking status: Never smoker Tobacco type: e-cigarettes/vaping Gender identity (if verbalized by the patient): Female Anes - Eval Final PreProcedure Day of Procedure 08/12/24 09:13 Patient weight: obese Heart: regular rate and rhythm Lungs: clear to auscultation Airway: Mallampati scale class II Neurological: alert and oriented Last oral intake: >/= 8 hours ASA classification: II Emergent: no Anesthetic plan: proceed Anesthesia type and monitoring: general GIVS and standard monitoring Results Review: All pre-operative results and documents have been reviewed as part of the pre-operative evaluation. Informed Consent: The patient's anesthetic plan and its attendant risks and benefits were discussed with the patient/family/POA. Questions were solicited and answers provided to the satisfaction of the patient/family/POA.
--- NOTE | 2024-08-12 09:28 | S_PTH ---
PATIENT: Karey Donovan LOC: [facility] U#:[id number] AGE/SX: 39/F ROOM: RE08/12/[address]: Zamzam Lockhart MD : 1985 BED: DIS: 08/12/2024 SPEC #: [id number] RECD: 08/12/24 10:25 STATUS: RACHEL REQ #: [id number] JOSSELIN: 08/12/24 09:[address]: Zamzam Lockhart DEPT: [facility] Surgical RECD BY: [place] Marley ENTERED: 08/12/24 10:26 SP TYPE: Surgical OTHR DR: Edison Block MD Tissues: A - Endometrial Curettings Procedures: Hematoxylin and Eosin Stain Gross and Microscopic Level 4
[2024-08-12 09:35] VITALS: BP 139/70; PULSE 67; RESP 16; O2SAT 98
--- NOTE | 2024-08-12 09:35 | W.PM.PROC2 ---
Procedure Note - Detailed Date of Procedure 08/12/24 Pre-op Diagnosis Abnormal Uterine Bleeding Post-op Diagnosis Same Procedure Performed D&C hysteroscopy Surgeon Zamzam Lockhart MD Anesthesia MAC Findings Uterus sounds to 12cm and appears grossly normal Description of Procedure The patient is taken to the operating room and placed under anesthesia in the dorsal lithotomy position. She was prepped and draped in the usual sterile fashion. [place] speculum was placed in the vagina and the cervix grasped on the anterior lip with a tenaculum. Uterus sounded to 12cm. The diagnostic hysteroscope was placed and with no abnormalities noted the hysteroscope was removed. The sharp curette was used to curette the endometrium until a good uterine cry was noted in all areas. Instruments are removed. Sponge, needle, and instrument counts are correct per the OR staff. The patient was taken to recovery in stable condition. Estimated Blood Loss 5 Drains No Packing No Pathology Yes (Endometrial curettings) Complications No immediate complications Condition Stable Disposition PACU
[2024-08-12 10:05] VITALS: BP 139/70; PULSE 67; RESP 16; O2SAT 99
[2024-08-12 10:25] VITALS: BP 129/77; PULSE 64; RESP 18
== END 2024-08-12 10:40 | disposition home or self-care (01) ==
PROVIDERS: PCP Family Medicine; Visit Provider Obstetrics & Gynecology Gynecology
PROC: 0U5B8ZZ Destruction of Endometrium, Via Natural or Artificial Opening Endoscopic (ICD-10-PCS; CPT 58563; principal; 2024-08-12 09:45)
DX: N92.0 Excessive and frequent menstruation with regular cycle (principal); N84.0 Polyp of corpus uteri; D64.9 Anemia, unspecified; E66.9 Obesity, unspecified; Z68.37 Body mass index [BMI] 37.0-37.9, adult
CPT/HCPCS: 58558; 88305; A9270; J2003; J2250; J2405; J2704; J3010; J7120

== ENCOUNTER 2024-10-14 13:13 | Outpatient (CLI) | payer OTHER, SELFPAY ==
--- OUTSIDE RECORDS SUMMARY | 2024-10-14 13:44 | XMS_ITS | Clinical Summary ---
Author Organization [facility] Address [address] [place] [address] Care Team Providers Care Pet Care Associate Name Role Phone Edison Block MD Primary Care Provider [phone] Social History Tobacco Use Types Packs/Day Years [...] of 3 - 19+ 3-dose series) 2004 HPV Vaccines (1 - 3-dose SCD M series) 2012 Cervical Cancer Screening Pa p with HPV Testing (Age 30 to 64) Every 5 Years 2015 Cervical Cancer Screening with HPV 2015 COVID-19 Vaccine (2023-2 5 season) 2023 Meningococcal B Vaccine Aged Out No l [...] age to complete this topic Care Teams Pet Care Associate Relationship Specialty Start Date End Date Edison Block MD [address] [place] [address] [facility] - General 10/11/13
--- OUTSIDE RECORDS SUMMARY | 2024-10-14 13:44 | XMS_ITS | Clinical Summary ---
Author Organization [facility] Address [address] [place] [address] Care Team Providers Care Manufacturers Representative Name Role Phone Edison Block MD Primary Care Provider Source Comments [facility],non-owned Affiliates and Associated Physician Practices is amultiple site organization consisting of ambulatory clinics and hospital sitesin [place], [place], [place] and [place]. This disclosure is being madepursuant to the Care Everywhere program and may not contain all information available regarding this patient. Last updated 17.[facility] Medications * Be aware that medications may not be up to date on this document. Alwaysverify current medications with the patient. 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 [employer] GENERIC SELF PAY NO INSURANCE Member Subscriber Plan / Payer (Ef fective for All Dates) Name:Kyle Salcedo Member ID:Not on file Relation to Subscriber:Not on file Name:KYLE SALCEDO Subscriber ID:Not on file (Home) Address: [address] [place] [address] Payer ID:Not on file Group ID:Not on file Type:Self Pay Address: [place], [place] Care Teams Manufacturers Representative Relationship Specialty Start Date End Date Edison Blcok MD [address] [place], [place] [id number] PCP - General 07/23/18
--- OUTSIDE RECORDS SUMMARY | 2024-10-14 13:44 | XMS_ITS | Clinical Summary ---
Author Organization [address] Address [address] [place] [address] Care Team Providers Care Chair Inspector And Leveler Name Role Phone Edison Block MD Primary Care Provider [phone] Allergies No known active allergies Medications cyclobenzaprine [...] infection, site not specified;Recorded Elsewhere: No Location: [facility] Source: EHR Chronic: N Practice ID: [id number] Billable Time: 01:00:00 PM Obesity with body mass index 30 or greater 01/21 Overview (03/15/2023): Body mass index (BMI) 34.0-34.9, adult;Recorded Elsewhere: No Location: [facility] Source: EHR Chronic: N Practice ID: [id number] Billable Time: 01:30:00 PM Cyst of ovary 07/07/2015 Overview (12/06/2022): Unspecified ovarian cysts;Practice ID: [id number] Elevated blood-pressure read ing without diagnosis of hypertension 05/20/2015 Overview (12/06/2022): Elevated blood-pressure reading, without diagnosis of hypertension;Recorded Elsewhere: No Location: [facility] Source: EHR Chronic: N Practice ID: [id number] Billable Time: 01:15:00 PM Irregular periods 07/09/2013 Overview (03/15/2023): Irregular menstrual cycle;Recorded Elsewhere: No Location: [facility] Source: EHR Chronic: N Practice ID: [id number] Billable Time: 08:30:00 AM Leukocytosis 10/24/2011 Overview (03/15/2023): LEUKOCYTOSIS NOS;Recorded Elsewhere: No Location: [facility] Source: EHR Chronic: N Practice ID: [...] (12/06/2022): Absence of menstruation;Recorded Elsewhere: No Location: [facility] Source: EHR Chronic: N Practice ID: [...] on file Legal Sex 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
--- OUTSIDE RECORDS SUMMARY | 2024-10-14 13:44 | XMS_ITS | Clinical Summary ---
Author Organization [facility] Address [address] [place] [address] Phone Care Team Providers Care Computer Network And Systems Engineer Name Role Phone Unavailable Primary Care Provider Unavailabl e Encounters Date Type Department Care Team Description 10/09/2024 Chart Note [facility] Minimally Invasive Gynecology [address] [place] [address] Lauren Amato LPN from Last 3 Months Social History Tobacco Use Types Packs/Day Years Used Date Smoking Tobacco: Never Assessed Comments Unknown Sex and Gender Information Value Date Recorded Sex Assigned at Not on file Legal Sex Female 10:01 AM CDT Gender Identity Not on file Sexual Orientation Not on file Plan of Treatment Upcoming Encounters Date Type Department Care Team (Late st Contact Info) Description 12/09/2024 3:00 PM CDT Office Visit [facility] Invasive Gynecology [address] [place] [address] Miguel Angel Snow MD [address] [facility] [address] [place] [address] Health Maintenance Due Date Last Done Comments HPV VACCINES (1 - 3-dose series) 2000 DTAP/TDAP/TD VACCINES (1 - Tdap) 2004 HEPATITIS B VACCINES (1 of 3 - 19+ 3-dose series) 11/2004 HPV/Cotest (21-29) 2006 CERVICAL CANCER SCREENING 2015 HPV/Cotest (30-65) 2015 PAP SMEAR 2015 INFLUENZA VACCINE (#1) 2024 Insurance [employer] [id number]
[2024-10-14 14:31] LABS: Hematocrit 22.5 % (37.0-47.0)
[2024-10-14 14:45] LABS: Hemoglobin 6.5 g/dL (12.0-15.0)
== END 2024-10-14 13:14 | disposition home or self-care (01) ==
PROVIDERS: PCP Family Medicine
DX: D50.0 Iron deficiency anemia secondary to blood loss (chronic) (principal)
CPT/HCPCS: 36415; 85014; 85018

== ENCOUNTER 2024-10-14 18:34 | Emergency (ER) | payer OTHER, SELFPAY ==
[2024-10-14] VITALS (21 sets, daily range): BP systolic 119–145; BP diastolic 78–97; PULSE 77–94; RESP 13–22; TEMP 36.6–37.2; O2SAT 99–100
--- OUTSIDE RECORDS SUMMARY | 2024-10-14 18:37 | XMS_ITS | Clinical Summary ---
Author Organization [facility] Address [address] [place] [address] Care Team Providers Care Deployment Specialist Name Role Phone Edison Block MD [...] age to complete this topic Care Teams Deployment Specialist Relationship Specialty Start Date End Date Edison Block MD [address] [place] [address] [facility] - General 10/11/13
--- OUTSIDE RECORDS SUMMARY | 2024-10-14 18:37 | XMS_ITS | Clinical Summary ---
Author Organization [facility] Address [address] [place] [address] Care Team Providers Care Manager Employment Name Role Phone Edison Block MD Primary Care Provider [phone] Source Comments [facility] [employer] [facility],non-owned Affiliates and Associated Physician Practices is amultiple site organization consisting of ambulatory clinics and hospital sitesin [place], [place], [place] and [place]. This disclosure is being madepursuant to the Care Everywhere program and may not contain all information available regarding this patient. Last updated 17.[facility] Medications * Be aware that medications may not be up to date on this document. Alwaysverify current medications with the patient. 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 Gender Identity Not on file Sexual Orientation [...] patient's age to complete this topic Insurance [facility] [employer] GENERIC SELF PAY NO INSURANCE Member Subscriber Plan / Payer (Ef fective for All Dates) Name:Kyle Salcedo Member ID:Not on file Relation to Subscriber:Not on file Name:KYLE SALCEDO Subscriber ID:Not on file (Home) Address: [address] [place] [address] Payer ID:Not on file Group ID:Not on file Type:Self Pay Address: [place], [place] Care Teams Manager Employment Relationship Specialty Start Date End Date Edison Bolck MD [address] [place], [place] [id number] PCP - General 07/23/18
--- OUTSIDE RECORDS SUMMARY | 2024-10-14 18:37 | XMS_ITS | Clinical Summary ---
Author Organization [facility] Address [address] [place] [address] Phone Care Team Providers Care Commission Broker Name Role Phone Unavailable Primary Care Provider Unavailabl e Encounters Date Type Department Care Team Description 10/09/2024 Chart Note [facility] Minimally Invasive Gynecology [address] [facility] [facility] [address] [place] [address] Lauren Amato LPN from Last [...] Description 12/09/2024 3:00 PM CDT Office Visit [facility] Invasive Gynecology [address] [facility] [address] [place] [address] Miguel Angel Snow MD [address] [facility] [address] [place] [address] Health Maintenance Due Date Last Done Comments HPV VACCINES (1 - 3-dose series) 2000 DTAP/TDAP/TD VACCINES (1 - Tdap) 2004 HEPATITIS B VACCINES (1 of 3 - 19+ 3-dose series) 11/2004 HPV/Cotest (21-29) 2006 CERVICAL CANCER SCREENING 2015 HPV/Cotest (30-65) 2015 PAP SMEAR 2015 Preventative Visit- Commercial 03/06/2024 INFLUENZA VACCINE (#1) 2024 Insurance [employer] SYSTEM[employer] [id number]
--- OUTSIDE RECORDS SUMMARY | 2024-10-14 18:37 | XMS_ITS | Clinical Summary ---
Author Organization [address] Address [address] [place] [address] Care Team Providers Care Workers' Compensation Magistrate Name Role Phone Edison Block MD Primary Care Provider [phone] Allergies No known active allergies Medications cyclobenzaprine [...] infection, site not specified;Recorded Elsewhere: No Location: [facility] Source: EHR Chronic: N Practice ID: [id number] Billable Time: 01:00:00 PM Obesity with body mass index 30 or greater 01/21 Overview (03/15/2023): Body mass index (BMI) 34.0-34.9, adult;Recorded Elsewhere: No Location: [facility] Source: EHR Chronic: N Practice ID: [id number] Billable Time: 01:30:00 PM Cyst of ovary 07/07/2015 Overview (12/06/2022): Unspecified ovarian cysts;Practice ID: 0001 Elevated blood-pressure read ing without diagnosis of hypertension 05/20/2015 Overview (12/06/2022): Elevated blood-pressure reading, without diagnosis of hypertension;Recorded Elsewhere: No Location: [facility] Source: EHR Chronic: N Practice ID: [id number] Billable Time: 01:15:00 PM Irregular periods 07/09/2013 Overview (03/15/2023): Irregular menstrual cycle;Recorded Elsewhere: No Location: [facility] Source: EHR Chronic: N Practice ID: [id number] Billable Time: 08:30:00 AM Leukocytosis 10/24/2011 Overview (03/15/2023): LEUKOCYTOSIS NOS;Recorded Elsewhere: No Location: [facility] Source: EHR Chronic: N Practice ID: [id number] [...] (12/06/2022): Absence of menstruation;Recorded Elsewhere: No Location: [facility] Source: EHR Chronic: N Practice ID: [id number] [...] on file 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
[2024-10-14 19:04] LABS: Hematocrit 21.6 % (37.0-47.0); Immature Granulocyte Percent A 0.6 % (0-0.5); Lymphocytes Absolute Auto 2.48 K/mm3 (0.9-3.2); Mean Corpuscular HGB Conc 27.8 g/dl (32-36); Mean Corpuscular Hemoglobin 21.1 pg (26-34); Mean Corpuscular Volume 75.8 fl (80-100); Nucleated Red Blood Cells Absolute Auto 0.000 K/mm3 (0.0-0.012); Nucleated Red Blood Cells Perc 0.0 % (0.0-0.2); Platelet Count Result 406 k/mm3 (150-375); Red Blood Count 2.85 M/mm3 (4.2-5.4); White Blood Count 8.7 K/mm3 (4.5-10.0)
[2024-10-14 19:14] LABS: INR 1.0; Prothrombin Time 13.6 Seconds (11.1-14.7)
[2024-10-14 19:15] LABS: Partial Thromboplastin Time 31.1 Seconds (22.3-36.8)
--- NOTE | 2024-10-14 19:20 | ED.RECABL ---
HPI - Recheck/Abnormal Lab/Rx General Chief Complaint: Vaginal Bleeding Stated Complaint: low Hgb, doc sent for transfusion Time Seen by Provider: 10/14/24 19:09 History of Present Illness HPI narrative: 39-year-old female with history of heavy menstrual bleeding, dysfunction seizure bleeding/menorrhagia. She presents to the emergency department with abnormal outside hospital labs did show acute anemia. Patient has been having hemoglobin drop secondary to the ongoing bleeding. She states that she has not had any new or recent bleeding that is worse than her baseline but her hemoglobin keeps dropping. She went to another OBGYN this last week for 2nd opinion after she had hysteroscopy in August that did not really have anything significant according to the findings on the report. Patient endorses feeling fatigued and short of breath when she walks around but at rest she has no symptoms. She is endorsing pallor and some blue discoloration to her lips. Previous to these last few months was in her normal state of health. Her neck is interventions are for hysterectomy that she is being evaluated for next Monday. She is currently on iron supplements, contraceptive medications to prevent bleeding, medroxyprogesterone, oral TXA, oral ergotamine. These medications are being prescribed by her current OBGYN who is managing her menorrhalgia. No history of transfusions before. Related Data Home Medications ?Medication ?Instructions ?Recorded ?Confirmed ?Last Taken ?Type topiramate 25 mg tablet 25 mg PO PRN headache 09/20/19 08/05/24 Unknown History lisinopril 40 mg tablet 40 mg PO DAILY 02/06/21 08/05/24 Unknown History ferrous sulfate 137 mg (45 mg 137 mg PO DAILY 08/05/24 08/05/24 Unknown History iron) tablet,extended release (Slow Fe) levothyroxine 50 mcg tablet 50 mcg PO DAILY 08/05/24 08/05/24 Unknown History Allergies Allergy/AdvReac Type Severity Reaction Status Date / Time No Known Allergies Allergy Verified 08/12/24 08:57 Review of Systems Review of Systems: As reviewed above in HPI [facility] Past Medical History Medical History (normal spontaneous vaginal delivery) X3 B12 deficiency Hypothyroid Depression HTN (hypertension) Surgical History Surgical History History of bilateral tubal ligation History of D&C 2011 for spontaneous miscarriage Social History Social History Smoking status: Never smoker Tobacco type: e-cigarettes/vaping Living arrangements: with family Gender identity (if verbalized by the patient): Female Spiritual care concerns: No Exam Narrative: GENERAL: Pale but not any acute distress HEAD: [Normocephalic, atraumatic.] EYES: PERRLA, bilateral conjunctival pallor, ENT: Nares clear, no rhinorrhea or epistaxis. Mucous membranes moist. Blue discoloration to the lips NECK: Supple. CHEST: [Clear to auscultation. No respiratory distress.] HEART: [Regular rate and rhythm]. No murmur heard. [Normal peripheral pulses.] ABDOMEN: [Soft, nondistended], [nontender], [No rigidity or guarding] EXTREMITIES: Normal range of motion. [No edema.] SKIN: Pale, dry NEURO: [No focal deficits]. Alert and oriented [x3.] PSYCH: [Normal mood and affect.] Course Vital Signs Vital signs: Vital Signs Temperature 36.6 C 10/14/24 18:41 Pulse Rate 94 10/14/24 18:41 Respiratory Rate 16 10/14/24 18:41 Blood Pressure 145/97 H 10/14/24 18:41 Pulse Oximetry 100 10/14/24 18:41 Oxygen Delivery Room Air 10/14/24 18:41 Temperature 37.2 C 10/15/24 00:48 Pulse Rate 79 10/15/24 01:21 Respiratory Rate 16 10/15/24 01:21 Blood Pressure 137/86 10/15/24 01:21 Pulse Oximetry 100 10/15/24 01:21 Oxygen Delivery Room Air 10/14/24 18:41 MDM - Recheck/Abnormal Lab/Rx MDM Narrative Medical decision making narrative: 39-year-old female with history of heavy menstrual bleeding, dysfunction seizure bleeding/menorrhagia. She presents to the emergency department with abnormal outside hospital labs did show acute anemia. Patient has been having hemoglobin drop secondary to the ongoing bleeding. She states that she has not had any new or recent bleeding that is worse than her baseline but her hemoglobin keeps dropping. She went to another OBGYN this last week for 2nd opinion after she had hysteroscopy in August that did not really have anything significant according to the findings on the report. Patient endorses feeling fatigued and short of breath when she walks around but at rest she has no symptoms. She is endorsing pallor and some blue discoloration to her lips. Previous to these last few months was in her normal state of health. Her neck is interventions are for hysterectomy that she is being evaluated for next Monday. She is currently on iron supplements, contraceptive medications to prevent bleeding, medroxyprogesterone, oral TXA, oral ergotamine. These medications are being prescribed by her current OBGYN who is managing her menorrhalgia. No history of transfusions before. Laboratory studies reviewed and she has been having a persistent hemoglobin drop secondary to the vaginal bleeding. She is not any acute physical or respiratory distress. She appears well compensated with normal vital signs here. She does have some pallor to her extremities and eyes, lips. No symptomatic findings at rest but states that she symptomatic when she exerts herself such as feeling fatigued and tired/short of breath. Given patient's historical features and hemoglobin of 6.5 repeat labs were obtained here and 2 units of packed red blood cells will be transfused. No signs of shock or any symptoms at rest which is reassuring that patient can be safely discharged upon completion of transfusion and workup with regular OBGYN follow-up for definitive management with likely hysterectomy in the near future which she is being evaluated for in a week. Repeat hemoglobin came up to 7.3 after transfusion. Patient remains stable without any symptoms at rest. Safe for discharge with OBGYN follow-up in given return precautions. Medical Records Attestation: I reviewed the patient's medical records. Lab Data Attestation: I reviewed the patient's lab results. 10/15/24 00:24 10/14/24 18:58 Labs: Lab Results 10/14/24 10/15/24 Range/Units 18:58 00:24 WBC 8.7 (4.5-10.0) K/mm3 RBC 2.85 L (4.2-5.4) M/mm3 Hgb 6.0 L* 7.3 L (12.0-15.0) g/dL Hct 21.6 L 25.4 L (37.0-47.0) % MCV 75.8 L (80-100) fl MCH 21.1 L (26-34) pg MCHC 27.8 L (32-36) g/dl RDW 16.3 H (11.5-14.5) % Plt Count 406 H (150-375) k/mm3 MPV 9.0 (7.4-10.4) fl Immature Gran % (Auto) 0.6 H (0-0.5) % Neut % (Auto) 58.7 (45.5-73.1) % Lymph % (Auto) 28.6 (18.3-44.2) % [place] % (Auto) 9.2 H (2.6-8.5) % Eos % (Auto) 2.4 (0-4.4) % Baso % (Auto) 0.5 (0.2-1.2) % Lymph # (Auto) 2.48 (0.9-3.2) K/mm3 [place] # (Auto) 0.8 H (0.1-0.6) K/mm3 Eos # (Auto) 0.2 (0-0.3) K/mm3 Baso # (Auto) 0.0 (0.0-0.1) K/mm3 Abs Immat Gran (auto) 0.05 H (0.00-0.031) K/mm3 Absolute Neuts (auto) 5.1 (1.3-6.7) K/mm3 Absolute Nucleated RBC 0.000 (0.0-0.012) K/mm3 Band Neutrophils % 0 (0-6) % Nucleated RBC % 0.0 (0.0-0.2) % Platelet Estimate Increased (Adequate) Hypochromasia 1+ Anisocytosis 2+ Microcytosis 1+ (NORMAL) Schistocytes None seen PT 13.6 (11.1-14.7) Seconds INR 1.0 APTT 31.1 (22.3-36.8) Seconds Sodium 137 (137-145) mmol/L Potassium 4.1 (3.4-5.0) mmol/L Chloride 108 H (98-107) mmol/L Carbon Dioxide 21 L (22-30) mmol/L Anion Gap 8 (4-12) mmol/L BUN 19 H (7-17) mg/dL Creatinine 0.67 L (0.7-1.0) mg/dL Estim Creat Clear Calc 129 ml/min Estimated GFR > 60 (59 - ) Glucose 91 (65-110) mg/dL Calcium 8.6 (8.4-10.2) mg/dL Total Bilirubin 0.3 (0.2-1.3) mg/dL AST 25 (14-36) U/L ALT 15 (6-35) U/L Alkaline Phosphatase 62 (38-126) U/L Total Protein 7.1 (6.3-8.2) g/dL Albumin 4.0 (3.5-5.1) g/dL Blood Type O Positive Antibody Screen Negative Crossmatch See Detail Critical Care Time Critical Care Time Critical Care Time: Yes Total Critical Care Time: 35 Discharge Plan Discharge Clinical Impression: Anemia requiring transfusions, Menorrhagia Patient Disposition: Home Condition: Stable Instructions: Antibiotic Form, Abnormal (Dysfunctional) Uterine Bleeding (ED), Menorrhagia (ED) Additional Instructions: Your hemoglobin tete after blood transfusion here today but you do need evaluation by OBGYN for definitive care including hysterectomy if this is the source of your bleeding. Return with any emergent concerns recurrent symptoms. Patient Language: Salvadorean Prescriptions: No Action lisinopril 40 mg tablet 40 mg PO DAILY topiramate 25 mg tablet 25 mg PO PRN Rx Instructions: as directed tranexamic acid 650 mg tablet 1,300 mg PO TID Qty: 30 0RF levothyroxine 50 mcg tablet 50 mcg PO DAILY Slow Fe 137 mg (45 mg iron) tablet extended release 137 mg PO DAILY Follow-up/Referrals: Edison Block MD [Primary Care Provider] - Time of Disposition: 00:57
--- OUTSIDE RECORDS SUMMARY | 2024-10-14 19:23 | XMS_ITS | Clinical Summary ---
Author Organization [address] Address [address] [place] [id number] Care Team Providers Care Tool Shaper Set Up Operator Name Role Phone Edison Block MD Primary Care Provider [phone] Allergies No known active allergies Medications cyclobenzaprine [...] No Location: [facility] Source: EHR Chronic: N Practice ID: [id number] Billable Time: 01:00:00 PM Obesity with body mass index 30 or greater 01/21 Overview (03/15/2023): Body mass index (BMI) 34.0-34.9, adult;Recorded Elsewhere: No Location: [facility] Source: EHR Chronic: N Practice ID: [id number] Billable Time: 01:30:00 PM Cyst of ovary 07/07/2015 Overview (12/06/2022): Unspecified ovarian cysts;Practice ID: 0001 Elevated blood-pressure read ing without diagnosis of hypertension 05/20/2015 Overview (12/06/2022): Elevated blood-pressure reading, without diagnosis of hypertension;Recorded Elsewhere: No Location: [facility] Source: EHR Chronic: N Practice ID: [id number] Billable Time: 01:15:00 PM Irregular periods 07/09/2013 Overview (03/15/2023): Irregular menstrual cycle;Recorded Elsewhere: No Location: [facility] Source: EHR Chronic: N Practice ID: [id number] Billable Time: 08:30:00 AM Leukocytosis 10/24/2011 Overview (03/15/2023): LEUKOCYTOSIS NOS;Recorded Elsewhere: No Location: [facility] Source: EHR Chronic: N Practice ID: [id number] [...] No Location: [facility] Source: EHR Chronic: N Practice ID: [id number] [...] on file 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
--- OUTSIDE RECORDS SUMMARY | 2024-10-14 19:24 | XMS_ITS | Clinical Summary ---
Author Organization [facility] Address [address] [place] [id number] Care Team Providers Care Pitch Worker Name Role Phone Edison Block MD Primary Care Provider [phone] Social History Tobacco Use Types Packs/Day Years [...] age to complete this topic Care Teams Pitch Worker Relationship Specialty Start Date End Date Edison Block MD [address] [place] [address] [facility] - General 10/11/13
--- OUTSIDE RECORDS SUMMARY | 2024-10-14 19:24 | XMS_ITS | Clinical Summary ---
Author Organization [facility] Address [address] [facility] [place] [address] Care Team Providers Care Plumber And Tinner Name Role Phone Edison Block MD Primary Care Provider Source Comments [facility],non-owned Affiliates and Associated Physician Practices is amultiple site organization consisting of ambulatory clinics and hospital sitesin [place], [place], [place] and [place]. This disclosure is being madepursuant to the Care Everywhere program and may not contain all information available regarding this patient. Last updated 17.[facility] Medications * Be aware that medications may not be up to date on this document. Alwaysverify current medications with the patient. 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 Gender Identity Not on file Sexual Orientation [...] patient's age to complete this topic Insurance [facility] [employer] GENERIC SELF PAY NO INSURANCE Member Subscriber Plan / Payer (Ef fective for All Dates) Name:Kyle Salcedo Member ID:Not on file Relation to Subscriber:Not on file Name:KYLE SALCEDO Subscriber ID:Not on file (Home) Address: [address] [place] [address] Payer ID:Not on file Group ID:Not on file Type:Self Pay Address: [place], [place] Care Teams Plumber And Tinner Relationship Specialty Start Date End Date Edison Block MD [address] [place], [place] [id number] PCP - General 07/23/18
--- OUTSIDE RECORDS SUMMARY | 2024-10-14 19:24 | XMS_ITS | Clinical Summary ---
Author Organization [facility] Address [address] [place] [address] Phone Care Team Providers Care Director Of Public Relations Name Role Phone Unavailable Primary Care Provider Unavailabl e Encounters Date Type Department Care Team Description 10/09/2024 Chart Note [facility] Minimally Invasive Gynecology [address] [facility] [address] [place] [address] Lauren Amato LPN from Last [...] Description 12/09/2024 3:00 PM CDT Office Visit [facility] Invasive Gynecology [address] [facility] [address] [place] [address] Miguel Angel Snow MD [address] [facility] [address] [place] [address] Health Maintenance Due Date Last Done Comments HPV VACCINES (1 - 3-dose series) 2000 DTAP/TDAP/TD VACCINES (1 - Tdap) 2004 HEPATITIS B VACCINES (1 of 3 - 19+ 3-dose series) 11/2004 HPV/Cotest (21-29) 2006 CERVICAL CANCER SCREENING 2015 HPV/Cotest (30-65) 2015 PAP SMEAR 2015 Preventative Visit- Commercial 03/06/2024 INFLUENZA VACCINE (#1) 2024 Insurance [employer] [id number]
[2024-10-14 19:25] LABS: Hemoglobin 6.0 g/dL (12.0-15.0)
[2024-10-14 19:26] LABS: Alanine Aminotransferase 15 U/L (6-35); Albumin Level 4.0 g/dL (3.5-5.1); Alkaline Phosphatase 62 U/L (38-126); Anion Gap 8 mmol/L (4-12); Aspartate Amino Transferase 25 U/L (14-36); Bilirubin,Total 0.3 mg/dL (0.2-1.3); Blood Urea Nitrogen 19 mg/dL (7-17); Calcium 8.6 mg/dL (8.4-10.2); Carbon Dioxide 21 mmol/L (22-30); Chloride 108 mmol/L (98-107); Estimated CRCL calculation 129 ml/min; Estimated Glomerular Filt Rate > 60; Glucose 91 mg/dL (65-110); Potassium 4.1 mmol/L (3.4-5.0); Sodium 137 mmol/L (137-145); Total Protein 7.1 g/dL (6.3-8.2)
[2024-10-14 19:27] LABS: Band Neutrophils Percent 0 % (0-6); Schistocytes None Seen
[2024-10-14 19:28] LABS: Anisocytosis 2+; Hypochromasia 1+
[2024-10-14 19:31] LABS: Microcytosis 1+ (NORMAL)
[2024-10-14] MEDS: SODIUM CHLORIDE 0.9% IV 250 ML 30 ML IV CONT (20:35)
[2024-10-14] MEDS: TUBING, BLOOD PLUM PUMP TUBING 1 EACH XX ×2 (20:35→23:00)
[2024-10-15 00:13] VITALS: BP 125/83; PULSE 84; RESP 18; TEMP 37.2; O2SAT 100
[2024-10-15 00:32] LABS: Hematocrit 25.4 % (37.0-47.0); Hemoglobin 7.3 g/dL (12.0-15.0)
[2024-10-15 00:48] VITALS: BP 137/86; PULSE 78; RESP 20; TEMP 37.2; O2SAT 100
[2024-10-15 01:21] VITALS: BP 137/86; PULSE 79; RESP 16; O2SAT 100
== END 2024-10-15 01:21 | disposition home or self-care (01) ==
PROVIDERS: Emergency Medicine; Emergency Provider Student in an Organized Health Care Education/Training Program; PCP Family Medicine
DX: D64.9 Anemia, unspecified (principal); N92.0 Excessive and frequent menstruation with regular cycle; E03.9 Hypothyroidism, unspecified; E53.8 Deficiency of other specified B group vitamins; I10 Essential (primary) hypertension; Z79.899 Other long term (current) drug therapy
CPT/HCPCS: 36415; 36430; 80053; 85014; 85018; 85025; 85610; 85730; 86850; 86900; 86901; 86920; 96360; 96361; 99285; J7050; P9016

== ENCOUNTER 2024-10-22 14:21 | Outpatient (CLI) | payer OTHER, SELFPAY ==
--- OUTSIDE RECORDS SUMMARY | 2024-10-22 14:52 | XMS_ITS | Clinical Summary ---
Author Organization [facility] Address [address] [facility] [place] [address] Care Team Providers Care Small Offset Printer Name Role Phone Edison Block MD Primary Care Provider [phone] Source Comments [facility],non-owned Affiliates and Associated Physician Practices is amultiple site organization consisting of ambulatory clinics and hospital sitesin [place], [place], [place] and [place]. This disclosure is being madepursuant to the Care Everywhere program and may not contain all information available regarding this patient. Last updated 17.[facility] Medications * Be aware that medications may not be up to date on this document. Alwaysverify current medications with the patient. 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 Gender Identity Not on file Sexual Orientation Not on file Plan of Treatment Health Maintenance Due Date Last Done Comments HIV SCREENING 2000 HEPATITIS C SCREENING 03/10/2003 DTAP/TDAP/TD VACCINES (1 - Tdap) 2004 HEPATITIS B VACCINE (1 of 3 - 19+ 3-dose series) 2004 HPV VACCINE (1 - 3-dose SCDM series) [...] patient's age to complete this topic Insurance [facility] GENERIC SELF PAY NO INSURANCE Member Subscriber Plan / Payer (Ef fective for All Dates) Name:Kyle Salcedo Member ID:Not on file Relation to Subscriber:Not on file Name:KYLE SALCEDO Subscriber ID:Not on file (Home) Address: [address] [place] [address] Payer ID:Not on file Group ID:Not on file Type:Self Pay Address: [place], [place] Care Teams Small Offset Printer Relationship Specialty Start Date End Date Edison Block MD [address] [place], [place] [id number] PCP - General 07/23/18
--- OUTSIDE RECORDS SUMMARY | 2024-10-22 14:52 | XMS_ITS | Clinical Summary ---
Author Organization [address] Address [address] [place] [address] Care Team Providers Care Supervisor Baking Name Role Phone Edison Block MD Primary Care Provider [phone] Allergies No known active allergies Medications cyclobenzaprine [...] infection, site not specified;Recorded Elsewhere: No Location: [facility] Source: EHR Chronic: N Practice ID: [id number] Billable Time: 01:00:00 PM Obesity with body mass index 30 or greater 01/21 Overview (03/15/2023): Body mass index (BMI) 34.0-34.9, adult;Recorded Elsewhere: No Location: [facility] Source: EHR Chronic: N Practice ID: [id number] Billable Time: 01:30:00 PM Cyst of ovary 07/07/2015 Overview (12/06/2022): Unspecified ovarian cysts;Practice ID: 0001 Elevated blood-pressure read ing without diagnosis of hypertension 05/20/2015 Overview (12/06/2022): Elevated blood-pressure reading, without diagnosis of hypertension;Recorded Elsewhere: No Location: [facility] Source: EHR Chronic: N Practice ID: [id number] Billable Time: 01:15:00 PM Irregular periods 07/09/2013 Overview (03/15/2023): Irregular menstrual cycle;Recorded Elsewhere: No Location: [facility] Source: EHR Chronic: N Practice ID: [id number] Billable Time: 08:30:00 AM Leukocytosis 10/24/2011 Overview (03/15/2023): LEUKOCYTOSIS NOS;Recorded Elsewhere: No Location: [facility] Source: EHR Chronic: N Practice ID: [...] (12/06/2022): Absence of menstruation;Recorded Elsewhere: No Location: [facility] Source: EHR Chronic: N Practice ID: [...] on file 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
--- OUTSIDE RECORDS SUMMARY | 2024-10-22 14:52 | XMS_ITS | Clinical Summary ---
Author Organization [facility] Address [address] [place] [address] Phone Care Team Providers Care Nitro Worker Name Role Phone Unavailable Primary Care Provider Unavailabl e Encounters Date Type Department Care Team Description 10/09/2024 Chart Note [facility] Minimally Invasive Gynecology [address] [facility] [address] [place] [address] Lauren Amato LPN from Last [...] Description 12/09/2024 3:00 PM CDT Office Visit [facility] Invasive Gynecology [address] [facility] [address] [place] [address] Miguel Angel Snow MD [address] [facility] [address] [place] [address] Health Maintenance Due Date Last Done Comments HPV VACCINES (1 - 3-dose series) 2000 DTAP/TDAP/TD VACCINES (1 - Tdap) 2004 HEPATITIS B VACCINES (1 of 3 - 19+ 3-dose series) 11/2004 HPV/Cotest (21-29) 2006 CERVICAL CANCER SCREENING 2015 HPV/Cotest (30-65) 2015 PAP SMEAR 2015 INFLUENZA VACCINE (#1) 2024 Insurance [employer] [id number]
[2024-10-22 15:01] LABS: Hematocrit 31.7 % (37.0-47.0); Hemoglobin 9.1 g/dL (12.0-15.0); Mean Corpuscular HGB Conc 28.7 g/dl (32-36); Mean Corpuscular Hemoglobin 23.3 pg (26-34); Mean Corpuscular Volume 81.3 fl (80-100); Platelet Count Result 290 k/mm3 (150-375); Red Blood Count 3.90 M/mm3 (4.2-5.4); White Blood Count 6.1 K/mm3 (4.5-10.0)
[2024-10-22 15:29] LABS: Alanine Aminotransferase 13 U/L (6-35); Albumin Level 3.8 g/dL (3.5-5.1); Alkaline Phosphatase 56 U/L (38-126); Anion Gap 6 mmol/L (4-12); Aspartate Amino Transferase 26 U/L (14-36); Bilirubin,Total 0.3 mg/dL (0.2-1.3); Blood Urea Nitrogen 15 mg/dL (7-17); Calcium 8.9 mg/dL (8.4-10.2); Carbon Dioxide 25 mmol/L (22-30); Chloride 108 mmol/L (98-107); Estimated Glomerular Filt Rate > 60; Glucose 73 mg/dL (65-110); Potassium 3.7 mmol/L (3.4-5.0); Sodium 139 mmol/L (137-145); Total Protein 6.9 g/dL (6.3-8.2)
[2024-10-22 16:05] LABS: Thyroid Stimulating Hormone 1.440 uIU/mL (0.465-4.680)
== END 2024-10-22 14:22 | disposition home or self-care (01) ==
LOC: ANHLAB 14:29
PROVIDERS: PCP Family Medicine; Visit Provider Nurse Practitioner Family
DX: D64.9 Anemia, unspecified (principal); I10 Essential (primary) hypertension; E03.9 Hypothyroidism, unspecified
CPT/HCPCS: 36415; 80053; 84443; 85027